=== PATIENT | female | born 1955 | race Caucasian/White ===

== ENCOUNTER 2019-06-05 13:44 | Outpatient (RCR) | payer MEDICARE, SELFPAY | END 2019-06-28 23:59 | disposition home or self-care (01) | LOC: SPT 13:44 | PROVIDERS: Family Provider Family Medicine; PCP Family Medicine; Visit Provider Family Medicine | DX: G89.29 Other chronic pain (principal); M54.5 Low back pain; M25.551 Pain in right hip; M25.512 Pain in left shoulder | CPT/HCPCS: 97110; 97161; 97164; G0283 ==

== ENCOUNTER → 2019-06-24 16:21 | Outpatient (BNVA) | payer MEDICARE, SELFPAY | PROVIDERS: Family Provider Family Medicine; PCP Family Medicine; Referring Provider Family Medicine; Visit Provider Specialist | DX: M25.512 Pain in left shoulder (principal) | CPT/HCPCS: 73030 ==

== ENCOUNTER 2019-06-29 06:00 | Outpatient (RCR) | payer MEDICARE, SELFPAY | END 2019-07-27 23:59 | disposition home or self-care (01) | LOC: SPT 06:00 | PROVIDERS: Family Provider Family Medicine; PCP Family Medicine; Visit Provider Family Medicine | DX: G89.29 Other chronic pain (principal); M54.5 Low back pain; M25.551 Pain in right hip; M25.512 Pain in left shoulder | CPT/HCPCS: 97110; 97112; 97140; 97530 ==

== ENCOUNTER 2019-07-28 06:00 | Outpatient (RCR) | payer MEDICARE, SELFPAY | END 2019-08-27 23:59 | disposition home or self-care (01) | LOC: SPT 06:00 | PROVIDERS: Family Provider Family Medicine; PCP Family Medicine; Visit Provider Family Medicine | DX: M19.012 Primary osteoarthritis, left shoulder (principal) | CPT/HCPCS: 97110 ==

== ENCOUNTER 2019-07-31 15:13 | Outpatient (CLI) | payer MEDICARE, SELFPAY ==
--- NOTE | 2019-07-31 15:15 | MR_ITS ---
WS: [id number] MRI LUMBAR SPINE NONCONTRAST HISTORY: CHRONIC LOW BACK PAIN COMPARISON: None available. TECHNIQUE: Sagittal and axial multisequence imaging is submitted. Reversal normal cervical lordosis with degenerative disc disease in the cervical spine. Mild LEFT con vex curvature thoracic spine. Advanced degenerative disc disease at T11-12. Very slight anterior wedg ing of T12 Severe degenerative changes throughout the lumbar spine. Focal RIGHT convex curvature of the mid lumb ar spine with asymmetric disc space narrowing. Severe disc space narrowing at all levels with reactiv e marrow edema. No fractures. Most significant degenerative disc disease is at L1-2, L2-3 and L3-4. Conus terminates normally at L1. L1-L2: L1 retrolisthesis by 3 mm with a focal LEFT paracentral and subarticular recess disc protrusio n and facet arthropathy with encroachment upon the lateral thecal sac. Moderate bilateral foraminal s tenosis with more advanced LEFT subarticular recess stenosis. L2-L3: Diffuse disc bulging with facet and ligamentum flavum hypertrophy. Mild osteophytic ridging an d 2 mm retrolisthesis of L2. Severe bilateral foraminal stenosis. L3-L4: Diffuse disc bulging and facet arthropathy. Moderate central and LEFT subarticular and LEFT fo raminal stenosis. Severe RIGHT subarticular recess and RIGHT foraminal stenosis. L4-L5: Moderate to severe central with bilateral foraminal and subarticular recess stenosis due to co mbination of disc and facet disease and osteophytes. L5-S1: Very slight clumping of the nerve roots in the thecal sac with mild bilateral foraminal stenos is. RIGHT renal cyst measures 2.2 cm. MR/MR lumbar spine wo con* [id number] IMPRESSION: 1. Severe degenerative rotoscoliosis throughout the lumbar spine with multi le maria e areas of stenosis. 2. Moderate to severe central, bilateral subarticular recess stenosis at L3-4 and L4-5. 3. Severe bilateral foraminal stenosis at L2-3. 4. Moderate bilateral foraminal stenosis, greatest on the LEFT at L1-2 due to combination of disc disease and facet arthropathy. There is a focal LEFT parace ntral and subarticular disc protrusion at this level also.
== END 2019-07-31 15:14 | disposition home or self-care (01) ==
LOC: RADSHAW 15:13
PROVIDERS: Family Provider Family Medicine; PCP Family Medicine; Visit Provider Family Medicine
DX: M48.061 Spinal stenosis, lumbar region without neurogenic claudication (principal); M51.26 Other intervertebral disc displacement, lumbar region; M54.5 Low back pain; G89.29 Other chronic pain
CPT/HCPCS: 72148

== ENCOUNTER 2019-11-26 08:42 | Outpatient (CLI) | payer MEDICARE, SELFPAY ==
--- NOTE | 2019-11-26 09:00 | IR_ITS ---
WS: [id number] LUMBAR MYELOGRAM HISTORY: Low back pain COMPARISON: MRI 07/31/2019. FLUOROSCOPY TIME: 1.4 minutes. Procedure, risks and complications were explained to the patient. Risks including bleeding, infection , headaches, allergic reaction and seizures. Consent has been obtained. With the patient in prone position the skin over the lumbar region is cleansed with ChloraPrep and an esthetized with lidocaine. 22-gauge spinal needle is inserted into the thecal sac at the appropriate level determined by fluoroscopy. Omnipaque 240; 12 ml is injected slowly under fluoroscopy with no co mplications. Needle bevel is perpendicular to the longitudinal fibers of the dura. Stylet is reinsert ed prior to removal of the needle. Patient tolerated the procedure well. Patient will proceed to CT f or further evaluation. Moderate thoracolumbar scoliosis. S-shaped curvature the lumbar spine with osteopenia. Advanced degen erative changes at the disc spaces. No fractures or destructive process. L2 retrolisthesis by 3.8 mm on neutral imaging. Increases to 6.6 mm during extension with no change d uring flexion. L4 anterolisthesis by 2.6 mm on neutral increases to 4.9 mm during flexion and extension. Mild atherosclerosis aorta. IR/IR myelogram sp lumbar [id number] IMPRESSION: 1. Uncomplicated lumbar myelogram. 2. Flexion/extension instability of L2 and L4. 3. Moderate S-shaped lumbar scoliosis lumbar spine.
[2019-11-26] MEDS: iohexol 240 mg/mL 50 mL Btl INTRATHECA (10:15)
--- NOTE | 2019-11-26 11:30 | CT_ITS ---
WS: [id number] CT MYELOGRAM LUMBAR SPINE HISTORY: Low back pain TECHNIQUE: Contiguous 2.5 mm axial imaging performed from T12 through the mid sacral level. Bone and soft tissue windows reviewed. Sagittal and coronal reformats are submitted and reviewed. DLP: 1800.[address] scans at [facility] use at least one of these dose optimization techniques: automat ed exposure control; mA and/or kV adjustment per patient size (includes targeted exams where dose is matched to clinical indication); or iterative reconstruction. COMPARISON: MRI 07/31/2019 S-shaped curvature lumbar spine. Asymmetric disc space narrowing and osteophytes and facet joint arth ritis. 3 to 4 mm retrolisthesis of L1-L3. L4 anterolisthesis by 3 mm. No fractures. Severe degenerati ve disc space narrowing at L1-2 and L2-3. Moderate at L4-5. L1-L2: Diffuse osteophytic ridging and annular disc bulging. Small central and LEFT paracentral disc protrusion with mild contact on the cord. L2-L3: Retrolisthesis of L2 resulting in compression upon the ventral thecal sac. There is annular di sc bulging and facet arthritis. Mild central and LEFT subarticular recess stenosis. Severe bilateral foraminal stenosis. L3-L4: Retrolisthesis of L3 with diffuse annular disc bulging. RIGHT paracentral disc protrusion exte nds into the lateral recess. Moderate central and RIGHT subarticular recess stenosis. Severe RIGHT fo raminal stenosis. L4-L5: Diffuse annular disc bulging and osteophytic ridging with facet arthritis. Osteophytes encroac h into the central canal by facet disease on the RIGHT. Moderate central, subarticular recess and kenia ateral foraminal stenosis. L5-S1: Mild posterior disc bulging. No stenosis. CT/CT lumbar spine w con [id number] IMPRESSION: 1. Moderate S-shaped scoliosis lumbar spine with advanced disc disease and fac et arthritis throughout the lumbar spine. 2. Moderate central and RIGHT subarticular recess stenosis and severe RIGHT fo raminal stenosis at L3-4 due to combination of factors. 3. Moderate central, subarticular recess and bilateral foraminal stenosis at L 4-5. 4. Small central LEFT paracentral disc protrusion at L1-[address] 5. Severe bilateral foraminal stenosis at L2-3.
== END 2019-11-26 08:43 | disposition home or self-care (01) ==
LOC: RADWPI 08:46
PROVIDERS: Family Provider Family Medicine; PCP Family Medicine; Visit Provider Licensed Practical Nurse
DX: M51.17 Intervertebral disc disorders with radiculopathy, lumbosacral region (principal); M51.26 Other intervertebral disc displacement, lumbar region
CPT/HCPCS: 62304; 72120; 72132; Q9966

== ENCOUNTER 2020-01-06 15:20 | Outpatient (CLI) | payer MEDICARE, SELFPAY ==
--- NOTE | 2020-01-06 15:28 | MM_ITS ---
WS: [id number] BILATERAL DIGITAL SCREENING MAMMOGRAPHY WITH CAD CLINICAL INFORMATION: SCREENING HISTORY: Screening mammogram. No current complaints. COMPARISON: TECHNIQUE: Bilateral CC and MLO views. FINDINGS: The breasts are composed of heterogeneous fibroglandular density tissue, which can limit the detectio n of small underlying mass lesions. No suspicious mass, asymmetry, calcifications, or architectural d istortion. No evidence of malignancy. Punctate and lucent centered calcifications right breast. Left breast biopsy marker. MM/[place] [id number] IMPRESSION: BI-RADS: 2-Benign FOLLOW UP: 1 Year Follow-up Recommend return to annual screening mammography.
== END 2020-01-06 15:21 | disposition home or self-care (01) ==
LOC: RADSHAW 15:27
PROVIDERS: PCP Family Medicine; Visit Provider Family Medicine
DX: Z12.31 Encounter for screening mammogram for malignant neoplasm of breast (principal)
CPT/HCPCS: 77067

== ENCOUNTER → 2020-01-30 13:06 | Outpatient (BNVA) | payer MEDICARE, SELFPAY | PROVIDERS: PCP Family Medicine; Visit Provider Anesthesiology Pain Medicine | DX: M48.062 Spinal stenosis, lumbar region with neurogenic claudication (principal); M43.16 Spondylolisthesis, lumbar region; M48.061 Spinal stenosis, lumbar region without neurogenic claudication; M51.17 Intervertebral disc disorders with radiculopathy, lumbosacral region; M54.2 Cervicalgia; Z79.899 Other long term (current) drug therapy | CPT/HCPCS: 99205 ==

== ENCOUNTER → 2020-02-11 17:08 | Outpatient (BNVA) | payer MEDICARE, SELFPAY | PROVIDERS: PCP Family Medicine; Visit Provider Nurse Practitioner Family | DX: Z20.828 Contact with and (suspected) exposure to other viral communicable diseases (principal) | CPT/HCPCS: 87635 ==

== ENCOUNTER → 2020-03-04 12:39 | Outpatient (BNVA) | payer MEDICARE, SELFPAY | PROVIDERS: PCP Family Medicine; Visit Provider Anesthesiology Pain Medicine | DX: M48.062 Spinal stenosis, lumbar region with neurogenic claudication (principal); F17.290 Nicotine dependence, other tobacco product, uncomplicated | CPT/HCPCS: 64483; 64484; J1040; J3490 ==

== ENCOUNTER → 2020-03-12 13:41 | Outpatient (BNVA) | payer MEDICARE, SELFPAY | PROVIDERS: PCP Internal Medicine; Visit Provider Anesthesiology Pain Medicine | DX: M48.062 Spinal stenosis, lumbar region with neurogenic claudication (principal); M43.16 Spondylolisthesis, lumbar region; M48.061 Spinal stenosis, lumbar region without neurogenic claudication; M51.17 Intervertebral disc disorders with radiculopathy, lumbosacral region; M54.2 Cervicalgia; F17.210 Nicotine dependence, cigarettes, uncomplicated | CPT/HCPCS: 99213 ==

== ENCOUNTER 2020-03-27 12:56 | Outpatient (CLI) | payer MEDICARE, SELFPAY ==
--- NOTE | 2020-03-27 | CT_ITS ---
WS: [id number] Exam: CT neck w con* [id number] Date/Time of Exam: 03/27/2020 1:01 PM Reason For Exam: COUGH DLP: 2069.[address] scans at [facility] use at least one of these dose optimization techniques: automat ed exposure control; mA and/or kV adjustment per patient size (includes targeted exams where dose is matched to clinical indication); or iterative reconstruction. The neck is evaluated in the axial plane with sagittal and coronal re-formatted images. Intravenous c ontrast was administered. There is soft tissue thickening identified along the posterior aspect of the airway near the level of the vocal cords. A small mass is not excluded. No significant lymphadenopathy in the neck. The airwa y is otherwise patent. The submandibular glands and parotid glands are symmetrical side to side. No m ass is seen in the region of the tongue base. Vascular structures are unremarkable. Degenerative novak ges of the cervical spine. Moderate spinal canal stenosis at the C5-6 level secondary to posterior os teophyte formation. The lung apices are clear. Recommendations: Further workup with direct visualization is suggested. CT/CT neck w con* [id number] IMPRESSION: 1. Soft tissue thickening seen along the posterior aspect of the airway near th e level of the vocal cords. A small mass is not excluded. There is no lymphaden opathy in the neck.
[2020-03-27 14:01] LABS: Blood Urea Nitrogen 9 mg/dL (8-23)
[2020-03-27] MEDS: iohexol 300 mg/mL 100 mL Btl IV (14:14)
== END 2020-03-27 12:57 | disposition home or self-care (01) ==
LOC: RADWPI 12:59
PROVIDERS: PCP Internal Medicine; Visit Provider Specialist
DX: R05 Cough (principal)
CPT/HCPCS: 70491; 82565; 84520; Q9967

== ENCOUNTER → 2020-04-01 17:03 | Outpatient (BNVA) | payer MEDICARE, SELFPAY | PROVIDERS: PCP Internal Medicine; Visit Provider Internal Medicine Pulmonary Disease | DX: Z11.59 Encounter for screening for other viral diseases (principal); J43.2 Centrilobular emphysema | CPT/HCPCS: 87635 ==

== ENCOUNTER 2020-04-03 15:25 | Outpatient (CLI) | payer MEDICARE, SELFPAY ==
--- NOTE | 2020-04-03 | USCV_ITS ---
Kamla Ghotra Age: 65 Gender: F : 1955 Exam Date: 04/03/2020 16:01 Ordering Phys: CODY STEWARD Technologist: Lionel Guidry Exam Location: [facility] [place] Indication: RIGHT LEG EDEMA AND PAIN PROCEDURES: Venous duplex imaging was performed in only the right lower extremity. The following venous structures were evaluated: common femoral vein, profunda vein, proximal portion of the greater saphenous vein, superficial femoral vein, and the popliteal vein. In addition, the posterior tibial and peroneal trunk were evaluated. Serial compression, augmentation maneuvers, and spectral Doppler flow evaluation were performed. FINDINGS: No DVT at this time. There is thrombus noted in the right greater saphenous vein extending from below the knee to the high thigh. It does not extend into the groin or the common femoral vein. All other veins appear free of thrombus at this time. CONCLUSIONS No evidence of right lower extremity DVT. Superficial thrombus right GSV from below the knee to upper thigh Lobo Shipman MD (Electronically Signed) Final Date: 03 April 2020 16:53 S
[2020-04-03 16:34] LABS: Basophils % 0.5 %; Eosinophils # 0.1 10^3/uL (0.0-0.8); Eosinophils % 0.8 %; Hematocrit 39.8 % (37.0-47.0); Hemoglobin 13.3 g/dL (11.5-15.3); Lymphocytes % 17.6 %; Mean Corpuscular HGB Conc 33.4 g/dL (30.0-36.0); Mean Corpuscular Hemoglobin 28.5 pg (28.0-34.0); Mean Corpuscular Volume 85.2 fL (81-99); Mean Platelet Volume 9.7 fL (7.4-10.4); Monocytes # 0.5 10^3/uL (0.2-0.9); Neutrophils % 72.8 %; Nucleated Red Blood Cells % 0 %; Platelet Count 307 10^3/cmm (130-400); Red Blood Count 4.67 10^6/uL (4.1-5.3); Red Cell Distribution Width 13.8 % (12.1-15.1); White Blood Count 5.9 10^3/uL (4.0-10.0)
[2020-04-06 17:04] LABS: Alternaria Alternata (M6) Ige <0.10 kU/L; Alternaria Class 0; Bermuda Class 2; Bermuda Grass (G2) Ige 1.21 kU/L; Cat Dander (E1) Ige 0.52 kU/L; Cat Dander Class 1; Common Ragweed (Short) (W1) Ig 4.18 kU/L; D. Farinae Class 1; Dermatophagoides Class 0/1; Dermatophagoides Farinae (D2) 0.56 kU/L; Dermatophagoides Pteronyssinus 0.32 kU/L; Dog Dander (E5) Ige 0.37 kU/L; Dog Dander Class 1; Elm (T8) Ige 1.19 kU/L; Elm Class 2; English Plantain Class 2; House Dust (Greer) (H1) Ige 0.82 kU/L; House Dust (Hollister- Stier) 0.47 kU/L; House Dust Class 1; House Dust Class 2; Immunoglobulin E 209 kU/L (<OR=114); Immunoglobulin E 210 kU/L (<OR=114); Johnson Grass (G10) Ige 1.31 kU/L; Johnson Grass Cl 2; June Grass Class 2; June Grass(Kentucky Blue) (G8) 2.52 kU/L; Lamb'S Quarters (Goose Foot) 0.98 kU/L; Lamb'S Quarters Class 2; Maple (Box Elder) (T1) Ige 1.01 kU/L; Maple Class 2; Meadow Fescue (G4) Ige 2.58 kU/L; Meadow Fescue Class 2; Mucor Racemosus Class 0/1; Oak (T7) Ige 0.91 kU/L; Oak Class 2; Orchard Grass (Cocksfoot) (G3) 2.22 kU/L; Penicillium Class 0; Penicillium Notatum (M1) Ige <0.10 kU/L; Perennial Rye Grass (G5) Ige 2.24 kU/L; Perennial Rye Grass Class 2; Ragweeed Class 3; Rough Marsh Elder Class 2; Sweet Vernal Class 2; Sweet Vernal Grass (G1) Ige 2.65 kU/L; Timothy Grass (G6) Ige 2.32 kU/L; Timothy Grass Class 2
[2020-04-08 21:58] LABS: Aspergillus Fumigatus, Igg Ab, 35.8 mg/L (<=102)
== END 2020-04-03 15:26 | disposition home or self-care (01) ==
LOC: RAD 15:30
PROVIDERS: Internal Medicine Pulmonary Disease; PCP Internal Medicine; Visit Provider Nurse Practitioner Family
DX: R60.0 Localized edema (principal); M79.604 Pain in right leg; I82.890 Acute embolism and thrombosis of other specified veins
CPT/HCPCS: 82785; 85025; 86003; 93971

== ENCOUNTER 2020-04-03 16:44 | Emergency (ER) | payer MEDICARE, SELFPAY ==
[2020-04-03 17:37] VITALS: BP 129/84; PULSE 94; RESP 16; TEMP 36.8; O2SAT 98; BMI 26.6
--- NOTE | 2020-04-03 18:27 | W.ED.RECABL ---
HPI - Recheck/Abnormal Lab/Rx General: Chief Complaint: Extremity Problem,Nontraumatic Stated Complaint: just did ultrasound/found blood clots/[employer] Time Seen by Provider: 04/03/20 18:27 Source: patient Mode of arrival: ambulatory Limitations: no limitations History of Present Illness: HPI narrative: Patient comes in for redness to the right inner leg. Patient denies any pain or fever. Patient does report some tenderness along the erythematous area. Review of Systems General: Reports: 10 or more systems reviewed and unremarkable except in HPI and below Skin/Breast: Reports: erythema and skin tenderness PFS ED PFSH: Medical History (Updated 04/03/20 @ 18:58 by SAMANTHA Blankenship) COPD (chronic obstructive pulmonary disease) Hypertension Hypothyroidism Intervertebral disc disorder with radiculopathy of lumbosacral region Lumbar stenosis with neurogenic claudication Osteoarthritis Scoliosis of thoracolumbar spine Spinal stenosis of lumbar region with radiculopathy Spondylolisthesis, lumbar region Surgical History History of hernia repair History of tonsillectomy Family History Mother Ovarian cancer Social History (Updated 03/23/20 @ 13:57 by Ross Chanel LPN) Smoking and tobacco status: current every day smoker cigarettes Packs smoked per day: 0.5 Years cigarettes smoked: 37 [ Other cigarette details: [id number] ] Quit status (tobacco): considering quitting Second hand smoke exposure: No Smoking risk assessment/counseling performed?: Yes Alcohol intake: current Alcohol intake frequency: holidays/special occasions only Caregiver/support person: No Lives independently: Yes Household members: none Marital status: Single Current occupational status: employed Current occupation: [employer] History of recent travel: No Current gender identity: Female Physical Exam Const: COMMON NORMALS: no acute distress and patient oriented x3 GENERAL APPEARANCE: cooperative HENMT: COMMON NORMALS: normocephalic and Normal external nose present HEAD & SCALP: normal to inspection and normocephalic NOSE: Normal external nose present Eye: GENERAL EYE: appearance normal, both eyes and all related structures Neck/C-Spine: COMMON NORMALS: full ROM Chest: COMMONS NORMALS: normal inspection of the chest Resp: COMMON NORMALS: normal respiratory effort EFFORT & INSPECTION: Yes able to speak in complete sentences Cardio: COMMON NORMALS: regular rate and regular rhythm RATE: regular rate RHYTHM: regular rhythm GI: COMMON NORMALS: non-tender : COMMON NORMALS: Yes no CVA tenderness BLADDER/KIDNEY EXAM: Yes no CVA tenderness Back/Pelvis: COMMON NORMALS: no CVA tenderness and thoracic and lumbar spine normal to inspection Extremity: COMMON NORMALS: normal to inspection Neuro: COMMON NORMALS: patient oriented x3 and moves all extremities Psych: COMMON NORMALS: mental status grossly normal and cooperative Skin: NARRATIVE SKIN EXAM: Note a linear area of redness to the right inner leg. There is multiple tortuous varicose veins. Along the area of redness you can palpate a ropey varicose vein. It is tender to touch. Course Vital Signs: Vital signs: Vital Signs Temperature 98.2 F 04/03/20 17:37 Pulse Rate 94 04/03/20 17:37 Respiratory Rate 18 04/03/20 18:50 Blood Pressure 129/84 04/03/20 17:37 Pulse Oximetry 98 04/03/20 17:37 MDM - Recheck/Abnormal Lab/Rx MDM Narrative: Medical decision making narrative: Patient came in for concerns of a venous blood clot. On exam we note a ropey varicosity. Differential diagnosis includes DVT, superficial thrombophlebitis, cellulitis. Patient has a superficial thrombophlebitis. We will treat with famotidine and Ecotrin. I reviewed this with Dr. Preston who agreed to plan. Patient should follow-up with primary care for further treatment. Discharge Plan Discharge Patient Disposition: Home Clinical Impression: Superficial thrombophlebitis of leg Qualifiers: Laterality: right Qualified Code(s): I80.01 - Phlebitis and thrombophlebitis of superficial vessels of right lower extremity Condition: Stable Prescriptions: New Ecotrin 325 mg tablet,delayed release (DR/EC) 325 mg PO TID Qty: 30 RF: 0 famotidine 40 mg tablet 40 mg PO BID Qty: 60 RF: 0 No Action cholecalciferol (vitamin D3) 25 mcg (1,000 unit) capsule 25 mcg PO DAILY RF: 0 One-A-Day Women's 50 Plus 400-20 mcg tablet 1 tab PO DAILY RF: 0 methylprednisolone acetate [Depo-Medrol] 80 mg/mL suspension 80 mg Infiltration ONCE Qty: 1 RF: 0 sodium chloride 0.9 % Solution 5 ml epidural ONCE Qty: 1 RF: 0 bupivacaine (PF) 0.25 % (2.5 mg/mL) solution 2 ml epidural ONCE Qty: 1 RF: 0 lidocaine (PF) 10 mg/mL (1 %) solution 10 mg SUBCUT ONCE Qty: 1 RF: 0 doxycycline hyclate 100 mg capsule 100 mg PO BID RF: 0 Spiriva Respimat 2.5 mcg/actuation mist 2 puff INHALATION DAILY Qty: 4 RF: 3 montelukast [Singulair] 10 mg tablet 10 mg PO DAILY Qty: 30 RF: 3 fluticasone propionate [Flonase Allergy Relief] 50 mcg/actuation spray,suspension 1 spray INTRANASAL BID Qty: 9.9 RF: 3 diazepam 10 mg tablet 10 mg PO TID PRNRF: 0 levothyroxine 100 mcg tablet 100 mcg PO QDAY RF: 0 irbesartan 300 mg tablet 150 mg PO QDAY RF: 0 amlodipine 5 mg tablet 5 mg PO DAILY RF: 0 ascorbic acid (vitamin C) 500 mg tablet 500 mg PO BID RF: 0 (DME) TENS 502 Device See Rx Instructions .ROUTE .MEDSUPPLY Qty: 1 RF: 0 (DME) TENS Replacement Back Pads 3.74 X 7.48 pad See Rx Instructions [id number] .MEDSUPPLY Qty: 2 RF: 0 Discharge Orders: Discharge Order (Routine); Ordered 04/03/20 Ordered By: Frank Issa Referrals: Amber Bolton DO [Primary Care Provider] - Discharge Diet: Usual diet Discharge Activity: Increase activity as tolerated Patient Instructions: Superficial Thrombophlebitis (ED) Activity Restrictions/Additional Instructions: Take famotidine 40 mg twice a day for prevention of GI bleed. Take Ecotrin, enteric-coated aspirin 325 mg, 3 times a day for redness and swelling of the veins. Use elastic bandage to the area for pain and discomfort, and support of the vasculature. Drink plenty of water. Activity as tolerated. Follow-up with primary care for further treatment. Coding Level of Care Code ED Endoscopy Rn for Ramon Fwd Exam Comprehensive
[2020-04-03 18:50] VITALS: RESP 18
[2020-04-03] MEDS: aspirin 325 mg EC Tablet PO (19:25)
[2020-04-03] MEDS: famotidine 20 mg Tablet 40 MG PO (19:25)
[2020-04-03 19:38] VITALS: RESP 18
== END 2020-04-03 19:38 | disposition home or self-care (01) ==
PROVIDERS: Emergency Provider Nurse Practitioner Family; PCP Internal Medicine
DX: I80.01 Phlebitis and thrombophlebitis of superficial vessels of right lower extremity (principal); J44.9 Chronic obstructive pulmonary disease, unspecified; I10 Essential (primary) hypertension; F17.210 Nicotine dependence, cigarettes, uncomplicated; R60.0 Localized edema; M79.604 Pain in right leg; I82.890 Acute embolism and thrombosis of other specified veins
CPT/HCPCS: 12345; 82785; 85025; 86003; 93971; 99282; 99283

== ENCOUNTER 2020-04-07 12:38 | Outpatient (CLI) | payer MEDICARE, SELFPAY ==
--- NOTE | 2020-04-07 12:45 | CT_ITS ---
WS: [id number] LDCT LUNG CANCER SCREENING TECHNIQUE: Noncontrast CT of the chest with coronal and sagittal reformatted images. CLINICAL INFORMATION: NICOTINE DEPENDENCE, CIGARETTES COMPARISON: CT chest 2 27,018 DLP: 56.96 mGy.cm DIvol: 1.[address] scans at [facility] use at least one of these dose optimization techniques: automat ed exposure control; mA and/or kV adjustment per patient size (includes targeted exams where dose is matched to clinical indication); or iterative reconstruction. FINDINGS: Moderate chronic emphysematous changes. No acute pulmonary infiltrates. No focal pneumonia or pleural fluid. Subsegmental atelectasis and fibrosis in the right lower lobe and right middle lobe. Subsegme ntal atelectasis in the lingula. Calcified granuloma left lower lobe. No axillary lymphadenopathy. No mediastinal or hilar lymphadenopathy. Normal right adrenal gland. Thickening of the left adrenal gland is unchanged.. Thoracolumbar curve c onvex right. Degenerative disc disease at L1-2 levels the disc space height and endplate sclerosis. CT/CT lung screening [id number] IMPRESSION: LUNG-RADS: 1-Negative FOLLOW UP: 12 Month: Continue annual screening with LDCT
--- NOTE | 2020-04-07 13:22 | PFTS_ITS ---
Date of Study:04/07/20 Date of Dictation: MECHANICS: Forced vital capacity (FVC) is normal. Forced expiratory volume in one second (FEV1) is normal. FEV1/FVC is normal. FLOW VOLUME LOOP: Mild scooping. LUNG VOLUMES: Total lung capacity (TLC) is elevated. Residual volume (RV) is elevated. DIFFUSING CAPACITY FOR CARBON MONOXIDE: Normal. INTERPRETATION: The pulmonary function tests are normal. The mildly elevated residual volume and total lung capacity could be nonspecific or could be secondary to small airways disease. Gas exchange (DLCO) is normal. MTDD
== END 2020-04-07 12:39 | disposition home or self-care (01) ==
LOC: RT 12:41
PROVIDERS: PCP Internal Medicine; Visit Provider Internal Medicine Pulmonary Disease
DX: J43.2 Centrilobular emphysema (principal); F17.210 Nicotine dependence, cigarettes, uncomplicated
CPT/HCPCS: 94010; 94726; 94729; G0297

== ENCOUNTER → 2020-04-20 13:26 | Outpatient (BNVA) | payer MEDICARE, SELFPAY | PROVIDERS: PCP Internal Medicine; Visit Provider Anesthesiology Pain Medicine | DX: G89.29 Other chronic pain (principal); M47.816 Spondylosis without myelopathy or radiculopathy, lumbar region; M48.062 Spinal stenosis, lumbar region with neurogenic claudication; M43.16 Spondylolisthesis, lumbar region; M48.061 Spinal stenosis, lumbar region without neurogenic claudication; M47.819 Spondylosis without myelopathy or radiculopathy, site unspecified; M51.17 Intervertebral disc disorders with radiculopathy, lumbosacral region; R10.2 Pelvic and perineal pain; M54.2 Cervicalgia | CPT/HCPCS: 99214 ==

== ENCOUNTER 2020-04-20 14:33 | Outpatient (CLI) | payer MEDICARE, SELFPAY ==
--- NOTE | 2020-04-20 14:50 | XR_ITS ---
WS: [id number] PELVIS TECHNIQUE: 1 view(s) of the pelvis CLINICAL INFORMATION: R10.2 - Pelvic and perineal pain COMPARISON: None. FINDINGS: Moderate to advanced degenerative arthritis right hip with joint space narrowing. Mild degenerative a rthritis left hip. Osteopenia. No acute fractures. Pelvic phleboliths. Degenerative arthritis sacroil iac joints. XR/XR pelvis 1-2V* [id number] IMPRESSION: Moderate degenerative arthritis right hip and mild degenerative arthritis left hip with joint space narrowing.
--- NOTE | 2020-04-20 14:50 | XR_ITS ---
WS: [id number] THORACIC SPINE TECHNIQUE: 3 views of the thoracic spine CLINICAL INFORMATION: M47.819 - Spondylosis without myelopathy or radiculopathy, site unspecified COMPARISON: None. FINDINGS: Osteopenia. Thoracic curve convex left. Mild spondylitic changes thoracic spine. Disc space narrowing in the lower thoracic and upper lumbar spine. No acute appearing compression fractures. Visualized l ungs are well aerated. XR/XR thoracic spine 3V* [id number] IMPRESSION: 1. Osteopenia. 2. Thoracic curve convex left. 3. Mild spondylitic changes. 4. No acute appearing compression fractures.
--- NOTE | 2020-04-20 14:50 | XR_ITS ---
WS: [id number] LUMBAR SPINE TECHNIQUE: 5 views of the lumbar spine CLINICAL INFORMATION: Cervical COMPARISON: None. FINDINGS: Marked S-shaped thoracolumbar scoliosis. Advanced small vessel degenerative disc disease. 5 nonrib-be aring lumbar vertebral bodies. Osteopenia. Multilevel disc space narrowing throughout the lumbar spin e. Slight retrolisthesis L1 on L2 and L2 on L3. Trace anterolisthesis L4 on L5. Disc space narrowing worse at L1-L2, L2-L3, and L4-5. Moderate facet arthropathy L4-L5 and L5-S1. Aortic calcification. Ch ronic anterior wedging in the lower thoracic spine. XR/XR lumbar spine min 4V [id number] IMPRESSION: 1. Advanced lumbar scoliosis. 2. Advanced lytic changes with osteopenia. 3. Multilevel degenerative disc disease as described above. 4. No acute appearing compression fractures.
== END 2020-04-20 14:34 | disposition home or self-care (01) ==
LOC: RADWPI 14:37
PROVIDERS: PCP Internal Medicine; Visit Provider Anesthesiology Pain Medicine
DX: M47.816 Spondylosis without myelopathy or radiculopathy, lumbar region (principal); R10.2 Pelvic and perineal pain; M85.88 Other specified disorders of bone density and structure, other site; M19.09 Primary osteoarthritis, other specified site; M16.12 Unilateral primary osteoarthritis, left hip; M41.86 Other forms of scoliosis, lumbar region; M51.36 Other intervertebral disc degeneration, lumbar region
CPT/HCPCS: 72072; 72114; 72170

== ENCOUNTER 2020-04-30 15:08 | Outpatient (CLI) | payer MEDICARE, SELFPAY ==
[2020-04-30 15:36] LABS: Basophils % 0.7 %; Eosinophils # 0.2 10^3/uL (0.0-0.8); Eosinophils % 2.7 %; Hematocrit 37.6 % (37.0-47.0); Hemoglobin 12.7 g/dL (11.5-15.3); Lymphocytes # 0.9 10^3/uL (0.8-4.8); Lymphocytes % 15.5 %; Mean Corpuscular HGB Conc 33.8 g/dL (30.0-36.0); Mean Corpuscular Hemoglobin 28.9 pg (28.0-34.0); Mean Corpuscular Volume 85.5 fL (81-99); Mean Platelet Volume 9.2 fL (7.4-10.4); Monocytes # 0.7 10^3/uL (0.2-0.9); Neutrophils # 4.14 10^3/uL (1.8-7.7); Neutrophils % 69.8 %; Nucleated Red Blood Cells % 0 %; Platelet Count 431 10^3/cmm (130-400); Red Cell Distribution Width 14.1 % (12.1-15.1); White Blood Count 5.9 10^3/uL (4.0-10.0)
[2020-04-30 16:19] LABS: Alanine Aminotransferase 13 U/L (0-33); Albumin Level 4.1 g/dL (3.5-5.2); Alkaline Phosphatase 110 IU/L (35-105); Anion Gap 16.4 (5-19); Aspartate Amino Transferase 15 U/L (0-32); Blood Urea Nitrogen 10 mg/dL (8-23); Calcium 9.7 mg/dL (8.5-10.5); Carbon Dioxide 26 mmol/L (22-29); Chloride 95 mmol/L (98-107); Globulin 2.8 g/dL (1.3-4.6); Glomerular Filtration Rate 83.5 mL/min (90-130); Glucose 104 mg/dL (65-115); Osmolality Calculated 275 mOsm/kg (285-295); Potassium 4.4 mmol/L (3.5-5.1); Sodium 133 mmol/L (136-145); Total Bilirubin 0.3 mg/dL (0.15-1.2); Total Protein 6.9 g/dL (6.6-8.7)
== END 2020-04-30 15:09 | disposition home or self-care (01) ==
PROVIDERS: PCP Internal Medicine; Visit Provider Specialist
DX: J38.3 Other diseases of vocal cords (principal)
CPT/HCPCS: 36415; 80053; 85025

== ENCOUNTER → 2020-06-02 13:53 | Outpatient (BNVA) | payer MEDICARE, SELFPAY | PROVIDERS: PCP Internal Medicine; Visit Provider Anesthesiology Pain Medicine | DX: M47.816 Spondylosis without myelopathy or radiculopathy, lumbar region (principal); M51.17 Intervertebral disc disorders with radiculopathy, lumbosacral region; M48.062 Spinal stenosis, lumbar region with neurogenic claudication; F17.210 Nicotine dependence, cigarettes, uncomplicated | CPT/HCPCS: 64493; 64494; 64495; J1040; J3490 ==

== ENCOUNTER → 2020-06-17 11:02 | Outpatient (BNVA) | payer MEDICARE, SELFPAY | PROVIDERS: PCP Internal Medicine; Visit Provider Internal Medicine Rheumatology | DX: M19.041 Primary osteoarthritis, right hand (principal); M19.042 Primary osteoarthritis, left hand; I73.00 Raynaud's syndrome without gangrene; Z79.899 Other long term (current) drug therapy; J43.2 Centrilobular emphysema; F17.210 Nicotine dependence, cigarettes, uncomplicated; M21.612 Bunion of left foot; M21.611 Bunion of right foot; M20.42 Other hammer toe(s) (acquired), left foot; M20.41 Other hammer toe(s) (acquired), right foot; M19.072 Primary osteoarthritis, left ankle and foot; M19.071 Primary osteoarthritis, right ankle and foot | CPT/HCPCS: 36415; 73130; 73630; 82306; 85651; 86140; 86431; 99204 ==

== ENCOUNTER 2020-06-17 13:41 | Outpatient (CLI) | payer MEDICARE, SELFPAY ==
--- NOTE | 2020-06-17 13:59 | XR_ITS ---
WS: [id number] Left foot, 3 views, 06/17/2020 Clinical Data: M19.90 - Unspecified osteoarthritis, unspecified site Comparison: None. Findings: No fractures or dislocations are seen. There is a bunion of the head of the left first metatarsal. Th ere are hammertoes deformities of the left second through fifth toes. There is osteoarthritic change at the bases of the second through fifth metatarsals. There is a plantar spur.The soft tissues are no rmal. XR/XR foot LT min 3V* [id number] Impression: 1. Bunion at head of the left first metatarsal. 2. Hammertoe deformity of the left second through fifth toes. 3. Osteoarthritis at the bases of the second through fifth left foot metatarsal s.
--- NOTE | 2020-06-17 13:59 | XR_ITS ---
WS: [id number] Right foot, 3 views, 06/17/2020 Clinical Data: M19.90 - Unspecified osteoarthritis, unspecified site Comparison: None. Findings: No new fractures or dislocations are seen. There is a healed fracture of the distal third of the righ t fourth metatarsal.There is a bunion of the head of the right first metatarsal. There are flexion de formities of the right second through fifth toes. There is osteoarthritic change at the bases of the right second through fifth metatarsals.There is a small plantar spur. The soft tissues are normal. XR/XR foot RT min 3V* [id number] Impression: 1. Bunion at head of right first metatarsal. 2. Hammertoe deformities of second through fifth toes of the right foot. 3. Osteoarthritis at the bases of the right second through fifth metatarsals.
--- NOTE | 2020-06-17 13:59 | XR_ITS ---
WS: [id number] Left hand, 3 views, 06/17/2020 Clinical Data: M19.90 - Unspecified osteoarthritis, unspecified site Comparison: None. Findings: No fractures or dislocations are seen. There is osteoarthritic change of the left second and third DI P joints and of the left third PIP joint. There is osteoarthritic change at the base of the left firs t metacarpal articulation with the trapezium. There is osteoarthritis of the left first IP joint. The soft tissues are normal. XR/XR hand LT min 3V* [id number] Impression: Osteoarthritis of the left hand second and third DIP joints, third PIP joint, b ase of the left first metacarpal and left first IP joint.
--- NOTE | 2020-06-17 13:59 | XR_ITS ---
WS: [id number] Right hand, 3 views, 06/17/2020 Clinical Data: M19.90 - Unspecified osteoarthritis, unspecified site Comparison: None. Findings: No fractures or dislocations are seen. The soft tissues are unremarkable.There is osteoar thritic change of the right second through fifth DIP joints. There is osteoarthritis of the right fir st IP joint. The PIP and MP joints are normal. Soft tissues are unremarkable. XR/XR hand RT min 3V* [id number] Impression: Osteoarthritis of the second through fifth DIP joints of the right hand and of the right first IP joint.
[2020-06-17 14:49] LABS: C Reactive Protein 1.4 mg/L (0.0-4.9)
[2020-06-17 15:28] LABS: Erythrocyte Sedimentation Rate 12 mm/hr (0-15)
[2020-06-18 13:43] LABS: COMPLEMENT COMPONENT C3C 116 mg/dL (83-193); COMPLEMENT COMPONENT C4C 37 mg/dL (15-57)
[2020-06-18 14:14] LABS: Cyclic Citrullinated Peptide <16 UNITS
[2020-06-18 15:20] LABS: 25 Hydroxy Vitamin D 46 ng/mL (30-100)
[2020-06-19 13:44] LABS: COMPLEMENT, TOTAL (CH50) 59 U/mL (31-60)
[2020-06-22 13:43] LABS: CENTROMERE B ANTIBODY <1.0 NEG AI (<1.0 NEG); JO-1 ANTIBODY <1.0 NEG AI (<1.0 NEG); RNP ANTIBODY <1.0 NEG AI (<1.0 NEG); SCL-70 ANTIBODY <1.0 NEG AI (<1.0 NEG); SJOGREN'S ANTIBODY (SS-A) <1.0 NEG AI (<1.0 NEG); SM ANTIBODY <1.0 NEG AI (<1.0 NEG); SS-B <1.0 NEG AI (<1.0 NEG)
[2020-06-22 14:49] LABS: ANA SCREEN, IFA NEGATIVE (NEGATIVE)
[2020-06-23 16:09] LABS: THYROID PEROXIDASE ANTIBODIES 42 IU/mL (<9)
[2020-06-25 01:13] LABS: DNA AB (DS) CRITHIDIA,IFA NEGATIVE (NEGATIVE)
== END 2020-06-17 13:42 | disposition home or self-care (01) ==
PROVIDERS: PCP Internal Medicine; Visit Provider Internal Medicine Rheumatology
DX: I73.00 Raynaud's syndrome without gangrene (principal); Z79.899 Other long term (current) drug therapy; M19.042 Primary osteoarthritis, left hand; M19.041 Primary osteoarthritis, right hand; M21.612 Bunion of left foot; M21.611 Bunion of right foot; M20.42 Other hammer toe(s) (acquired), left foot; M20.41 Other hammer toe(s) (acquired), right foot; M19.072 Primary osteoarthritis, left ankle and foot; M19.071 Primary osteoarthritis, right ankle and foot
CPT/HCPCS: 36415; 73130; 73630; 82306; 85651; 86140; 86431

== ENCOUNTER → 2020-06-25 13:09 | Outpatient (BNVA) | payer MEDICARE, SELFPAY | PROVIDERS: PCP Internal Medicine; Visit Provider Anesthesiology Pain Medicine | DX: M48.062 Spinal stenosis, lumbar region with neurogenic claudication (principal); M43.16 Spondylolisthesis, lumbar region; M48.061 Spinal stenosis, lumbar region without neurogenic claudication; M51.17 Intervertebral disc disorders with radiculopathy, lumbosacral region; M54.2 Cervicalgia; R10.2 Pelvic and perineal pain | CPT/HCPCS: 99214 ==

== ENCOUNTER 2020-08-21 15:55 | Outpatient (CLI) | payer MEDICARE, SELFPAY ==
--- NOTE | 2020-08-21 16:03 | XR_ITS ---
WS: [id number] SCREENING DEXA SCAN [employer] CLINICAL INFORMATION: OSTEOPOROSIS COMPARISON: None. FINDINGS: The L1-L4 bone mineral density measures 1.385 g/cm2. This corresponds to a T score score of 1.7 and Z score of 3.3. Left femoral neck bone mineral density measures 0.941 g/cm2. This corresponds to a T score of -0.5 an d Z score of 0.8. Right femoral neck bone mineral density measures 0.884 g/cm2. This corresponds to a T score -1.0of an d Z score of 0.3. Mean femoral neck bone mineral density measures 0.913 g/cm2. This corresponds to a T score of -0.8 an d Z score of 0.5. XR/XR DEXA axial skeleton* [id number] IMPRESSION: Normal bone mineralization. Patient's FRAX calculated 10 year probability for major osteoporotic fracture i s 9.6 % and osteoporotic hip fracture is 1.9%.
== END 2020-08-21 15:56 | disposition home or self-care (01) ==
LOC: RADWPI 16:02
PROVIDERS: PCP Internal Medicine; Visit Provider Nurse Practitioner Family
DX: M81.0 Age-related osteoporosis without current pathological fracture (principal)
CPT/HCPCS: 77080

== ENCOUNTER → 2020-09-10 12:50 | Outpatient (BNVA) | payer MEDICARE, SELFPAY | PROVIDERS: PCP Internal Medicine; Visit Provider Anesthesiology Pain Medicine | DX: M48.061 Spinal stenosis, lumbar region without neurogenic claudication (principal); M48.062 Spinal stenosis, lumbar region with neurogenic claudication; M43.16 Spondylolisthesis, lumbar region; M51.17 Intervertebral disc disorders with radiculopathy, lumbosacral region; M54.2 Cervicalgia; R10.2 Pelvic and perineal pain; F17.210 Nicotine dependence, cigarettes, uncomplicated | CPT/HCPCS: 99214 ==

== ENCOUNTER 2020-09-14 14:41 | Outpatient (CLI) | payer MEDICARE, SELFPAY ==
--- NOTE | 2020-09-14 14:53 | US_ITS ---
WS: [id number] ULTRASOUND PELVIS TECHNIQUE: Transabdominal and transvaginal. ULTRASOUND PELVIS TECHNIQUE: Transabdominal. CLINICAL INFORMATION: FAMILY H/O OVARIAN CANCER COMPARISON: None. FINDINGS: Heterogeneous Orientation: Anteverted. Size: 5.9 cm x 5.7 cm x 4.4 cm. Masses: Fibroid uterus Normal cervix Endometrium: Not well seen but measures approximately 4.2 mm Adnexa: Neither ovary is visualized Free fluid: None. Other findings: None. US/US pelvic with transvaginal IMPRESSION: 1. Heterogeneous uterus with fibroids 2. Endometrium not well visualized but measures 4.2 mm. 3. Neither ovary is visualized. 4. No free fluid in the cul-de-sac. 5. No adnexal masses.
== END 2020-09-14 14:42 | disposition home or self-care (01) ==
LOC: US 14:46
PROVIDERS: PCP Internal Medicine; Visit Provider Nurse Practitioner Family
DX: Z80.41 Family history of malignant neoplasm of ovary (principal); D25.9 Leiomyoma of uterus, unspecified
CPT/HCPCS: 76830; 76856

== ENCOUNTER → 2020-09-29 13:10 | Outpatient (BNVA) | payer MEDICARE, SELFPAY | PROVIDERS: PCP Internal Medicine; Visit Provider Anesthesiology Pain Medicine | DX: M47.816 Spondylosis without myelopathy or radiculopathy, lumbar region (principal); M48.062 Spinal stenosis, lumbar region with neurogenic claudication | CPT/HCPCS: 64493; 64494; 64495; J3490 ==

== ENCOUNTER → 2020-10-15 14:18 | Outpatient (BNVA) | payer MEDICARE, SELFPAY | PROVIDERS: PCP Internal Medicine; Visit Provider Anesthesiology Pain Medicine | DX: G89.29 Other chronic pain (principal); M48.062 Spinal stenosis, lumbar region with neurogenic claudication; M43.16 Spondylolisthesis, lumbar region; M48.061 Spinal stenosis, lumbar region without neurogenic claudication; M51.17 Intervertebral disc disorders with radiculopathy, lumbosacral region; M54.2 Cervicalgia; R10.2 Pelvic and perineal pain; F17.210 Nicotine dependence, cigarettes, uncomplicated | CPT/HCPCS: 99214 ==

== ENCOUNTER 2020-12-01 16:20 | Outpatient (RCR) | payer MEDICARE, SELFPAY | END 2020-12-26 23:59 | disposition home or self-care (01) | LOC: SPT 16:20 | PROVIDERS: PCP Internal Medicine; Visit Provider Anesthesiology Pain Medicine | DX: M54.5 Low back pain (principal); G89.29 Other chronic pain | CPT/HCPCS: 97032; 97110; 97161 ==

== ENCOUNTER 2020-12-27 06:00 | Outpatient (RCR) | payer MEDICARE, SELFPAY | END 2021-01-26 23:59 | disposition home or self-care (01) | LOC: SPT 06:00 | PROVIDERS: PCP Internal Medicine; Visit Provider Anesthesiology Pain Medicine | DX: M54.5 Low back pain (principal); G89.29 Other chronic pain | CPT/HCPCS: 97032; 97110 ==

== ENCOUNTER 2021-01-08 15:39 | Outpatient (CLI) | payer MEDICARE, SELFPAY ==
[2021-01-08 17:01] LABS: CA 125 12.1 U/mL (0-35)
== END 2021-01-08 15:40 | disposition home or self-care (01) ==
LOC: LAB 15:49
PROVIDERS: PCP Internal Medicine; Visit Provider Internal Medicine
DX: Z12.73 Encounter for screening for malignant neoplasm of ovary (principal)
CPT/HCPCS: 36415; 86304

== ENCOUNTER → 2021-01-14 14:25 | Outpatient (BNVA) | payer MEDICARE, SELFPAY | PROVIDERS: PCP Internal Medicine; Visit Provider Anesthesiology Pain Medicine | DX: G89.29 Other chronic pain (principal); M48.062 Spinal stenosis, lumbar region with neurogenic claudication; M43.16 Spondylolisthesis, lumbar region; M48.061 Spinal stenosis, lumbar region without neurogenic claudication; M51.17 Intervertebral disc disorders with radiculopathy, lumbosacral region; M79.604 Pain in right leg; R10.2 Pelvic and perineal pain; F17.210 Nicotine dependence, cigarettes, uncomplicated | CPT/HCPCS: 99213 ==

== ENCOUNTER 2021-01-27 06:00 | Outpatient (RCR) | payer MEDICARE, MEDICAID, SELFPAY | END 2021-02-25 23:59 | disposition home or self-care (01) | LOC: SPT 06:00 | PROVIDERS: PCP Internal Medicine; Referring Provider Anesthesiology Pain Medicine; Visit Provider Anesthesiology Pain Medicine | DX: M54.5 Low back pain (principal) | CPT/HCPCS: 97032; 97110; 97161 ==

== ENCOUNTER 2021-02-22 13:17 | Outpatient (CLI) | payer MEDICARE, MEDICAID, SELFPAY ==
--- NOTE | 2021-02-22 13:05 | CT_ITS ---
WS: [id number] CT ABDOMEN PELVIS TECHNIQUE: Noncontrast CT of the abdomen and pelvis with coronal and sagittal reformatted images. CLINICAL INFORMATION: DIVERTICULITIS, ABDOMINAL BLOATING, LLQ PAIN, RT INGUINAL HE COMPARISON: CT June 22, 2017 DLP: 690.[address] scans at [facility] use at least one of these dose optimization techniques: automated e xposure control; mA and/or kV adjustment per patient size (includes targeted exams where dose is matc hed to clinical indication); or iterative reconstruction. FINDINGS: Lung bases are well aerated. Hepatomegaly. Diffuse fatty infiltration liver. Enlargement of the right hepatic lobe. Normal gallbladder. Normal GE junction. Adrenal glands are normal. No hydronephrosis i n either kidney. No hydronephrosis in either kidney. Small right renal cyst. Normal noncontrast pancr eas. Normal caliber abdominal aorta. Aortic calcification. Sigmoid diverticulosis. Mild thickening of the sigmoid colon can be seen with mild or early diverticu litis. Mild induration in the left lower quadrant. No evidence of high-grade small or large bowel obs truction. Lumbar scoliosis. Slight retrolisthesis L1 on L2 and L2 on L3. Slight anterolisthesis L4 on L5. Lobulated fibroid uterus. CT/CT abdomen pelvis wo con [id number] IMPRESSION: 1. Mild acute diverticulitis with slight inflammatory stranding in the left lo wer quadrant. No drainable fluid collection or abscess. Mild thickening of the sigmoid colon. 2. Diffuse fatty infiltration liver. 3. Lobulated fibroid uterus. 4. Lumbar scoliosis.
[2021-02-22] MEDS: iohexol 300 mg/mL 50 mL Btl PO (13:27)
== END 2021-02-22 13:18 | disposition home or self-care (01) ==
PROVIDERS: PCP Internal Medicine; Visit Provider Nurse Practitioner Family
DX: R14.0 Abdominal distension (gaseous) (principal); R10.32 Left lower quadrant pain; K57.92 Diverticulitis of intestine, part unspecified, without perforation or abscess without bleeding; K40.90 Unilateral inguinal hernia, without obstruction or gangrene, not specified as recurrent; K76.0 Fatty (change of) liver, not elsewhere classified; M41.86 Other forms of scoliosis, lumbar region; D25.9 Leiomyoma of uterus, unspecified
CPT/HCPCS: 74176; Q9967

== ENCOUNTER 2021-03-19 14:49 | Outpatient (CLI) | payer MEDICARE, SELFPAY ==
--- NOTE | 2021-03-19 14:58 | MM_ITS ---
WS: [id number] BILATERAL DIGITAL SCREENING MAMMOGRAPHY WITH CAD CLINICAL INFORMATION: SCREENING HISTORY: Screening mammogram. No current complaints. COMPARISON: January 06, 2020 TECHNIQUE: Bilateral CC and MLO views. FINDINGS: The breasts are composed of heterogeneous fibroglandular density tissue, which can limit the detectio n of small underlying mass lesions. Biopsy clip upper outer left breast with adjacent stable previous ly biopsied nodule. Punctate and lucent centered calcifications. No suspicious mass, asymmetry, calci fications, or architectural distortion. No evidence of malignancy. MM/[place] [id number] IMPRESSION: BI-RADS: 2-Benign FOLLOW UP: 1 Year Follow-up Recommend return to annual screening mammography.
== END 2021-03-19 14:50 | disposition home or self-care (01) ==
LOC: RADSHAW 14:56
PROVIDERS: PCP Internal Medicine; Visit Provider Internal Medicine
DX: Z12.31 Encounter for screening mammogram for malignant neoplasm of breast (principal)
CPT/HCPCS: 77067

== ENCOUNTER → 2021-04-15 14:29 | Outpatient (BNVA) | payer MEDICARE, SELFPAY | PROVIDERS: PCP Family Medicine; Visit Provider Anesthesiology Pain Medicine | DX: G89.29 Other chronic pain (principal); M48.062 Spinal stenosis, lumbar region with neurogenic claudication; M43.16 Spondylolisthesis, lumbar region; M48.061 Spinal stenosis, lumbar region without neurogenic claudication; M51.17 Intervertebral disc disorders with radiculopathy, lumbosacral region; M50.30 Other cervical disc degeneration, unspecified cervical region; R10.2 Pelvic and perineal pain; M25.551 Pain in right hip; F17.200 Nicotine dependence, unspecified, uncomplicated | CPT/HCPCS: 99214 ==

== ENCOUNTER 2021-04-15 15:13 | Outpatient (CLI) | payer MEDICARE, SELFPAY ==
--- NOTE | 2021-04-15 15:44 | XR_ITS ---
WS: [id number] PELVIS AND RIGHT HIP HISTORY: M25.559 - Pain in unspecified hip COMPARISON: 04/20/2020 Right hip: No acute fracture or dislocation. Significant loss of normal joint space at the RIGHT hip. Small osteophytes bridging the femoral head and acetabulum. There is bone upon bone with small subch ondral cystic changes and loss of the cartilage noted on both sides of the joint space. Very minimal narrowing of the LEFT hip joint. Degenerative disc disease is asymmetric and L4-5. XR/XR hip RT 2-3V wo/w pel* [id number] IMPRESSION: 1. No hip fracture. 2. Severe degenerative joint disease at the RIGHT hip. Mildly progressed since 04/20/2020.
== END 2021-04-15 15:14 | disposition home or self-care (01) ==
PROVIDERS: PCP Family Medicine; Visit Provider Anesthesiology Pain Medicine
DX: M16.11 Unilateral primary osteoarthritis, right hip (principal)
CPT/HCPCS: 73502; 99214

== ENCOUNTER → 2021-05-06 14:49 | Outpatient (BNVA) | payer MEDICARE, SELFPAY | PROVIDERS: PCP Family Medicine; Visit Provider Anesthesiology Pain Medicine | DX: G89.29 Other chronic pain (principal); M48.062 Spinal stenosis, lumbar region with neurogenic claudication; M43.16 Spondylolisthesis, lumbar region; M48.061 Spinal stenosis, lumbar region without neurogenic claudication; M51.17 Intervertebral disc disorders with radiculopathy, lumbosacral region; M16.11 Unilateral primary osteoarthritis, right hip; M54.2 Cervicalgia; R10.2 Pelvic and perineal pain; R42 Dizziness and giddiness; M79.604 Pain in right leg; M41.86 Other forms of scoliosis, lumbar region; F17.200 Nicotine dependence, unspecified, uncomplicated | CPT/HCPCS: 99204 ==

== ENCOUNTER 2021-05-10 14:02 | Outpatient (CLI) | payer MEDICARE, MEDICAID, SELFPAY ==
[2021-05-10 14:50] LABS: Basophils % 1.1 %; Eosinophils # 0.1 10^3/uL (0.0-0.8); Eosinophils % 2.4 %; Hemoglobin 14.4 g/dL (11.5-15.3); Lymphocytes # 0.5 10^3/uL (0.8-4.8); Lymphocytes % 12.9 %; Mean Corpuscular HGB Conc 33.5 g/dL (30.0-36.0); Mean Corpuscular Hemoglobin 29.6 pg (28.0-34.0); Mean Corpuscular Volume 88.3 fl (81-99); Mean Platelet Volume 9.6 fL (7.4-10.4); Monocytes # 0.6 10^3/uL (0.2-0.9); Monocytes % 16.9 %; Neutrophils # 2.52 10^3/uL (1.8-7.7); Neutrophils % 66.4 %; Nucleated Red Blood Cells % 0 %; Platelet Count 338 10^3/cmm (130-400); Red Blood Count 4.87 10^6/uL (4.1-5.3); Red Cell Distribution Width 15.9 % (12.1-15.1); White Blood Count 3.8 10^3/uL (4.0-10.0)
[2021-05-10 15:21] LABS: Ferritin 264 ng/mL (15-150); Iron 164 ug/dL (37-145); Percent Saturation 64.8 % (20-50); Total Iron Binding Capacity 253 mcg/dl; Unsaturated Iron Binding 89 ug/dL (112-347)
--- NOTE | 2021-05-10 16:34 | ONC CON_ITS ---
Dr. Hoyt New Patient Note Patient: Kamla Ghotra Unit #: [id number]: [id number] Dicatated By: Gold Hoyt M.D.Date of Visit: May 10, 2021 Onc MED New Patient/Consult Referring Physician: Brad Nieves History of Present Illness: Ms. Kamla Ghotra, is a 66-year-old female was recently evaluated by PMD because of abnormal LFTs, her lab work-up done on March 23, 2021 showed AST 120 normal being 0-40, ALT 61 normal being 0-32, lab work-up done on April 03, 2021 showed ferritin 473 TIBC 322, iron 278, iron saturation 86%, hepatitis panel was negative,, TSH 0.79 Patient denies any history of oral iron supplements, denies any history of recent blood transfusion, as per patient when these labs were drawn she was feeling sick as her son was recently diagnosed with Covid infection and she was wondering whether she had Covid infection at that time too., Patient has a sister with history of hepatitis C who was treated with interferon and later she developed liver cancer Now feeling better, denies any night sweats, denies any recurrent fever, denies any weight loss, denies any jaundice, denies any abdominal pain, denies any alcohol abuse, she smokes about a pack a day Past Medical History: Ms. Ghotra's medical history consists of fatty liver disease, hypertension, and hypothyroidism. Past Surgical History: Ms. Ghotra's surgical/procedural history consists of hernia repair and tonsillectomy. Medications: amLODIPine Besylate 1 Tablet (of 5 mg) Oral daily, Irbesartan 1 Tablet (of 300 mg) Oral daily, Levothyroxine Sodium 1 Tablet (of 88 mcg) Oral daily, One Daily For Women 50+ Adv 1 Tablet Oral daily, Vitamin D3 1 Capsule (of 25 mcg ) Oral daily Allergies: NSAIDs Social History: Ms. Ghotra is single. She is a daily smoker. She drinks occasionally. She has indicated exposure to the following products: cigarettes. Family History: There is no documented family history. Review Of Symptoms: Review of Systems is not available for this patient. Vital Signs: Most recent vitals are not available for this patient. Performance Status: 0 - Fully active, able to carry on all predisease activities without restrictions. (ECOG) Physical Examination: ENMT - No mouth sores, no thrush, no jaundice, Respiratory - Lungs are clear to auscultation, Cardiovascular - Regular rate and rhythm of heart, Abdomen - Soft, bowel sounds present, Extremities - No visible edema. Lab/Imaging: Most recent lab results are not available for this patient. Impression: Elevated ferritin, iron saturation, serum iron, within normal TIBC per labs done on March 31, 2021, etiology could be multifactorial including as a acute phase reactant or excessive iron absorption or hemolysis or conditions like hemochromatosis. Elevated transaminases, with negative hepatitis panel, and fibrosure scan, etiology unclear, could be multifactorial. Hypertension, hypothyroidism Plan: Discussed with patient regarding her labs white blood count 3.8 hemoglobin 14.4 hematocrit 43 platelets 338,000 with a normal differential and repeat iron studies shows iron saturation 64.8% compared to 86%, ferritin 264 compared to 473, iron 164 compared to 278 previously on March 31, 2021 Clinically, patient is doing well, now feeling better, as per patient she was feeling sick when labs were drawn in March 2021, at that time her son was also diagnosed with Covid infection and she did get exposure to him, and suspecting she may have got Covid infection that time. Now recovering, overall feeling well and her repeat iron studies shows significant improvement in iron stores, her ferritin has gone down from 473 in March 2021 down to 264 today, serum iron was 278 and today is down to 164 and iron saturation was 86% earlier and down to 64.8. And her calculated transferrin saturation is about 60% normal being 45 to 62%. And her CBC is within normal range except mild leukopenia, at this point, as her follow-up lab work-up shows improvement and patient is also feeling better, we will repeat her iron studies/CMP/CBC in a month, patient was advised to be fasting to have adequate iron studies and if her calculated transferrin saturation improves further, then we may monitor on the other hand if it shows worsening and worsening of ferritin level, we will proceed with HFE genotype testing to rule out underlying hemochromatosis. Etiology of her elevated iron stores could be multifactorial or at the acute phase reactant, could be mild hemolysis although her haptoglobin level was within normal range or patient may have non-HFE iron overload condition like acute inflammation.Chronic smoking, But as follow-up lab work-up shows improvement, we will observe and repeat her labs especially when fasting, in a month as mentioned above and after reviewing above-mentioned lab work-up, will make further recommendations. Patient was advised to quit smoking was offered any assistance she may need Signed By: Gold Hoyt M.D. <<Signature on File>>
== END 2021-05-10 14:03 | disposition home or self-care (01) ==
LOC: ONCMED 14:08
PROVIDERS: PCP Family Medicine; Visit Provider Internal Medicine Hematology & Oncology
DX: R79.0 Abnormal level of blood mineral (principal); I10 Essential (primary) hypertension; E03.9 Hypothyroidism, unspecified; F17.210 Nicotine dependence, cigarettes, uncomplicated; K76.0 Fatty (change of) liver, not elsewhere classified; Z79.899 Other long term (current) drug therapy
CPT/HCPCS: 36415; 82728; 83540; 83550; 85025; 99204

== ENCOUNTER 2021-06-16 13:31 | Outpatient (CLI) | payer MEDICARE, MEDICAID, SELFPAY ==
[2021-06-16 14:21] LABS: Basophils % 0.5 %; Eosinophils # 0.1 10^3/uL (0.0-0.8); Eosinophils % 1.4 %; Hematocrit 45.8 % (37.0-47.0); Hemoglobin 15.3 g/dL (11.5-15.3); Lymphocytes # 0.6 10^3/uL (0.8-4.8); Lymphocytes % 7.4 %; Mean Corpuscular HGB Conc 33.4 g/dL (30.0-36.0); Mean Corpuscular Hemoglobin 30.1 pg (28.0-34.0); Mean Platelet Volume 9.4 fL (7.4-10.4); Monocytes # 0.9 10^3/uL (0.2-0.9); Monocytes % 10.7 %; Neutrophils # 6.42 10^3/uL (1.8-7.7); Neutrophils % 79.6 %; Nucleated Red Blood Cells % 0 %; Platelet Count 385 10^3/cmm (130-400); Red Blood Count 5.09 10^6/uL (4.1-5.3); Red Cell Distribution Width 14.1 % (12.1-15.1); White Blood Count 8.1 10^3/uL (4.0-10.0)
[2021-06-16 15:09] LABS: Alanine Aminotransferase 18 U/L (0-33); Albumin Level 3.5 g/dL (3.5-5.2); Alkaline Phosphatase 149 IU/L (35-105); Anion Gap 18.1 (5-19); Aspartate Amino Transferase 36 U/L (0-32); Blood Urea Nitrogen 6 mg/dL (8-23); Calcium 8.6 mg/dL (8.5-10.5); Carbon Dioxide 23 mmol/L (22-29); Chloride 94 mmol/L (98-107); Ferritin 173 ng/mL (15-150); Globulin 3.4 g/dL (1.3-4.6); Glomerular Filtration Rate 99.4 mL/min (90-130); Glucose 85 mg/dL (65-115); Iron 45 ug/dL (37-145); Osmolality Calculated 269 mOsm/kg (285-295); Percent Saturation 16.4 % (20-50); Potassium 4.1 mmol/L (3.5-5.1); Sodium 131 mmol/L (136-145); Total Bilirubin 0.4 mg/dL (0.15-1.2); Total Iron Binding Capacity 273 mcg/dl; Total Protein 6.9 g/dL (6.6-8.7); Unsaturated Iron Binding 228 ug/dL (112-347)
--- NOTE | 2021-06-16 15:39 | ONC FU_ITS ---
Dr. Hoyt follow up note Patient: Kamla Ghotra Unit #: [id number]: [id number] Dicatated By: Gold Hoyt M.D.Date of Visit:Jun 16, 2021 Onc Med Follow-up/Prog Note History of Present Illness: Ms. Kamla Ghotra, is a 66-year-old female was recently evaluated by PMD because of abnormal LFTs, her lab work-up done on March 23, 2021 showed AST 120 normal being 0-40, ALT 61 normal being 0-32, lab work-up done on April 03, 2021 showed ferritin 473 TIBC 322, iron 278, iron saturation 86%, hepatitis panel was negative,, TSH 0.79 Patient denies any history of oral iron supplements, denies any history of recent blood transfusion, as per patient when these labs were drawn she was feeling sick as her son was recently diagnosed with Covid infection and she was wondering whether she had Covid infection at that time too., Came for follow-up, denies any specific complaints, no fever chills, no nausea or vomiting, no diarrhea constipation, no melena hematochezia, no musculoskeletal discomfort, no jaundice, appetite is good, no dysuria or hematuria, no sore throat or sinus problem. Medications: amLODIPine Besylate 1 Tablet (of 5 mg) Oral daily, [employer] Fish Oil 1 Capsule Oral b.i.d., Irbesartan 1 Tablet (of 150 mg) Oral daily, Levothyroxine Sodium 1 Tablet (of 88 mcg) Oral daily, MSM-Glucosamine Capsule Oral Take as Directed, One Daily For Women 50+ Adv 1 Tablet Oral daily, Vitamin C 1 Tablet (of 500 mg) Capsule Oral b.i.d., Vitamin D3 1 Capsule (of 25 mcg ) Oral daily Allergies: NSAIDs Review of Systems: Review of Systems is not available for this patient. Vital Signs: Performed on Jun 16, 2021 15:35 Height - 63.00 in Weight - 141.2 lbs (LOW) BSA - 1.67 sq.m BMI - 25.01 Temperature - 97.9 F (LOW) Pulse - 107 /min (HIGH) Respiration - 18 /min BP - 145/80 mm(hg) (HIGH) O2 Sat - 96 % Pain - 8 Fatigue - 8 Performance Status: 0 - Fully active, able to carry on all predisease activities without restrictions. (ECOG) Physical Examination: ENMT - No mouth sores, no thrush, no jaundice, Respiratory - Lungs are clear to auscultation, Cardiovascular - Regular rate and rhythm of heart, Abdomen - Soft, bowel sounds present, Extremities - No visible edema. Lab/Imaging: Most recent lab results are not available for this patient. Impression: Elevated ferritin, iron saturation, serum iron, within normal TIBC per labs done on March 31, 2021, etiology could be multifactorial including as a acute phase reactant or excessive iron absorption or hemolysis or conditions like hemochromatosis. Elevated transaminases, with negative hepatitis panel, and fibrosure scan, etiology unclear, could be multifactorial. Hypertension, hypothyroidism Plan: Discussed with patient regarding her labs white blood count 8.1 compared to 3.8 previously hemoglobin 15.3 g hematocrit 45.8 platelets 385,000 CMP within normal limit except sodium 131 and alk phos 149, iron studies shows iron saturation 16.4% compared to 64.8% previously ferritin 173 compared to 264 on May 10, 2021, iron 45 compared to 264 previously TIBC 273 Clinically, patient is doing well with no new signs symptoms her follow-up labs shows resolution of mild leukopenia, hemoglobin is in normal range, iron studies shows ferritin level continue to improve, now down to 173 compared to 473 on April 03, 2021 without any intervention, will continue to monitor she will return to clinic in 2 months with CBC and iron studies. Signed By: Gold Hoyt M.D. <<Signature on File>>
== END 2021-06-16 13:32 | disposition home or self-care (01) ==
PROVIDERS: PCP Family Medicine; Visit Provider Internal Medicine Hematology & Oncology
DX: R79.89 Other specified abnormal findings of blood chemistry (principal); R74.01 Elevation of levels of liver transaminase levels; I10 Essential (primary) hypertension; E03.9 Hypothyroidism, unspecified; Z79.899 Other long term (current) drug therapy
CPT/HCPCS: 36415; 80053; 82728; 83540; 83550; 85025; 99214

== ENCOUNTER → 2021-07-07 14:47 | Outpatient (BNVA) | payer MEDICARE, MEDICAID, SELFPAY | PROVIDERS: PCP Family Medicine; Visit Provider Anesthesiology Pain Medicine | DX: M48.062 Spinal stenosis, lumbar region with neurogenic claudication (principal); M43.16 Spondylolisthesis, lumbar region; M48.061 Spinal stenosis, lumbar region without neurogenic claudication; M25.551 Pain in right hip; M51.17 Intervertebral disc disorders with radiculopathy, lumbosacral region; M54.2 Cervicalgia; M79.604 Pain in right leg; R10.2 Pelvic and perineal pain; F17.210 Nicotine dependence, cigarettes, uncomplicated | CPT/HCPCS: 99214 ==

== ENCOUNTER → 2021-07-19 13:45 | Outpatient (BNVA) | payer MEDICARE, MEDICAID, SELFPAY | PROVIDERS: PCP Family Medicine; Visit Provider Anesthesiology Pain Medicine | DX: M25.551 Pain in right hip (principal); M48.062 Spinal stenosis, lumbar region with neurogenic claudication; F17.210 Nicotine dependence, cigarettes, uncomplicated; M16.9 Osteoarthritis of hip, unspecified | CPT/HCPCS: 20610; 77002; J1030; J3490 ==

== ENCOUNTER → 2021-08-05 14:24 | Outpatient (BNVA) | payer MEDICARE, MEDICAID, SELFPAY | PROVIDERS: PCP Family Medicine; Visit Provider Anesthesiology Pain Medicine | DX: M48.062 Spinal stenosis, lumbar region with neurogenic claudication (principal); M43.16 Spondylolisthesis, lumbar region; M48.061 Spinal stenosis, lumbar region without neurogenic claudication; M79.604 Pain in right leg; R10.2 Pelvic and perineal pain; M25.551 Pain in right hip; M51.17 Intervertebral disc disorders with radiculopathy, lumbosacral region; F17.210 Nicotine dependence, cigarettes, uncomplicated | CPT/HCPCS: 99214 ==

== ENCOUNTER 2021-08-09 12:04 | Emergency (ER) | payer MEDICARE, MEDICAID, SELFPAY ==
[2021-08-09 12:12] VITALS: PULSE 114; RESP 16; TEMP 36.9; O2SAT 97; BMI 24.7
[2021-08-09 12:16] VITALS: BP 151/101; PULSE 92; RESP 18; O2SAT 97
[2021-08-09 12:43] LABS: Basophils % 0.4 %; Hematocrit 47.8 % (37.0-47.0); Hemoglobin 16.4 g/dL (11.5-15.3); Lymphocytes # 0.4 10^3/uL (0.8-4.8); Lymphocytes % 6.4 %; Mean Corpuscular HGB Conc 34.3 g/dL (30.0-36.0); Mean Corpuscular Hemoglobin 29.3 pg (28.0-34.0); Mean Corpuscular Volume 85.4 fl (81-99); Mean Platelet Volume 9.8 fL (7.4-10.4); Monocytes # 0.5 10^3/uL (0.2-0.9); Monocytes % 8.9 %; Neutrophils # 4.62 10^3/uL (1.8-7.7); Neutrophils % 83.9 %; Nucleated Red Blood Cells % 0 %; Platelet Count 244 10^3/cmm (130-400); Red Cell Distribution Width 14.2 % (12.1-15.1); White Blood Count 5.5 10^3/uL (4.0-10.0)
[2021-08-09] MEDS: lactated ringers 1,000 ML 999 ML IV ×2 (12:59→13:16)
[2021-08-09 13:09] LABS: Alanine Aminotransferase 51 U/L (0-33); Alkaline Phosphatase 164 IU/L (35-105); Anion Gap 18.3 (5-19); Aspartate Amino Transferase 50 U/L (0-32); Blood Urea Nitrogen 7 mg/dL (8-23); Carbon Dioxide 22 mmol/L (22-29); Chloride 94 mmol/L (98-107); Glomerular Filtration Rate 99.4 mL/min (90-130); Glucose 116 mg/dL (65-115); Lipase 118 U/L (13-60); Osmolality Calculated 271 mOsm/kg (285-295); Potassium 3.3 mmol/L (3.5-5.1); Sodium 131 mmol/L (136-145); Total Bilirubin 1.2 mg/dL (0.15-1.2)
--- NOTE | 2021-08-09 13:24 | ED_ITS ---
HPI - Nausea/Vomiting/Diarrhea General: Chief complaint: Nausea/Vomiting/Diarrhea Stated complaint: n/v/d Time Seen by Provider: 08/09/21 12:30 Source: patient Mode of arrival: ambulatory Limitations: no limitations History of Present Illness: 66-year-old female presents emergency room with complaints of nausea vomiting abdominal discomfort. Began 3 days ago. She has had bilious vomit has been able to keep anything down she denies any dysuria urgency or frequency she has had some diarrhea as well she denies any medic easy melena hematemesis coffee-ground emesis no fever no shortness of breath. She not had any chest pain. She not really take anything for it is not noticed anything that exacerbates or relieves it. MD elicited complaint: nausea, vomiting and diarrhea Onset (ago): day(s) (3) Description of vomiting: watery and bilious Description of diarrhea: lose Associated nausea: Yes Associated abdominal pain: Yes Location of pain: Diffuse Pain consistency: intermittent Severity: moderate Quality: cramping Exacerbating factors: eating Relieving factors: none Associated symtoms: Reports bloating, fatigue, anorexia, malaise, nausea and weakness; Denies altered mental status, anxiety, change in vision, chest pain, cough, d iaphoresis, decreased urine output, dizziness, dysuria, epistaxis, fecal incontinence, fevers/chills, headache(s), myalgias, numbness, palpitations, rash, short of breath, syncope, tenesmus or tinnitus Review of Systems Const: Reports: fatigue and malaise; Denies: diaphoresis Eyes: Denies: change in vision ENMT: Denies: tinnitus or epistaxis Card: Denies: chest pain, palpitations or syncope Resp: Denies: dyspnea, productive cough or non-productive cough GI: Reports: abdominal pain, nausea, diarrhea and bloating; Denies: fecal incontinence : Denies: flank pain, difficulty voiding or dysuria Skin/Breast: Denies: rash or pruritus Neuro: Denies: headache(s) or dizziness Psych: Denies: anxiety PFSH ED PFSH: Medical History COPD (chronic obstructive pulmonary disease) Hypertension Hypothyroidism Intervertebral disc disorder with radiculopathy of lumbosacral region Lumbar stenosis with neurogenic claudication Osteoarthritis of hands, bilateral Raynauds syndrome Scoliosis of thoracolumbar spine Spinal stenosis of lumbar region with radiculopathy Spondylolisthesis, lumbar region Surgical History History of colonoscopy History of hernia repair History of right inguinal hernia repair 3x History of tonsillectomy Family History Mother Ovarian cancer Social History Smoking and tobacco status: current every day smoker cigarettes Packs smoked per day: 0.5 Years cigarettes smoked: 37 [ Other cigarette details: [id number]] Quit status (tobacco): considering quitting Second hand smoke exposure: No Smoking risk assessment/counseling performed?: Yes Alcohol intake: current Alcohol intake frequency: holidays/special occasions only Alcohol type: hard liquor Caregiver/support person: No Lives independently: Yes Household members: none Marital status: Single Current occupational status: employed Current occupation: [employer] History of recent travel: No Current gender identity: Female Physical Exam Const: COMMON NORMALS: no acute distress EXAM LIMITATIONS: no altered me ntal status GENERAL APPEARANCE: cooperative and comfortable ORIENTATION/CONSCIOUSNESS: Yes awake, Yes oriented to person, Yes oriented to place and Yes oriented to time HENMT: COMMON NORMALS: normocephalic, atraumatic and hearing grossly normal bilaterally HEAD & SCALP: normocephalic and atraumatic Neck/C-Spine: COMMON NORMALS: full ROM, no lymphadenopathy, supple and no JVD Resp: COMMON NORMALS: normal respiratory effort, No retractions, No use of accessory muscles and clear to auscultation bilaterally AUSCULTATION: clear t o auscultation bilaterally Cardio: COMMON NORMALS: no JVD, regular rate, regular rhythm and No murmurs present (Cardio) RATE: regular rate RHYTHM: regular rhythm GI: COMMON NORMALS: No hepatosplenomegaly present AUSCULTATION: Yes normoactive bowel sounds PALPATION: Yes Tenderness to palpation present (GI) (Left side), No Guarding due to palpation present (GI) and Yes No hepatosplen omegaly present Extremity: COMMON NORMALS: normal to inspection, capillary refill normal, no clubbing, cyanosis or edema, no calf tenderness and no pedal edema Neuro: SENSORIUM/ORIENTATION: Yes oriented to person, Yes oriented to place and Yes oriented to time Skin: COMMON NORMALS: no rashes or lesions noted GENERAL SKIN EXAM: no rashes or lesions noted Course Vital Signs: Vital signs: Vital Signs Temperature 98.5 F 08/09/21 12:12 Pulse Rate 89 08/09/21 17:02 Respiratory Rate 20 H 08/09/21 17:02 Blood Pressure 155/100 08/09/21 17:02 Pulse Oximetry 98 08/09/21 17:02 MDM - Nausea/Vomiting/Diarrhea Medical Decision Making Elevated lipase and liver enzymes but CT gallbladder ultrasound and CT is negative except for the diverticulitis. She seems to doing well at this point we will go ahead and discharge her home her white counts are markedly elevated but on Cipro and Flagyl clear liquid diet for 48 hours antiemetics as needed return if has any worsening problems. Medical Records I reviewed the patient's medical records. Lab Data I reviewed the patient's lab results. : 08/09/21 12:30 08/09/21 12:30 Radiology Impressions Abdomen/Pelvis CT 08/09/21 13:53 IMPRESSION: 1. Mid descending colon somewhat localized wall thickening in an area of several diverticuli suggestive of diverticulitis, negative for abscess. 2. Fibroid uterus. 3. L1 vertebral body superior endplate chronic appearing compression fracture. 4. Coronary artery atherosclerotic calcifications. 5. Hepatic steatosis suspected. Gallbladder Ultrasound 08/09/21 13:53 Impression: 1. Negative gallbladder. 2. Enlarged fatty liver. 3. Incidental superior cyst of the right kidney. Laboratory Results WBC 5.5 10^3/uL (4.0-10.0) 08/09/21 12:30 RBC 5.60 10^6/uL (4.1-5.3) H 08/09/21 12:30 Hgb 16.4 g/dL (11.5-15.3) H 08/09/21 12:30 Hct 47.8 % (37.0-47.0) H 08/09/21 12:30 MCV 85.4 fl (81-99) 08/09/21 12:30 MCH 29.3 pg (28.0-34.0) 08/09/21 12:30 MCHC 34.3 g/dL (30.0-36.0) 08/09/21 12:30 RDW 14.2 % (12.1-15.1) 08/09/21 12:30 Plt Count 244 10^3/cmm (130-400) 08/09/21 12:30 MPV 9.8 fL (7.4-10.4) 08/09/21 12:30 Neut % (Auto) 83.9 % 08/09/21 12:30 Lymph % (Auto) 6.4 % 08/09/21 12:30 [place] % (Auto) 8.9 % 08/09/21 12:30 Eos % (Auto) 0.0 % 08/09/21 12:30 Baso % (Auto) 0.4 % 08/09/21 12: Neut # (Auto) 4.62 10^3/uL (1.8-7.7) 08/09/21 12: Lymph # (Auto) 0.4 10^3/uL (0.8-4.8) L 08/09/21 12:30 [place] # (Auto) 0.5 10^3/uL (0.2-0.9) 08/09/21 12:30 Eos # (Auto) 0.0 10^3/uL (0.0-0.8) 08/09/21 12:30 Baso # (Auto) 0.0 10^3/uL (0.0-0.1) 08/09/21 12:30 Nucleated RBC % (auto) 0 % 08/09/21 12: Nucleated RBCs # 0.0 /100WBC 08/09/21 12:30 Sodium 131 mmol/L (136-145) L 08/09/21 12:30 Potassium 3.3 mmol/L (3.5-5.1) L 08/09/21 12:30 Chloride 94 mmol/L (98-107) L 08/09/21 12:30 Carbon Dioxide 22 mmol/L (22-29) 08/09/21 12:30 Anion Gap 18.3 (5-19) 08/09/21 12:30 BUN 7 mg/dL (8-23) L 08/09/21 12:30 Creatinine 0.6 mg/dL (0.5-0.9) 08/09/21 12:30 GFR Calculation 99.4 mL/min (90-130) 08/09/21 12:30 Glucose 116 mg/dL (65-115) H 08/09/21 12:30 Calculated Osmolality 271 mOsm/kg (285-295) L 08/09/21 12:30 Calcium 9.0 mg/dL (8.5-10.5) 08/09/21 12:30 Total Bilirubin 1.2 mg/dL (0.15-1.2) 08/09/21 12:30 AST 50 U/L (0-32) H 08/09/21 12:30 ALT 51 U/L (0-33) H 08/09/21 12:30 Alkaline Phosphatase 164 IU/L (35-105) H 08/09/21 12:30 Total Protein 7.0 g/dL (6.6-8.7) 08/09/21 12:30 Albumin 4.0 g/dL (3.5-5.2) 08/09/21 12:30 Globulin 3.0 g/dL (1.3-4.6) 08/09/21 12:30 Lipase 118 U/L (13-60) H 08/09/21 12:30 Urine Color Yellow (Yellow) 08/09/21 12:50 Urine Appearance Clear (CLEAR) 08/09/21 12:50 Urine pH 6 (5-7) 08/09/21 12:50 Ur Specific [place] 1.020 (1.005-1.030) 08/09/21 12:50 Urine Protein Trace (Negative) 08/09/21 12:50 Urine Glucose (UA) Norm (Normal) 08/09/21 12:50 Urine Ketones 1+ (Negative) H 08/09/21 12:50 Urine Blood Neg (Negative) 08/09/21 12:50 Urine Nitrate Negative (Negative) 08/09/21 12:50 Urine Bilirubin 1+ (Negative) H 08/09/21 12:50 Urine Urobilinogen 1 mg/dL (Negative) H 08/09/21 12:50 Ur Leukocyte Esterase Negative (Negative) 08/09/21 12:50 Urine RBC None /hpf (0-2) 08/09/21 12:50 Urine WBC 0-4 /hpf (0-5) H 08/09/21 12:50 Ur Squamous Epith Cells 0-4 /hpf (0-5) H 08/09/21 12:50 Amorphous Sediment Not Reportable 08/09/21 12:50 Urine Bacteria 1+ /hpf (NONE) H 08/09/21 12:50 Hyaline Casts 15-25 /lpf H 08/09/21 12:50 Urine Mucus 2+ /hpf 08/09/21 12:50 Discharge Plan Discharge Patient Disposition: Home Clinical Impression: Diverticulitis Condition: Stable Prescriptions: New Cipro 500 mg tablet 500 mg PO BID Qty: 20 0RF metronidazole 500 mg tablet 500 mg PO BID 10 Days Qty: 20 0RF Zofran 4 mg tablet 4 mg PO Q6H PRN (Reason: nausea and vomiting) Qty: 20 0RF No Action cholecalciferol (vitamin D3) 25 mcg (1,000 unit) capsule 50 mcg PO DAILY 0RF omega-3 fatty acids [Fish Oil Concentrate] 1,000 mg capsule 1,000 mg PO DAILY 0RF Auhqqjff-Tbdidy-YUQ with vit D 750-30-1,000-1 ef-al-lxzw-mg tablet 1 tab PO DAILY 0RF amlodipine 5 mg tablet 5 mg PO DAILY@15 0RF ascorbic acid (vitamin C) 500 mg tablet 500 mg PO BID 0RF irbesartan 150 mg tablet 150 mg PO DAILY@23 0RF One-A-Day Women's 50 Plus 400-20 mcg Tablet 1 tab PO DAILY 0RF levothyroxine 88 mcg tablet 88 mcg PO QAM 0RF Tylenol Ex Str Rapid Release 500 mg Tablet 1,500 mg PO Q6H PRN (Reason: Pain) 0RF Discharge Orders: Discharge ED (Routine); Ordered 08/09/21 Ordered By: Charles Ospina Referrals: Brad Nieves MD [Primary Care Provider] - Discharge Diet: Clear Liquid Patient Instructions: Opioid Safety Activity Restrictions/Additional Instructions: Liquid diet for 24 to 48 hours and advance as tolerated follow-up with your primary care doctor within the next 4 to 5 days to have recheck lab work. Return if worsens. Coding Level of Care Code ED Tong Hooker for Simag Fwd Exam Comprehensive
[2021-08-09 13:44] LABS: Glucose Urine UA Norm (Normal); Protein Urine Trace (Negative); Urine Appearance Clear (CLEAR); Urine Color Yellow (Yellow); pH Urine 6 (5-7)
[2021-08-09 13:45] LABS: Add Urine Culture? No; Add Urine Microscopic? YES; Bacteria Urine 1+ /hpf; Bilirubin Urine 1+ (Negative); Blood Urine Neg (Negative); Hyaline Casts Urine 15-25 /lpf; Ketones Urine 1+ (Negative); Leukocyte Esterase Urine Negative (Negative); Mucus Urine 2+ /hpf; Nitrate Urine Negative (Negative); Squamous Epithelial Cell Urine 0-4 /hpf (0-5); Urobilinogen Urine 1 mg/dL (Negative); WBC Urine 0-4 /hpf (0-5)
--- NOTE | 2021-08-09 13:53 | CTR_ITS ---
PROCEDURE INFORMATION: Exam: CT Abdomen And Pelvis With Contrast Exam date and time: 08/09/2021 1:53 PM Age: 66 years old Clinical indication: Abdominal pain; Prior surgery; Surgery type: Hernia; Patient HX: [facility]story--n/v/d chills cough PT coughing during scan; Additional info: Abd pain TECHNIQUE: Imaging protocol: Computed tomography of the abdomen and pelvis with contrast. Radiation optimization: All CT scans at this facility use at least one of these dose optimization techniques: automated exposure control; mA and/or kV adjustment per patient size (includes targeted exams where dose is matched to clinical indication); or iterative reconstruction. Contrast material: OMNI 300; Contrast volume: 95 ml; Contrast route: INTRAVENOUS (IV); COMPARISON: CT abdomen pelvis wo con [id number] 02/22/2021 2:37 PM RADIATION DOSE METRICS: Total DLP (mGy-cm): 1250.63 FINDINGS: Heart: Coronary artery atherosclerotic calcifications. Liver: Hepatic steatosis suspected. Gallbladder and bile ducts: Normal. No calcified stones. No ductal dilation. Pancreas: Normal. No ductal dilation. Spleen: Normal. No splenomegaly. Adrenal glands: Normal. No mass. Kidneys and ureters: Normal. No hydronephrosis. Stomach and bowel: Mid descending colon somewhat localized wall thickening in an area of several diverticuli suggestive of diverticulitis, negative for abscess. Appendix: No evidence of appendicitis. Intraperitoneal space: Unremarkable. No free air. No significant fluid collection. Vasculature: Unremarkable. No abdominal aortic aneurysm. Lymph nodes: Unremarkable. No enlarged lymph nodes. Urinary bladder: Unremarkable as visualized. Reproductive: Fibroid uterus. Bones/joints: L1 vertebral body superior endplate chronic appearing compression fracture. Soft tissues: Unremarkable. CT/CT abdomen pelvis w con* [id number] IMPRESSION: 1. Mid descending colon somewhat localized wall thickening in an area of several diverticuli suggestive of diverticulitis, negative for abscess. 2. Fibroid uterus. 3. L1 vertebral body superior endplate chronic appearing compression fracture. 4. Coronary artery atherosclerotic calcifications. 5. Hepatic steatosis suspected.
--- NOTE | 2021-08-09 13:53 | US_ITS ---
WS: [id number] Gallbladder and right upper quadrant ultrasound, 08/09/2021 Clinical Data: elevated LFTs Comparison: None. Findings: The gallbladder shows no sludge or stone. The wall measures 0.2 cm with no pericholecystic fluid. The common bile duct is 0.2 cm and there are no intrahepatic ductal abnormalities. Liver shows no cysts, masses or dilated intrahepatic ducts. The liver is enlarged measuring 18.42 cm with fatty infiltration. The pancreas is obscured by overlying bowel gas but no cyst, pseudocyst, or evidence of pancreatitis is noted. Right kidney measures 10.0 cm and there is a small 1.10 x 1.47 x 2.05 cm superior cyst The aorta and inferior vena cava show no vascular abnormalities. US/US gall bladder [id number] Impression: 1. Negative gallbladder. 2. Enlarged fatty liver. 3. Incidental superior cyst of the right kidney.
[2021-08-09 15:08] VITALS: BP 155/100; PULSE 89; RESP 20; O2SAT 98
[2021-08-09] MEDS: iohexol 300 mg/mL 100 mL Btl IV (15:42)
[2021-08-09 17:02] VITALS: BP 155/100; PULSE 89; RESP 20; O2SAT 98
== END 2021-08-09 17:02 | disposition home or self-care (01) ==
PROVIDERS: Emergency Medicine; Emergency Provider Family Medicine; PCP Family Medicine
DX: K57.92 Diverticulitis of intestine, part unspecified, without perforation or abscess without bleeding (principal); J44.9 Chronic obstructive pulmonary disease, unspecified; I10 Essential (primary) hypertension; F17.210 Nicotine dependence, cigarettes, uncomplicated
CPT/HCPCS: 74177; 76705; 80053; 81001; 83690; 85025; 96360; 96361; 99284; Q9967

== ENCOUNTER 2021-08-20 06:00 | Outpatient (RCR) | payer MEDICARE, MEDICAID, SELFPAY | END 2021-08-26 23:59 | disposition home or self-care (01) | LOC: SPT 06:00 | PROVIDERS: PCP Family Medicine; Referring Provider Anesthesiology Pain Medicine; Visit Provider Anesthesiology Pain Medicine | DX: M54.50 Low back pain, unspecified (principal); G89.29 Other chronic pain | CPT/HCPCS: 97032; 97110; 97161 ==

== ENCOUNTER 2021-08-27 06:00 | Outpatient (RCR) | payer MEDICARE, MEDICAID, SELFPAY | END 2021-09-25 23:59 | disposition home or self-care (01) | LOC: SPT 06:00 | PROVIDERS: PCP Family Medicine; Referring Provider Anesthesiology Pain Medicine; Visit Provider Anesthesiology Pain Medicine | DX: M54.50 Low back pain, unspecified (principal); G89.29 Other chronic pain | CPT/HCPCS: 97032; 97110 ==

== ENCOUNTER 2021-09-06 12:21 | Outpatient (CLI) | payer MEDICARE, MEDICAID, SELFPAY ==
[2021-09-06 12:47] LABS: Basophils # 0.1 10^3/uL (0.0-0.1); Eosinophils # 0.2 10^3/uL (0.0-0.8); Eosinophils % 3.5 %; Hematocrit 46.1 % (37.0-47.0); Hemoglobin 15.6 g/dL (11.5-15.3); Lymphocytes # 0.9 10^3/uL (0.8-4.8); Lymphocytes % 18.4 %; Mean Corpuscular HGB Conc 33.8 g/dL (30.0-36.0); Mean Corpuscular Hemoglobin 29.3 pg (28.0-34.0); Mean Corpuscular Volume 86.5 fl (81-99); Mean Platelet Volume 9.3 fL (7.4-10.4); Monocytes # 0.5 10^3/uL (0.2-0.9); Monocytes % 10.1 %; Neutrophils # 3.23 10^3/uL (1.8-7.7); Neutrophils % 66.6 %; Nucleated Red Blood Cells % 0 %; Platelet Count 271 10^3/cmm (130-400); Red Blood Count 5.33 10^6/uL (4.1-5.3); Red Cell Distribution Width 15.3 % (12.1-15.1); White Blood Count 4.9 10^3/uL (4.0-10.0)
[2021-09-06 13:09] LABS: Ferritin 137 ng/mL (15-150); Iron 103 ug/dL (37-145); Total Iron Binding Capacity 264 mcg/dl; Unsaturated Iron Binding 161 ug/dL (112-347)
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
== END 2021-09-06 12:22 | disposition home or self-care (01) ==
LOC: ONCMED 12:27
PROVIDERS: PCP Family Medicine; Visit Provider Nurse Practitioner Family
DX: D50.9 Iron deficiency anemia, unspecified (principal); R74.01 Elevation of levels of liver transaminase levels; I10 Essential (primary) hypertension; E03.9 Hypothyroidism, unspecified; Z79.899 Other long term (current) drug therapy
CPT/HCPCS: 36415; 82728; 83540; 83550; 85025; 99214

== ENCOUNTER 2021-09-07 13:22 | Outpatient (CLI) | payer MEDICARE, MEDICAID, SELFPAY ==
--- NOTE | 2021-09-07 13:31 | CT_ITS ---
WS: [id number] LDCT LUNG CANCER SCREENING TECHNIQUE: Noncontrast CT of the chest with coronal and sagittal reformatted images. CLINICAL INFORMATION: NICOTINE DEPENDENCE COMPARISON: CT April 07, 2020 DLP: 82.18 mGy.cm DIvol: Mean CTDIvol: 1.60 (mGy) All CT scans at [facility] use at least one of these dose optimization techniques: automat ed exposure control; mA and/or kV adjustment per patient size (includes targeted exams where dose is matched to clinical indication); or iterative reconstruction. FINDINGS: Moderate chronic emphysematous changes. No acute pulmonary infiltrates. Subsegmental atelectasis RIGH T middle lobe and both lower lobes. A few calcified granulomas. Mild aortic calcification. No mediast inal or hilar lymphadenopathy. No axillary lymphadenopathy. Normal GE junction. Mild thickening LEFT adrenal gland is unchanged. Nor mal RIGHT adrenal gland. Chronic compression of the L1 superior endplate. CT/CT lung screening [id number] IMPRESSION: LUNG-RADS: 1-Negative FOLLOW UP: 12 Month: Continue annual screening with LDCT
== END 2021-09-07 13:23 | disposition home or self-care (01) ==
LOC: CT 13:23
PROVIDERS: PCP Family Medicine; Visit Provider Family Medicine
DX: Z12.2 Encounter for screening for malignant neoplasm of respiratory organs (principal); F17.210 Nicotine dependence, cigarettes, uncomplicated
CPT/HCPCS: 71271

== ENCOUNTER 2021-09-09 15:28 | Outpatient (CLI) | payer MEDICARE, MEDICAID, SELFPAY ==
--- NOTE | 2021-09-09 15:33 | MR_ITS ---
WS: [id number] MRI HEAD WITH CONTRAST WITH ATTENTION TO THE INTERNAL AUDITORY CANALS TECHNIQUE: Sagittal T1, T2 axial, T2 axial flair, axial susceptibility weighted imaging, axial diffus ion weighted images, and coronal T2 images were obtained. Pre and post T1 axial and post T1 coronal i mages. ADC and FSPGR images. Post gadolinium images with attention to the internal auditory canals. A xial fiesta imaging. CLINICAL INFORMATION: DIZZINESS AND GIDDINESS COMPARISON: MRI 11 018 FINDINGS: No evidence of restricted diffusion to suggest acute ischemia. Ventricular system and basal cisterns are patent. Moderate small vessel changes. Mild parenchymal volume loss. Small vessel changes in the brea. Mild symmetric atrophy temporal lobes and hippocampal formations. Proximal 7th and 8th cranial nerves are normal in appearance. Normal trigeminal nerve root entry zones. No abnormal intracranial enhance ment. No evidence of enhancing IAC or CP angle mass. Normal dural venous sinuses. Normal optic chiasm and pituitary infundibulum. Normal cavernous sinuses and Meckel's cave. MR/MR iac's wo/w con* [id number] IMPRESSION: 1. No evidence of restricted diffusion to suggest acute ischemia. 2. Moderate small vessel changes with mild parenchymal volume loss. 3. Proximal 7th and 8th cranial nerves are normal in appearance. No evidence o f enhancing IAC or CP angle mass. Normal trigeminal nerve root entry zones. 4. Mastoid air cells are well aerated. 5. Chronic lacunar infarcts in the LEFT cerebellum. 6. No hemosiderin on the susceptibility weighted images.
== END 2021-09-09 15:29 | disposition home or self-care (01) ==
PROVIDERS: PCP Family Medicine; Visit Provider Specialist
DX: R42 Dizziness and giddiness (principal)
CPT/HCPCS: 70553; A9577

== ENCOUNTER → 2021-09-13 13:51 | Outpatient (BNVA) | payer MEDICARE, MEDICAID, SELFPAY | PROVIDERS: PCP Family Medicine; Visit Provider Anesthesiology Pain Medicine | DX: M48.062 Spinal stenosis, lumbar region with neurogenic claudication (principal); F17.210 Nicotine dependence, cigarettes, uncomplicated; M47.816 Spondylosis without myelopathy or radiculopathy, lumbar region | CPT/HCPCS: 64493; 64494; 64495; J3490 ==

== ENCOUNTER 2021-09-22 13:42 | Outpatient (CLI) | payer MEDICARE, MEDICAID, SELFPAY ==
--- NOTE | 2021-09-22 14:21 | PFTS_ITS ---
Date of Study:09/22/21 Date of Dictation: 09/23/2021 MECHANICS: Prebronchodilator forced vital capacity (FVC) is normal. Prebronchodilator FEV1 is normal FEV1/FVC is reduced. There is no postbronchodilator study. FLOW VOLUME LOOP: Sloping of expiratory limb suggestive of airway obstruction LUNG VOLUMES: Total lung capacity (TLC) is normal. Residual volume (RV) is increased. DIFFUSING CAPACITY FOR CARBON MONOXIDE: Normal . INTERPRETATION: The prebronchodilator spirometry suggestive of airway obstruction. Lung volumes suggestive of mild air trapping. Normal gas transfer. Correlate clinically. MTDD
== END 2021-09-22 13:43 | disposition home or self-care (01) ==
LOC: RT 13:43
PROVIDERS: PCP Family Medicine; Visit Provider Family Medicine
DX: R05.9 Cough, unspecified (principal)
CPT/HCPCS: 94010; 94726; 94729

== ENCOUNTER → 2021-09-28 11:06 | Outpatient (BNVA) | payer MEDICARE, MEDICAID, SELFPAY | PROVIDERS: PCP Family Medicine; Visit Provider Anesthesiology Pain Medicine | DX: G89.29 Other chronic pain (principal); M48.062 Spinal stenosis, lumbar region with neurogenic claudication; M43.16 Spondylolisthesis, lumbar region; M48.061 Spinal stenosis, lumbar region without neurogenic claudication; M51.17 Intervertebral disc disorders with radiculopathy, lumbosacral region; M47.816 Spondylosis without myelopathy or radiculopathy, lumbar region; M25.551 Pain in right hip; M54.2 Cervicalgia; R10.2 Pelvic and perineal pain; F17.210 Nicotine dependence, cigarettes, uncomplicated | CPT/HCPCS: 99214 ==

== ENCOUNTER → 2021-10-05 14:07 | Outpatient (BNVA) | payer MEDICARE, MEDICAID, SELFPAY | PROVIDERS: PCP Family Medicine; Visit Provider Anesthesiology Pain Medicine | DX: M48.062 Spinal stenosis, lumbar region with neurogenic claudication (principal); F17.210 Nicotine dependence, cigarettes, uncomplicated; M47.816 Spondylosis without myelopathy or radiculopathy, lumbar region | CPT/HCPCS: 64635; 64636; J1030 ==

== ENCOUNTER → 2021-10-06 14:39 | Outpatient (BNVA) | payer MEDICARE, MEDICAID, SELFPAY | PROVIDERS: PCP Family Medicine; Referring Provider Internal Medicine Cardiovascular Disease; Visit Provider Internal Medicine Cardiovascular Disease | DX: R00.0 Tachycardia, unspecified (principal); I25.10 Atherosclerotic heart disease of native coronary artery without angina pectoris; I25.84 Coronary atherosclerosis due to calcified coronary lesion; Z86.73 Personal history of transient ischemic attack (TIA), and cerebral infarction without residual deficits | CPT/HCPCS: 93005; 99204; 99205 ==

== ENCOUNTER 2021-10-07 06:00 | Outpatient (RCR) | payer MEDICARE, MEDICAID, SELFPAY | END 2021-10-07 23:59 | disposition home or self-care (01) | LOC: SPT 06:00 | PROVIDERS: PCP Family Medicine; Referring Provider Anesthesiology Pain Medicine; Visit Provider Anesthesiology Pain Medicine | DX: G89.29 Other chronic pain (principal); M54.50 Low back pain, unspecified | CPT/HCPCS: 97110 ==

== ENCOUNTER 2021-10-15 15:45 | Outpatient (CLI) | payer MEDICARE, MEDICAID, SELFPAY ==
[2021-10-15 16:52] LABS: Thyroid Stimulating Hormone 0.16 uIU/mL (0.27-4.20)
== END 2021-10-15 15:46 | disposition home or self-care (01) ==
LOC: LAB 15:47
PROVIDERS: PCP Family Medicine; Visit Provider Internal Medicine Cardiovascular Disease
DX: E03.9 Hypothyroidism, unspecified (principal)
CPT/HCPCS: 36415; 84443

== ENCOUNTER → 2021-10-19 12:47 | Outpatient (BNVA) | payer MEDICARE, MEDICAID, SELFPAY | PROVIDERS: PCP Family Medicine; Visit Provider Anesthesiology Pain Medicine | DX: M47.816 Spondylosis without myelopathy or radiculopathy, lumbar region (principal); M48.062 Spinal stenosis, lumbar region with neurogenic claudication; F17.210 Nicotine dependence, cigarettes, uncomplicated | CPT/HCPCS: 64635; 64636; J1030 ==

== ENCOUNTER → 2021-11-01 11:31 | Outpatient (BNVA) | payer MEDICARE, MEDICAID, SELFPAY | PROVIDERS: PCP Family Medicine; Referring Provider Family Medicine; Visit Provider Podiatrist Foot & Ankle Surgery | DX: M21.611 Bunion of right foot (principal); M21.612 Bunion of left foot; M20.41 Other hammer toe(s) (acquired), right foot; M20.42 Other hammer toe(s) (acquired), left foot; I73.9 Peripheral vascular disease, unspecified; I73.00 Raynaud's syndrome without gangrene; E03.9 Hypothyroidism, unspecified; L60.3 Nail dystrophy; L85.1 Acquired keratosis [keratoderma] palmaris et plantaris | CPT/HCPCS: 11721; 17110; 99203; 99204 ==

== ENCOUNTER → 2021-11-03 14:43 | Outpatient (BNVA) | payer MEDICARE, MEDICAID, SELFPAY | PROVIDERS: PCP Family Medicine; Visit Provider Anesthesiology Pain Medicine | DX: M51.17 Intervertebral disc disorders with radiculopathy, lumbosacral region (principal); M48.062 Spinal stenosis, lumbar region with neurogenic claudication; M48.061 Spinal stenosis, lumbar region without neurogenic claudication; M47.816 Spondylosis without myelopathy or radiculopathy, lumbar region; M25.551 Pain in right hip; M54.2 Cervicalgia; R10.2 Pelvic and perineal pain; F17.210 Nicotine dependence, cigarettes, uncomplicated | CPT/HCPCS: 99214 ==

== ENCOUNTER 2021-12-07 13:39 | Outpatient (CLI) | payer MEDICARE, MEDICAID, SELFPAY ==
--- NOTE | 2021-12-07 13:30 | USCV_ITS ---
Kamla Ghotra Age: 66 Gender: F : 1955 Exam Date: 12/07/2021 14:22 Ordering Phys: Lynn Valentino MD ([email or web address]) Technologist: Exam Location: [facility] Indication: cva Risk Factors: Previous Vascular Surgery: Right Brachial BP: / Left Brachial BP: / Right Left Velocity (cm/s) Spectral Plaque Velocity (cm/s) Spectral Plaque Syst/Diast Broadening Syst/Diast Broadening 70.60/ 12.10 Prox CCA 52.40 / 10.60 65.10/ 16.50 Mid CCA 48.90 / 16.60 50.70/ 11.70 Distal CCA 45.40 / 13.10 29.90/ 6.20 Hetro Prox ICA 33.80 / 9.60 Hetro 34.00/ 9.00 Mid ICA 48.40 / 12.60 41.75/ 14.55 Distal ICA 42.30 / 15.60 71.20 ECA 56.40 0.62 ICA/CCA 0.92 Antegrade Vertebral Antegrade 24.10/ 5.00 cm/s 36.30/ 9.10 cm/s Bi Subclavian Bi 67.00 FINDINGS Comparison: none available. No significant elevation of systolic or diastolic velocities. Waveforms are normal. Minimal atherosclerotic plaque. Antegrade vertebral arteries. CONCLUSIONS Bilateral ICA stenosis less than 50%. Mild carotid atherosclerosis. Dr. Marisela Levy DO (Electronically Signed) Final Date: 07 December 2021 16:35 S
--- NOTE | 2021-12-07 14:15 | USCV_ITS ---
Kamla Ghotra Age: 66 Gender: F : 1955 Exam Date: 12/07/2021 14:08 Ordering Phys: Lynn Valentino MD ([email or web address]) Technologist: Exam Location: [facility] [place] Indication: cva BP: 130 / 80 HR: 102 Rhythm: Sinus Technical Quality: Adequate MEASUREMENTS (Male / Female) Normal Values 2D ECHO LV Diastolic Diameter PLAX 3.4 cm 4.2 - 5.9 / 3.9 - 5.3 cm LV Systolic Diameter PLAX 2.2 cm IVS Diastolic Thickness 0.9 cm 0.6 - 1.0 / 0.6 - 0.9 cm IVS Systolic Thickness 1.3 cm LVPW Diastolic Thickness 1.0 cm 0.6 - 1.0 / 0.6 - 0.9 cm LVPW Systolic Thickness 0.9 cm LVOT Diameter 2.0 cm LV Ejection Fraction 2D Teich 63.6 % LV Ejection Fraction MOD 2C 72.0 % LV Ejection Fraction 2C AL 70.6 % LA Diameter 3.6 cm IVC Diameter 1.6 cm M-MODE Aortic Annulus Diameter 3.3 cm LA Ao Ratio MM 1.0 MV E Point Septal Separation 1.1 cm DOPPLER AV Peak Velocity 141.0 cm/s LVOT Peak Velocity 111.0 cm/s AV Area Cont Eq vti 2.7 cm squared AV Area Cont Eq pk 2.5 cm squared MV Area PHT 5.0 cm squared Mitral E to A Ratio 0.5 MV E' Velocity 34.0 cm/s Mitral E to MV E' Ratio 7.7 Mitral E to LV E' Lateral Ratio 7.3 Mitral E to LV E' Septal Ratio 8.3 TR Peak Velocity 175.0 cm/s TR Peak Gradient 12.3 mmHg TV Peak E Velocity 82.0 cm/s Right Atrial Pressure 3.0 mmHg Pulmonary Artery Systolic Pressu 15.3 mmHg PV Peak Velocity 95.0 cm/s FINDINGS Left Ventricle Normal left ventricular size and systolic function, EF 71 %. No regional wall motion abnormalities. Grade I/IV diastolic dysfunction (abnormal relaxation filling pattern), normal to mildly elevated filling pressures. Right Ventricle The right ventricle is normal in size and function. Right Atrium The right atrium is normal in size. Left Atrium The left atrium is normal in size. Mitral Valve Mild mitral annular calcification. Trace mitral valve regurgitation. Aortic Valve Thickened aortic valve. Tricuspid Valve Mild tricuspid valve regurgitation. Pulmonic Valve Pulmonic valve not well visualized. Pericardium No pericardial effusion. Aorta Normal aortic annulus size. IVC Normal inferior vena cava. CONCLUSIONS Normal left ventricular size and systolic function, EF 71 %. No regional wall motion abnormalities. Grade I/IV diastolic dysfunction (abnormal relaxation filling pattern), normal to mildly elevated filling pressures. Mild mitral annular calcification. Trace mitral valve regurgitation. Thickened aortic valve. Mild tricuspid valve regurgitation. Estimated pulmonary artery peak systolic pressure was within normal limits There is no pericardial effusion. There are no intracardiac masses. No similar previous studies are available for comparison Dr Lynn Valentino MD FACC (Electronically Signed) Final Date: 07 December 2021 20:01 S
== END 2021-12-07 13:40 | disposition home or self-care (01) ==
LOC: RAD 13:40
PROVIDERS: PCP Family Medicine; Visit Provider Internal Medicine Cardiovascular Disease
DX: R06.00 Dyspnea, unspecified (principal); R00.0 Tachycardia, unspecified; I77.9 Disorder of arteries and arterioles, unspecified; Z86.73 Personal history of transient ischemic attack (TIA), and cerebral infarction without residual deficits; I65.23 Occlusion and stenosis of bilateral carotid arteries; I08.1 Rheumatic disorders of both mitral and tricuspid valves
CPT/HCPCS: 93306; 93880

== ENCOUNTER → 2021-12-09 14:21 | Outpatient (BNVA) | payer MEDICARE, MEDICAID, SELFPAY | PROVIDERS: PCP Family Medicine; Visit Provider Anesthesiology Pain Medicine | DX: M48.062 Spinal stenosis, lumbar region with neurogenic claudication (principal); M43.16 Spondylolisthesis, lumbar region; M48.061 Spinal stenosis, lumbar region without neurogenic claudication; M47.816 Spondylosis without myelopathy or radiculopathy, lumbar region; M51.17 Intervertebral disc disorders with radiculopathy, lumbosacral region; M79.604 Pain in right leg; M54.2 Cervicalgia; M25.551 Pain in right hip; R10.2 Pelvic and perineal pain; F17.210 Nicotine dependence, cigarettes, uncomplicated | CPT/HCPCS: 99214 ==

== ENCOUNTER → 2021-12-27 12:58 | Outpatient (BNVA) | payer MEDICARE, MEDICAID, SELFPAY | PROVIDERS: PCP Family Medicine; Visit Provider Internal Medicine Cardiovascular Disease | DX: I25.10 Atherosclerotic heart disease of native coronary artery without angina pectoris (principal); I25.84 Coronary atherosclerosis due to calcified coronary lesion; I73.9 Peripheral vascular disease, unspecified; I10 Essential (primary) hypertension; F17.210 Nicotine dependence, cigarettes, uncomplicated | CPT/HCPCS: 99213 ==

== ENCOUNTER 2022-01-04 14:31 | Outpatient (RCR) | payer MEDICARE, MEDICAID, SELFPAY | END 2022-01-26 23:59 | disposition home or self-care (01) | LOC: SPT 14:31 | PROVIDERS: PCP Family Medicine; Referring Provider Anesthesiology Pain Medicine; Visit Provider Anesthesiology Pain Medicine | DX: M54.50 Low back pain, unspecified (principal); G89.29 Other chronic pain | CPT/HCPCS: 97110; 97161 ==

== ENCOUNTER 2022-01-10 07:33 | Outpatient (CLI) | payer MEDICARE, MEDICAID, SELFPAY ==
--- NOTE | 2022-01-10 | ECG_ITS ---
[facility] Test Date: 2022-01-10 Pat Name: Kamla Ghotra Department: Room: Gender: Female Equipment Service Lead: : 1955 Requested By: Lynn Valentino Order Number: [id number] Erick MD: Lynn Valentino M.D. Interpretive Statements NAME OF STUDY: LEXISCAN SESTAMIBI STRESS TEST INDICATION: [place], PROCEDURE: At the baseline, the EKG revealed normal sinus rhythm with a heart rate of 76 bpm. Poor R wave progression. The baseline blood pressure was 136/91 mm Hg with a heart rate of 78 beats/min. Lexiscan was infused over a period of 20 seconds. A total of 0.4 milligrams of Lexiscan was infused. The stress phase was continued for a total of 5 minutes. Heart rate at the end of the stress phase was 99 with a blood pressure 141/86. The EKG at the peak infusion revealed no significant changes. Sestamibi was injected 20 seconds after the Lexiscan infusion. Blood pressure at the end of the recovery phase was 148/84 with a heart rate of 96 per minute. CONCLUSION: 1. No significant EKG changes with the LexiScan infusion 2. No LexiScan induced chest pain or cardiac arrhythmia 3. Normal blood pressure and heart rate response 4. Sestamibi/sestamibi perfusion scan pending; see separate report. Electronically Signed On 01-14-2022 15:54:57 CDT by Lynn Valentino M.D. [id number]
[2022-01-10 09:00] VITALS: BMI 24.3
--- NOTE | 2022-01-10 09:00 | NMCV_ITS ---
NM tessa perf SPECT r/s* [id number] Kamla Ghotra Age: 66 Gender: F : 1955 Exam Date: 01/10/2022 08:58 Ordering Phys: Lynn Valentino MD ([email or web address]) Technologist: ANGIE Humphrey Exam Location: [facility] Indications: ASHD STRESS TEST Please [facility] IMAGE PROTOCOL Rest/Stress 1 Lexiscan Day Radiopharmaceutical Dose (mCi) Administration Site Administered by Rest: Tc-99m 10.6 IV ANGIE Blue Sestamibi Stress:Tc-99m 32.1 IV ANGIE Blue Sestamibi Rest: 10-Jan-2022 60 Discovery 630 Stress: 10-Jan-2022 30 Discovery 630 0.4mg Lexiscan. Images obtained in supine and prone position. SPECT RESULTS Technical Quality: Excellent Raw Data Analysis: Normal Image Corrections: No attenuation or motion correction applied Summed Stress Score: 1 Summed Rest Score: 0 Summed Difference Score: 1 PERFUSION FINDINGS Elevated small area of decreased visibility in the apical inferior region with reversibility. Attenuation artifact also was noted in the inferior wall region FUNCTIONAL RESULTS (calculated via Gated SPECT) Stress Image LV EF (%): 73 Stress EDV (mL):70 TID: 1.05 Stress ESV (mL):19 FUNCTIONAL FINDINGS: Segmental wall motion analysis revealing no gross wall motion normalities. IMPRESSIONS 1. Myocardial perfusion imaging revealing a small area of reversible defect in the apical inferior region suggesting ischemia in the distribution of the right coronary artery. However because of the attenuation artifacts in this region, most likely this is artifactual. 2. Normal LV ejection fraction 73%. 3. LV wall motion analysis revealing no gross wall motion abnormalities. 4. Normal LV volume Low probability for coronary ischemia, based on the above findings No similar previous studies are available for comparison Dr Lynn Valentino MD [facility] (Electronically Signed) Final Date: 10 January 2022 22:33 S
[2022-01-10] MEDS: regadenoson 0.4 Mg/5 ml Syringe IVP (09:37)
[2022-01-10 09:55] VITALS: BP 148/91; PULSE 93
== END 2022-01-10 07:34 | disposition home or self-care (01) ==
LOC: CDL 07:36
PROVIDERS: PCP Family Medicine; Visit Provider Internal Medicine Cardiovascular Disease
DX: R53.83 Other fatigue (principal); I25.10 Atherosclerotic heart disease of native coronary artery without angina pectoris
CPT/HCPCS: 78452; 93017; A9500; J2785

== ENCOUNTER 2022-01-20 13:26 | Oncology outpatient (recurring) (ONCR) | payer MEDICARE, MEDICAID, SELFPAY ==
[2022-01-20 13:48] LABS: Basophils % 0.6 %; Eosinophils # 0.1 10^3/uL (0.0-0.8); Eosinophils % 2.5 %; Hematocrit 42.1 % (37.0-47.0); Hemoglobin 14.2 g/dL (11.5-15.3); Lymphocytes # 0.9 10^3/uL (0.8-4.8); Lymphocytes % 16.3 %; Mean Corpuscular HGB Conc 33.7 g/dL (30.0-36.0); Mean Corpuscular Hemoglobin 30.4 pg (28.0-34.0); Mean Corpuscular Volume 90.1 fl (81-99); Mean Platelet Volume 9.6 fL (7.4-10.4); Monocytes # 0.6 10^3/uL (0.2-0.9); Neutrophils # 3.67 10^3/uL (1.8-7.7); Neutrophils % 69.2 %; Nucleated Red Blood Cells % 0 %; Platelet Count 307 10^3/cmm (130-400); Red Blood Count 4.67 10^6/uL (4.1-5.3); Red Cell Distribution Width 14.1 % (12.1-15.1); White Blood Count 5.3 10^3/uL (4.0-10.0)
[2022-01-20 14:23] LABS: Ferritin 46 ng/mL (15-150); Iron 187 ug/dL (37-145)
[2022-01-20 14:25] LABS: Percent Saturation 61.9 % (20-50); Total Iron Binding Capacity 302 mcg/dl; Unsaturated Iron Binding 115 ug/dL (112-347)
== END 2022-01-26 23:59 | disposition home or self-care (01) ==
PROVIDERS: PCP Family Medicine; Visit Provider Nurse Practitioner Family
DX: R97.0 Elevated carcinoembryonic antigen [CEA] (principal); F17.210 Nicotine dependence, cigarettes, uncomplicated
CPT/HCPCS: 36415; 82728; 83540; 83550; 85025; 99214; G0463

== ENCOUNTER 2022-01-27 06:00 | Outpatient (RCR) | payer MEDICARE, MEDICAID, SELFPAY | END 2022-02-25 23:59 | disposition home or self-care (01) | LOC: SPT 06:00 | PROVIDERS: PCP Family Medicine; Visit Provider Anesthesiology Pain Medicine | DX: M54.50 Low back pain, unspecified (principal); G89.29 Other chronic pain | CPT/HCPCS: 97032; 97110 ==

== ENCOUNTER → 2022-02-09 14:40 | Outpatient (BNVA) | payer MEDICARE, MEDICAID, SELFPAY | PROVIDERS: PCP Family Medicine; Visit Provider Podiatrist Foot & Ankle Surgery | DX: I73.9 Peripheral vascular disease, unspecified (principal); I25.10 Atherosclerotic heart disease of native coronary artery without angina pectoris; I25.84 Coronary atherosclerosis due to calcified coronary lesion; I10 Essential (primary) hypertension; M21.611 Bunion of right foot; M21.612 Bunion of left foot; M20.41 Other hammer toe(s) (acquired), right foot; M20.42 Other hammer toe(s) (acquired), left foot; L60.3 Nail dystrophy; I73.00 Raynaud's syndrome without gangrene; E03.9 Hypothyroidism, unspecified; L85.1 Acquired keratosis [keratoderma] palmaris et plantaris | CPT/HCPCS: 11721; 17110 ==

== ENCOUNTER 2022-02-26 06:00 | Outpatient (RCR) | payer MEDICARE, MEDICAID, SELFPAY | END 2022-03-28 23:59 | disposition home or self-care (01) | LOC: SPT 06:00 | PROVIDERS: PCP Family Medicine; Visit Provider Anesthesiology Pain Medicine | DX: M54.50 Low back pain, unspecified (principal); G89.29 Other chronic pain | CPT/HCPCS: 97032; 97110 ==

== ENCOUNTER → 2022-03-15 16:10 | Outpatient (BNVA) | payer MEDICARE, MEDICAID, SELFPAY | PROVIDERS: PCP Family Medicine; Visit Provider Nurse Practitioner Family | DX: I25.10 Atherosclerotic heart disease of native coronary artery without angina pectoris (principal); I25.84 Coronary atherosclerosis due to calcified coronary lesion; T14.8XXA Other injury of unspecified body region, initial encounter; E83.19 Other disorders of iron metabolism | CPT/HCPCS: 36415; 80053; 82728; 82977; 83540; 83550; 85025; 85610; 99213 ==

== ENCOUNTER 2022-03-22 15:13 | Outpatient (CLI) | payer MEDICARE, MEDICAID, SELFPAY ==
--- NOTE | 2022-03-22 15:42 | MM_ITS ---
WS: [email or web address] BILATERAL 3D TOMOSYNTHESIS DIGITAL SCREENING MAMMOGRAPHY WITH CAD CLINICAL INFORMATION: SCREENING HISTORY: Screening mammogram. No current complaints. COMPARISON: March 19, 2021 TECHNIQUE: Bilateral CC and MLO views. FINDINGS: The breasts are composed of heterogeneous fibroglandular density tissue, which can limit the detectio n of small underlying mass lesions. Biopsy marker LEFT breast with adjacent stable nodule. No suspici ous mass, asymmetry, calcifications, or architectural distortion. No evidence of malignancy. Punctate and lucent centered calcifications. MM/[place] [id number] IMPRESSION: BI-RADS: 2-Benign FOLLOW UP: 1 Year Follow-up Recommend return to annual screening mammography.
== END 2022-03-22 15:14 | disposition home or self-care (01) ==
LOC: RAD 15:13
PROVIDERS: PCP Family Medicine; Visit Provider Family Medicine
DX: Z12.31 Encounter for screening mammogram for malignant neoplasm of breast (principal); I25.10 Atherosclerotic heart disease of native coronary artery without angina pectoris; F17.210 Nicotine dependence, cigarettes, uncomplicated
CPT/HCPCS: 77063; 77067; 99213

== ENCOUNTER → 2022-03-28 10:59 | Outpatient (BNVA) | payer MEDICARE, MEDICAID, SELFPAY | PROVIDERS: PCP Family Medicine; Visit Provider Anesthesiology Pain Medicine | DX: M48.062 Spinal stenosis, lumbar region with neurogenic claudication (principal); M48.061 Spinal stenosis, lumbar region without neurogenic claudication; M51.17 Intervertebral disc disorders with radiculopathy, lumbosacral region; M43.16 Spondylolisthesis, lumbar region; M47.816 Spondylosis without myelopathy or radiculopathy, lumbar region; M25.551 Pain in right hip; M54.2 Cervicalgia | CPT/HCPCS: 99213 ==

== ENCOUNTER → 2022-04-26 14:06 | Outpatient (BNVA) | payer MEDICARE, MEDICAID, SELFPAY | PROVIDERS: PCP Family Medicine; Visit Provider Podiatrist Foot & Ankle Surgery | DX: I73.9 Peripheral vascular disease, unspecified (principal); L60.8 Other nail disorders; I25.10 Atherosclerotic heart disease of native coronary artery without angina pectoris; I25.84 Coronary atherosclerosis due to calcified coronary lesion; I10 Essential (primary) hypertension; L60.3 Nail dystrophy; I73.00 Raynaud's syndrome without gangrene; E03.9 Hypothyroidism, unspecified; L85.1 Acquired keratosis [keratoderma] palmaris et plantaris; M21.611 Bunion of right foot; M21.612 Bunion of left foot; M20.41 Other hammer toe(s) (acquired), right foot; M20.42 Other hammer toe(s) (acquired), left foot | CPT/HCPCS: 11721; 17110 ==

== ENCOUNTER 2022-05-03 06:00 | Outpatient (RCR) | payer MEDICARE, MEDICAID, SELFPAY | END 2022-05-28 23:59 | disposition home or self-care (01) | LOC: SPT 06:00 | PROVIDERS: PCP Family Medicine; Visit Provider Anesthesiology Pain Medicine | DX: M54.50 Low back pain, unspecified (principal); G89.29 Other chronic pain | CPT/HCPCS: 97161 ==

== ENCOUNTER 2022-05-04 14:39 | Outpatient (RCR) | payer MEDICARE, MEDICAID, SELFPAY | END 2022-05-28 23:59 | disposition home or self-care (01) | LOC: ONCMED 14:39 | PROVIDERS: PCP Family Medicine; Visit Provider Internal Medicine Hematology & Oncology | DX: R79.0 Abnormal level of blood mineral (principal); R79.89 Other specified abnormal findings of blood chemistry; F17.210 Nicotine dependence, cigarettes, uncomplicated | CPT/HCPCS: 99214 ==

== ENCOUNTER 2022-05-04 14:43 | Outpatient (CLI) | payer MEDICARE, MEDICAID, SELFPAY ==
[2022-05-04 15:31] LABS: Basophils # 0.1 10^3/uL (0.0-0.1); Basophils % 1.1 %; Eosinophils # 0.1 10^3/uL (0.0-0.8); Eosinophils % 2.4 %; Hematocrit 44.2 % (37.0-47.0); Hemoglobin 14.9 g/dL (11.5-15.3); Lymphocytes # 0.8 10^3/uL (0.8-4.8); Lymphocytes % 14.9 %; Mean Corpuscular HGB Conc 33.7 g/dL (30.0-36.0); Mean Corpuscular Hemoglobin 30.5 pg (28.0-34.0); Mean Corpuscular Volume 90.4 fl (81-99); Mean Platelet Volume 9.5 fL (7.4-10.4); Monocytes # 0.5 10^3/uL (0.2-0.9); Neutrophils # 3.87 10^3/uL (1.8-7.7); Neutrophils % 71.4 %; Nucleated Red Blood Cells % 0 %; Platelet Count 353 10^3/cmm (130-400); Red Blood Count 4.89 10^6/uL (4.1-5.3); Red Cell Distribution Width 14.4 % (12.1-15.1); White Blood Count 5.4 10^3/uL (4.0-10.0)
[2022-05-04 15:35] LABS: Erythrocyte Sedimentation Rate 12 mm/hr (0-15)
[2022-05-04 15:57] LABS: Alanine Aminotransferase 16 U/L (0-33); Albumin Level 3.7 g/dL (3.5-5.2); Alkaline Phosphatase 112 U/L (35-105); Anion Gap 14.6 (5-19); Aspartate Amino Transferase 28 U/L (0-32); Blood Urea Nitrogen 5 mg/dL (8-23); Calcium 9.5 mg/dL (8.5-10.5); Carbon Dioxide 28 mmol/L (22-29); Chloride 97 mmol/L (98-107); Ferritin 77 ng/mL (15-150); Globulin 3.5 g/dL (1.3-4.6); Glomerular Filtration Rate 99.1 mL/min (90-130); Glucose 90 mg/dL (65-115); Iron 73 ug/dL (37-145); Osmolality Calculated 279 mOsm/kg (285-295); Percent Saturation 21.2 % (20-50); Potassium 3.6 mmol/L (3.5-5.1); Sodium 136 mmol/L (136-145); Total Bilirubin 0.3 mg/dL (0.15-1.2); Total Iron Binding Capacity 344 mcg/dl; Total Protein 7.2 g/dL (6.6-8.7); Unsaturated Iron Binding 271 ug/dL (112-347)
[2022-05-05 15:44] LABS: Anti-Nuclear Antibody Screen NEGATIVE (NEGATIVE)
== END 2022-05-04 14:44 | disposition home or self-care (01) ==
LOC: LAB 14:44
PROVIDERS: PCP Family Medicine; Visit Provider Family Medicine
DX: L85.3 Xerosis cutis (principal); L65.9 Nonscarring hair loss, unspecified
CPT/HCPCS: 36415; 80048; 80053; 82728; 83540; 83550; 85025; 85651; 86038; 86140; 99214

== ENCOUNTER 2022-06-29 06:00 | Outpatient (RCR) | payer MEDICARE, MEDICAID, SELFPAY | END 2022-07-01 23:59 | disposition home or self-care (01) | LOC: SPT 06:00 | PROVIDERS: PCP Family Medicine; Visit Provider Anesthesiology Pain Medicine | DX: M54.50 Low back pain, unspecified (principal); G89.29 Other chronic pain | CPT/HCPCS: 97110; 97162 ==

== ENCOUNTER → 2022-07-05 13:44 | Outpatient (BNVA) | payer MEDICARE, MEDICAID, SELFPAY | PROVIDERS: PCP Family Medicine; Visit Provider Podiatrist Foot & Ankle Surgery | DX: I73.9 Peripheral vascular disease, unspecified (principal); L60.8 Other nail disorders; I25.10 Atherosclerotic heart disease of native coronary artery without angina pectoris; I25.84 Coronary atherosclerosis due to calcified coronary lesion; I10 Essential (primary) hypertension; L60.3 Nail dystrophy; I73.00 Raynaud's syndrome without gangrene; E03.9 Hypothyroidism, unspecified; M21.611 Bunion of right foot; M21.612 Bunion of left foot; M20.41 Other hammer toe(s) (acquired), right foot; M20.42 Other hammer toe(s) (acquired), left foot; L84 Corns and callosities | CPT/HCPCS: 11056; 11721 ==

== ENCOUNTER → 2022-07-12 10:25 | Outpatient (BNVA) | payer MEDICARE, MEDICAID, SELFPAY | PROVIDERS: PCP Family Medicine; Visit Provider Anesthesiology Pain Medicine | DX: M48.062 Spinal stenosis, lumbar region with neurogenic claudication (principal); M43.16 Spondylolisthesis, lumbar region; M48.061 Spinal stenosis, lumbar region without neurogenic claudication; M51.17 Intervertebral disc disorders with radiculopathy, lumbosacral region; M47.816 Spondylosis without myelopathy or radiculopathy, lumbar region; M25.551 Pain in right hip; M25.552 Pain in left hip; M54.2 Cervicalgia; R10.2 Pelvic and perineal pain | CPT/HCPCS: 73522; 73523; 99214 ==

== ENCOUNTER → 2022-07-19 14:36 | Outpatient (BNVA) | payer MEDICARE, MEDICAID, SELFPAY | PROVIDERS: PCP Family Medicine; Visit Provider Nurse Practitioner Family | DX: I25.10 Atherosclerotic heart disease of native coronary artery without angina pectoris (principal); I10 Essential (primary) hypertension; I25.84 Coronary atherosclerosis due to calcified coronary lesion; R55 Syncope and collapse; F17.210 Nicotine dependence, cigarettes, uncomplicated | CPT/HCPCS: 99214 ==

== ENCOUNTER 2022-07-21 06:00 | Outpatient (RCR) | payer MEDICARE, MEDICAID, SELFPAY | END 2022-07-26 23:59 | disposition home or self-care (01) | LOC: SPT 06:00 | PROVIDERS: PCP Family Medicine; Visit Provider Family Medicine | DX: M54.50 Low back pain, unspecified (principal); G89.29 Other chronic pain | CPT/HCPCS: 97110; 97162 ==

== ENCOUNTER 2022-07-27 06:00 | Outpatient (RCR) | payer MEDICARE, MEDICAID, SELFPAY | END 2022-08-26 23:59 | disposition home or self-care (01) | LOC: SPT 06:00 | PROVIDERS: PCP Family Medicine; Visit Provider Family Medicine | DX: M54.50 Low back pain, unspecified (principal); G89.29 Other chronic pain | CPT/HCPCS: 97032; 97110; G0283 ==

== ENCOUNTER → 2022-08-02 16:09 | Outpatient (BNVA) | payer MEDICARE, MEDICAID, SELFPAY | PROVIDERS: PCP Family Medicine; Visit Provider Family Medicine | DX: Z78.0 Asymptomatic menopausal state (principal); F17.219 Nicotine dependence, cigarettes, with unspecified nicotine-induced disorders; E03.9 Hypothyroidism, unspecified; E55.9 Vitamin D deficiency, unspecified; I10 Essential (primary) hypertension; Z86.39 Personal history of other endocrine, nutritional and metabolic disease; E53.8 Deficiency of other specified B group vitamins | CPT/HCPCS: 80061; 82306; 82607; 84439; 84443 ==

== ENCOUNTER → 2022-08-15 11:02 | Outpatient (BNVA) | payer MEDICARE, MEDICAID, SELFPAY | PROVIDERS: PCP Family Medicine; Visit Provider Anesthesiology Pain Medicine | DX: G89.29 Other chronic pain (principal); M48.062 Spinal stenosis, lumbar region with neurogenic claudication; M43.16 Spondylolisthesis, lumbar region; M48.061 Spinal stenosis, lumbar region without neurogenic claudication; M47.816 Spondylosis without myelopathy or radiculopathy, lumbar region; M51.17 Intervertebral disc disorders with radiculopathy, lumbosacral region; M16.11 Unilateral primary osteoarthritis, right hip; S30.0XXA Contusion of lower back and pelvis, initial encounter; W19.XXXA Unspecified fall, initial encounter | CPT/HCPCS: 99214 ==

== ENCOUNTER 2022-08-16 14:34 | Outpatient (CLI) | payer MEDICARE, MEDICAID, SELFPAY ==
--- NOTE | 2022-08-16 15:00 | XR_ITS ---
WS: [email or web address] SCREENING DEXA SCAN [employer] CLINICAL INFORMATION: post-menopausal COMPARISON: August 21, 2020 FINDINGS: The L1-L4 bone mineral density measures 1.428 g/cm2. This corresponds to a T score score of 2.1 and Z score of 3.8. Left femoral neck bone mineral density measures 0.924 g/cm2. This corresponds to a T score of -0.7 an d Z score of 0.8. Right femoral neck bone mineral density measures 0.871 g/cm2. This corresponds to a T score -1.1of an d Z score of 0.4. Mean femoral neck bone mineral density measures 0.897 g/cm2. This corresponds to a T score of -0.9 an d Z score of 0.6. XR/XR DEXA axial skeleton* [id number] IMPRESSION: Normal bone mineralization in the lumbar spine. Osteopenia femoral necks lower end of the range. Patient's FRAX calculated 10 year probability for major osteoporotic fracture i s 12.6 % and osteoporotic hip fracture is 2.9%. Bone mineralization lumbar spine has increased 3.1% since 2020. Bone mineralization femoral necks has decreased -1.8% since 2020
== END 2022-08-16 14:35 | disposition home or self-care (01) ==
LOC: RAD 14:45
PROVIDERS: PCP Family Medicine; Visit Provider Family Medicine
DX: Z78.0 Asymptomatic menopausal state (principal); M85.852 Other specified disorders of bone density and structure, left thigh; M85.851 Other specified disorders of bone density and structure, right thigh
CPT/HCPCS: 77080

== ENCOUNTER 2022-08-27 06:00 | Outpatient (RCR) | payer MEDICARE, MEDICAID, SELFPAY | END 2022-09-25 23:59 | disposition home or self-care (01) | LOC: SPT 06:00 | PROVIDERS: PCP Family Medicine; Visit Provider Family Medicine | DX: M54.50 Low back pain, unspecified (principal); G89.29 Other chronic pain | CPT/HCPCS: 97032; 97110; G0283 ==

== ENCOUNTER 2022-08-30 13:47 | Outpatient (CLI) | payer MEDICARE, MEDICAID, SELFPAY ==
--- NOTE | 2022-08-30 14:15 | CT_ITS ---
WS: [email or web address] LDCT LUNG CANCER SCREENING HISTORY: screening TECHNIQUE: Axial imaging performed from the apices to 1 cm below the costophrenic angles. Coronal and sagittal reformats are submitted with axial MIP series. All CT scans at [facility] use at least one of these dose optimization techniques: automated exposure control; mA and/or kV adjustment per patient size (includes targeted exams where dose is matched to clinical indication); or iterativ e reconstruction. DLP: 76.69 mGy.cm DIvol: Mean CTDIvol: 1.60 (mGy) COMPARISON: 09/07/2021 Diagnostic quality: Satisfactory Lungs: No mass, nodule or endobronchial lesion. Benign granuloma LEFT lower lobe. Chronic emphysema. Heart: Normal size heart with no pericardial effusion.. Other findings: Atherosclerosis aorta, mild. No adenopathy. Small hiatal hernia. Mild LEFT adrenal hy perplasia. CT/CT lung screening [id number] IMPRESSION: LUNG-RADS: 1-Negative FOLLOW UP: 12 Month: Continue annual screening with LDCT OTHER FINDINGS (S MODIFIER): None.
== END 2022-08-30 13:48 | disposition home or self-care (01) ==
LOC: RAD 13:50
PROVIDERS: PCP Family Medicine; Visit Provider Family Medicine
DX: Z12.2 Encounter for screening for malignant neoplasm of respiratory organs (principal); F17.219 Nicotine dependence, cigarettes, with unspecified nicotine-induced disorders
CPT/HCPCS: 71271

== ENCOUNTER → 2022-08-31 09:40 | Outpatient (BNVA) | payer MEDICARE, MEDICAID, SELFPAY | PROVIDERS: PCP Family Medicine; Visit Provider Anesthesiology Pain Medicine | DX: G89.29 Other chronic pain (principal); M79.18 Myalgia, other site; M17.11 Unilateral primary osteoarthritis, right knee; M16.11 Unilateral primary osteoarthritis, right hip; M48.062 Spinal stenosis, lumbar region with neurogenic claudication; M43.16 Spondylolisthesis, lumbar region; M48.061 Spinal stenosis, lumbar region without neurogenic claudication; M51.17 Intervertebral disc disorders with radiculopathy, lumbosacral region; M54.2 Cervicalgia; R10.2 Pelvic and perineal pain | CPT/HCPCS: 20553; 20610; 99214 ==

== ENCOUNTER → 2022-09-05 14:56 | Outpatient (BNVA) | payer MEDICARE, MEDICAID, SELFPAY | PROVIDERS: PCP Family Medicine; Referring Provider Family Medicine; Visit Provider Psychiatry & Neurology Neurology | DX: R55 Syncope and collapse (principal); S00.83XA Contusion of other part of head, initial encounter; X58.XXXA Exposure to other specified factors, initial encounter | CPT/HCPCS: 99204 ==

== ENCOUNTER 2022-09-06 13:17 | Outpatient (CLI) | payer MEDICARE, MEDICAID, SELFPAY ==
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
== END 2022-09-06 13:18 | disposition home or self-care (01) ==
LOC: RAD 13:18
PROVIDERS: PCP Family Medicine; Visit Provider Psychiatry & Neurology Neurology
DX: S30.0XXA Contusion of lower back and pelvis, initial encounter (principal); X58.XXXA Exposure to other specified factors, initial encounter
CPT/HCPCS: 76882

== ENCOUNTER → 2022-09-08 15:28 | Outpatient (BNVA) | payer MEDICARE, MEDICAID, SELFPAY | PROVIDERS: PCP Family Medicine; Visit Provider Podiatrist Foot & Ankle Surgery | DX: I73.9 Peripheral vascular disease, unspecified (principal); L60.8 Other nail disorders; I25.10 Atherosclerotic heart disease of native coronary artery without angina pectoris; I25.84 Coronary atherosclerosis due to calcified coronary lesion; I10 Essential (primary) hypertension; L60.3 Nail dystrophy; I73.00 Raynaud's syndrome without gangrene; E03.9 Hypothyroidism, unspecified; M21.611 Bunion of right foot; M21.612 Bunion of left foot; M20.41 Other hammer toe(s) (acquired), right foot; M20.42 Other hammer toe(s) (acquired), left foot; L84 Corns and callosities | CPT/HCPCS: 11056; 11721 ==

== ENCOUNTER 2022-09-13 11:56 | Outpatient (CLI) | payer MEDICARE, MEDICAID, SELFPAY ==
--- NOTE | 2022-09-13 12:01 | XR_ITS ---
WS: [email or web address] Left knee, AP and lateral views, 09/13/2022 Clinical Data: M17.9 - Osteoarthritis of knee, unspecified Comparison: Left knee, 02/21/2014 Findings: No fractures or dislocations are seen. There is medial joint compartment narrowing with spurring of t he medial femoral condyle and medial tibial plateau.. The patella is intact. The soft tissues are unr emarkable. XR/XR knee LT 1-2V [id number] Impression: Moderate osteoarthritis of the left knee. Kellgren-David Classification: grade 3 (moderate): moderate multiple osteoph ytes, definite narrowing of joint space and some sclerosis and possible deformi ty of bone ends
--- NOTE | 2022-09-13 12:01 | XR_ITS ---
WS: [email or web address] Lumbar spine, 7 views including both obliques and flexion, extension and neutral lateral positions, Clinical Data: M54.16 - Radiculopathy, lumbar region Comparison: Lumbar spine, 04/20/2020 Findings: There is a dextroscoliosis of the lumbar spine. Severe osteoarthritic change especially from T12 thro ugh L3 is present. Multilevel degenerative disc narrowing is present. No compression fractures are se en. The oblique films show no spondylolysis. There is a 0.3 cm anterior subluxation of L4 and L5 unch anged. There is diffuse demineralization of the lumbar vertebral bodies. There is multilevel facet chai int arthritis from L3-4 to L5-S1. The flexion and extension views show no change in subluxation but there is limitation of motion. The abdominal aorta shows calcification but no aneurysm. XR/XR lumbar spine 6V w f/e [id number] Impression: 1. Dextroscoliosis of the lumbar spine. 2. Osteoarthritis of the upper lumbar vertebral bodies with multilevel degenera tive disc narrowing. 3. Facet joint arthropathy from L3-4 through L5 5 S1. 4. Minimal subluxation of L4 on L5. 5. Limitation of motion but no change in subluxation on flexion or extension.
--- NOTE | 2022-09-13 12:01 | XR_ITS ---
WS: [email or web address] Right knee, AP and lateral views, 09/13/2022 Clinical Data: M17.9 - Osteoarthritis of knee, unspecified Comparison: Right knee, 02/21/2014. Findings: No fractures or dislocations are seen. There is medial joint compartment narrowing with a spur of the medial femoral condyle and medial tibial plateau. The medial joint surfaces show sclerosis and irreg ularity. The patella is not remarkable. There is an enchondroma in the proximal mid tibia unchanged. The soft tissues are normal. XR/XR knee RT 1-2V [id number] Impression: Moderate osteoarthritis of the right knee Kellgren-David Classification: grade 3 (moderate): moderate multiple osteoph ytes, definite narrowing of joint space and some sclerosis and possible deformi ty of bone ends
== END 2022-09-13 11:57 | disposition home or self-care (01) ==
LOC: RAD 12:00
PROVIDERS: PCP Family Medicine; Visit Provider Anesthesiology Pain Medicine
DX: M17.0 Bilateral primary osteoarthritis of knee (principal); M41.86 Other forms of scoliosis, lumbar region; M47.896 Other spondylosis, lumbar region; M47.816 Spondylosis without myelopathy or radiculopathy, lumbar region; G89.29 Other chronic pain; M48.062 Spinal stenosis, lumbar region with neurogenic claudication; M48.061 Spinal stenosis, lumbar region without neurogenic claudication; M43.16 Spondylolisthesis, lumbar region; M51.17 Intervertebral disc disorders with radiculopathy, lumbosacral region; M16.11 Unilateral primary osteoarthritis, right hip; M54.2 Cervicalgia; R10.2 Pelvic and perineal pain; W19.XXXA Unspecified fall, initial encounter; Z91.81 History of falling; X58.XXXA Exposure to other specified factors, initial encounter
CPT/HCPCS: 72114; 73560; 99214

== ENCOUNTER 2022-09-21 15:21 | Outpatient (CLI) | payer MEDICARE, MEDICAID, SELFPAY ==
--- NOTE | 2022-09-21 15:30 | CT_ITS ---
WS: [email or web address] CT HEAD TECHNIQUE: Noncontrast CT of the head obtained from the skullbase to the vertex. CLINICAL INFORMATION: R55 - Syncope and collapse COMPARISON: MRI September 09, 2021 DLP: 1030.[address] scans at [facility] use at least one of these dose optimization techniques: automated e xposure control; mA and/or kV adjustment per patient size (includes targeted exams where dose is matc hed to clinical indication); or iterative reconstruction. FINDINGS: No evidence of intracranial hemorrhage or mass effect. Ventricular system and basal cisterns are melgoza nt. Moderate small vessel changes with moderate parenchymal volume loss. No extra-axial fluid collect ions. . Probable incidental calcified meningioma overlying the LEFT frontal lobe measuring 9 mm. This appears stable since 2018. This is not well visualized on prior MRI Paranasal sinuses and mastoid air cells are well aerated. .Normal visualized soft tissues. CT/CT head wo con* [id number] IMPRESSION: 1. No evidence of intracranial hemorrhage or mass effect. 2. Moderate small vessel changes. Moderate parenchymal volume loss. 3. Chronic lacunar infarct RIGHT caudate. 4. Probable small incidental calcified meningioma overlying the LEFT frontal l obe. 5. Vascular calcification. 6. No acute intracranial findings.
== END 2022-09-21 15:22 | disposition home or self-care (01) ==
LOC: RAD 15:27
PROVIDERS: PCP Family Medicine; Visit Provider Psychiatry & Neurology Neurology
DX: R55 Syncope and collapse (principal)
CPT/HCPCS: 70450

== ENCOUNTER 2022-09-26 06:00 | Outpatient (RCR) | payer MEDICARE, MEDICAID, SELFPAY | END 2022-10-05 23:59 | disposition home or self-care (01) | LOC: SPT 06:00 | PROVIDERS: PCP Family Medicine; Visit Provider Family Medicine | DX: M54.50 Low back pain, unspecified (principal); G89.29 Other chronic pain | CPT/HCPCS: 97032; 97110 ==

== ENCOUNTER → 2022-10-19 15:32 | Outpatient (BNVA) | payer MEDICARE, MEDICAID, SELFPAY | PROVIDERS: PCP Family Medicine; Visit Provider Internal Medicine Cardiovascular Disease | DX: R55 Syncope and collapse (principal); I25.10 Atherosclerotic heart disease of native coronary artery without angina pectoris; I25.84 Coronary atherosclerosis due to calcified coronary lesion; J43.2 Centrilobular emphysema; E03.9 Hypothyroidism, unspecified; I10 Essential (primary) hypertension; Z71.6 Tobacco abuse counseling; F17.210 Nicotine dependence, cigarettes, uncomplicated | CPT/HCPCS: 99214 ==

== ENCOUNTER 2022-10-20 14:56 | Outpatient (CLI) | payer MEDICARE, MEDICAID, SELFPAY ==
--- NOTE | 2022-10-20 15:15 | MR_ITS ---
WS: [id number] MRI BRAIN WITHOUT CONTRAST HISTORY: R55 - Syncope and collapse COMPARISON: 09/09/2021, CT head 09/21/2022 TECHNIQUE: Diffusion imaging, multiplanar T1, T2 and FLAIR imaging obtained. No evidence for acute infarct or hemorrhage. [place]ulveda-white matter differentiation is normal. No acute infarcts. Moderate small vessel ischemic changes in the periventricular white matter and sub cortical white matter. No prior infarct. Mild cerebral and cerebellar atrophy. Marked decreased signa l seen towards the LEFT frontal vertex measures 10 mm. Most consistent with a meningioma recently jan cribed also by CT. Slight mass effect upon the cerebrum. Ventricles and extra-axial spaces are normal. No inferior displacement of cerebellar tonsils. The sella turcica and pituitary gland are unremarkabl e. Dural venous sinuses and [place] of [place] demonstrate no abnormality on this unenhanced studies. Paranasal sinuses: Clear. Mastoid air cells: Normal. Calvarium and scalp: Intact. MR/MR head wo con* [id number] IMPRESSION: 1. No acute infarct. 2. Mild cerebral and cerebellar atrophy with moderate small vessel ischemic di sease. 3. Probable LEFT frontal meningioma measuring 10 mm.
== END 2022-10-20 14:57 | disposition home or self-care (01) ==
LOC: RAD 15:00
PROVIDERS: PCP Family Medicine; Visit Provider Psychiatry & Neurology Neurology
DX: R55 Syncope and collapse (principal); I67.82 Cerebral ischemia; R90.89 Other abnormal findings on diagnostic imaging of central nervous system
CPT/HCPCS: 70551

== ENCOUNTER → 2022-10-25 11:05 | Outpatient (BNVA) | payer MEDICARE, MEDICAID, SELFPAY | PROVIDERS: PCP Family Medicine; Visit Provider Anesthesiology Pain Medicine | DX: G89.29 Other chronic pain (principal); M48.062 Spinal stenosis, lumbar region with neurogenic claudication; M48.061 Spinal stenosis, lumbar region without neurogenic claudication; M47.816 Spondylosis without myelopathy or radiculopathy, lumbar region; M43.16 Spondylolisthesis, lumbar region; M51.17 Intervertebral disc disorders with radiculopathy, lumbosacral region; M16.11 Unilateral primary osteoarthritis, right hip; M17.11 Unilateral primary osteoarthritis, right knee | CPT/HCPCS: 99214 ==

== ENCOUNTER → 2022-10-26 13:25 | Outpatient (BNVA) | payer MEDICARE, MEDICAID, SELFPAY | PROVIDERS: PCP Family Medicine; Visit Provider Psychiatry & Neurology Neurology | DX: R55 Syncope and collapse (principal) | CPT/HCPCS: 99212 ==

== ENCOUNTER 2022-10-27 13:48 | Outpatient (CLI) | payer MEDICARE, MEDICAID, SELFPAY ==
--- NOTE | 2022-10-27 14:15 | US_ITS ---
WS: [id number] ULTRASOUND SOFT TISSUES LEFT gluteal region. HISTORY: Trauma to left buttock COMPARISON: 09/06/2022 TECHNIQUE: 2-D and color Doppler imaging is submitted. Heterogeneous elliptical shaped mass in the LEFT gluteal region measures 5.4 x 2.0 cm. This mass has slightly decreased in size since the prior examination. Variable echogenicity and well formed mass. N o increased vascularity. Favor this is most likely hematoma in the soft tissues. Consider additional imaging evaluation such as CT to confirm as this has not significantly improved since the prior study . US/US soft tissue/extremity [id number] IMPRESSION: 1. Minimal change in size of the soft tissue mass in the LEFT gluteal region s ken 09/06/2022. Favor hematoma as the most likely etiology. As this mass has no t significantly decreased in size consider follow-up CT of the pelvis with IV c ontrast.
== END 2022-10-27 13:49 | disposition home or self-care (01) ==
PROVIDERS: PCP Family Medicine; Visit Provider Family Medicine
DX: S30.0XXA Contusion of lower back and pelvis, initial encounter (principal); X58.XXXA Exposure to other specified factors, initial encounter; R22.42 Localized swelling, mass and lump, left lower limb; L60.8 Other nail disorders; I73.9 Peripheral vascular disease, unspecified; I10 Essential (primary) hypertension; I73.00 Raynaud's syndrome without gangrene; I25.10 Atherosclerotic heart disease of native coronary artery without angina pectoris; I25.84 Coronary atherosclerosis due to calcified coronary lesion; E03.9 Hypothyroidism, unspecified; D49.2 Neoplasm of unspecified behavior of bone, soft tissue, and skin; Z82.61 Family history of arthritis; B35.1 Tinea unguium; M21.612 Bunion of left foot; M21.611 Bunion of right foot; M20.42 Other hammer toe(s) (acquired), left foot; M20.41 Other hammer toe(s) (acquired), right foot; L84 Corns and callosities; L60.3 Nail dystrophy; F17.210 Nicotine dependence, cigarettes, uncomplicated
CPT/HCPCS: 76882; 99214

== ENCOUNTER 2022-11-03 15:38 | Outpatient (CLI) | payer MEDICARE, MEDICAID, SELFPAY ==
[2022-11-03 16:49] LABS: Basophils # 0.1 10^3/uL (0.0-0.1); Basophils % 0.8 %; Eosinophils # 0.1 10^3/uL (0.0-0.8); Eosinophils % 1.9 %; Hematocrit 43.9 % (37.0-47.0); Hemoglobin 14.8 g/dL (11.5-15.3); Lymphocytes # 0.9 10^3/uL (0.8-4.8); Lymphocytes % 12.5 %; Mean Corpuscular HGB Conc 33.7 g/dL (30.0-36.0); Mean Corpuscular Hemoglobin 28.3 pg (28.0-34.0); Mean Corpuscular Volume 83.9 fl (81-99); Mean Platelet Volume 9.8 fL (7.4-10.4); Monocytes # 0.6 10^3/uL (0.2-0.9); Monocytes % 7.8 %; Neutrophils # 5.69 10^3/uL (1.8-7.7); Neutrophils % 76.6 %; Nucleated Red Blood Cells % 0 %; Platelet Count 419 10^3/cmm (130-400); Red Blood Count 5.23 10^6/uL (4.1-5.3); White Blood Count 7.4 10^3/uL (4.0-10.0)
[2022-11-03 16:52] LABS: Erythrocyte Sedimentation Rate 30 mm/hr (0-15)
[2022-11-03 17:21] LABS: Alanine Aminotransferase 16 U/L (0-33); Albumin Level 4.2 g/dL (3.5-5.2); Alkaline Phosphatase 139 U/L (35-105); Anion Gap 17.8 (5-19); Aspartate Amino Transferase 29 U/L (0-32); Blood Urea Nitrogen 11 mg/dL (8-23); C Reactive Protein 29.4 mg/L (0.0-4.9); Calcium 9.6 mg/dL (8.5-10.5); Carbon Dioxide 26 mmol/L (22-29); Chloride 98 mmol/L (98-107); Globulin 3.9 g/dL (1.3-4.6); Glomerular Filtration Rate 99.1 mL/min (90-130); Glucose 85 mg/dL (65-115); Osmolality Calculated 285 mOsm/kg (285-295); Potassium 3.8 mmol/L (3.5-5.1); Sodium 138 mmol/L (136-145); Total Bilirubin 0.5 mg/dL (0.15-1.2); Total Protein 8.1 g/dL (6.6-8.7)
[2022-11-07 08:00] LABS: THYROID PEROXIDASE ANTIBODIES 28 IU/mL (<9)
[2022-11-07 10:38] LABS: COMPLEMENT COMPONENT C3C 149 mg/dL (83-193); COMPLEMENT COMPONENT C4C 42 mg/dL (15-57)
[2022-11-07 12:39] LABS: CENTROMERE B ANTIBODY <1.0 NEG AI (<1.0 NEG); JO-1 ANTIBODY <1.0 NEG AI (<1.0 NEG); RNP ANTIBODY <1.0 NEG AI (<1.0 NEG); SCL-70 ANTIBODY <1.0 NEG AI (<1.0 NEG); SJOGREN'S ANTIBODY (SS-A) <1.0 NEG AI (<1.0 NEG); SM ANTIBODY <1.0 NEG AI (<1.0 NEG); SS-B <1.0 NEG AI (<1.0 NEG)
[2022-11-07 13:20] LABS: COMPLEMENT, TOTAL (CH50) >60 U/mL (31-60)
[2022-11-07 15:05] LABS: ANA SCREEN, IFA NEGATIVE (NEGATIVE)
[2022-11-08 11:59] LABS: DNA AB (DS) CRITHIDIA,IFA NEGATIVE (NEGATIVE)
[2022-11-08 13:20] LABS: ANCA Screen NEGATIVE (NEGATIVE)
== END 2022-11-03 15:39 | disposition home or self-care (01) ==
LOC: LAB 15:42
PROVIDERS: PCP Family Medicine; Visit Provider Podiatrist Foot & Ankle Surgery
DX: D49.2 Neoplasm of unspecified behavior of bone, soft tissue, and skin (principal); Z82.61 Family history of arthritis; B35.1 Tinea unguium
CPT/HCPCS: 36415; 80053; 85025; 85651; 86036; 86140; 86160; 86162; 86235; 86255; 86376; 86431

== ENCOUNTER → 2022-11-15 12:58 | Outpatient (BNVA) | payer MEDICARE, MEDICAID, SELFPAY | PROVIDERS: PCP Family Medicine; Visit Provider Surgery | DX: Z86.010 Personal history of colon polyps (principal); S30.0XXA Contusion of lower back and pelvis, initial encounter; X58.XXXA Exposure to other specified factors, initial encounter | CPT/HCPCS: 99203; 99214 ==

== ENCOUNTER → 2022-12-13 13:47 | Outpatient (BNVA) | payer MEDICARE, MEDICAID, SELFPAY | PROVIDERS: PCP Family Medicine; Visit Provider Nurse Practitioner Family | DX: B35.4 Tinea corporis (principal); L29.8 Other pruritus; L81.4 Other melanin hyperpigmentation; L85.3 Xerosis cutis; D22.5 Melanocytic nevi of trunk; Z71.89 Other specified counseling | CPT/HCPCS: 99214 ==

== ENCOUNTER → 2022-12-29 14:17 | Outpatient (BNVA) | payer MEDICARE, MEDICAID, SELFPAY | PROVIDERS: PCP Family Medicine; Visit Provider Podiatrist Foot & Ankle Surgery | DX: I73.9 Peripheral vascular disease, unspecified (principal); I73.00 Raynaud's syndrome without gangrene; E03.9 Hypothyroidism, unspecified; M21.611 Bunion of right foot; M21.612 Bunion of left foot; M20.41 Other hammer toe(s) (acquired), right foot; M20.42 Other hammer toe(s) (acquired), left foot; L84 Corns and callosities; L60.3 Nail dystrophy | CPT/HCPCS: 11056; 11721 ==

== ENCOUNTER → 2023-01-05 14:51 | Outpatient (BNVA) | payer MEDICARE, MEDICAID, SELFPAY | PROVIDERS: PCP Family Medicine; Visit Provider Nurse Practitioner Family | DX: I10 Essential (primary) hypertension (principal); F17.210 Nicotine dependence, cigarettes, uncomplicated | CPT/HCPCS: 99213 ==

== ENCOUNTER → 2023-01-17 10:50 | Outpatient (BNVA) | payer MEDICARE, MEDICAID, SELFPAY | PROVIDERS: PCP Family Medicine; Visit Provider Nurse Practitioner Family | DX: L30.9 Dermatitis, unspecified (principal); L29.8 Other pruritus; D18.01 Hemangioma of skin and subcutaneous tissue; L81.4 Other melanin hyperpigmentation; L85.3 Xerosis cutis; F42.4 Excoriation (skin-picking) disorder | CPT/HCPCS: 11102; 99213 ==

== ENCOUNTER → 2023-01-19 10:17 | Outpatient (BNVA) | payer MEDICARE, MEDICAID, SELFPAY | PROVIDERS: PCP Family Medicine; Visit Provider Anesthesiology Pain Medicine | DX: G89.29 Other chronic pain; M48.062 Spinal stenosis, lumbar region with neurogenic claudication; M16.11 Unilateral primary osteoarthritis, right hip; M43.16 Spondylolisthesis, lumbar region; M48.061 Spinal stenosis, lumbar region without neurogenic claudication; M51.17 Intervertebral disc disorders with radiculopathy, lumbosacral region; R10.2 Pelvic and perineal pain; M47.816 Spondylosis without myelopathy or radiculopathy, lumbar region; M50.30 Other cervical disc degeneration, unspecified cervical region | CPT/HCPCS: 99214 ==

== ENCOUNTER → 2023-01-31 13:25 | Outpatient (BNVA) | payer MEDICARE, MEDICAID, SELFPAY | PROVIDERS: PCP Family Medicine; Visit Provider Nurse Practitioner Family | DX: L30.0 Nummular dermatitis (principal); Z48.02 Encounter for removal of sutures; L23.9 Allergic contact dermatitis, unspecified cause | CPT/HCPCS: 99213 ==

== ENCOUNTER → 2023-02-07 14:21 | Outpatient (BNVA) | payer MEDICARE, MEDICAID, SELFPAY | PROVIDERS: PCP Family Medicine; Visit Provider Anesthesiology Pain Medicine | DX: M47.816 Spondylosis without myelopathy or radiculopathy, lumbar region (principal); G89.29 Other chronic pain | CPT/HCPCS: 64635; 64636; J1030 ==

== ENCOUNTER → 2023-03-02 11:09 | Outpatient (BNVA) | payer MEDICARE, MEDICAID, SELFPAY | PROVIDERS: PCP Family Medicine; Visit Provider Anesthesiology Pain Medicine | DX: G89.29 Other chronic pain; M48.062 Spinal stenosis, lumbar region with neurogenic claudication; M43.16 Spondylolisthesis, lumbar region; M48.061 Spinal stenosis, lumbar region without neurogenic claudication; M47.816 Spondylosis without myelopathy or radiculopathy, lumbar region; M51.17 Intervertebral disc disorders with radiculopathy, lumbosacral region; M16.11 Unilateral primary osteoarthritis, right hip; M25.561 Pain in right knee | CPT/HCPCS: 99214 ==

== ENCOUNTER → 2023-03-07 15:57 | Outpatient (BNVA) | payer MEDICARE, MEDICAID, SELFPAY | PROVIDERS: PCP Family Medicine; Visit Provider Family Medicine | DX: E03.9 Hypothyroidism, unspecified (principal); M48.062 Spinal stenosis, lumbar region with neurogenic claudication; I10 Essential (primary) hypertension | CPT/HCPCS: 80053; 84443; 85025 ==

== ENCOUNTER 2023-03-22 08:27 | Day surgery (SDC) | payer MEDICARE, MEDICAID, SELFPAY ==
[2023-03-22 08:43] VITALS: BMI 24.7
[2023-03-22 08:48] VITALS: BP 112/80; PULSE 95; RESP 18; TEMP 36.3; O2SAT 96
[2023-03-22] MEDS: sodium chloride 0.9% 1,000 ML 30 ML IV (09:12)
--- NOTE | 2023-03-22 09:37 | ANES.PREANE2 ---
Pre-Anesthetic Assessment Height/Weight: Height 1.6 m Weight 63.503 kg Temp Pulse Resp BP Pulse Ox O2 Del Method 97.4 F L 95 18 112/80 96 Room Air 03/22/23 08:48 03/22/23 08:48 03/22/23 08:48 03/22/23 08:48 03/22/23 08:48 03/22/23 08:48 Preop Diagnosis: history polyps Operation Date: 03/22/23 09:45 Proposed Procedures p Colonoscopy 39848,z86.010(Not Applicable) - Dom Saeed, DO Was Beta Rohan taken within 24 hours: N/A Was Clonidine taken within 24 hours: N/A Last intake: Intake Last Liquid Date 03/21/23 Last Liquid Time 23:00 Last Solid Date 03/20/23 Last Solid Time 20:00 Social Tobacco and No alcohol Exam alert, oriented x 3, clear to auscultation bilaterally and regular rate & rhythm Airway Submandibular: within normal limits Cervical ROM: within normal limits Mallampati: Class I History/ROS No significant history except as noted and No significant complaints Pulmonary Chronic Obstructive Pulmonary Disease smoker CV/HEM Arrythmia, Hypertension and Peripheral Vascular Disease None reported Hepatic None reported GI None reported Metabolic Thyroid Disease Neuropsych Cerebrovascular Accident, Syncope and Transient Ischemic Attack patient denies any strokes Anesthetic Plan ASA status: 3 Anesthesia: Anesthesia Evaluation and MAC Risk of > 500 ml blood loss (7ml/kg in children): Yes, adequate IV access and fluids planned Medications/Allergies Home Medications Medication Instructions Recorded Confirmed Last Taken Type ascorbic acid (vitamin C) 500 mg 500 mg PO DAILY 12/04/19 03/20/23 03/20/23 History tablet nizfkrkpfxaj-mojssqae-lcgxtzm-folic 1 tab PO DAILY 04/03/20 03/20/23 03/20/23 History acid 400 mcg-vit K1 20 mcg tablet (One-A-Day Women's 50 Plus) cholecalciferol (vitamin D3) 25 50 mcg PO DAILY 06/17/20 03/20/23 03/20/23 History mcg (1,000 unit) capsule omega-3 fatty acids 1,000 mg 1,000 mg PO DAILY 10/15/20 03/20/23 03/20/23 History capsule (Fish Oil Concentrate) Methyl B 12 1 tab PO DAILY 12/27/21 03/20/23 03/21/23 History biotin 5 mg capsule 5 mg PO DAILY 03/15/22 03/20/23 03/20/23 History hydrocortisone 1 % topical cream 1 applic topical BID PRN skin 11/22/22 03/22/23 1 Week Ago Rx irritation #60 grams ~03/15/23 amlodipine 2.5 mg tablet 2.5 mg PO DAILY 03/07/23 03/20/23 03/21/23 History wheelchair #1 ea 03/07/23 03/16/23 Unknown Rx levothyroxine 75 mcg capsule 75 mcg PO DAILY #90 caps 03/13/23 03/20/23 03/22/23 06:00 Rx Allergies Allergy/AdvReac Type Severity Reaction Status Date / Time NSAIDS (Non-Steroidal Allergy Mild GI Bleeding Verified 03/07/23 15:13 Anti-Inflamma Current Medications Generic Name Dose Route Start Last Admin Trade Name Freq PRN Reason Stop Dose Admin Sodium Chloride 1,000 mls @ 30 mls/hr 03/22/23 08:45 03/22/23 09:12 Sodium Chloride 0.9% IV 03/23/23 08:44 30 mls/hr .Q24H LM Administration PFSH Anesthesia Medical History COPD (chronic obstructive pulmonary disease) Coronary atherosclerosis due to calcified coronary lesion of [place] artery CVA (cerebral vascular accident) Hypertension Hypothyroidism Intervertebral disc disorder with radiculopathy of lumbosacral region Lumbar stenosis with neurogenic claudication Osteoarthritis of hands, bilateral Overactive bladder Raynauds syndrome Scoliosis of thoracolumbar spine Spinal stenosis of lumbar region with radiculopathy Spondylolisthesis, lumbar region Surgical History History of colonoscopy History of hernia repair History of right inguinal hernia repair 3x History of tonsillectomy Family History Mother Ovarian cancer Cancer Family/Other CAD (coronary artery disease) Lung disease Grandfather CAD (coronary artery disease) [place] Sister Cancer Denies family history of Diabetes Clotting disorder Dementia Chronic kidney disease (CKD) Suicide Anesthesia complication Bleeding disorder Stroke Social History Smoking and tobacco/nicotine status: current every day tobacco/nicotine user cigarettes Packs smoked per day: 0.5 Years cigarettes smoked: 37 [ Other cigarette details: [id number]] Quit status (tobacco/nicotine): considering quitting Alcohol intake: current Alcohol intake frequency: holidays/special occasions only Alcohol type: hard liquor Substance/Drug Use: never Caregiver/support person: No Lives independently: Yes Household members: none Marital status: Single Current occupational status: employed Current occupation: [employer] Do you think of yourself as: Straight/Heterosexual Current gender identity: Female Data Anesthesia Cardiac Studies: Echocardiogram 12/07/21 Sestamibi Stress Test (Cardiology) 01/10/22 Cardiac Event Monitor 04/27/22
--- NOTE | 2023-03-22 09:58 | PM.HP ---
Providers/Chief Complaint Primary Care Provider: Jerilyn Matthew DO Chief Complaint: Z86.010 History of Present Illness Kamla Ghotra is a 68 year old female Review of Systems General: Reports: 10 or more systems reviewed and unremarkable except in HPI and below Medications/Allergies Home Medications Medication Instructions Recorded Confirmed Last Taken Type ascorbic acid (vitamin C) 500 mg 500 mg PO DAILY 12/04/19 03/20/23 03/20/23 History tablet suoeiejxtriz-lustgpur-mmbknew-folic 1 tab PO DAILY 04/03/20 03/20/23 03/20/23 History acid 400 mcg-vit K1 20 mcg tablet (One-A-Day Women's 50 Plus) cholecalciferol (vitamin D3) 25 50 mcg PO DAILY 06/17/20 03/20/23 03/20/23 History mcg (1,000 unit) capsule omega-3 fatty acids 1,000 mg 1,000 mg PO DAILY 10/15/20 03/20/23 03/20/23 History capsule (Fish Oil Concentrate) Methyl B 12 1 tab PO DAILY 12/27/21 03/20/23 03/21/23 History biotin 5 mg capsule 5 mg PO DAILY 03/15/22 03/20/23 03/20/23 History hydrocortisone 1 % topical cream 1 applic topical BID PRN skin 11/22/22 03/22/23 1 Week Ago Rx irritation #60 grams ~03/15/23 amlodipine 2.5 mg tablet 2.5 mg PO DAILY 03/07/23 03/20/23 03/21/23 History wheelchair #1 ea 03/07/23 03/16/23 Unknown Rx levothyroxine 75 mcg capsule 75 mcg PO DAILY #90 caps 03/13/23 03/20/23 03/22/23 06:00 Rx Allergies Allergy/AdvReac Type Severity Reaction Status Date / Time NSAIDS (Non-Steroidal Allergy Mild GI Bleeding Verified 03/07/23 15:13 Anti-Inflamma PFSH Acute PFSH: Medical History COPD (chronic obstructive pulmonary disease) Coronary atherosclerosis due to calcified coronary lesion of [place] artery CVA (cerebral vascular accident) Hypertension Hypothyroidism Intervertebral disc disorder with radiculopathy of lumbosacral region Lumbar stenosis with neurogenic claudication Osteoarthritis of hands, bilateral Overactive bladder Raynauds syndrome Scoliosis of thoracolumbar spine Spinal stenosis of lumbar region with radiculopathy Spondylolisthesis, lumbar region Surgical History History of colonoscopy History of hernia repair History of right inguinal hernia repair 3x History of tonsillectomy Family History Mother Ovarian cancer Cancer Family/Other CAD (coronary artery disease) Lung disease Grandfather CAD (coronary artery disease) [place] Sister Cancer Denies family history of Diabetes Clotting disorder Dementia Chronic kidney disease (CKD) Suicide Anesthesia complication Bleeding disorder Stroke Social History Smoking and tobacco/nicotine status: current every day tobacco/nicotine user cigarettes Packs smoked per day: 0.5 Years cigarettes smoked: 37 [ Other cigarette details: [id number]] Quit status (tobacco/nicotine): considering quitting Alcohol intake: current Alcohol intake frequency: holidays/special occasions only Alcohol type: hard liquor Substance/Drug Use: never Caregiver/support person: No Lives independently: Yes Household members: none Marital status: Single Current occupational status: employed Current occupation: [employer] Do you think of yourself as: Straight/Heterosexual Current gender identity: Female Vitals/I&O/Wt Last Vital Signs Temp 97.4 F L 03/22/23 08:48 Pulse 95 03/22/23 08:48 Resp 18 03/22/23 08:48 BP 112/80 03/22/23 08:48 Pulse Ox 96 03/22/23 08:48 O2 Del Method Room Air 03/22/23 08:48 Weight last 48 hrs Weight 140 lb A&P Assessment and plan (1) Colon cancer screening: (2) History of colon polyps: Plan Screening colonoscopy Attestations Medical Necessity Statement*: Home Coding Level of Care Code Acute Code for Chg Fwd Diagnoses Colon cancer screening Z12.11 History of colon polyps Z86.010
[2023-03-22 10:28] VITALS: BP 165/98; PULSE 81; RESP 18; TEMP 36.1; O2SAT 99
[2023-03-22 10:51] VITALS: BP 136/98; PULSE 73; RESP 16; O2SAT 96
--- NOTE | 2023-03-22 13:31 | ANE.PACU2 ---
Inpatient post-anesthesia follow up: Airway intact: Yes Vital signs: Temperature 97.0 F Pulse Rate 73 Respiratory Rate 16 Blood Pressure 136/98 Pulse Oximetry 96 Oxygen Delivery Me thod Room Air Oxygen Flow Rate Fraction of Inspir ed Oxygen Hydration adequate: Yes Nausea and vomiting: No Pain level: 2 Mental status: Baseline
== END 2023-03-22 10:52 | disposition home or self-care (01) ==
PROVIDERS: PCP Family Medicine; Visit Provider Surgery
PROC: 0DJD8ZZ Inspection of Lower Intestinal Tract, Via Natural or Artificial Opening Endoscopic (ICD-10-PCS; CPT 45378; principal; 2023-03-22 09:45)
DX: Z12.11 Encounter for screening for malignant neoplasm of colon (principal); Z86.010 Personal history of colon polyps; K57.30 Diverticulosis of large intestine without perforation or abscess without bleeding; K52.9 Noninfective gastroenteritis and colitis, unspecified; D12.5 Benign neoplasm of sigmoid colon; J44.9 Chronic obstructive pulmonary disease, unspecified; I25.10 Atherosclerotic heart disease of native coronary artery without angina pectoris; Z86.73 Personal history of transient ischemic attack (TIA), and cerebral infarction without residual deficits; I10 Essential (primary) hypertension; E03.9 Hypothyroidism, unspecified; F17.210 Nicotine dependence, cigarettes, uncomplicated
CPT/HCPCS: 45380; 45385; 88305; J2704; J3010; J7030

== ENCOUNTER 2023-03-23 12:35 | Emergency (ER) | payer MEDICARE, MEDICAID, SELFPAY ==
[2023-03-23 13:09] VITALS: BP 113/75; PULSE 109; RESP 18; TEMP 36.8; O2SAT 98; BMI 23.9
[2023-03-23 13:47] VITALS: PULSE 91; O2SAT 96
[2023-03-23 13:49] LABS: Basophils % 0.3 %; Eosinophils # 0.1 10^3/uL (0.0-0.8); Eosinophils % 0.7 %; Hematocrit 44.4 % (36-47); Lymphocytes # 0.6 10^3/uL (0.8-4.8); Lymphocytes % 8.5 %; Mean Corpuscular HGB Conc 33.3 g/dL (30-55); Mean Corpuscular Hemoglobin 28.4 pg (27-33); Mean Corpuscular Volume 85.2 fl (85-98); Mean Platelet Volume 9.1 fL (7.4-10.4); Monocytes # 0.6 10^3/uL (0.2-0.9); Neutrophils # 6.07 10^3/uL (1.8-7.7); Neutrophils % 82.2 %; Nucleated Red Blood Cells % 0 %; Platelet Count 411 10^3/cmm (157-399); Red Blood Count 5.21 10^6/uL (3.85-5.65); Red Cell Distribution Width 15.1 % (12.1-15.1); White Blood Count 7.38 10^3/uL (3.29-11.43)
--- NOTE | 2023-03-23 13:49 | CTR_ITS ---
PROCEDURE INFORMATION: Exam: CT Abdomen And Pelvis With Contrast Exam date and time: 03/23/2023 4:29 PM Age: 68 years old Clinical indication: Abdominal pain; Localized; Left lower quadrant (llq); Prior surgery; Surgery date: 6+ months; Surgery type: Hernia repair; Additional info: Rlq > diffuse pain; N/v; Distended; Eval partial sbo TECHNIQUE: Imaging protocol: Computed tomography of the abdomen and pelvis with contrast. Radiation optimization: All CT scans at this facility use at least one of these dose optimization techniques: automated exposure control; mA and/or kV adjustment per patient size (includes targeted exams where dose is matched to clinical indication); or iterative reconstruction. Contrast material: OMNI 350; Contrast volume: 100 ml; Contrast route: INTRAVENOUS (IV); Other contrast: Oral, omni 350 mixed with water x 2 cups one hour between, 15ml contrast to 20oz water; REPORTING DATA: Count of CT and Cardiac NM exams in prior 12 months: This patient has received 2 known CTs and 0 known cardiac nuclear medicine studies in the 12 months prior to the current study. COMPARISON: CT abdomen pelvis w con* [id number] 08/09/2021 3:45 PM RADIATION DOSE METRICS: Total DLP (mGy-cm): 592 FINDINGS: Lungs: Small amount of new atelectasis and/or pneumonitis in both lung bases. Liver: Normal. No mass. Gallbladder and bile ducts: Normal. No calcified stones. No ductal dilation. Pancreas: Normal. No ductal dilation. Spleen: Normal. No splenomegaly. Adrenal glands: Normal. No mass. Kidneys and ureters: A few small renal cysts need no follow-up. Otherwise, unremarkable. Stomach and bowel: A 3.5 cm x 4.5 cm x 3 cm soft tissue mass in the posterior left wall of the low rectosigmoid colon has increased in size slightly, so is suspicious for a slow growing malignancy. Correlate with digital exam and colonoscopy. Multiple diverticula from the colon. Diffuse thickening of the wall of the distal ascending and proximal sigmoid colon with stranding and disorganized fluid in the adjacent fat is likely acute diverticulitis. However, this could be an additional segment of malignancy, so this should be evaluated with colonoscopy, as well. This finding has increased considerably in the interval. The colon proximal to this is distended, but not dilated, and contains multiple air-fluid levels, so this abnormality in the distal descending and proximal sigmoid colon may be causing colonic ileus or early colonic obstruction. In addition, most of the small bowel appears mildly dilated with multiple air-fluid levels which could be secondary to a early colonic obstruction. Alternatively, this could be adynamic ileus. 1 cm polypoid mass in a loop of small bowel in the posterior central pelvis. Appendix: No evidence of appendicitis. Intraperitoneal space: Small amount of simple free fluid in the abdomen and pelvis. Vasculature: Moderate amount of arterial calcification. Lymph nodes: Unremarkable. No enlarged lymph nodes. Urinary bladder: Unremarkable as visualized. Reproductive: Unremarkable as visualized. Bones/joints: Unchanged moderate scoliosis and moderate to severe multilevel spondylosis. Unchanged moderate L1 vertebral body compression deformity progression of severe right hip arthritis. Unchanged mild-moderate right hip arthritis. Soft tissues: Unremarkable. Other findings: No obvious abscess formation. CT/CT abdomen pelvis w con* [id number] IMPRESSION: 1. Mass in the distal rectosigmoid colon is suspicious for a slow growing malignancy. 2. Considerable abnormality involving the distal descending colon and proximal sigmoid colon has markedly increased in the interval. This could be acute diverticulitis, but may be additional malignancy. This may be causing partial or early bowel obstruction. See above discussion. 3. Colonoscopy is recommended. 4. 1 cm polyp in a loop of small bowel in the posterior central pelvis. 5. New small amount of bibasilar atelectasis and/or pneumonitis. 6. Additional details as above.
[2023-03-23] MEDS: sodium chloride 0.9% 1,000 ML 999 ML IV (13:50)
--- NOTE | 2023-03-23 14:00 | W.ED.ABDPA2 ---
HPI - Abdominal Pain General: Chief Complaint: Abdominal Pain Stated Complaint: has not ate since monday.. Time Seen by Provider: 03/23/23 13:19 History of Present Illness: 68-year-old female presents emergency department stating she is having abdominal pain, abdominal bloating, nausea, vomiting, diarrhea. Her symptoms actually started 4 days ago. She was scheduled to have a colonoscopy yesterday. She went ahead and went through with it. She reports that on Monday she started having to take the colonoscopy prep. she took Dulcolax in the morning. Shortly thereafter she vomited and also had some diarrhea. She continued the MiraLAX cleanse and reports that she continued to take it although she was vomiting and having diarrhea after each episode. She reports her abdomen was getting progressively more distended. After the colonoscopy, she continued to have small volumes of diarrhea, nausea, vomiting, abdominal bloating. Today she endorses most of her pain is in the right lower quadrant but it radiates all throughout the abdomen. She has not been eating and drinking since the colonoscopy because of the discomfort. I did reviewed the colonoscopy report which showed sigmoiditis and diverticulosis without diverticulitis. Associated Symptoms: Denies chills, dysuria, fever(s) and syncope Review of Systems General: Reports: 10 or more systems reviewed and unremarkable except in HPI and below Const: Denies: fever(s), chills or body aches Eyes: Denies: change in vision Card: Denies: chest pain, edema or syncope Resp: Denies: dyspnea or productive cough : Denies: flank pain, dysuria or urinary frequency Musc: Denies: neck pain, back pain, extremity pain or extremity swelling Skin/Breast: Denies: rash or erythema Neuro: Denies: headache(s), numbness in extremities, weakness in extremities, lack of coordination or difficulty walking PFSH ED PFSH: Medical History COPD (chronic obstructive pulmonary disease) Coronary atherosclerosis due to calcified coronary lesion of campo artery CVA (cerebral vascular accident) Hypertension Hypothyroidism Intervertebral disc disorder with radiculopathy of lumbosacral region Lumbar stenosis with neurogenic claudication Osteoarthritis of hands, bilateral Overactive bladder Raynauds syndrome Scoliosis of thoracolumbar spine Spinal stenosis of lumbar region with radiculopathy Spondylolisthesis, lumbar region Surgical History History of colonoscopy History of hernia repair History of right inguinal hernia repair 3x History of tonsillectomy Family History Mother Ovarian cancer Cancer Family/Other CAD (coronary artery disease) Lung disease Grandfather CAD (coronary artery disease) [place] Sister Cancer Denies family history of Diabetes Clotting disorder Dementia Chronic kidney disease (CKD) Suicide Anesthesia complication Bleeding disorder Stroke Social History Smoking and tobacco/nicotine status: current every day tobacco/nicotine user cigarettes Packs smoked per day: 0.5 Years cigarettes smoked: 37 [ Other cigarette details: [id number]] Quit status (tobacco/nicotine): considering quitting Alcohol intake: current Alcohol intake frequency: holidays/special occasions only Alcohol type: hard liquor Substance/Drug Use: never Caregiver/support person: No Lives independently: Yes Household members: none Marital status: Single Current occupational status: employed Current occupation: [employer] Do you think of yourself as: Straight/Heterosexual Current gender identity: Female Physical Exam Const: COMMON NORMALS: no limitations, alert and well nourished EXAM LIMITATIONS: no altered mental status HENMT: COMMON NORMALS: normocephalic, atraumatic and external ears normal HEAD & SCALP: normocephalic and atraumatic EXTERNAL EAR: Yes external ears normal MOUTH: no muffled voice Eye: COMMON NORMALS: EOMs intact bilaterally, conjunctivae normal and no scleral icterus CONJUNCTIVA: Yes conjunctivae normal Neck/C-Spine: COMMON NORMALS: no JVD GENERAL: Yes normal visual inspection and Yes trachea midline Resp: COMMON NORMALS: normal respiratory effort, No use of accessory muscles and clear to auscultation bilaterally AUSCULTATION: clear to auscultation bilaterally Cardio: COMMON NORMALS: no JVD and regular rhythm RHYTHM: regular rhythm GI: COMMON NORMALS: Soft to palpation PALPATION: Yes Soft to palpation, Yes Tenderness to palpation present (GI), Yes Guarding due to palpation present (GI) and Yes Other GI palpation findings present ( distended, tympanitic to percussion, few high-pitched [place] bowel sounds) Extremity: COMMON NORMALS: normal to inspection Neuro: COMMON NORMALS: moves all extremities, no focal motor deficits and no sensory deficits noted SENSORIUM/ORIENTATION: Yes alert SPEECH: speech normal Psych: COMMON NORMALS: mental status grossly normal, Normal thought process present, cooperative, normal affect and speech normal SPEECH: Yes normal speech THOUGHT PROCESS: Normal thought process present Skin: COMMON NORMALS: no rashes or lesions noted and no jaundice; negative for turgor normal ( Decreased) GENERAL SKIN EXAM: no rashes or lesions noted and decreased turgor ( Decreased) Course Vital Signs: Vital signs: Vital Signs Temperature 98.2 F 03/23/23 13:09 Pulse Rate 78 03/23/23 17:09 Respiratory Rate 18 03/23/23 13:09 Blood Pressure 131/97 03/23/23 17:09 Pulse Oximetry 97 03/23/23 17:09 Oxygen Delivery Me thod Room Air 03/23/23 17:09 MDM - Abdominal Pain Medical Decision Making patient had sigmoiditis confirmed on colonoscopy. She has tenderness all throughout the abdomen but most notably in the right lower quadrant. She also has decreased turgor and poor p.o. intake over the last few days. I am going to start her on IV fluids, check her electrolytes, check white blood cell count, obtain kidney function and liver functions, and perform a CT scan of the abdomen and pelvis with contrast. differential diagnosis beyond sigmoiditis also includes enteritis, partial small bowel obstruction, perforation, mesenteric adenitis, appendicitis, neoplastic process, free fluid, and multiple others. CT Abd/Pelv FINDINGS: Lungs: Small amount of new atelectasis and/or pneumonitis in both lung bases. Liver: Normal. No mass. Gallbladder and bile ducts: Normal. No calcified stones. No ductal dilation. Pancreas: Normal. No ductal dilation. Spleen: Normal. No splenomegaly. Adrenal glands: Normal. No mass. Kidneys and ureters: A few small renal cysts need no follow-up. Otherwise, unremarkable. Stomach and bowel: A 3.5 cm x 4.5 cm x 3 cm soft tissue mass in the posterior left wall of the low rectosigmoid colon has increased in size slightly, so is suspicious for a slow growing malignancy. Correlate with digital exam and colonoscopy. Multiple diverticula from the colon. Diffuse thickening of the wall of the distal ascending and proximal sigmoid colon with stranding and disorganized fluid in the adjacent fat is likely acute diverticulitis. However, this could be an additional segment of malignancy, so this should be evaluated with colonoscopy, as well. This finding has increased considerably in the interval. The colon proximal to this is distended, but not dilated, and contains multiple air-fluid levels, so this abnormality in the distal descending and proximal sigmoid colon may be causing colonic ileus or early colonic obstruction. In addition, most of the small bowel appears mildly dilated with multiple air-fluid levels which could be secondary to a early colonic obstruction. Alternatively, this could be adynamic ileus. 1 cm polypoid mass in a loop of small bowel in the posterior central pelvis. Appendix: No evidence of appendicitis. Intraperitoneal space: Small amount of simple free fluid in the abdomen and pelvis. Vasculature: Moderate amount of arterial calcification. Lymph nodes: Unremarkable. No enlarged lymph nodes. Urinary bladder: Unremarkable as visualized. Reproductive: Unremarkable as visualized. Bones/joints: Unchanged moderate scoliosis and moderate to severe multilevel spondylosis. Unchanged moderate L1 vertebral body compression deformity progression of severe right hip arthritis. Unchanged mild-moderate right hip arthritis. Soft tissues: Unremarkable. Other findings: No obvious abscess formation. I have consulted with Dr. Saeed who did the patient's colonoscopy yesterday. He said he biopsied this area of inflammation. The results of this are not available yet. He is not sure whether its infection, other cause of inflammation or a mass. He recommended that the patient go for colorectal surgical consultation. He reports that if he admits the patient and its infectious they could manage it here but if it turned out to be a mass and there was need for surgical excision that he may have trouble transferring the patient from their inpatient status. I discussed the CT finding of a mass in the pending biopsy results with the patient. I advised recommendation for admission. Patient reports she does not want to be admitted. She says she is actually feeling quite a bit better after some fluids here in the ER. She does understand that this mass could potentially be cancerous. She also understands that there is a smaller possibility could be infectious. Dr. Saeed has recommended Augmentin 875 twice a day for 14 days. I spoke with Dr. Saeed again about her not wanting to be admitted or transferred. The plan is to call her soon as the biopsy results are available. The patient was advised to do a liquid diet for 2 days and then slowly progressed to a soft diet. She was given specific return precautions. At this point she will check out against our medical advice. Lab Data 03/23/23 13:38 03/23/23 13:38 Labs/Radiology: Radiology Impressions Abdomen/Pelvis CT 03/23/23 13:49 IMPRESSION: 1. Mass in the distal rectosigmoid colon is suspicious for a slow growing malignancy. 2. Considerable abnormality involving the distal descending colon and proximal sigmoid colon has markedly increased in the interval. This could be acute diverticulitis, but may be additional malignancy. This may be causing partial or early bowel obstruction. See above discussion. 3. Colonoscopy is recommended. 4. 1 cm polyp in a loop of small bowel in the posterior central pelvis. 5. New small amount of bibasilar atelectasis and/or pneumonitis. 6. Additional details as above. Laboratory Results WBC 7.38 10^3/uL (3.29-11.43) 03/23/23 13:38 RBC 5.21 10^6/uL (3.85-5.65) 03/23/23 13:38 Hgb 14.80 g/dL (11.27-16.99) 03/23/23 13:38 Hct 44.4 % (36-47) 03/23/23 13:38 MCV 85.2 fl (85-98) 03/23/23 13:38 MCH 28.4 pg (27-33) 03/23/23 13:38 MCHC 33.3 g/dL (30-55) 03/23/23 13:38 RDW 15.1 % (12.1-15.1) 03/23/23 13:38 Plt Count 411 10^3/cmm (157-399) H 03/23/23 13:38 MPV 9.1 fL (7.4-10.4) 03/23/23 13:38 Neut % (Auto) 82.2 % 03/23/23 13:38 Lymph % (Auto) 8.5 % 03/23/23 13:38 [place] % (Auto) 8.0 % 03/23/23 13:38 Eos % (Auto) 0.7 % 03/23/23 13:38 Baso % (Auto) 0.3 % 03/23/23 13:38 Neut # (Auto) 6.07 10^3/uL (1.8-7.7) 03/23/23 13:38 Lymph # (Auto) 0.6 10^3/uL (0.8-4.8) L 03/23/23 13:38 [place] # (Auto) 0.6 10^3/uL (0.2-0.9) 03/23/23 13:38 Eos # (Auto) 0.1 10^3/uL (0.0-0.8) 03/23/23 13:38 Baso # (Auto) 0.0 10^3/uL (0.0-0.1) 03/23/23 13:38 Nucleated RBC % (auto) 0 % 03/23/23 13:38 Nucleated RBCs # 0.0 /100WBC 03/23/23 13:38 Sodium 131 mmol/L (136-145) L 03/23/23 13:38 Potassium 3.0 mmol/L (3.5-5.1) L 03/23/23 13:38 Chloride 94 mmol/L (98-107) L 03/23/23 13:38 Carbon Dioxide 26 mmol/L (22-29) 03/23/23 13:38 Anion Gap 14.0 (5-19) 03/23/23 13:38 BUN 8 mg/dL (8-23) 03/23/23 13:38 Creatinine 0.7 mg/dL (0.5-0.9) 03/23/23 13:38 GFR Calculation 82.7 mL/min (90-130) L 03/23/23 13:38 Glucose 114 mg/dL (65-115) 03/23/23 13:38 Calculated Osmolality 271 mOsm/kg (285-295) L 03/23/23 13:38 Calcium 9.8 mg/dL (8.5-10.5) 03/23/23 13:38 Magnesium 1.6 mg/dL (1.7-2.3) L 03/23/23 13:38 Total Bilirubin 0.7 mg/dL (0.15-1.2) 03/23/23 13:38 AST 13 U/L (0-32) 03/23/23 13:38 ALT 6 U/L (0-33) 03/23/23 13:38 Alkaline Phosphatase 92 U/L (35-105) 03/23/23 13:38 Total Protein 6.8 g/dL (6.6-8.7) 03/23/23 13:38 Albumin 3.5 g/dL (3.5-5.2) 03/23/23 13:38 Globulin 3.3 g/dL (1.3-4.6) 03/23/23 13:38 Lipase 12 U/L (13-60) L 03/23/23 13:38 Urine Color Yellow (Yellow) 03/23/23 17:33 Urine Appearance Clear (CLEAR) 03/23/23 17:33 Urine pH 7 (5-7) 03/23/23 17:33 Ur Specific [place] 1.005 (1.005-1.030) 03/23/23 17:33 Urine Protein Neg (Negative) 03/23/23 17:33 Urine Glucose (UA) Norm (Normal) 03/23/23 17:33 Urine Ketones Negative (Negative) 03/23/23 17:33 Urine Blood Neg (Negative) 03/23/23 17:33 Urine Nitrate Negative (Negative) 03/23/23 17:33 Urine Bilirubin Neg (Negative) 03/23/23 17:33 Urine Urobilinogen Norm mg/dL (Negative) 03/23/23 17:33 Ur Leukocyte Esterase Negative (Negative) 03/23/23 17:33 All radiology interpretation(s) finalized by discharge Discharge Plan Discharge Patient Disposition: Left Against Medical Advice Clinical Impression: Dynamic ileus, Abnormal CT scan, sigmoid colon, Acute hypokalemia, Hypomagnesemia Condition: Stable Prescriptions: New amoxicillin-pot clavulanate 875-125 mg tablet 1 tab PO BID 14 Days Qty: 28 0RF Adult 50 Plus Probiotic 4 billion cell capsule 4,000 mmu cells PO DAILY Qty: 60 0RF Rx Instructions: administer with a meal magnesium oxide 500 mg capsule 500 mg PO BID Qty: 14 0RF Klor-Con 20 mEq packet 20 meq PO BID 10 Days Qty: 20 0RF ondansetron 4 mg tablet,disintegrating 4 mg PO Q6H PRN (Reason: nausea and vomiting) Qty: 20 0RF No Action cholecalciferol (vitamin D3) 25 mcg (1,000 unit) capsule 50 mcg PO DAILY ascorbic acid (vitamin C) 500 mg tablet 500 mg PO DAILY Methyl B 12 1 tab PO DAILY hydrocortisone 1 % cream 1 applic topical BID PRN (Reason: skin irritation) Qty: 60 0RF amlodipine 2.5 mg tablet 2.5 mg PO DAILY (DME) wheelchair See Rx Instructions .Route .MEDSUPPLY Qty: 1 0RF Rx Instructions: As directed biotin 5 mg capsule 5 mg PO DAILY levothyroxine 75 mcg capsule 75 mcg PO DAILY Qty: 90 1RF One-A-Day Women's 50 Plus 400-20 mcg Tablet 1 tab PO DAILY Fish Oil Concentrate 1,000 mg Capsule 1,000 mg PO DAILY triamcinolone acetonide 0.1 % cream 1 applic TOPICAL DAILY PRN (Reason: Rash) Flonase 50 mcg/actuation [place],Suspension 1 spray INTRANASAL DAILY Rx Instructions: administer into each nostril Restasis 0.05 % dropperette 1 drp ophthalmic (eye) BID Discharge Orders: Discharge ED (Routine); Ordered 03/23/23 Ordered By: Juan F Long Referrals: Dom Saeed DO [Physician] - 4-7 days Jerilyn Matthew DO [Primary Care Provider] - Discharge Diet: As Directed Activity Restrictions/Additional Instructions: You have signs of ileus which results in poor transit of liquids, solids, and gas through the intestines. Please do a full liquid diet for the first 2 days. Then you may progress to a soft diet. You have a thickening in your sigmoid colon. It is unclear whether this is a mass or whether it is inflammation from another cause. There is a possibility it could be infectious. As a result, Dr. Saeed has recommended you start antibiotics. You have a biopsy pending. Please follow-up with Dr. Saeed concerning the biopsy. If the biopsy is showing a cancerous lesion, then he will help you to find follow-up with colorectal surgery. If it is showing infection, then he can do the follow-up himself. If you have fever, worsening abdominal pain, worsening abdominal distention, vomiting, bloody stools, inability to pass gas, or you are getting worse then return to the emergency department. Coding Level of Care Code ED Mechanical Estimator for Ramon Truong
[2023-03-23 14:10] LABS: Alanine Aminotransferase 6 U/L (0-33); Albumin Level 3.5 g/dL (3.5-5.2); Alkaline Phosphatase 92 U/L (35-105); Aspartate Amino Transferase 13 U/L (0-32); Blood Urea Nitrogen 8 mg/dL (8-23); Calcium 9.8 mg/dL (8.5-10.5); Carbon Dioxide 26 mmol/L (22-29); Chloride 94 mmol/L (98-107); Globulin 3.3 g/dL (1.3-4.6); Glomerular Filtration Rate 82.7 mL/min (90-130); Glucose 114 mg/dL (65-115); Lipase 12 U/L (13-60); Magnesium 1.6 mg/dL (1.7-2.3); Osmolality Calculated 271 mOsm/kg (285-295); Sodium 131 mmol/L (136-145); Total Bilirubin 0.7 mg/dL (0.15-1.2); Total Protein 6.8 g/dL (6.6-8.7)
[2023-03-23] MEDS: iohexol 350 mg/mL 500 mL Btl (per mL) IV (14:39)
[2023-03-23 15:00] VITALS: PULSE 85; O2SAT 96
[2023-03-23 16:40] VITALS: BP 121/83; PULSE 74; O2SAT 99
[2023-03-23 17:09] VITALS: BP 131/97; PULSE 78; O2SAT 97
[2023-03-23] MEDS: amoxicillin-clav 875-125 mg Tablet 1 TAB PO (18:10)
[2023-03-23 18:13] LABS: Add Urine Microscopic? NO; Charge for UA Resulting for Rev
[2023-03-23 18:16] LABS: Bilirubin Urine Neg (Negative); Blood Urine Neg (Negative); Glucose Urine UA Norm (Normal); Ketones Urine Negative (Negative); Leukocyte Esterase Urine Negative (Negative); Nitrate Urine Negative (Negative); Protein Urine Neg (Negative); Specific Gravity, Urine 1.005 (1.005-1.030); Urine Appearance Clear (CLEAR); Urine Color Yellow (Yellow); Urobilinogen Urine Norm (Negative); pH Urine 7 (5-7)
== END 2023-03-23 18:31 | disposition left against medical advice (07) ==
PROVIDERS: Emergency Provider Emergency Medicine; PCP Family Medicine
DX: K56.7 Ileus, unspecified (principal); R93.3 Abnormal findings on diagnostic imaging of other parts of digestive tract; E87.6 Hypokalemia; E83.42 Hypomagnesemia; Z53.21 Procedure and treatment not carried out due to patient leaving prior to being seen by health care provider; F17.210 Nicotine dependence, cigarettes, uncomplicated; J44.9 Chronic obstructive pulmonary disease, unspecified; I25.10 Atherosclerotic heart disease of native coronary artery without angina pectoris; I10 Essential (primary) hypertension
CPT/HCPCS: 36415; 74177; 80053; 81003; 83690; 83735; 85025; 96360; 99285; J7030; Q9967

== ENCOUNTER → 2023-03-28 14:45 | Outpatient (BNVA) | payer MEDICARE, MEDICAID, SELFPAY | PROVIDERS: PCP Family Medicine; Visit Provider Podiatrist Foot & Ankle Surgery | DX: I73.9 Peripheral vascular disease, unspecified (principal); I73.00 Raynaud's syndrome without gangrene; E03.9 Hypothyroidism, unspecified; L84 Corns and callosities; L60.3 Nail dystrophy; M20.41 Other hammer toe(s) (acquired), right foot; M20.42 Other hammer toe(s) (acquired), left foot | CPT/HCPCS: 11056; 11721 ==

== ENCOUNTER → 2023-03-30 11:34 | Outpatient (BNVA) | payer MEDICARE, MEDICAID, SELFPAY | PROVIDERS: PCP Family Medicine; Visit Provider Surgery | DX: R93.3 Abnormal findings on diagnostic imaging of other parts of digestive tract (principal); Z09 Encounter for follow-up examination after completed treatment for conditions other than malignant neoplasm; K57.92 Diverticulitis of intestine, part unspecified, without perforation or abscess without bleeding | CPT/HCPCS: 99214 ==

== ENCOUNTER → 2023-04-11 14:33 | Outpatient (BNVA) | payer MEDICARE, MEDICAID, SELFPAY | PROVIDERS: PCP Family Medicine; Visit Provider Psychiatry & Neurology Neurology | DX: I95.1 Orthostatic hypotension (principal) | CPT/HCPCS: 99212 ==

== ENCOUNTER 2023-04-13 14:36 | Outpatient (CLI) | payer MEDICARE, MEDICAID, SELFPAY ==
--- NOTE | 2023-04-13 15:00 | CT_ITS ---
WS: [id number] CT ABDOMEN PELVIS TECHNIQUE: Contrast-enhanced CT of the abdomen and pelvis with coronal and sagittal reformatted image s. CLINICAL INFORMATION: abnormal CT scan, sigmoid colon COMPARISON: CT 03/23/2023 DLP: 325.[address] scans at [facility] use at least one of these dose optimization techniques: automated e xposure control; mA and/or kV adjustment per patient size (includes targeted exams where dose is matc hed to clinical indication); or iterative reconstruction. FINDINGS: Previously described rectosigmoid mass suspicious for neoplasm is unchanged in appearance since the r ecent study. This measures approximately 4.5 x 3.5 x 3.0 cm in the distal LEFT wall of the lower rect osigmoid with luminal narrowing. Again seen is inflammatory stranding with wall thickening and induration involving the LEFT colon inv olving the mid and descending LEFT colon. This is not significantly changed in appearance since 03/23. Proximal fluid-filled bowel and obstructive symptoms have improved. No evidence of drainable a bscess or fluid collection. Small amount of free fluid in the pelvis. Fibroid uterus. Previously described small bowel polyp not as well seen today without oral contrast. Lung bases are well aerated. Diffuse fatty infiltration of the liver. Normal portal vein and splenic vein. Adrenal glands are normal. Normal GE junction. Normal spleen. Normal renal parenchymal enhancem ent. No hydronephrosis. Small RIGHT renal cysts. Aorta calcification. Normal caliber abdominal aorta. Lumbar scoliosis. Chronic compression anterior wedging at T12, L1 and L2 unchanged in appearance. Sli ght anterolisthesis L4 on L5. Advanced degenerative arthritis RIGHT hip. IMPRESSION: 1. Previous described low rectosigmoid polypoid mass unchanged in appearance. Recommend clinical cor relation with rectal exam or sigmoidoscopy 2. Diffuse induration with inflammatory stranding and wall thickening involving the LEFT colon is es sentially unchanged since 03/23/2023. No drainable abscess or fluid collection. Differential consider ations include diverticulitis, colitis, and obstructing neoplasm. Recommend follow-up colonoscopy. Th is should be followed up to resolution. 3. Small amount of free fluid in the pelvis. Fibroid uterus. 4. Previously described proximal ileus has improved compared to previous. 5. Small polyp previously described in the small bowel not as well seen today due to lack of oral co ntrast.
[2023-04-13] MEDS: iohexol 350 mg/mL 500 mL Btl (per mL) IV (15:09)
== END 2023-04-13 14:37 | disposition home or self-care (01) ==
PROVIDERS: PCP Family Medicine; Visit Provider Surgery
DX: K63.9 Disease of intestine, unspecified (principal); R93.3 Abnormal findings on diagnostic imaging of other parts of digestive tract; D25.9 Leiomyoma of uterus, unspecified; M17.11 Unilateral primary osteoarthritis, right knee; M16.11 Unilateral primary osteoarthritis, right hip; M48.062 Spinal stenosis, lumbar region with neurogenic claudication; M43.16 Spondylolisthesis, lumbar region; M51.17 Intervertebral disc disorders with radiculopathy, lumbosacral region; M47.816 Spondylosis without myelopathy or radiculopathy, lumbar region; M54.2 Cervicalgia; R10.2 Pelvic and perineal pain; Z72.0 Tobacco use; M53.2X6 Spinal instabilities, lumbar region; M41.86 Other forms of scoliosis, lumbar region
CPT/HCPCS: 20610; 74177; 99214; J1030; J3490; Q9967

== ENCOUNTER → 2023-04-19 16:25 | Outpatient (BNVA) | payer MEDICARE, MEDICAID, SELFPAY | PROVIDERS: PCP Family Medicine; Visit Provider Surgery | DX: K57.92 Diverticulitis of intestine, part unspecified, without perforation or abscess without bleeding; S30.0XXA Contusion of lower back and pelvis, initial encounter; X58.XXXA Exposure to other specified factors, initial encounter | CPT/HCPCS: 99212 ==

== ENCOUNTER 2023-04-28 12:44 | Outpatient (CLI) | payer MEDICARE, MEDICAID, SELFPAY ==
--- NOTE | 2023-04-28 12:55 | MM_ITS ---
WS: [id number] BILATERAL 3D TOMOSYNTHESIS DIGITAL SCREENING MAMMOGRAPHY WITH CAD CLINICAL INFORMATION: SCREENING HISTORY: Screening mammogram. No current complaints. COMPARISON: 2021 TECHNIQUE: Bilateral CC and MLO views. FINDINGS: Scattered fibroglandular densities bilaterally. No suspicious focal mass, asymmetry, calcifications, or architectural distortion. No evidence of malignancy. Punctate and lucent centered calcifications. Biopsy marker LEFT breast with adjacent stable nodule IMPRESSION: MM/[place] [id number] BI-RADS: 2-Benign FOLLOW UP: 1 Year Follow-up Recommend return to annual screening mammography.
== END 2023-04-28 12:45 | disposition home or self-care (01) ==
LOC: RAD 12:45
PROVIDERS: PCP Family Medicine; Visit Provider Family Medicine
DX: Z12.31 Encounter for screening mammogram for malignant neoplasm of breast (principal)
CPT/HCPCS: 77063; 77067

== ENCOUNTER → 2023-05-08 15:10 | Outpatient (BNVA) | payer MEDICARE, MEDICAID, SELFPAY | PROVIDERS: PCP Family Medicine; Visit Provider Family Medicine | DX: E87.6 Hypokalemia (principal) | CPT/HCPCS: 80053; 83735 ==

== ENCOUNTER → 2023-07-27 12:48 | Outpatient (BNVA) | payer MEDICARE, MEDICAID, SELFPAY | PROVIDERS: Visit Provider Anesthesiology Pain Medicine | DX: G89.29 Other chronic pain; M17.11 Unilateral primary osteoarthritis, right knee; M48.062 Spinal stenosis, lumbar region with neurogenic claudication; M43.16 Spondylolisthesis, lumbar region; M48.061 Spinal stenosis, lumbar region without neurogenic claudication; M51.17 Intervertebral disc disorders with radiculopathy, lumbosacral region; M54.2 Cervicalgia; R10.2 Pelvic and perineal pain; M47.816 Spondylosis without myelopathy or radiculopathy, lumbar region; M16.11 Unilateral primary osteoarthritis, right hip | CPT/HCPCS: 20610; 99214 ==

== ENCOUNTER 2023-08-01 14:33 | Outpatient (RCR) | payer MEDICARE, MEDICAID, SELFPAY | END 2023-08-27 23:59 | disposition home or self-care (01) | LOC: SPT 14:33 | PROVIDERS: PCP Family Medicine; Visit Provider Anesthesiology Pain Medicine | DX: M54.50 Low back pain, unspecified (principal); G89.29 Other chronic pain | CPT/HCPCS: 97110; 97161 ==

== ENCOUNTER → 2023-08-03 16:04 | Outpatient (BNVA) | payer MEDICARE, MEDICAID, SELFPAY | PROVIDERS: PCP Family Medicine; Visit Provider Internal Medicine Cardiovascular Disease | DX: Z86.73 Personal history of transient ischemic attack (TIA), and cerebral infarction without residual deficits (principal); R07.9 Chest pain, unspecified; I25.10 Atherosclerotic heart disease of native coronary artery without angina pectoris; I25.84 Coronary atherosclerosis due to calcified coronary lesion; R00.0 Tachycardia, unspecified; I73.00 Raynaud's syndrome without gangrene; E03.9 Hypothyroidism, unspecified; F17.210 Nicotine dependence, cigarettes, uncomplicated | CPT/HCPCS: 93005; 99214 ==

== ENCOUNTER → 2023-08-09 15:06 | Outpatient (BNVA) | payer MEDICARE, MEDICAID, SELFPAY | PROVIDERS: PCP Family Medicine; Visit Provider Podiatrist Foot & Ankle Surgery | DX: I73.00 Raynaud's syndrome without gangrene (principal); I73.9 Peripheral vascular disease, unspecified; E03.9 Hypothyroidism, unspecified; L84 Corns and callosities; L60.3 Nail dystrophy; M20.41 Other hammer toe(s) (acquired), right foot; M20.42 Other hammer toe(s) (acquired), left foot | CPT/HCPCS: 11056; 11721; 99213 ==

== ENCOUNTER 2023-08-28 06:00 | Outpatient (RCR) | payer MEDICARE, MEDICAID, SELFPAY | END 2023-09-26 23:59 | disposition home or self-care (01) | LOC: SPT 06:00 | PROVIDERS: PCP Family Medicine; Visit Provider Anesthesiology Pain Medicine | DX: M54.50 Low back pain, unspecified (principal); G89.29 Other chronic pain; I73.00 Raynaud's syndrome without gangrene | CPT/HCPCS: 93923; 97110 ==

== ENCOUNTER 2023-08-29 13:41 | Outpatient (CLI) | payer MEDICARE, MEDICAID, SELFPAY ==
--- NOTE | 2023-08-29 13:45 | USCV_ITS ---
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
== END 2023-08-29 13:42 | disposition home or self-care (01) ==
LOC: RAD 13:41
PROVIDERS: PCP Family Medicine; Visit Provider Podiatrist Foot & Ankle Surgery
DX: M54.50 Low back pain, unspecified (principal); G89.29 Other chronic pain; I73.00 Raynaud's syndrome without gangrene
CPT/HCPCS: 93923

== ENCOUNTER → 2023-09-19 14:17 | Outpatient (BNVA) | payer MEDICARE, MEDICAID, SELFPAY | PROVIDERS: PCP Family Medicine; Visit Provider Family Medicine | DX: I10 Essential (primary) hypertension; Z13.6 Encounter for screening for cardiovascular disorders; E03.9 Hypothyroidism, unspecified; E55.9 Vitamin D deficiency, unspecified; Z86.39 Personal history of other endocrine, nutritional and metabolic disease | CPT/HCPCS: 80053; 80061; 82306; 84439; 84443; 85025 ==

== ENCOUNTER 2023-09-27 06:00 | Outpatient (RCR) | payer MEDICARE, MEDICAID, SELFPAY | END 2023-10-27 23:59 | disposition home or self-care (01) | LOC: SPT 06:00 | PROVIDERS: PCP Family Medicine; Visit Provider Anesthesiology Pain Medicine | DX: M54.50 Low back pain, unspecified (principal); G89.29 Other chronic pain | CPT/HCPCS: 97110 ==

== ENCOUNTER → 2023-10-12 14:49 | Outpatient (BNVA) | payer MEDICARE, MEDICAID, SELFPAY | PROVIDERS: PCP Family Medicine; Visit Provider Podiatrist Foot & Ankle Surgery | DX: I73.9 Peripheral vascular disease, unspecified (principal); I73.00 Raynaud's syndrome without gangrene; E03.9 Hypothyroidism, unspecified; L84 Corns and callosities; M20.41 Other hammer toe(s) (acquired), right foot; M20.42 Other hammer toe(s) (acquired), left foot; M21.611 Bunion of right foot; M21.612 Bunion of left foot | CPT/HCPCS: 99213 ==

== ENCOUNTER 2023-10-16 14:21 | Outpatient (CLI) | payer MEDICARE, MEDICAID, SELFPAY ==
--- NOTE | 2023-10-16 14:15 | CT_ITS ---
WS: [id number] LDCT LUNG CANCER SCREENING HISTORY: screening TECHNIQUE: Axial imaging performed from the apices to 1 cm below the costophrenic angles. Coronal and sagittal reformats are submitted with axial MIP series. All CT scans at [facility] use at least one of these dose optimization techniques: automated exposure control; mA and/or kV adjustment per patient size (includes targeted exams where dose is matched to clinical indication); or iterativ e reconstruction. DLP: 53.60 mGy.cm DIvol: Mean CTDIvol: 1.00 (mGy) COMPARISON: 08/30/2022 Diagnostic quality: Satisfactory Lungs: Linear areas of atelectasis at the lung bases. Benign granuloma LEFT lower lobe. No pulmonary mass or nodule. No pneumonia. Heart: Normal size heart with no pericardial effusion.. Mild pericardial thickening anteriorly. Other findings: Small benign mediastinal lymph nodes. Mild atherosclerosis aorta. Normal size pulmona ry artery. Mild adrenal gland thickening. Focal kyphosis at the thoracolumbar junction. CT/CT lung screening [id number] IMPRESSION: LUNG-RADS: 1-Negative FOLLOW UP: 12 Month: Continue annual screening with LDCT OTHER FINDINGS (S MODIFIER): None.
== END 2023-10-16 14:22 | disposition home or self-care (01) ==
LOC: RAD 14:21
PROVIDERS: PCP Family Medicine; Visit Provider Family Medicine
DX: F17.219 Nicotine dependence, cigarettes, with unspecified nicotine-induced disorders (principal); Z12.2 Encounter for screening for malignant neoplasm of respiratory organs
CPT/HCPCS: 71271

== ENCOUNTER → 2023-10-19 11:24 | Outpatient (BNVA) | payer MEDICAID, SELFPAY | PROVIDERS: PCP Family Medicine; Visit Provider Anesthesiology Pain Medicine | DX: G89.29 Other chronic pain; M48.062 Spinal stenosis, lumbar region with neurogenic claudication; M43.16 Spondylolisthesis, lumbar region; M48.061 Spinal stenosis, lumbar region without neurogenic claudication; M51.17 Intervertebral disc disorders with radiculopathy, lumbosacral region; M54.2 Cervicalgia; R10.2 Pelvic and perineal pain; M47.816 Spondylosis without myelopathy or radiculopathy, lumbar region; M16.11 Unilateral primary osteoarthritis, right hip; M25.561 Pain in right knee | CPT/HCPCS: 99214 ==

== ENCOUNTER → 2023-11-20 15:14 | Outpatient (BNVA) | payer MEDICARE, MEDICAID, SELFPAY | PROVIDERS: PCP Family Medicine; Visit Provider Nurse Practitioner Family | DX: L29.8 Other pruritus (principal); L59.0 Erythema ab igne [dermatitis ab igne]; D18.01 Hemangioma of skin and subcutaneous tissue; L82.1 Other seborrheic keratosis; L57.0 Actinic keratosis | CPT/HCPCS: 17000; 99214 ==

== ENCOUNTER → 2023-12-07 15:10 | Outpatient (BNVA) | payer MEDICARE, MEDICAID, SELFPAY | PROVIDERS: PCP Family Medicine; Visit Provider Podiatrist Foot & Ankle Surgery | DX: I73.9 Peripheral vascular disease, unspecified (principal); E03.9 Hypothyroidism, unspecified; L84 Corns and callosities; M20.41 Other hammer toe(s) (acquired), right foot; M20.42 Other hammer toe(s) (acquired), left foot; M21.611 Bunion of right foot; M21.612 Bunion of left foot; L60.3 Nail dystrophy | CPT/HCPCS: 11056; 11721 ==

== ENCOUNTER → 2023-12-11 16:08 | Outpatient (BNVA) | payer MEDICARE, MEDICAID, SELFPAY | PROVIDERS: PCP Family Medicine; Referring Provider Family Medicine; Visit Provider Specialist | DX: M17.0 Bilateral primary osteoarthritis of knee (principal) | CPT/HCPCS: 73560; 73565; 99204 ==

== ENCOUNTER → 2024-01-02 13:16 | Outpatient (BNVA) | payer MEDICARE, MEDICAID, SELFPAY | PROVIDERS: PCP Family Medicine; Visit Provider Podiatrist Foot & Ankle Surgery | DX: M21.611 Bunion of right foot (principal); M21.612 Bunion of left foot; M20.41 Other hammer toe(s) (acquired), right foot; M20.42 Other hammer toe(s) (acquired), left foot; I73.00 Raynaud's syndrome without gangrene; I73.9 Peripheral vascular disease, unspecified; E03.9 Hypothyroidism, unspecified; L84 Corns and callosities; L60.3 Nail dystrophy | CPT/HCPCS: 73630; 99214 ==

== ENCOUNTER → 2024-01-04 14:23 | Outpatient (BNVA) | payer MEDICARE, MEDICAID, SELFPAY | PROVIDERS: PCP Family Medicine; Visit Provider Family Medicine | DX: E03.9 Hypothyroidism, unspecified (principal) | CPT/HCPCS: 80053; 84439; 84443 ==

== ENCOUNTER 2024-01-31 09:29 | Day surgery (SDC) | payer MEDICARE, MEDICAID, SELFPAY ==
[2024-01-31 09:54] VITALS: BP 133/84; PULSE 83; RESP 18; TEMP 36.4; O2SAT 99; BMI 24.7
[2024-01-31] MEDS: sodium chloride 0.9% 1,000 ML 30 ML IV (10:05)
--- NOTE | 2024-01-31 10:10 | P.ANESASSM_ITS ---
Pre-Anesthetic Assessment Height/Weight: Height 1.6 m Weight 63.503 kg Temp Pulse Resp BP Pulse Ox O2 Del Method 97.6 F 83 18 133/84 99 Room Air 01/31/24 09:54 01/31/24 09:54 01/31/24 09:54 01/31/24 09:54 01/31/24 09:54 01/31/24 09:54 Preop Diagnosis: diverticulitis Operation Date: 01/31/24 10:45 Proposed Procedures p Colonoscopy(Not Applicable) - Dom Saeed DO Familial anesthetic complications: none Was Beta Rohan taken within 24 hours: N/A Was Clonidine taken within 24 hours: N/A Last intake: Intake Last Liquid Date 01/30/24 Last Liquid Time 20:30 Last Solid Date 01/29/24 Last Solid Time 18:00 Social Tobacco and No alcohol 0.3 pack(s) per day 41 pack years Exam alert, oriented x 3, clear to auscultation bilaterally and regular rate & rhythm Airway Submandibular: within normal limits Cervical ROM: within normal limits Mallampati: Class I Dentition: full Pulmonary Chronic Obstructive Pulmonary Disease CV/HEM Arrythmia, Hypertension and Peripheral Vascular Disease None reported Hepatic None reported GI None reported Metabolic Thyroid Disease Musc/skel Lower Back Pain, Osteoarthritis/DJD and Weakness Neuropsych Cerebrovascular Accident and Headache Anesthetic Plan ASA status: 3 Anesthesia: MAC Risk of > 500 ml blood loss (7ml/kg in children): No Medications/Allergies Home Medications Medication Instructions Recorded Confirmed Last Taken Type ascorbic acid (vitamin C) 500 mg 500 mg PO DAILY 12/04/19 01/31/24 01/28/24 History tablet slbabxolakbo-eciyuqky-ouzutkd-folic 1 tab PO DAILY 04/03/20 01/31/24 01/28/24 History acid 400 mcg-vit K1 20 mcg tablet (One-A-Day Women's 50 Plus) cholecalciferol (vitamin D3) 25 25 mcg PO DAILY 06/17/20 01/31/24 01/28/24 History mcg (1,000 unit) capsule Methyl B 12 1 tab PO DAILY 12/27/21 01/31/24 01/28/24 History biotin 5 mg capsule 5 mg PO DAILY 03/15/22 01/31/24 01/28/24 History lactobacillus combination no.9 4 4,000 mmu cells PO DAILY #60 caps 03/23/23 01/31/24 01/28/24 Rx billion cell capsule (Adult 50 Plus Probiotic) omega-3 fatty acids 1,000 mg 1,000 mg PO DAILY 03/23/23 01/31/24 01/28/24 History capsule triamcinolone acetonide 0.1 % 1 applic topical DAILY PRN Rash 03/23/23 01/31/24 11/20/23 History topical cream Boswellia mandie extract-turmeric 3 cap PO DAILY 11/20/23 01/31/24 01/28/24 History root extract 500 mg capsule (SynovX Relief) cyclosporine 0.05 % eye drops in a 1 drp ophthalmic (eye) DAILY 11/20/23 0 01/31/24 11/20/23 History dropperette (Restasis) glucosamine HCl 1,500 mg tablet 4,500 mg PO DAILY 11/20/23 01/31/24 01/28/24 History amlodipine 2.5 mg tablet 2.5 mg PO DAILY #90 tabs 01/04/24 01/31/24 01/30/24 Rx azelastine 137 mcg (0.1 %) nasal 1 spray intranasal BID 01/04/24 01/31/24 01/30/24 History spray Synthroid 75 mcg tablet 75 mcg PO DAILY #90 tabs 01/22/24 01/31/24 01/30/24 Rx (levothyroxine) Curcumin 3 tab PO DAILY 01/25/24 01/31/24 01/28/24 History Allergies Allergy/AdvReac Type Severity Reaction Status Date / Time NSAIDS (Non-Steroidal Allergy Mild GI Bleeding Verified 01/31/24 09:45 Anti-Inflamma Current Medications Generic Name Dose Route Start Last Admin Trade Name Freq PRN Reason Stop Dose Admin Sodium Chloride 1,000 mls @ 30 mls/hr 01/31/24 09:45 01/31/24 10:05 Sodium Chloride 0.9% IV 02/01/24 09:44 30 mls/hr .Q24H LM Administration PFSH Anesthesia Medical History (Updated 01/04/24 @ 14:08 by Braydon Trejo MD) [place]ertoe History of colon polyps Overactive bladder CVA (cerebral vascular accident) Coronary atherosclerosis due to calcified coronary lesion of [place] artery Raynauds syndrome Osteoarthritis of hands, bilateral Scoliosis of thoracolumbar spine Spondylolisthesis, lumbar region Spinal stenosis of lumbar region with radiculopathy Lumbar stenosis with neurogenic claudication Intervertebral disc disorder with radiculopathy of lumbosacral region Hypothyroidism Hypertension COPD (chronic obstructive pulmonary disease) Surgical History History of right inguinal hernia repair 3x History of colonoscopy History of hernia repair History of tonsillectomy Family History Mother Ovarian cancer Cancer Family/Other CAD (coronary artery disease) Lung disease Grandfather CAD (coronary artery disease) [place] Sister Cancer Denies family history of Diabetes Clotting disorder Dementia Chronic kidney disease (CKD) Suicide Anesthesia complication Bleeding disorder Stroke Social History Smoking and tobacco/nicotine status: current every day tobacco/nicotine user cigarettes Packs smoked per day: 0.5 Years cigarettes smoked: 37 [ Other cigarette details: [id number]] Quit status (tobacco/nicotine): considering quitting Alcohol intake: current Alcohol intake frequency: holidays/special occasions only Alcohol type: hard liquor Substance/Drug Use: never Caregiver/support person: No Lives independently: Yes Household members: none Marital status: Single Current occupational status: employed Current occupation: [employer] Do you think of yourself as: Straight/Heterosexual Current gender identity: Female Data Anesthesia Cardiac Studies: Echocardiogram 12/07/21 Sestamibi Stress Test (Cardiology) 01/10 Cardiac Event Monitor 04/27/22 Holter Monitor 10/04/23
--- NOTE | 2024-01-31 10:29 | PM.HP ---
Providers/Chief Complaint Primary Care Provider: Braydon Trejo MD Chief Complaint: R14.3 History of Present Illness Kamla Ghotra is a 69 year old female Review of Systems General: Reports: 10 or more systems reviewed and unremarkable except in HPI and below Medications/Allergies Home Medications Medication Instructions Recorded Confirmed Last Taken Type ascorbic acid (vitamin C) 500 mg 500 mg PO DAILY 12/04/19 01/31/24 01/28/24 History tablet rnjzbegywszm-fhpmtzeg-rhkddri-folic 1 tab PO DAILY 04/03/20 01/31/24 01/28/24 History acid 400 mcg-vit K1 20 mcg tablet (One-A-Day Women's 50 Plus) cholecalciferol (vitamin D3) 25 25 mcg PO DAILY 06/17/20 01/31/24 01/28/24 History mcg (1,000 unit) capsule Methyl B 12 1 tab PO DAILY 12/27/21 01/31/24 01/28/24 History biotin 5 mg capsule 5 mg PO DAILY 03/15/22 01/31/24 01/28/24 History lactobacillus combination no.9 4 4,000 mmu cells PO DAILY #60 caps 03/23/23 01/31/24 01/28/24 Rx billion cell capsule (Adult 50 Plus Probiotic) omega-3 fatty acids 1,000 mg 1,000 mg PO DAILY 03/23/23 01/31/24 01/28/24 History capsule triamcinolone acetonide 0.1 % 1 applic topical DAILY PRN Rash 03/23/23 01/31/24 11/20/23 History topical cream Boswellia mandie extract-turmeric 3 cap PO DAILY 11/20/23 01/31/24 01/28/24 History root extract 500 mg capsule (SynovX Relief) cyclosporine 0.05 % eye drops in a 1 drp ophthalmic (eye) DAILY 11/20/23 01/31/24 11/20/23 History dropperette (Restasis) glucosamine HCl 1,500 mg tablet 4,500 mg PO DAILY 11/20/23 01/31/24 01/28/24 History amlodipine 2.5 mg tablet 2.5 mg PO DAILY #90 tabs 01/04/24 01/31/24 01/30/24 Rx azelastine 137 mcg (0.1 %) nasal 1 spray intranasal BID 08/01/1901/31/24 01/30/24 History spray Synthroid 75 mcg tablet 75 mcg PO DAILY #90 tabs 01/22/24 01/31/24 01/30/24 Rx (levothyroxine) Curcumin 3 tab PO DAILY 01/25/24 01/31/24 01/28/24 History Allergies Allergy/AdvReac Type Severity Reaction Status Date / Time NSAIDS (Non-Steroidal Allergy Mild GI Bleeding Verified 01/31/24 09:45 Anti-Inflamma PFSH Acute PFSH: Medical History (Updated 01/04/24 @ 14:08 by Braydon Trejo MD) [place]oe History of colon polyps Overactive bladder CVA (cerebral vascular accident) Coronary atherosclerosis due to calcified coronary lesion of [place] artery Raynauds syndrome Osteoarthritis of hands, bilateral Scoliosis of thoracolumbar spine Spondylolisthesis, lumbar region Spinal stenosis of lumbar region with radiculopathy Lumbar stenosis with neurogenic claudication Intervertebral disc disorder with radiculopathy of lumbosacral region Hypothyroidism Hypertension COPD (chronic obstructive pulmonary disease) Surgical History History of right inguinal hernia repair 3x History of colonoscopy History of hernia repair History of tonsillectomy Family History Mother Ovarian cancer Cancer Family/Other CAD (coronary artery disease) Lung disease Grandfather CAD (coronary artery disease) [place] Sister Cancer Denies family history of Diabetes Clotting disorder Dementia Chronic kidney disease (CKD) Suicide Anesthesia complication Bleeding disorder Stroke Social History Smoking and tobacco/nicotine status: current every day tobacco/nicotine user cigarettes Packs smoked per day: 0.5 Years cigarettes smoked: 37 [ Other cigarette details: [id number]] Quit status (tobacco/nicotine): considering quitting Alcohol intake: current Alcohol intake frequency: holidays/special occasions only Alcohol type: hard liquor Substance/Drug Use: never Caregiver/support person: No Lives independently: Yes Household members: none Marital status: Single Current occupational status: employed Current occupation: [email or web address] Do you think of yourself as: Straight/Heterosexual Current gender identity: Female Vitals/I&O/Wt Last Vital Signs Temp 97.6 F 01/31/24 09:54 Pulse 83 01/31/24 09:54 Resp 18 01/31/24 09:54 BP 133/84 01/31/24 09:54 Pulse Ox 99 01/31/24 09:54 O2 Del Method Room Air 01/31/24 09:54 Weight last 48 hrs Weight 140 lb A&P Assessment and plan (1) Diverticulitis: Plan Colonoscopy Attestations Medical Necessity Statement*: Home Coding Level of Care Code Acute Code for g Fwd Diagnoses Diverticulitis K57.92
[2024-01-31 10:47] VITALS: BP 126/74; PULSE 79; RESP 12; TEMP 36.2; O2SAT 96
[2024-01-31 11:00] VITALS: BP 130/76; PULSE 78; RESP 18; O2SAT 98
--- NOTE | 2024-01-31 11:35 | ANE.PACU2 ---
Inpatient post-anesthesia follow up: Airway intact: Yes Vital signs: Temperature 97.2 F Pulse Rate 78 Respiratory Rate 18 Blood Pressure 130/76 Pulse Oximetry 98 Oxygen Delivery Me thod Room Air Oxygen Flow Rate 2 Fraction of Inspir ed Oxygen Hydration adequate: Yes Nausea and vomiting: No Pain level: 1 Mental status: Baseline
== END 2024-01-31 11:35 | disposition home or self-care (01) ==
PROVIDERS: PCP Family Medicine; Visit Provider Surgery
PROC: 0DJD8ZZ Inspection of Lower Intestinal Tract, Via Natural or Artificial Opening Endoscopic (ICD-10-PCS; CPT 45378; principal; 2024-01-31 10:45)
DX: K57.92 Diverticulitis of intestine, part unspecified, without perforation or abscess without bleeding (principal); R14.0 Abdominal distension (gaseous); Z86.010 Personal history of colon polyps; Z86.73 Personal history of transient ischemic attack (TIA), and cerebral infarction without residual deficits; E03.9 Hypothyroidism, unspecified; I10 Essential (primary) hypertension; J44.9 Chronic obstructive pulmonary disease, unspecified; F17.210 Nicotine dependence, cigarettes, uncomplicated
CPT/HCPCS: 45380; 88305; J2704; J7030

== ENCOUNTER → 2024-02-07 15:08 | Outpatient (BNVA) | payer MEDICARE, MEDICAID, SELFPAY | PROVIDERS: PCP Family Medicine; Visit Provider Podiatrist Foot & Ankle Surgery | DX: I73.9 Peripheral vascular disease, unspecified (principal); I73.00 Raynaud's syndrome without gangrene; E03.9 Hypothyroidism, unspecified; L84 Corns and callosities; L60.3 Nail dystrophy; M20.41 Other hammer toe(s) (acquired), right foot; M20.42 Other hammer toe(s) (acquired), left foot; M21.611 Bunion of right foot; M21.612 Bunion of left foot | CPT/HCPCS: 99213 ==

== ENCOUNTER → 2024-02-08 14:45 | Outpatient (BNVA) | payer MEDICARE, MEDICAID, SELFPAY | PROVIDERS: PCP Family Medicine; Visit Provider Dermatology | DX: R20.2 Paresthesia of skin (principal); L72.0 Epidermal cyst; D22.5 Melanocytic nevi of trunk; D22.39 Melanocytic nevi of other parts of face; L57.8 Other skin changes due to chronic exposure to nonionizing radiation; L57.0 Actinic keratosis; L82.0 Inflamed seborrheic keratosis; L59.0 Erythema ab igne [dermatitis ab igne]; L30.0 Nummular dermatitis | CPT/HCPCS: 10060; 17000; 17110; 99214 ==

== ENCOUNTER → 2024-02-12 15:02 | Outpatient (BNVA) | payer MEDICARE, MEDICAID, SELFPAY | PROVIDERS: PCP Family Medicine; Visit Provider Surgery | DX: Z09 Encounter for follow-up examination after completed treatment for conditions other than malignant neoplasm (principal); K57.92 Diverticulitis of intestine, part unspecified, without perforation or abscess without bleeding | CPT/HCPCS: 99214 ==

== ENCOUNTER → 2024-03-12 15:12 | Outpatient (BNVA) | payer MEDICARE, MEDICAID, SELFPAY | PROVIDERS: PCP Family Medicine; Visit Provider Internal Medicine Cardiovascular Disease | DX: R94.31 Abnormal electrocardiogram [ECG] [EKG] (principal); R07.9 Chest pain, unspecified; I49.8 Other specified cardiac arrhythmias | CPT/HCPCS: 93005; 99214 ==

== ENCOUNTER → 2024-04-03 13:32 | Outpatient (BNVA) | payer MEDICARE, MEDICAID, SELFPAY | PROVIDERS: PCP Family Medicine; Visit Provider Surgery | DX: K57.92 Diverticulitis of intestine, part unspecified, without perforation or abscess without bleeding (principal) | CPT/HCPCS: 99214 ==

== ENCOUNTER 2024-04-22 16:28 | Emergency (ER) | payer MEDICARE, MEDICAID, SELFPAY ==
--- NOTE | 2024-04-22 16:30 | XRR_ITS ---
PROCEDURE INFORMATION: Exam: XR Chest Exam date and time: 04/22/2024 4:37 PM Age: 69 years old Clinical indication: Cough and dyspnea; Patient HX: Tachy; Additional info: Dyspnea/cough TECHNIQUE: Imaging protocol: Radiologic exam of the chest. Views: 1 view. COMPARISON: CT lung screening [id number] 10/16/2023 2:28 PM FINDINGS: Lungs: There is patchy infiltrate or atelectasis at the medial right lung base. Lungs are otherwise clear. Pleural spaces: Unremarkable. No pleural effusion. No pneumothorax. Heart/Mediastinum: The heart is slightly enlarged. Bones/joints: Unremarkable. XR/XR chest 1V portable [id number] IMPRESSION: 1. Mild cardiomegaly. 2. Patchy infiltrate or atelectasis medial right lung base.
--- NOTE | 2024-04-22 16:30 | ECG_ITS ---
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: : 1955 Requested By: Charles Ledesma Order Number: [id number] Reading MD: NIKIA RAMAN Measurements Intervals [place] Rate: 97 P: 48 MT: 149 QRS: 72 QRSD: 79 T: 60 QT: 323 QTc: 411 Interpretive Statements SINUS RHYTHM SEPTAL MYOCARDIAL INFARCTION , OF INDETERMINATE AGE [40+ ms Q WAVE IN V1/V2] Compared to ECG 03/12/2024 15:13:44 Right-axis deviation no longer present Myocardial infarct finding still present Electronically Signed On 04-22-2024 18:52:44 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
[2024-04-22 16:31] VITALS: BP 156/97; PULSE 102; RESP 18; TEMP 37; O2SAT 98; BMI 24.7
[2024-04-22 16:37] VITALS: BP 156/97; PULSE 102; RESP 18; TEMP 37; O2SAT 98
[2024-04-22 16:43] LABS: Basophils % 0.5 %; Eosinophils # 0.1 10^3/uL (0.0-0.8); Eosinophils % 1.1 %; Hematocrit 43.5 % (36-47); Lymphocytes % 15.8 %; Mean Corpuscular HGB Conc 33.8 g/dL (30-55); Mean Corpuscular Hemoglobin 27.5 pg (27-33); Mean Corpuscular Volume 81.5 fl (85-98); Mean Platelet Volume 10.4 fL (7.4-10.4); Monocytes # 0.7 10^3/uL (0.2-0.9); Neutrophils # 4.71 10^3/uL (1.8-7.7); Neutrophils % 72.3 %; Nucleated Red Blood Cells % 0 %; Platelet Count 327 10^3/cmm (157-399); Red Blood Count 5.34 10^6/uL (3.85-5.65); Red Cell Distribution Width 15.2 % (12.1-15.1); White Blood Count 6.51 10^3/uL (3.29-11.43)
--- NOTE | 2024-04-22 16:45 | ED_ITS ---
Documented by User: Charles Mezaglen, 04/25/24 06:51 HPI - Arrhythmia/Palpitations 2 General: Chief Complaint: Arrhythmia/Palpitations Stated Complaint: tachy Time Seen by Provider: 04/22/24 16:30 History of Present Illness: 69-year-old female presents emergency ro om for irregular heartbeat. She is being seen at the clinic there is a question of a flutter and she was transported to the emergency room. 1 month ago patient had a sigmoid colon resection for diverticulitis. She had a primary anastomosis. She has not had any issues since then. She is still recovering generally does not feel really well she is not having any chest pain. No shortness of breath no dysuria urgency or frequency. Related Data Home Medications Medication Instructions Recorded Confirmed ascorbic acid (vitamin C) 500 mg 500 mg PO DAILY 12/04/19 04/22/24 tablet kdsxbwgjbgjy-syyytpyr-oziehxk-folic 1 tab PO DAILY 04/03/20 04/22/24 acid 400 mcg-vit K1 20 mcg tablet (One-A-Day Women's 50 Plus) cholecalciferol (vitamin D3) 25 25 mcg PO DAILY 06/17/20 04/22/24 mcg (1,000 unit) capsule Methyl B 12 1 tab PO DAILY 12/27/21 04/22/24 biotin 5 mg capsule 5 mg PO DAILY 03/15/22 04/22/24 omega-3 fatty acids 1,000 mg 1,000 mg PO DAILY 03/23/23 04/22/24 capsule Boswellia mandie extract-turmeric 3 cap PO DAILY 11/20/23 04/22/24 root extract 500 mg capsule (SynovX Relief) cyclosporine 0.05 % eye drops in a 1 drp ophthalmic (eye) DAILY 11/20/23 04/22/24 dropperette (Restasis) glucosamine HCl 1,500 mg tablet 4,500 mg PO DAILY 11/20/23 04/22/24 Curcumin 3 tab PO DAILY 01/25/24 04/22/24 calcium 200 mg-mag 80 mg-D2 80 tab PO 04/22/24 04/22/24 unit-leslee 0.8 sr-cmrvg-rhlaij tablet lactobacillus combination no.4 3 3,000 mmu cells PO DAILY 04/22/24 04/22/24 billion cell capsule (Probiotic) peppermint spirit ea miscellaneous 04/22/24 04/22/24 Previous Rx's Medication Instructions Recorded lactobacillus combination no.9 4 4,000 mmu cells PO DAILY #60 caps 03/23/23 billion cell capsule (Adult 50 Plus Probiotic) Synthroid 75 mcg tablet 75 mcg PO DAILY #90 tabs 01/22/24 (levothyroxine) amlodipine 2.5 mg tablet 2.5 mg PO DAILY #90 tabs 04/22/24 metoprolol tartrate 25 mg tablet 12.5 mg (1/2 x 25 mg) PO BID #30 04/22/24 tabs Allergies Allergy/AdvReac Type Severity Reaction Status Date / Time NSAIDS (Non-Steroidal Allergy Mild GI Bleeding Verified 04/22/24 15:00 Anti-Inflamma Review of Systems 2 Const: Denies: fever(s) or chills Card: Reports: palpitations; Denies: chest pain, edema or swelling of feet/ankles Resp: Denies: dyspnea GI: Denies: abdominal pain : Denies: dysuria, urinary frequency or urinary urgency Musc: Denies: neck pain or back pain Skin/Breast: Denies: rash PFSH ED 2 PFSH: Medical History Hammertoe History of colon polyps Overactive bladder CVA (cerebral vascular accident) Coronary atherosclerosis due to calcified coronary lesion of [place] artery Raynauds syndrome Osteoarthritis of hands, bilateral Scoliosis of thoracolumbar spine Spondylolisthesis, lumbar region Spinal stenosis of lumbar region with radiculopathy Lumbar stenosis with neurogenic claudication Intervertebral disc disorder with radiculopathy of lumbosacral region Hypothyroidism Hypertension COPD (chronic obstructive pulmonary disease) Surgical History History of right inguinal hernia repair 3x History of colonoscopy History of hernia repair History of tonsillectomy Family History Mother Ovarian cancer Cancer Family/Other CAD (coronary artery disease) Lung disease Grandfather CAD (coronary artery disease) [place] Sister Cancer Denies family history of Diabetes Clotting disorder Dementia Chronic kidney disease (CKD) Suicide Anesthesia complication Bleeding disorder Stroke Social History Smoking and tobacco/nicotine status: never used tobacco/nicotine Quit status (tobacco/nicotine): considering quitting Alcohol intake: current Alcohol intake frequency: holidays/special occasions only Alcohol type: hard liquor Substance/Drug Use: never Caregiver/support person: No Lives independently: Yes Household members: none Marital status: Single Current occupational status: employed Current occupation: [employer] Do you think of yourself as: Straight/Heterosexual Current gender identity: Female Physical Exam 2 Const: GENERAL APPEARANCE: cooperative ORIENTATION/CONSCIOUSNESS: Yes awake, Yes oriented to person, Yes oriented to place and Yes oriented to time HENMT: COMMON NORMALS: normocephalic, atraumatic and hearing grossly normal bilaterally HEAD & SCALP: normocephalic and atraumatic Resp: COMMON NORMALS: normal respiratory effort, No retractions, No use of accessory muscles and clear to auscultation bilaterally AUSCULTATION: clear to auscultation bilaterally Cardio: COMMON NORMALS: regular rhythm and No murmurs present (Cardio) R ATE: tachycardic RHYTHM: regular rhythm GI: COMMON NORMALS: Soft to palpation and No hepatosplenomegaly present A USCULTATION: Yes normoactive bowel sounds PALPATION: Yes Soft to palpation, No Tenderness to palpation present (GI), No Guarding due to palpation present (GI) and Yes No hepatosplenomegaly present Extremity: COMMON NORMALS: normal to inspection, capillary refill normal, no clubbing, cyanosis or edema, no calf tenderness and no pedal edema Neuro: SENSORIUM/ORIENTATION: Yes oriented to person, Yes oriented to place and Yes oriented to time Skin: COMMON NORMALS: no rashes or lesions noted GENERAL SKIN EXAM: no rashes or lesions noted Course 2 Vital Signs: Vital signs: Vital Signs Temperature 98.6 F 04/22/24 16:37 Pulse Rate 80 04/22/24 20:06 Respiratory Rate 16 04/22/24 18:44 Blood Pressure 138/84 04/22/24 20:06 Pulse Oximetry 98 04/22/24 20:06 Oxygen Delivery Me thod Room Air 04/22/24 18:44 MDM - Arrhythmia/Palpitations Medical Decision Making Care signed out to Dr. Patel at change of shift. See final notes for diagnosis and disposition. Patient care transitioned me at shift change awaiting second troponin. This was negative. Plan was to go home With beta-jacki twice a day and follow-up with primary care provider Lab work is unremarkable. No leukocytosis. No anemia. Serial troponins are negative. Lab Data 04/22/24 16:24 04/22/24 16:24 Radiology Impressions Chest X-Ray 04/22/24 16:30 IMPRESSION: 1. Mild cardiomegaly. 2. Patchy infiltrate or atelectasis medial right lung base. Laboratory Results WBC 6.51 10^3/uL (3.29-11.43) 04/22/24 16: RBC 5.34 10^6/uL (3.85-5.65) 04/22/24 16: Hgb 14.70 g/dL (11.27-16.99) 04/22/24 16: Hct 43.5 % (36-47) 04/22/24 16: MCV 81.5 fl (85-98) L 04/22/24 16: MCH 27.5 pg (27-33) 04/22/24 16: MCHC 33.8 g/dL (30-55) 04/22/24 16: RDW 15.2 % (12.1-15.1) H 04/22/24 16: Plt Count 327 10^3/cmm (157-399) 04/22/24 16: MPV 10.4 fL (7.4-10.4) 04/22/24 16: Neut % (Auto) 72.3 % 04/22/24 16: Lymph % (Auto) 15.8 % 04/22/24 16: [place] % (Auto) 10.0 % 04/22/24 16:24 Eos % (Auto) 1.1 % 04/22/24 16: Baso % (Auto) 0.5 % 04/22/24 16: Neut # (Auto) 4.71 10^3/uL (1.8-7.7) 04/22/24 16: Lymph # (Auto) 1.0 10^3/uL (0.8-4.8) 04/22/24 16:24 [place] # (Auto) 0.7 10^3/uL (0.2-0.9) 04/22/24 16:24 Eos # (Auto) 0.1 10^3/uL (0.0-0.8) 04/22/24 16:24 Baso # (Auto) 0.0 10^3/uL (0.0-0.1) 04/22/24 16:24 Nucleated RBC % (auto) 0 % 04/22/24 16:24 Nucleated RBCs # 0.0 /100WBC 04/22/24 16:24 Sodium 132 mmol/L (136-145) L 04/22/24 16:24 Potassium 4.3 mmol/L (3.5-5.1) 04/22/24 16:24 Chloride 93 mmol/L (98-107) L 04/22/24 16:24 Carbon Dioxide 27 mmol/L (22-29) 04/22/24 16:24 Anion Gap 16.3 (5-19) 04/22/24 16:24 BUN 10 mg/dL (8-23) 04/22/24 16:24 Creatinine 0.5 mg/dL (0.5-0.9) 04/22/24 16:24 GFR Calculation Not Reportable 04/22/24 16:24 Glucose 89 mg/dL (65-115) 04/22/24 16:24 Calculated Osmolality 273 mOsm/kg (285-295) L 04/22/24 16:24 Calcium 10.2 mg/dL (8.5-10.5) 04/22/24 16:24 Magnesium 1.6 mg/dL (1.7-2.3) L 04/22/24 16:24 Total Bilirubin 0.7 mg/dL (0.15-1.2) 04/22/24 16:24 AST 39 U/L (0-32) H 04/22/24 16:24 ALT 23 U/L (0-33) 04/22/24 16:24 Alkaline Phosphatase 126 U/L (35-105) H 04/22/24 16:24 Troponin T Baseline 15 ng/L (0-10) H 04/22/24 16:24 Troponin T 120 Minute 13.89 ng/L (0-10) H 04/22/24 18:24 Delta Troponin T -1.11 ABS# (0-10) L 04/22/24 18:24 Total Protein 7.4 g/dL (6.6-8.7) 04/22/24 16:24 Albumin 4.3 g/dL (3.5-5.2) 04/22/24 16:24 Globulin 3.1 g/dL (1.3-4.6) 04/22/24 16:24 TSH 1.03 uIU/mL (0.27-4.20) 04/22/24 16:24 Discharge Plan Discharge Patient Disposition: Home Clinical Impression: Palpitations Condition: Stable Prescriptions: New metoprolol tartrate 25 mg tablet 12.5 mg PO BID Qty: 30 0RF No Action cholecalciferol (vitamin D3) 25 mcg (1,000 unit) capsule 25 mcg PO DAILY ascorbic acid (vitamin C) 500 mg tablet 500 mg PO DAILY Methyl B 12 1 tab PO DAILY peppermint spirit Spirit miscellaneous calc-mag mf-H1-lbcm-boron-saul 200 mg-80 mg-80 unit-0.8 mg tablet PO Probiotic 3 billion cell capsule 3,000 mmu cells PO DAILY Rx Instructions: administer with a meal amlodipine 2.5 mg tablet 2.5 mg PO DAILY Qty: 90 1RF biotin 5 mg capsule 5 mg PO DAILY Synthroid 75 mcg tablet 75 mcg PO DAILY Qty: 90 1RF Rx Instructions: Synthroid please One-A-Day Women's 50 Plus 400-20 mcg Tablet 1 tab PO DAILY omega-3 fatty acids 1,000 mg Capsule 1,000 mg PO DAILY Adult 50 Plus Probiotic 4 billion cell capsule 4,000 mmu cells PO DAILY Qty: 60 0RF Rx Instructions: administer with a meal cyclosporine [Restasis] 0.05 % Dropperette 1 drp ophthalmic (eye) DAILY glucosamine HCl 1,500 mg Tablet 4,500 mg PO DAILY SynovX Relief 500 mg Capsule 3 cap PO DAILY Curcumin 3 tab PO DAILY Discharge Orders: Discharge ED (Routine); Ordered 04/22/24 Ordered By: Katerina Patel Referrals: Braydon Trejo MD [Primary Care Provider] - Patient Instructions: Opioid Safety, Pain Management Activity Restrictions/Additional Instructions: Thank you for choosing [facility] for your healthcare needs today. Please realize this is an emergency room and that we are providing you with a medical screening exam and this may not be complete and all inclusive of all the testing and or work up that you may need to determine your ailment or severity of your illness. You have been screened and evaluated and felt safe for discharge. Health conditions do change or evolve sometimes and as such it is important that you follow up with your Primary Doctor to be re checked, 3-5 days is a general good time frame for follow up. You are always welcome to return to the ED for re assessment if your symptoms are worsening or you have new concerns Coding Level of Care Code ED Facilities Manager for Simag [employer] Documented by User: Katerina Patel MD 04/22/24 19:52 HPI - Arrhythmia/Palpitations 2 General: Chief Complaint: Arrhythmia/Palpitations Stated Complaint: tachy Time Seen by Provider: 04/22/24 16:30 Related Data Home Medications Medication Instructions Recorded Confirmed ascorbic acid (vitamin C) 500 mg 500 mg PO DAILY 12/04/19 04/22/24 tablet xntuvoytqavk-xklolitk-pnwmwbu-folic 1 tab PO DAILY 04/03/20 04/22/24 acid 400 mcg-vit K1 20 mcg tablet (One-A-Day Women's 50 Plus) cholecalciferol (vitamin D3) 25 25 mcg PO DAILY 06/17/20 04/22/24 mcg (1,000 unit) capsule Methyl B 12 1 tab PO DAILY 12/27/21 04/22/24 biotin 5 mg capsule 5 mg PO DAILY 03/15/22 04/22/24 omega-3 fatty acids 1,000 mg 1,000 mg PO DAILY 03/23/23 04/22/24 capsule Boswellia mandie extract-turmeric 3 cap PO DAILY 11/20/23 04/22/24 root extract 500 mg capsule (SynovX Relief) cyclosporine 0.05 % eye drops in a 1 drp ophthalmic (eye) DAILY 11/20/23 04/22/24 dropperette (Restasis) glucosamine HCl 1,500 mg tablet 4,500 mg PO DAILY 11/20/23 04/22/24 Curcumin 3 tab PO DAILY 01/25/24 04/22/24 calcium 200 mg-mag 80 mg-D2 80 tab PO 04/22/24 04/22/24 unit-leslee 0.8 aw-kcxro-msoboa tablet lactobacillus combination no.4 3 3,000 mmu cells PO DAILY 04/22/24 04/22/24 billion cell capsule (Probiotic) peppermint spirit ea miscellaneous 04/22/24 04/22/24 Previous Rx's Medication Instructions Recorded lactobacillus combination no.9 4 4,000 mmu cells PO DAILY #60 caps 03/23/23 billion cell capsule (Adult 50 Plus Probiotic) Synthroid 75 mcg tablet 75 mcg PO DAILY #90 tabs 01/22/24 (levothyroxine) amlodipine 2.5 mg tablet 2.5 mg PO DAILY #90 tabs 04/22/24 metoprolol tartrate 25 mg tablet 12.5 mg (1/2 x 25 mg) PO BID #30 04/22/24 tabs Allergies Allergy/AdvReac Type Severity Reaction Status Date / Time NSAIDS (Non-Steroidal Allergy Mild GI Bleeding Verified 04/22/24 15:00 Anti-Inflamma PFSH ED 2 PFSH: Medical History Hammertoe History of colon polyps Overactive bladder CVA (cerebral vascular accident) Coronary atherosclerosis due to calcified coronary lesion of [place] artery Raynauds syndrome Osteoarthritis of hands, bilateral Scoliosis of thoracolumbar spine Spondylolisthesis, lumbar region Spinal stenosis of lumbar region with radiculopathy Lumbar stenosis with neurogenic claudication Intervertebral disc disorder with radiculopathy of lumbosacral region Hypothyroidism Hypertension COPD (chronic obstructive pulmonary disease) Surgical History History of right inguinal hernia repair 3x History of colonoscopy History of hernia repair History of tonsillectomy Family History Mother Ovarian cancer Cancer Family/Other CAD (coronary artery disease) Lung disease Grandfather CAD (coronary artery disease) [place] Sister Cancer Denies family history of Diabetes Clotting disorder Dementia Chronic kidney disease (CKD) Suicide Anesthesia complication Bleeding disorder Stroke Social History Smoking and tobacco/nicotine status: never used tobacco/nicotine Quit status (tobacco/nicotine): considering quitting Alcohol intake: current Alcohol intake frequency: holidays/special occasions only Alcohol type: hard liquor Substance/Drug Use: never Caregiver/support person: No Lives independently: Yes Household members: none Marital status: Single Current occupational status: employed Current occupation: [employer] Do you think of yourself as: Straight/Heterosexual Current gender identity: Female Course 2 Vital Signs: Vital signs: Vital Signs Temperature 98.6 F 04/22/24 16:37 Pulse Rate 80 04/22/24 20:06 Respiratory Rate 16 04/22/24 18:44 Blood Pressure 138/84 04/22/24 20:06 Pulse Oximetry 98 04/22/24 20:06 Oxygen Delivery Me thod Room Air 04/22/24 18:44 MDM - Arrhythmia/Palpitations Medical Decision Making Patient care transitioned me at shift change awaiting second troponin. This was negative. Plan was to go home With beta-jacki twice a day and follow-up with primary care provider Lab work is unremarkable. No leukocytosis. No anemia. Serial troponins are negative. Lab Data 04/22/24 16:24 04/22/24 16:24 Radiology Impressions Chest X-Ray 04/22/24 16:30 IMPRESSION: 1. Mild cardiomegaly. 2. Patchy infiltrate or atelectasis medial right lung base. Laboratory Results WBC 6.51 10^3/uL (3.29-11.43) 04/22/24 16: RBC 5.34 10^6/uL (3.85-5.65) 04/22/24 16:24 Hgb 14.70 g/dL (11.27-16.99) 04/22/24 16:24 Hct 43.5 % (36-47) 04/22/24 16:24 MCV 81.5 fl (85-98) L 04/22/24 16:24 MCH 27.5 pg (27-33) 04/22/24 16: MCHC 33.8 g/dL (30-55) 04/22/24 16:24 RDW 15.2 % (12.1-15.1) H 04/22/24 16:24 Plt Count 327 10^3/cmm (157-399) 04/22/24 16: MPV 10.4 fL (7.4-10.4) 04/22/24 16: Neut % (Auto) 72.3 % 04/22/24 16:24 Lymph % (Auto) 15.8 % 04/22/24 16:24 [place] % (Auto) 10.0 % 04/22/24 16:24 Eos % (Auto) 1.1 % 04/22/24 16:24 Baso % (Auto) 0.5 % 04/22/24 16:24 Neut # (Auto) 4.71 10^3/uL (1.8-7.7) 04/22/24 16: Lymph # (Auto) 1.0 10^3/uL (0.8-4.8) 04/22/24 16:24 [place] # (Auto) 0.7 10^3/uL (0.2-0.9) 04/22/24 16:24 Eos # (Auto) 0.1 10^3/uL (0.0-0.8) 04/22/24 16:24 Baso # (Auto) 0.0 10^3/uL (0.0-0.1) 04/22/24 16:24 Nucleated RBC % (auto) 0 % 04/22/24 16:24 Nucleated RBCs # 0.0 /100WBC 04/22/24 16:24 Sodium 132 mmol/L (136-145) L 04/22/24 16:24 Potassium 4.3 mmol/L (3.5-5.1) 04/22/24 16:24 Chloride 93 mmol/L (98-107) L 04/22/24 16:24 Carbon Dioxide 27 mmol/L (22-29) 04/22/24 16:24 Anion Gap 16.3 (5-19) 04/22/24 16:24 BUN 10 mg/dL (8-23) 04/22/24 16:24 Creatinine 0.5 mg/dL (0.5-0.9) 04/22/24 16:24 GFR Calculation Not Reportable 04/22/24 16:24 Glucose 89 mg/dL (65-115) 04/22/24 16:24 Calculated Osmolality 273 mOsm/kg (285-295) L 04/22/24 16:24 Calcium 10.2 mg/dL (8.5-10.5) 04/22/24 16:24 Magnesium 1.6 mg/dL (1.7-2.3) L 04/22/24 16:24 Total Bilirubin 0.7 mg/dL (0.15-1.2) 04/22/24 16:24 AST 39 U/L (0-32) H 04/22/24 16:24 ALT 23 U/L (0-33) 04/22/24 16:24 Alkaline Phosphatase 126 U/L (35-105) H 04/22/24 16:24 Troponin T Baseline 15 ng/L (0-10) H 04/22/24 16:24 Troponin T 120 Minute 13.89 ng/L (0-10) H 04/22/24 18:24 Delta Troponin T -1.11 ABS# (0-10) L 04/22/24 18:24 Total Protein 7.4 g/dL (6.6-8.7) 04/22/24 16:24 Albumin 4.3 g/dL (3.5-5.2) 04/22/24 16:24 Globulin 3.1 g/dL (1.3-4.6) 04/22/24 16:24 TSH 1.03 uIU/mL (0.27-4.20) 04/22/24 16:24 All radiology interpretation(s) finalized by discharge Discharge Plan Discharge Patient Disposition: Home Clinical Impression: Palpitations Condition: Stable Prescriptions: New metoprolol tartrate 25 mg tablet 12.5 mg PO BID Qty: 30 0RF No Action cholecalciferol (vitamin D3) 25 mcg (1,000 unit) capsule 25 mcg PO DAILY ascorbic acid (vitamin C) 500 mg tablet 500 mg PO DAILY Methyl B 12 1 tab PO DAILY peppermint spirit Spirit miscellaneous calc-mag kc-V4-dvmw-boron-saul 200 mg-80 mg-80 unit-0.8 mg tablet PO Probiotic 3 billion cell capsule 3,000 mmu cells PO DAILY Rx Instructions: administer with a meal amlodipine 2.5 mg tablet 2.5 mg PO DAILY Qty: 90 1RF biotin 5 mg capsule 5 mg PO DAILY Synthroid 75 mcg tablet 75 mcg PO DAILY Qty: 90 1RF Rx Instructions: Synthroid please One-A-Day Women's 50 Plus 400-20 mcg Tablet 1 tab PO DAILY omega-3 fatty acids 1,000 mg Capsule 1,000 mg PO DAILY Adult 50 Plus Probiotic 4 billion cell capsule 4,000 mmu cells PO DAILY Qty: 60 0RF Rx Instructions: administer with a meal cyclosporine [Restasis] 0.05 % Dropperette 1 drp ophthalmic (eye) DAILY glucosamine HCl 1,500 mg Tablet 4,500 mg PO DAILY SynovX Relief 500 mg Capsule 3 cap PO DAILY Curcumin 3 tab PO DAILY Discharge Orders: Discharge ED (Routine); Ordered 04/22/24 Ordered By: Katerina Patel Referrals: Braydon Trejo MD [Primary Care Provider] - Patient Instructions: Opioid Safety, Pain Management Activity Restrictions/Additional Instructions: Thank you for choosing [facility] for your healthcare needs today. Please realize this is an emergency room and that we are providing you with a medical screening exam and this may not be complete and all inclusive of all the testing and or work up that you may need to determine your ailment or severity of your illness. You have been screened and evaluated and felt safe for discharge. Health conditions do change or evolve sometimes and as such it is important that you follow up with your Primary Doctor to be re checked, 3-5 days is a general good time frame for follow up. You are always welcome to return to the ED for re assessment if your symptoms are worsening or you have new concerns Coding Level of Care Code ED Facilities Manager for Ramon Truong
[2024-04-22 17:10] LABS: Albumin Level 4.3 g/dL (3.5-5.2); Alkaline Phosphatase 126 U/L (35-105); Blood Urea Nitrogen 10 mg/dL (8-23); Calcium 10.2 mg/dL (8.5-10.5); Carbon Dioxide 27 mmol/L (22-29); Chloride 93 mmol/L (98-107); Creatinine Clr Calc Pharmacy 57.8774; Globulin 3.1 g/dL (1.3-4.6); Glucose 89 mg/dL (65-115); Magnesium 1.6 mg/dL (1.7-2.3); Osmolality Calculated 273 mOsm/kg (285-295); Sodium 132 mmol/L (136-145); Thyroid Stimulating Hormone 1.03 uIU/mL (0.27-4.20); Total Bilirubin 0.7 mg/dL (0.15-1.2); Total Protein 7.4 g/dL (6.6-8.7)
[2024-04-22 17:17] LABS: Alanine Aminotransferase 23 U/L (0-33); Anion Gap 16.3 (5-19); Aspartate Amino Transferase 39 U/L (0-32); Potassium 4.3 mmol/L (3.5-5.1)
--- NOTE | 2024-04-22 17:21 | ECG_ITS ---
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
[2024-04-22] MEDS: metoprolol tartrate 1 mg/1 mL SDV 5 mL 2.5 MG IVP (17:29)
[2024-04-22 17:31] VITALS: BP 133/98; PULSE 109; RESP 16; O2SAT 97
[2024-04-22 18:07] VITALS: BP 133/90; PULSE 87; RESP 19; O2SAT 95
[2024-04-22 18:44] VITALS: BP 156/94; PULSE 83; RESP 16; O2SAT 96
[2024-04-22 18:51] LABS: Troponin(5th) Baseline 15 ng/L (0-10)
[2024-04-22 19:33] LABS: Troponin 5 2HR 13.89 ng/L (0-10)
[2024-04-22 19:40] LABS: Troponin 5 2HR Delta -1.11 ABS# (0-10)
[2024-04-22 20:06] VITALS: BP 138/84; PULSE 80; O2SAT 98
== END 2024-04-22 20:07 | disposition home or self-care (01) ==
PROVIDERS: Family Medicine; Emergency Provider Emergency Medicine; PCP Family Medicine
DX: R00.2 Palpitations (principal); Z86.73 Personal history of transient ischemic attack (TIA), and cerebral infarction without residual deficits; I25.10 Atherosclerotic heart disease of native coronary artery without angina pectoris; I10 Essential (primary) hypertension; J44.9 Chronic obstructive pulmonary disease, unspecified
CPT/HCPCS: 71045; 80053; 83735; 84443; 84484; 85025; 93005; 96374; 99285; J3490

== ENCOUNTER → 2024-05-08 15:16 | Outpatient (BNVA) | payer MEDICARE, MEDICAID, SELFPAY | PROVIDERS: PCP Family Medicine; Visit Provider Podiatrist Foot & Ankle Surgery | DX: I73.9 Peripheral vascular disease, unspecified (principal); I73.00 Raynaud's syndrome without gangrene; E03.9 Hypothyroidism, unspecified; L84 Corns and callosities; L60.3 Nail dystrophy; M20.41 Other hammer toe(s) (acquired), right foot; M20.42 Other hammer toe(s) (acquired), left foot; M21.611 Bunion of right foot; M21.612 Bunion of left foot | CPT/HCPCS: 99213 ==

== ENCOUNTER 2024-05-14 14:13 | Outpatient (CLI) | payer MEDICARE, MEDICAID, SELFPAY ==
--- NOTE | 2024-05-14 14:19 | MM_ITS ---
WS: [id number] BILATERAL 3D TOMOSYNTHESIS DIGITAL SCREENING MAMMOGRAPHY WITH CAD CLINICAL INFORMATION: SCREENING HISTORY: Screening mammogram. No current complaints. COMPARISON: 2022 TECHNIQUE: Bilateral CC and MLO views. FINDINGS: The breasts are composed of heterogeneous fibroglandular density tissue, which can limit the detectio n of small underlying mass lesions. No suspicious mass, asymmetry, calcifications, or architectural d istortion. No evidence of malignancy. Punctate and lucent centered calcifications. Biopsy clip LEFT b reast. MM/MM scr tomosynthesis [id number] IMPRESSION: DENSITY: The breasts are heterogeneously dense, which may obscure small masses. BI-RADS: 2 - Benign FOLLOW UP: 1 Year Follow-up Recommend return to annual screening mammography.
== END 2024-05-14 14:14 | disposition home or self-care (01) ==
PROVIDERS: PCP Family Medicine; Visit Provider Family Medicine
DX: Z12.31 Encounter for screening mammogram for malignant neoplasm of breast (principal); R92.333 Mammographic heterogeneous density, bilateral breasts; R92.1 Mammographic calcification found on diagnostic imaging of breast
CPT/HCPCS: 77063; 77067

== ENCOUNTER → 2024-05-31 16:08 | Outpatient (BNVA) | payer MEDICARE, MEDICAID, SELFPAY | PROVIDERS: PCP Family Medicine; Visit Provider Nurse Practitioner Family | DX: S42.92XA Fracture of left shoulder girdle, part unspecified, initial encounter for closed fracture (principal); M19.012 Primary osteoarthritis, left shoulder; W19.XXXA Unspecified fall, initial encounter; Y92.009 Unspecified place in unspecified non-institutional (private) residence as the place of occurrence of the external cause | CPT/HCPCS: 73030 ==

== ENCOUNTER → 2024-06-12 14:40 | Outpatient (BNVA) | payer MEDICARE, MEDICAID, SELFPAY | PROVIDERS: PCP Family Medicine; Visit Provider Nurse Practitioner | DX: M25.512 Pain in left shoulder (principal); S42.032D Displaced fracture of lateral end of left clavicle, subsequent encounter for fracture with routine healing; M54.50 Low back pain, unspecified; G89.11 Acute pain due to trauma; W19.XXXD Unspecified fall, subsequent encounter; Y92.009 Unspecified place in unspecified non-institutional (private) residence as the place of occurrence of the external cause | CPT/HCPCS: 23500; 73000; 99204 ==

== ENCOUNTER 2024-06-18 11:38 | Emergency (ER) | payer MEDICARE, MEDICAID, SELFPAY ==
[2024-06-18 12:08] VITALS: BP 130/90; PULSE 86; RESP 18; TEMP 36.5; O2SAT 96
--- NOTE | 2024-06-18 12:17 | ED_ITS ---
HPI - Back Pain/Injury General: Chief Complaint: Back Pain/Injury Stated Complaint: back pain Time Seen by Provider: 06/18/24 12:06 Source: patient Mode of arrival: ambulatory Limitations: no limitations History of Present Illness: Patient is a 69-year-old female presents to ED today with a complaint of back pain that she believes began following a fall approximate 11 days ago. She states she fell secondary to low blood pressure. Patient states she has a known left clavicular fracture and saw ortho for this recently. She states she did talk to the orthopedic provider about her back pain but at the time, was not having significant discomfort. She states since that appointment her pain has worsened and she thought she needed to get it checked out. She feels like pain in her back radiates into her bilateral hips and legs. She is not complaining of numbness, tingling, loss of sensation. She has not had any further recent injury or trauma. She does feel like pain possibly started after getting in/out of an elevated truck and having to use the step rail and pulling on the grab bar. elicited complaint: back pain Onset (ago): day(s) Timing: constant Severity: severe Similar Symptoms Previously: No Location: lumbar spine and thoracic spine Radiation: other (hips/legs) Exacerbating factors: movement Relieving factors: none Context: fall Associated symptoms: Deny abdominal pain, chills, dysuria, fatigue, fever(s) or hematuria Work related injury: No Related Data Home Medications Medication Instructions Recorded Confirmed ascorbic acid (vitamin C) 500 mg 500 mg PO DAILY 12/04/19 06/18/24 tablet cholecalciferol (vitamin D3) 25 25 mcg PO DAILY 06/17/20 06/18/24 mcg (1,000 unit) capsule biotin 5 mg capsule 5 mg PO DAILY 03/15/22 06/18/24 omega-3 fatty acids 1,000 mg 1,000 mg PO DAILY 03/23/23 06/18/24 capsule cyclosporine 0.05 % eye drops in a 1 drp ophthalmic (eye) DAILY 11/20/23 06/18/24 dropperette (Restasis) glucosamine HCl 1,500 mg tablet 4,500 mg PO DAILY 11/20/23 06/18/24 lactobacillus combination no.4 3 3,000 mmu cells PO DAILY 04/22/24 06/18/24 billion cell capsule (Probiotic) curcumin-phosphatidylcholine 500 500 mg PO DAILY 06/18/24 06/18/24 mg capsule mecobalamin (vitamin B12) 1,000 1,000 mcg PO DAILY 06/18/24 06/18/24 mcg chewable tablet (B12 Active) uudwuspr-kct-dyfgk ac 400 1 tab PO DAILY 06/18/24 06/18/24 mcg-calcium carb 500 mg-vit K1 20 mcg tablet peppermint oil 0.2 mL 0.2 ml PO DAILY stomach 06/18/24 06/18/24 capsule,delayed release Previous Rx's Medication Instructions Recorded metoprolol succinate 25 mg 25 mg PO DAILY #90 tabs 05/10/24 tablet,extended release 24 hr (Toprol XL) Synthroid 75 mcg tablet 75 mcg PO DAILY #90 tabs 05/20/24 (levothyroxine) Allergies Allergy/AdvReac Type Severity Reaction Status Date / Time NSAIDS (Non-Steroidal Allergy Mild GI Bleeding Verified 06/18/24 10:49 Anti-Inflamma Review of Systems Const: Denies: fever(s), chills, body aches, fatigue or malaise Card: Denies: chest pain Resp: Denies: dyspnea GI: Denies: abdominal pain : Denies: flank pain, dysuria or hematuria Musc: Reports: back pain and joint pain (known fracture involving L shoulder/clavicle); Denies: neck pain or joint swelling Neuro: Denies: numbness in extremities, weakness in extremities or sensory changes PFSH ED PFSH: Medical History Hammertoe History of colon polyps Overactive bladder CVA (cerebral vascular accident) Coronary atherosclerosis due to calcified coronary lesion of [place] artery Raynauds syndrome Osteoarthritis of hands, bilateral Scoliosis of thoracolumbar spine Spondylolisthesis, lumbar region Spinal stenosis of lumbar region with radiculopathy Lumbar stenosis with neurogenic claudication Intervertebral disc disorder with radiculopathy of lumbosacral region Hypothyroidism Hypertension COPD (chronic obstructive pulmonary disease) Surgical History History of right inguinal hernia repair 3x History of colonoscopy History of hernia repair History of tonsillectomy Family History Mother Ovarian cancer Cancer Family/Other CAD (coronary artery disease) Lung disease Grandfather CAD (coronary artery disease) [place] Sister Cancer Denies family history of Diabetes Clotting disorder Dementia Chronic kidney disease (CKD) Suicide Anesthesia complication Bleeding disorder Stroke Social History Smoking and tobacco/nicotine status: current every day tobacco/nicotine user cigarettes Packs smoked per day: 0.5 Years cigarettes smoked: 37 [ Other cigarette details: [id number]] Quit status (tobacco/nicotine): considering quitting Alcohol intake: current Alcohol intake frequency: holidays/special occasions only Alcohol type: hard liquor Substance/Drug Use: never Caregiver/support person: No Lives independently: Yes Household members: none Marital status: Single Current occupational status: employed Current occupation: [employer] Do you think of yourself as: Straight/Heterosexual Current gender identity: Female Physical Exam Const: COMMON NORMALS: no acute distress, average body habitus, no limitations, healthy appearing, alert and well nourished HENMT: COMMON NORMALS: normocephalic and atraumatic HEAD & SCALP: normocephalic and atraumatic FACE & SINUS: normal facial exam Neck/C-Spine: COMMON NORMALS: full ROM GENERAL: Yes normal visual inspection CERVICAL SPINE: Yes cervical ROM normal, No pain with cervical ROM and No Cervical spine tenderness : COMMON NORMALS: Yes no CVA tenderness BLADDER/KIDNEY EXAM: Yes no CVA tenderness Back/Pelvis: COMMON NORMALS: no CVA tenderness and straight leg raise negative bilaterally THORACIC SPINE/UPPER BACK: Yes thoracic spinal tenderness (lower T spine/upper L spine) and No paraspinal muscle tenderness LUMBAR SPINE/LOWER BACK: Yes lumbar spinal tenderness (upper L spine/lower T spine) and No paraspinal muscle tenderness PELVIS: Yes buttocks normal and No sciatic notch tenderness SACROILIAC JOINTS: Yes SI joints normal SACRUM: no tenderness COCCYX: no tenderness Extremity: NARRATIVE EXTREMITY EXAM: sling to L shoulder for known clavicular fracture GENERAL: Yes normal exam except as noted Neuro: COMMON NORMALS: moves all extremities, no focal motor deficits and no sensory deficits noted SENSORIUM/ORIENTATION: Yes alert Course Vital Signs: Vital signs: Vital Signs Temperature 97.7 F 06/18/24 12:08 Pulse Rate 86 06/18/24 12:08 Respiratory Rate 18 01/21/25 12:36 Blood Pressure 130/90 06/18/24 12:08 Pulse Oximetry 98 06/18/24 12:36 Oxygen Delivery Me thod Room Air, Nasal C annula 06/18/24 12:08 MDM - Back Pain/Injury Medical Decision Making Patient's not having any acute neurologic deficits by history or physical examination. X-rays of her thoracic and lumbar spine were obtained. She has chronic compression deformities of T12, L1, and L2. She has chronic anteriolisthesis at L4/L5 due to facet degeneration. She has chronic dextroscoliosis. No acute fractures of her thoracic or lumbar spine appreciated. Patient states she was given a prescription for Tramadol but has not started taking this. Recommend she use this for her back discomfort. Patient states she is not able to take NSAIDs due to a significant GI hemorrhage previously caused by NSAID use. She already has a follow-up appointment with Dr. Preciado for further evaluation of her back pain scheduled for 06/27 Medical Records I reviewed the patient's medical records. Labs Radiology Impressions Lumbar Spine X-Ray 06/18/24 12:30 IMPRESSION: 1. Stable asymmetric mild compression deformities of the left L1 and L2 vertebral bodies with resultant mild dextroscoliosis in the upper lumbar spine. 2. Stable old, mild compression deformity of T12. 3. No acute fracture of the lumbar spine. CT scan would be recommended if there is continuing clinical concern for fracture. 4. Stable grade I anterolisthesis of L4 on L5, likely due to facet degenerative change. Thoracic Spine X-Ray 06/18/24 12:30 IMPRESSION: 1. No acute fracture of the thoracic spine. CT scan would be recommended if there is continuing clinical concern for fracture. 2. Stable asymmetric mild compression deformities of the left L1 and L2 vertebral bodies with resultant mild dextroscoliosis in the upper lumbar spine. 3. Stable old, mild compression deformity of T12. 4. Incidental/nonacute findings are listed in the report. All radiology interpretation(s) finalized by discharge Discharge Plan Discharge Patient Disposition: Home Clinical Impression: Acute exacerbation of chronic low back pain, Spondylolisthesis, lumbar region Scoliosis of thoracolumbar spine Qualifiers: Scoliosis type: idiopathic Idiopathic scoliosis type: other Qualified Code(s): M41.25 - Other idiopathic scoliosis, thoracolumbar region Condition: Stable Prescriptions: No Action cholecalciferol (vitamin D3) 25 mcg (1,000 unit) capsule 25 mcg PO DAILY ascorbic acid (vitamin C) 500 mg tablet 500 mg PO DAILY Probiotic 3 billion cell capsule 3,000 mmu cells PO DAILY Rx Instructions: administer with a meal biotin 5 mg capsule 5 mg PO DAILY metoprolol succinate [Toprol XL] 25 mg tablet extended release 24 hr 25 mg PO DAILY Qty: 90 1RF Synthroid 75 mcg tablet 75 mcg PO DAILY Qty: 90 1RF Rx Instructions: Synthroid please omega-3 fatty acids 1,000 mg Capsule 1,000 mg PO DAILY One-A-Day Women's 50 Plus 400 mcg-500 mg calcium-20 mcg Tablet 1 tab PO DAILY peppermint oil 0.2 mL Capsule,Delayed Release(Dr/Ec) 0.2 ml PO DAILY mecobalamin (vitamin B12) [B12 Active] 1,000 mcg Tablet,Chewable 1,000 mcg PO DAILY curcumin-phosphatidylcholine 500 mg Capsule 500 mg PO DAILY cyclosporine [Restasis] 0.05 % Dropperette 1 drp ophthalmic (eye) DAILY glucosamine HCl 1,500 mg Tablet 4,500 mg PO DAILY Discharge Orders: Discharge ED (Routine); Ordered 06/18/24 Ordered By: Caridad Rg Referrals: Braydon Trejo MD [Primary Care Provider] - Activity Restrictions/Additional Instructions: As we discussed, your thoracic/lumbar x-rays today did not show any new findings. You do have chronic/degenerative changes as well as old injuries. You have already been prescribed tramadol. You may begin taking this as directed. You have a follow-up appointment with Dr. Preciado on 06/27 to address your back pain. I hope you begin to feel better soon. Coding Level of Care Code ED Meter And Service Line Inspector for Ramon Truong
--- NOTE | 2024-06-18 12:30 | XRR_ITS ---
PROCEDURE INFORMATION: Exam: XR Lumbosacral Spine Exam date and time: 06/18/2024 12:45 PM Age: 69 years old Clinical indication: Low back pain; Additional info: Injury/pain TECHNIQUE: Imaging protocol: Radiologic exam of the lumbosacral spine. Views: 2 or 3 views. COMPARISON: CR XR lumbar spine 6V w f/e [id number] 09/13/2022 12:14 PM FINDINGS: Bones/joints: Stable asymmetric mild compression deformities of the left L1 and L2 vertebral bodies with resultant mild dextroscoliosis in the upper lumbar spine. Bones are diffusely osteopenic. Stable old, mild compression deformity of T12. Stable multilevel degenerative changes of varying severity in the visualized spine. Stable grade I anterolisthesis of L4 on L5, likely due to facet degenerative change. No acute fracture. Soft tissues: No paravertebral soft tissue abnormality or soft tissue emphysema. No radiopaque foreign body. XR/XR lumbar spine 2-3V* [id number] IMPRESSION: 1. Stable asymmetric mild compression deformities of the left L1 and L2 vertebral bodies with resultant mild dextroscoliosis in the upper lumbar spine. 2. Stable old, mild compression deformity of T12. 3. No acute fracture of the lumbar spine. CT scan would be recommended if there is continuing clinical concern for fracture. 4. Stable grade I anterolisthesis of L4 on L5, likely due to facet degenerative change.
--- NOTE | 2024-06-18 12:30 | XRR_ITS ---
PROCEDURE INFORMATION: Exam: XR Thoracic Spine Exam date and time: 06/18/2024 12:42 PM Age: 69 years old Clinical indication: Pain in thoracic spine; Additional info: Injury/pain TECHNIQUE: Imaging protocol: Radiologic exam of the thoracic spine. Views: 3 views. COMPARISON: CR XR thoracic spine 3V* [id number] 04/20/2020 2:59 PM FINDINGS: Bones/joints: No subluxation. Bones are diffusely osteopenic. No acute fracture. Stable asymmetric mild compression deformities of the left L1 and L2 vertebral bodies with resultant mild dextroscoliosis in the upper lumbar spine. Stable old, mild compression deformity of T12. Soft tissues: No paravertebral soft tissue abnormality or soft tissue emphysema. No radiopaque foreign body. Lungs: Visualized lungs are clear. Vasculature: Stable vascular calcifications in the aorta. XR/XR thoracic spine 3V* [id number] IMPRESSION: 1. No acute fracture of the thoracic spine. CT scan would be recommended if there is continuing clinical concern for fracture. 2. Stable asymmetric mild compression deformities of the left L1 and L2 vertebral bodies with resultant mild dextroscoliosis in the upper lumbar spine. 3. Stable old, mild compression deformity of T12. 4. Incidental/nonacute findings are listed in the report.
[2024-06-18 12:36] VITALS: RESP 18; O2SAT 98
[2024-06-18] MEDS: morphine 4 mg/mL SDV 1 mL IM (12:36)
[2024-06-18] MEDS: ondansetron 2 mg/ML SDV 2 mL 4 MG IM (12:36)
--- NOTE | 2024-06-18 13:47 | PC.PHAR ---
PAtient has Tramadol and Tizanidine but States she doesn't take .Patient also states she has Amlodipine but she stopped taking it .
[2024-06-18 14:03] VITALS: BP 126/85; PULSE 84; O2SAT 97
== END 2024-06-18 14:04 | disposition home or self-care (01) ==
PROVIDERS: Emergency Provider Physician Assistant; PCP Family Medicine
DX: M43.16 Spondylolisthesis, lumbar region (principal); M41.25 Other idiopathic scoliosis, thoracolumbar region; F17.210 Nicotine dependence, cigarettes, uncomplicated; J44.9 Chronic obstructive pulmonary disease, unspecified; Z86.73 Personal history of transient ischemic attack (TIA), and cerebral infarction without residual deficits; I10 Essential (primary) hypertension
CPT/HCPCS: 72072; 72100; 96372; 99213; 99284; J2270; J2405

== ENCOUNTER → 2024-06-27 15:33 | Outpatient (BNVA) | payer MEDICARE, MEDICAID, SELFPAY | PROVIDERS: PCP Family Medicine; Visit Provider Orthopaedic Surgery | DX: M54.50 Low back pain, unspecified (principal); G89.11 Acute pain due to trauma | CPT/HCPCS: 72100; 99204 ==

== ENCOUNTER 2024-07-12 07:53 | Outpatient (CLI) | payer MEDICARE, MEDICAID, SELFPAY ==
--- NOTE | 2024-07-12 07:55 | MR_ITS ---
WS: [id number] MRI THORACIC SPINE noncontrast HISTORY: Back pain, fall 1 month ago. COMPARISON: Radiograph 06/18/2024. TECHNIQUE: Multiplanar sequences are performed in sagittal and axial planes. Advanced degenerative disc disease and osteophytosis in the cervical spine. Mild osteophyte encroachment at C5-6 upon the cord. Curvature and scoliosis of the lumbar spine. Focal kyphosis centered at the thoracolumbar junction. T10: Marrow edema limited to the posterior inferior vertebral body with fluid extending into the RIGHT facet joint. T11: 15% acute compression fracture. Acute marrow edema along the superior endplate with no retropulsion. No extension into the posterior elements. T12: Mild chronic compression deformity. L1: Acute marrow edema in this anterior superior endplate. No retropulsion. There is no cord compression. T1-2: Normal. T2-3: Facet arthritis. No stenosis. T3-4: Normal. T4-5: Normal. T5-6: Normal. T6-7: Normal. T7-8: Normal. T8-9: Mild facet arthritis. No stenosis. T9-10: Bilateral facet arthritis. T10-11: Moderate facet joint arthropathy encroaching upon the posterior lateral thecal sac. Very slight bowing of the posterior superior endplate of T11. Mild central and bilateral foraminal stenosis. T11-12: Mild annular disc bulging with bilateral facet arthritis. Minimal LEFT adrenal gland hyperplasia. MR/MR thoracic spin wo con* [id number] IMPRESSION: 1. Acute T11, 15% compression fracture without significant retropulsion and no involvement of the posterior elements. 2. Tiny amount of marrow edema in the RIGHT posterior inferior vertebral body and fluid in the RIGHT facet joint of T10-11. 3. Chronic mild compression deformity of T12. 4. Acute compression fracture anterior superior endplate of L1. 5. No cord compression.
--- NOTE | 2024-07-12 07:55 | MR_ITS ---
WS: [id number] MRI LUMBAR SPINE NONCONTRAST HISTORY: Back pain after fall 1 month ago. COMPARISON: 07/31/2019 TECHNIQUE: Sagittal and axial multisequence imaging is submitted. Severe degenerative rotary scoliosis of the lumbar spine. Mild progression since 2019. S shaped curvature lumbar spine with advanced degenerative disc disease and facet arthritis. T11 acute fracture described on the MRI thoracic spine obtained on the same day. Acute fracture involving the anterior superior endplate of L1. Acute L5 compression fracture. There is marrow edema along the inferior endplate Conus terminates normally at L1-2 disc level. L1-L2: Thecal sac is been deformed by the scoliosis. Moderate osteophytic ridging and disc bulging with facet arthritis. Retropulsion slightly of L1. Mild central stenosis with moderate bilateral subarticular recess and foraminal stenosis. L2-L3: Retropulsion of L2 with osteophytic ridging and disc bulging. Marked facet arthritis. Moderate central stenosis with more severe subarticular recess and foraminal stenosis. Disc osteophyte extends into the subarticular recesses, greater on the RIGHT. L3-L4: Osteophytic ridging and asymmetric disc bulging with advanced facet joint arthritis. Moderate central, bilateral subarticular recess and foraminal stenosis, RIGHT greater than LEFT. L4-L5: Diffuse osteophytic ridging and annular disc bulging with severe ligamentum flavum and facet arthritis. Severe central, bilateral subarticular recess and moderate foraminal stenosis. L5-S1: Diffuse annular disc bulging and osteophytic ridging. Marked facet arthritis. Severe central, bilateral subarticular recess and foraminal stenosis. Facet joint cyst noted associated with the LEFT L5 and S1 facet joint. MR/MR lumbar spine wo con* [id number] IMPRESSION: 1. Advanced degenerative rotoscoliosis with multilevel stenoses with progressi on since 2019. 2. T11 acute fracture described on the MRI thoracic spine on the same day. 3. Acute fracture involving the anterior superior endplate of L1 with mild com pression. 4. Acute L5 compression fracture along the inferior endplate with minimal loss of height. Concave deformity greatest on the LEFT. New since 2019. 5. Moderate to severe central, subarticular recess and foraminal stenosis from L2-3 to L5-S1.
== END 2024-07-12 07:54 | disposition home or self-care (01) ==
LOC: RAD 07:53
PROVIDERS: PCP Family Medicine; Visit Provider Orthopaedic Surgery
DX: M48.061 Spinal stenosis, lumbar region without neurogenic claudication (principal); M48.54XA Collapsed vertebra, not elsewhere classified, thoracic region, initial encounter for fracture; R93.7 Abnormal findings on diagnostic imaging of other parts of musculoskeletal system; M48.56XA Collapsed vertebra, not elsewhere classified, lumbar region, initial encounter for fracture; M50.30 Other cervical disc degeneration, unspecified cervical region; M43.8X6 Other specified deforming dorsopathies, lumbar region; M41.86 Other forms of scoliosis, lumbar region; M47.894 Other spondylosis, thoracic region; M48.04 Spinal stenosis, thoracic region; M51.34 Other intervertebral disc degeneration, thoracic region; W19.XXXA Unspecified fall, initial encounter; M48.07 Spinal stenosis, lumbosacral region; M51.369 Other intervertebral disc degeneration, lumbar region without mention of lumbar back pain or lower extremity pain; M47.896 Other spondylosis, lumbar region; M25.78 Osteophyte, vertebrae; M51.379 Other intervertebral disc degeneration, lumbosacral region without mention of lumbar back pain or lower extremity pain; M47.897 Other spondylosis, lumbosacral region; R93.89 Abnormal findings on diagnostic imaging of other specified body structures
CPT/HCPCS: 72146; 72148

== ENCOUNTER → 2024-07-18 15:29 | Outpatient (BNVA) | payer MEDICARE, MEDICAID, SELFPAY | PROVIDERS: PCP Family Medicine; Visit Provider Orthopaedic Surgery | DX: Z01.818 Encounter for other preprocedural examination (principal); M48.54XA Collapsed vertebra, not elsewhere classified, thoracic region, initial encounter for fracture; X58.XXXA Exposure to other specified factors, initial encounter | CPT/HCPCS: 36415; 80053; 81003; 85025; 99214 ==

== ENCOUNTER → 2024-07-31 14:46 | Outpatient (BNVA) | payer MEDICARE, MEDICAID, SELFPAY | PROVIDERS: PCP Family Medicine; Visit Provider Nurse Practitioner | DX: S42.032D Displaced fracture of lateral end of left clavicle, subsequent encounter for fracture with routine healing (principal); M54.50 Low back pain, unspecified; G89.11 Acute pain due to trauma; W19.XXXA Unspecified fall, initial encounter; Y92.009 Unspecified place in unspecified non-institutional (private) residence as the place of occurrence of the external cause; X58.XXXD Exposure to other specified factors, subsequent encounter | CPT/HCPCS: 73000; 99024 ==

== ENCOUNTER → 2024-08-08 14:46 | Outpatient (BNVA) | payer MEDICARE, MEDICAID, SELFPAY | PROVIDERS: PCP Family Medicine; Visit Provider Podiatrist Foot & Ankle Surgery | DX: I73.9 Peripheral vascular disease, unspecified (principal); I73.00 Raynaud's syndrome without gangrene; E03.9 Hypothyroidism, unspecified; L84 Corns and callosities; M20.41 Other hammer toe(s) (acquired), right foot; M20.42 Other hammer toe(s) (acquired), left foot; M21.611 Bunion of right foot; M21.612 Bunion of left foot | CPT/HCPCS: 99213 ==

== ENCOUNTER 2024-08-16 10:08 | Day surgery (SDC) | payer MEDICARE, MEDICAID, SELFPAY ==
[2024-08-16] VITALS (13 sets, daily range): BP systolic 138–170; BP diastolic 74–96; PULSE 69–92; RESP 16–71; TEMP 36.1–36.5; O2SAT 95–99; BMI 25.6
--- NOTE | 2024-08-16 10:26 | SC_ITS ---
WS: [id number] Exam: C-arm FL for Kyphoplasty Date/Time of Exam: 08/16/2024 10:26 AM Reason For Exam: Surgery Intraoperative AP and lateral images of the thoracolumbar junction are submitted. Images were obtained for intraoperative visualization purposes.
--- NOTE | 2024-08-16 10:42 | ANES.PREANE2 ---
Pre-Anesthetic Assessment Height/Weight: Height 5 ft 3 in Preop Diagnosis: T11, L1 and L5 osteoporotic wedge traumatic compression fracture Operation Date: 08/16/24 11:40 Proposed Procedures p Kyphoplasty T11(Not Applicable) - Juan Carlos Preciado, DO Social Tobacco and No alcohol Exam alert, oriented x 3 and regular rate & rhythm Mild expiratory wheezing on right Airway Submandibular: within normal limits Cervical ROM: within normal limits Mallampati: Class I Comments: Comments: Edentulous Anesthetic Plan ASA status: 3 Anesthesia: General Other: No prior issues with anesthesia NPO since yesterday Current smoker History of atrial flutter with RVR Seizure history CAD, prior echo showing EF 71% COPD Hypertension on metoprolol Documented CVA, patient denies Labs from 07/18/2024 reviewed and acceptable for procedure Recent cardiac event monitor showing predominant sinus rhythm with 1 episode of V. tach Plan for GETA Medications/Allergies Home Medications ?Medication ?Instructions ?Recorded ?Confirmed ?Last Taken ?Type ascorbic acid (vitamin C) 500 mg 500 mg PO DAILY 12/04/19 08/14/24 08/13/24 History tablet cholecalciferol (vitamin D3) 25 25 mcg PO DAILY 06/17/20 08/14/24 08/13/24 History mcg (1,000 unit) capsule biotin 5 mg capsule 5 mg PO DAILY 03/15/22 08/14/24 08/11/24 History cyclosporine 0.05 % eye drops in a 1 drp ophthalmic (eye) DAILY 11/20/23 08/14/24 08/14/24 History dropperette (Restasis) lactobacillus combination no.4 3 3,000 mmu cells PO DAILY 04/22/24 08/14/24 08/14/24 History billion cell capsule (Probiotic) mecobalamin (vitamin B12) 1,000 1,000 mcg PO DAILY 06/18/24 08/14/24 08/14/24 History mcg chewable tablet (B12 Active) ouviixqz-nqi-roknn ac 400 1 tab PO DAILY 06/18/24 08/14/24 08/14/24 History mcg-calcium carb 500 mg-vit K1 20 mcg tablet Synthroid 75 mcg tablet 75 mcg PO DAILY #90 tabs 08/13/24 08/16/24 08/16/24 Rx (levothyroxine) hydrocodone 5 mg-acetaminophen 325 1 tab PO Q6H PRN pain 7 days #24 08/13/24 08/16/24 08/16/24 Rx mg tablet tabs metoprolol succinate 25 mg 25 mg PO DAILY #90 tabs 08/13/24 08/14/24 08/13/24 Rx tablet,extended release 24 hr (Toprol XL) Allergies Allergy/AdvReac Type Severity Reaction Status Date / Time NSAIDS (Non-Steroidal Allergy Mild GI Bleeding Verified 08/16/24 10:41 Anti-Inflamma [facility] Anesthesia Medical History Hammertoe History of colon polyps Overactive bladder CVA (cerebral vascular accident) Coronary atherosclerosis due to calcified coronary lesion of [place] artery Raynauds syndrome Osteoarthritis of hands, bilateral Scoliosis of thoracolumbar spine Spondylolisthesis, lumbar region Spinal stenosis of lumbar region with radiculopathy Lumbar stenosis with neurogenic claudication Intervertebral disc disorder with radiculopathy of lumbosacral region Hypothyroidism Hypertension COPD (chronic obstructive pulmonary disease) Surgical History History of right inguinal hernia repair 3x History of colonoscopy History of hernia repair History of tonsillectomy Family History Mother Ovarian cancer Cancer Family/Other CAD (coronary artery disease) Lung disease Grandfather CAD (coronary artery disease) [place] Sister Cancer Denies family history of Diabetes Clotting disorder Dementia Chronic kidney disease (CKD) Suicide Anesthesia complication Bleeding disorder Stroke Social History Smoking and tobacco/nicotine status: current every day tobacco/nicotine user cigarettes Packs smoked per day: 0.5 Years cigarettes smoked: 37 [ Other cigarette details: [id number]] Quit status (tobacco/nicotine): considering quitting Alcohol intake: current Alcohol intake frequency: holidays/special occasions only Alcohol type: hard liquor Substance/Drug Use: never Caregiver/support person: No Lives independently: Yes Household members: none Marital status: Single Current occupational status: employed Current occupation: [employer] Do you think of yourself as: Straight/Heterosexual Current gender identity: Female Data Anesthesia Cardiac Studies: Echocardiogram 12/07/21 Sestamibi Stress Test (Cardiology) 01/10/22 Cardiac Event Monitor 06/11/24 Holter Monitor 10/04/23
[2024-08-16] MEDS: sodium chloride 0.9% 1,000 ML 30 ML IV (10:53)
--- NOTE | 2024-08-16 10:59 | W.PM.OPSFHP ---
Same Day Surgery H&P Indication for Procedure/HPI DATE OF PROCEDURE: August 16, 2024 CHIEF COMPLAINT/INDICATIONFOR SURGICAL PROCEDURE: Back pain PREOP DIAGNOSIS: T11, L1 and L5 osteoporotic wedge traumatic compression fracture PLANNED PROCEDURE: Operation Date: 08/16/24 11:40 Proposed Procedures p Kyphoplasty T11(Not Applicable) - Juan Carlos Preciado, DO Medications/Allergies* Home Medications ?Medication ?Instructions ?Recorded ?Confirmed ?Type ascorbic acid (vitamin C) 500 mg 500 mg PO DAILY 12/04/19 08/14/24 History tablet cholecalciferol (vitamin D3) 25 25 mcg PO DAILY 06/17/20 08/14/24 History mcg (1,000 unit) capsule biotin 5 mg capsule 5 mg PO DAILY 03/15/22 08/14/24 History cyclosporine 0.05 % eye drops in a 1 drp ophthalmic (eye) DAILY 11/20/23 08/14/24 History dropperette (Restasis) lactobacillus combination no.4 3 3,000 mmu cells PO DAILY 04/22/24 08/14/24 History billion cell capsule (Probiotic) mecobalamin (vitamin B12) 1,000 1,000 mcg PO DAILY 06/18/24 08/14/24 History mcg chewable tablet (B12 Active) ozovxhwx-lae-yuxce ac 400 1 tab PO DAILY 06/18/24 08/14/24 History mcg-calcium carb 500 mg-vit K1 20 mcg tablet Allergies/Adverse Reactions Allergy/AdvReac Type Severity Reaction Status Date / Time NSAIDS (Non-Steroidal Allergy Mild GI Bleeding Verified 08/16/24 10:41 Anti-Inflamma Current Medications: Generic Name Dose Route Start Last Admin Trade Name Freq PRN Reason Stop Dose Admin Sodium Chloride 1,000 mls @ 30 mls/hr 08/16/24 10:30 08/16/24 10:53 Sodium Chloride 0.9% IV 08/17/24 10:29 30 mls/hr .Q24H LM Administration Pertinent History/Comorbid Conditions* Medical History (Updated 07/22/24 @ 14:31 by Holli Stephen) Ashley History of colon polyps Overactive bladder CVA (cerebral vascular accident) Coronary atherosclerosis due to calcified coronary lesion of [place] artery Raynauds syndrome Osteoarthritis of hands, bilateral Scoliosis of thoracolumbar spine Spondylolisthesis, lumbar region Spinal stenosis of lumbar region with radiculopathy Lumbar stenosis with neurogenic claudication Intervertebral disc disorder with radiculopathy of lumbosacral region Hypothyroidism Hypertension COPD (chronic obstructive pulmonary disease) Surgical History (Updated 02/23/21 @ 10:42 by Yosvany Galvez MD) History of right inguinal hernia repair 3x History of colonoscopy History of hernia repair History of tonsillectomy Family History (Updated 10/06/21 @ 15:01 by Edie Dean RN) Ovarian cancer Mother CAD (coronary artery disease) Family/Other Grandfather [place] Lung disease Family/Other Cancer Mother Sister Denies family history of Diabetes Clotting disorder Dementia Chronic kidney disease (CKD) Suicide Anesthesia complication Bleeding disorder Stroke Social History Smoking and tobacco/nicotine status: current every day tobacco/nicotine user cigarettes Packs smoked per day: 0.5 Years cigarettes smoked: 37 [ Other cigarette details: [id number]] Quit status (tobacco/nicotine): considering quitting Alcohol intake: current Alcohol intake frequency: holidays/special occasions only Alcohol type: hard liquor Substance/Drug Use: never Caregiver/support person: No Lives independently: Yes Household members: none Marital status: Single Current occupational status: employed Current occupation: [employer] Do you think of yourself as: Straight/Heterosexual Current gender identity: Female Pertinent Exam Findings alert, oriented x 3 and procedure specific exam findings Recommendations Surgery/Procedure today (Patient has acute fractures at T11 and L1 and L5. There are some reason insurance company only approved T11) Coding Level of Care Code Acute Code for Ramon Fwelizabeth
[2024-08-16] MEDS: ceFAZolin 2,000 mg SDV 2000 MG IVP (11:21)
[2024-08-16] MEDS: lidocaine-epi 1% 20 mL INJ INJECTION (11:51)
--- NOTE | 2024-08-16 12:19 | PM.OP ---
Operative Report Date of procedure: August 16, 2024 Pre-op diagnosis: T11 wedge osteoporotic traumatic compression fracture Post-op diagnosis: same Procedure done: T11 kyphoplasty Surgeon: Juan Carlos Preciado DO Estimated blood loss (mL): 5 Procedure: T11 kyphoplasty Patient brought the op suite after an [place] was placed in the prone position. All his impingement well-padded. Patient's prepped draped normal sterile fashion. Skin incision made over the left lateral pedicle of T11. The awl was inserted followed by the drill followed by the balloon. Balloon was inflated and deflated. And then the bone cement was injected into the bone had good fill across the vertebrae. AP lateral fluoroscopy showed the cement was in good position. Wound was irrigated and closed with nylon suture. Sterile dressings applied patient transferred to the PACU in stable condition.
[2024-08-16] MEDS: fentaNYL 50 mcg/mL INJ 2mL IVP (12:42)
--- NOTE | 2024-08-16 13:55 | ANE.PACU2 ---
Inpatient post-anesthesia follow up: Airway intact: Yes Vital signs: Temperature 97.7 F Pulse Rate 80 Respiratory Rate 17 Blood Pressure 166/94 Pulse Oximetry 96 Oxygen Delivery Me thod Room Air Oxygen Flow Rate Fraction of Inspir ed Oxygen Hydration adequate: Yes Nausea and vomiting: No Pain level: 2 Mental status: Baseline
== END 2024-08-16 13:55 | disposition home or self-care (01) ==
PROVIDERS: PCP Family Medicine; Visit Provider Orthopaedic Surgery
PROC: (CPT 22513; principal; 2024-08-16 11:30)
DX: S22.080A Wedge compression fracture of T11-T12 vertebra, initial encounter for closed fracture (principal); X58.XXXA Exposure to other specified factors, initial encounter; M41.85 Other forms of scoliosis, thoracolumbar region; J44.9 Chronic obstructive pulmonary disease, unspecified; I10 Essential (primary) hypertension; F17.210 Nicotine dependence, cigarettes, uncomplicated; M48.062 Spinal stenosis, lumbar region with neurogenic claudication; M54.17 Radiculopathy, lumbosacral region; I25.10 Atherosclerotic heart disease of native coronary artery without angina pectoris; M43.16 Spondylolisthesis, lumbar region; Z86.73 Personal history of transient ischemic attack (TIA), and cerebral infarction without residual deficits; E03.9 Hypothyroidism, unspecified
CPT/HCPCS: 22513; 76000; 99213; A4216; J0131; J0690; J1100; J2405; J2704; J3010; J3490; J7030; J9999

== ENCOUNTER → 2024-08-29 13:13 | Outpatient (BNVA) | payer MEDICARE, MEDICAID, SELFPAY | PROVIDERS: PCP Family Medicine; Visit Provider Orthopaedic Surgery | DX: S22.080A Wedge compression fracture of T11-T12 vertebra, initial encounter for closed fracture (principal); X58.XXXA Exposure to other specified factors, initial encounter | CPT/HCPCS: 99024 ==

== ENCOUNTER → 2024-09-09 14:05 | Outpatient (BNVA) | payer MEDICARE, MEDICAID, SELFPAY | PROVIDERS: PCP Family Medicine; Visit Provider Internal Medicine Cardiovascular Disease | DX: I49.8 Other specified cardiac arrhythmias (principal); I10 Essential (primary) hypertension; R00.0 Tachycardia, unspecified; Z72.0 Tobacco use; I73.9 Peripheral vascular disease, unspecified; M48.54XA Collapsed vertebra, not elsewhere classified, thoracic region, initial encounter for fracture | CPT/HCPCS: 99215 ==

== ENCOUNTER → 2024-09-30 15:15 | Outpatient (BNVA) | payer MEDICARE, MEDICAID, SELFPAY | PROVIDERS: PCP Family Medicine; Referring Provider Internal Medicine Cardiovascular Disease; Visit Provider Psychiatry & Neurology Neurology | DX: R55 Syncope and collapse (principal) | CPT/HCPCS: 99212 ==

== ENCOUNTER → 2024-10-04 13:04 | Outpatient (BNVA) | payer MEDICARE, MEDICAID, SELFPAY | PROVIDERS: PCP Family Medicine; Visit Provider Nurse Practitioner | DX: S42.032D Displaced fracture of lateral end of left clavicle, subsequent encounter for fracture with routine healing (principal); W19.XXXD Unspecified fall, subsequent encounter; M19.012 Primary osteoarthritis, left shoulder; Y92.009 Unspecified place in unspecified non-institutional (private) residence as the place of occurrence of the external cause | CPT/HCPCS: 20610; 73000; 99214 ==

== ENCOUNTER → 2024-10-10 13:10 | Outpatient (BNVA) | payer MEDICARE, MEDICAID, SELFPAY | PROVIDERS: PCP Family Medicine; Visit Provider Orthopaedic Surgery | DX: M54.9 Dorsalgia, unspecified (principal) | CPT/HCPCS: 72072; 99213 ==

== ENCOUNTER 2024-10-14 14:57 | Outpatient (CLI) | payer MEDICARE, MEDICAID, SELFPAY ==
--- NOTE | 2024-10-14 15:06 | MR_ITS ---
WS: [id number] MRI LUMBAR SPINE NONCONTRAST HISTORY: lumbar pain COMPARISON: 07/12/2024 TECHNIQUE: Sagittal and axial multisequence imaging is submitted. Straightening of the normal cervical lordosis. Small central disc osteophyte contacting the cervical cord at C5-6. Prior kyphoplasty at T11. Marked RIGHT curvature and increased lordosis of the lumbar spine. Very slight increased T2 signal involving L1, L2 and L3 but similar to the prior study. Large Schmorl's node defect superior endplate of L1. 5 mm retrolisthesis of L1-L3. 2 mm anterolisthesis of L4. Disc spaces are all narrowed and desiccated, most significant at L1-2. Conus terminates normally at L1-2 disc level. T12-L1: Mild asymmetric disc bulging to the RIGHT with a small central disc protrusion and facet arthritis. Mild bilateral foraminal stenosis. L1-L2: Retrolisthesis of L1, diffuse disc bulging with facet and ligamentum flavum hypertrophy. Severe RIGHT foraminal stenosis. Bilateral subarticular recess encroachment upon the traversing L2 nerve roots. Central and subarticular recess and LEFT foraminal stenosis are moderate. L2-L3: Retrolisthesis of L2 with severe ligamentum flavum and facet arthritis. Disc osteophyte disease and facet arthritis resulting in severe central, subarticular recess and foraminal stenosis. L3-L4: Diffuse disc bulging with ligamentum flavum and facet disease and osteophytosis. Moderate to severe central, bilateral subarticular recess and foraminal stenosis. Much greater stenosis RIGHT foramen. L4-L5: Diffuse annular disc bulging with ligamentum flavum and facet arthritis. Small RIGHT paracentral disc protrusion. Severe central, bilateral subarticular recess and RIGHT foraminal stenosis. Mild LEFT foraminal stenosis. L5-S1: Diffuse annular disc bulging with marked ligamentum flavum and facet arthritis. Moderate central, subarticular recess and severe bilateral foraminal stenosis. Atherosclerotic changes within the abdominal aorta. MR/MR lumbar spine wo con* [id number] IMPRESSION: 1. Status post kyphoplasty at T11. 2. No acute fractures are identified. Very slight marrow edema in L1, L2 and L 3. Large Schmorl's node within L1. Edema associated with the anterior L1 verteb ral body is unchanged. 3. 5 mm retrolisthesis of L1, L2 and L3. 4. Multilevel areas of central, subarticular recess and foraminal stenosis. St enosis due to combination of scoliosis, osteophytosis, disc and facet arthritis . 5. L4-5: Severe central, bilateral subarticular recess and RIGHT foraminal nichole nosis. 6. L3-4: Severe central, bilateral subarticular recess and foraminal stenosis, greater on the RIGHT. 7. L5-S1: Moderate central, subarticular recess and severe bilateral foraminal stenosis. 8. L2-3: Severe central, subarticular recess and foraminal stenosis. 9. L1-2: Moderate central, subarticular recess and LEFT foraminal stenosis.
--- NOTE | 2024-10-14 15:15 | MR_ITS ---
WS: [id number] MRI BRAIN WITH AND WITHOUT CONTRAST HISTORY: D32.9 - Benign neoplasm of meninges, unspecified COMPARISON: 10/20/2022 TECHNIQUE: Multiplanar imaging performed through the brain with MultiHance 14 ml's IV. No acute infarcts. Diffusion imaging is normal. Moderate cerebral and cerebellar atrophy with mild progression since 10/20/2022. There is extensive T2 and FLAIR signal hyperintensity in the periventricular and subcortical white matter. Prior lacunar infarct LEFT cerebellum. No hemorrhage or susceptibility artifact. Ventricles and extra-axial spaces are prominent on the basis of atrophy. Clivus and pituitary gland are normal. Reidentified is a nonenhancing area of decreased signal towards the LEFT frontal vertex measuring 9 mm in transverse diameter. There is slight mass effect upon the brain. This may be a calcified meningioma. This area of decreased signal has been present since at least 2017 without increase in size. Dural venous sinuses are normal. Paranasal sinuses: Well aerated with no significant disease. Mastoid air cells: Normal. Calvarium and scalp: Normal. MR/MR head wo/w con [id number] IMPRESSION: 1. No acute infarct or hemorrhage. 2. Moderate cerebral and cerebellar atrophy. 3. Extensive small vessel ischemic type changes throughout the white matter. 4. Prior lacunar infarct LEFT cerebellum. 5. Stable nonenhancing low signal mass towards the LEFT frontal vertex. Maximu m diameter of 9 mm. No change since 04/10/2018. May be calcified meningioma.
[2024-10-14] MEDS: gadobenate dimeglumine 20 mL vial 14 ML IV (16:26)
== END 2024-10-14 14:58 | disposition home or self-care (01) ==
LOC: RAD 15:00
PROVIDERS: PCP Family Medicine; Visit Provider Psychiatry & Neurology Neurology
DX: D32.9 Benign neoplasm of meninges, unspecified (principal); M79.605 Pain in left leg; M48.061 Spinal stenosis, lumbar region without neurogenic claudication; G31.89 Other specified degenerative diseases of nervous system; R93.0 Abnormal findings on diagnostic imaging of skull and head, not elsewhere classified; Z98.890 Other specified postprocedural states; M51.46 Schmorl's nodes, lumbar region; R60.0 Localized edema; M43.16 Spondylolisthesis, lumbar region; M48.07 Spinal stenosis, lumbosacral region; M25.78 Osteophyte, vertebrae; M43.8X6 Other specified deforming dorsopathies, lumbar region; M51.35 Other intervertebral disc degeneration, thoracolumbar region; M51.25 Other intervertebral disc displacement, thoracolumbar region; M47.895 Other spondylosis, thoracolumbar region; M48.05 Spinal stenosis, thoracolumbar region; M51.362 Other intervertebral disc degeneration, lumbar region with discogenic back pain and lower extremity pain; M24.28 Disorder of ligament, vertebrae; M51.372 Other intervertebral disc degeneration, lumbosacral region with discogenic back pain and lower extremity pain; M47.897 Other spondylosis, lumbosacral region; I70.0 Atherosclerosis of aorta
CPT/HCPCS: 70553; 72148

== ENCOUNTER 2024-10-23 13:26 | Inpatient (IN) | payer MEDICARE, MEDICAID, SELFPAY ==
[2024-10-23] VITALS (7 sets, daily range): BP systolic 114–172; BP diastolic 77–88; PULSE 83–100; RESP 16–19; TEMP 36.4–37.4; O2SAT 92–100; BMI 27.4
--- NOTE | 2024-10-23 13:59 | ECG_ITS ---
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
--- NOTE | 2024-10-23 14:12 | W.ED.FALL ---
HPI - Fall General: Chief Complaint: Fall Stated Complaint: fall, General Pain Time Seen by Provider: 10/23/24 13:39 History of Present Illness: 69-year-old female presents the emergency department for generalized weakness and what sounds like a syncopal spell. Patient reports she was on the toilet yesterday evening. She reports she woke up on the floor. She was too weak to get up. She lives alone and nobody was there to help her. After laying on the floor for quite a long time she ultimately was able to crawl to her bedroom. Patient has reported that this week she has been having stomach troubles. 4 days ago she had constipation and then the following day she had a soft stool and the following 2 days after that she had nonbloody diarrhea once a day. Yesterday evening she had an episode of vomiting x 1. Now, she reports she has not had any vomiting nausea nor any bowel movement today. She reports no abdominal pain. She feels very weak. She has bruising to her chin around the left side of her face, skin tear to the right lateral ankle, skin tear on her right forearm and elbow, bruising to both of her knees where she crawled. She cannot remember if she hit her head or not. She reports she has very mild headache. She used to have syncopal spells when she was on amlodipine and metoprolol together. However after stopping amlodipine this resolved. She feels too weak to get up on her own now. Patient does report that she is sore everywhere but does not think she is broken anything. Associated symptoms-after fall: Denies chest pain, headache(s) or neck pain Related Data Home Medications ?Medication ?Instructions ?Recorded ?Confirmed ascorbic acid (vitamin C) 500 mg 500 mg PO DAILY 12/04/19 10/10/24 tablet lactobacillus combination no.4 3 3,000 mmu cells PO DAILY 04/22/24 10/10/24 billion cell capsule (Probiotic) mecobalamin (vitamin B12) 1,000 1,000 mcg PO DAILY 06/18/24 10/10/24 mcg chewable tablet (B12 Active) silica 2 tab PO BID 09/30/24 10/10/24 Previous Rx's ?Medication ?Instructions ?Recorded Synthroid 75 mcg tablet 75 mcg PO DAILY #90 tabs 08/13/24 (levothyroxine) metoprolol succinate 25 mg 25 mg PO DAILY #90 tabs 08/13/24 tablet,extended release 24 hr (Toprol XL) magnesium L-lactate 84 mg 84 mg PO BID 30 days #60 tabs 09/09/24 tablet,extended release (Magtab) diazepam 10 mg tablet 20 mg (2 x 10 mg) PO ONCE PRN 10/10/24 anxiety #2 tabs hydrocodone 5 mg-acetaminophen 325 1 tab PO .Q4-6H PRN pain 7 days 10/22/24 mg tablet #40 tabs Allergies Allergy/AdvReac Type Severity Reaction Status Date / Time NSAIDS (Non-Steroidal Allergy Mild GI Bleeding Verified 10/23/24 13:48 Anti-Inflamma Review of Systems General: Reports: 10 or more systems reviewed and unremarkable except in HPI and below Const: Denies: fever(s), chills or body aches Eyes: Denies: change in vision ENMT: Denies: throat pain Card: Denies: chest pain or edema Resp: Denies: dyspnea or productive cough : Denies: flank pain, dysuria or urinary frequency Musc: Denies: neck pain or extremity swelling Skin/Breast: Reports: other (Contusions present); Denies: rash or erythema Neuro: Denies: headache(s), numbness in extremities or lack of coordination PFSH ED PFSH: Medical History Primary osteoarthritis, left shoulder Family history of ovarian cancer [place] History of colon polyps Overactive bladder CVA (cerebral vascular accident) Coronary atherosclerosis due to calcified coronary lesion of [place] artery Raynauds syndrome Osteoarthritis of hands, bilateral Scoliosis of thoracolumbar spine Spondylolisthesis, lumbar region Spinal stenosis of lumbar region with radiculopathy Lumbar stenosis with neurogenic claudication Intervertebral disc disorder with radiculopathy of lumbosacral region Hypothyroidism Hypertension COPD (chronic obstructive pulmonary disease) Surgical History History of right inguinal hernia repair 3x History of colonoscopy History of hernia repair History of tonsillectomy Family History Mother Ovarian cancer Cancer Family/Other CAD (coronary artery disease) Lung disease Grandfather CAD (coronary artery disease) [place] Sister Cancer Denies family history of Diabetes Clotting disorder Dementia Chronic kidney disease (CKD) Suicide Anesthesia complication Bleeding disorder Stroke Social History Smoking and tobacco/nicotine status: unknown if used tobacco/nicotine Quit status (tobacco/nicotine): considering quitting Alcohol intake: current Alcohol intake frequency: holidays/special occasions only Alcohol type: hard liquor Substance/Drug Use: never Caregiver/support person: No Lives independently: Yes Household members: none Marital status: Single Current occupational status: employed Current occupation: [employer] Do you think of yourself as: Straight/Heterosexual Current gender identity: Female Female Reproductive History: Date of last menstrual period: 09/08/20 Physical Exam Narrative: EXAM NARRATIVE: Patient is alert, oriented. She is in no distress at rest. Whenever she moves around in bed she moans and says she is sore all over. She has signs of some mild bruising to the left side of the face and chin. She has bruising around her elbows and knees. She has some skin tear around her right lateral ankle, right forearm and elbow area. Pupils are equal and reactive to light. She can move all extremities. Passive range of motion of her extremities she endorses lots of soreness but does not think she is injured anything seriously. Spine is nontender to palpation in the midline but is sore with range of motion. Abdomen is soft with hyperactive bowel sounds. No guarding or tenderness noted. Const: COMMON NORMALS: no limitations, alert and well nourished EXAM LIMITATIONS: no altered mental status HENMT: COMMON NORMALS: external ears normal EXTERNAL EAR: Yes external ears normal MOUTH: no muffled voice Eye: COMMON NORMALS: EOMs intact bilaterally, conjunctivae normal and no scleral icterus CONJUNCTIVA: Yes conjunctivae normal Neck/C-Spine: COMMON NORMALS: no JVD GENERAL: Yes normal visual inspection and Yes trachea midline Resp: COMMON NORMALS: normal respiratory effort, No use of accessory muscles and clear to auscultation bilaterally AUSCULTATION: clear to auscultation bilaterally Cardio: COMMON NORMALS: no JVD, regular rate and regular rhythm RATE: regular rate RHYTHM: regular rhythm GI: COMMON NORMALS: Soft to palpation and non-tender PALPATION: Yes Soft to palpation and No Guarding due to palpation present (GI) Neuro: COMMON NORMALS: moves all extremities, no focal motor deficits and no sensory deficits noted SENSORIUM/ORIENTATION: Yes alert SPEECH: speech normal Psych: COMMON NORMALS: mental status grossly normal, Normal thought process present, cooperative, normal affect and speech normal SPEECH: Yes normal speech THOUGHT PROCESS: Normal thought process present Skin: COMMON NORMALS: no jaundice Course Vital Signs: Vital signs: Vital Signs Temperature 97.6 F 10/23/24 13:33 Pulse Rate 100 10/23/24 14:10 Respiratory Rate 19 H 10/23/24 14:10 Blood Pressure 114/77 10/23/24 13:33 Pulse Oximetry 92 10/23/24 14:10 Oxygen Delivery Me thod Room Air 10/23/24 13:33 MDM - Fall Medical Decision Making Patient presents with chief concern of 1 episode of vomiting, 2 days of low-volume low-frequency diarrhea and generalized weakness that resulted in a syncopal spell in the toilet last night. She then spent the night on the floor and crawled to her bed area today. She cannot get herself up. She still remains very weak. She does not have any focal neurologic deficits. She has poor skin turgor. Her mucous membranes are slightly dry. Her abdomen is soft with hyperactive bowel sounds in mild nontympanitic distention. Suspected dehydration as the patient reports she has not been eating and drinking much because she did not want to exacerbate her GI symptoms. She does not remember if she hit her head or not but has bruising about the face. Will going to go ahead and do a CT scan of her head without contrast. Because of the abdominal symptoms I am going to add a CT of her abdomen pelvis to rule out any emergent or surgical pathology. I did like to check for dehydration, electrolyte disturbances, acid-base disturbances, UTI, anemia, etc. with blood work. Update White blood cell count is elevated 11.8 Hemoglobin is normal but is probably hemoconcentrated Platelets normal Sodium is abnormal at 128. Previous measurement was 137 a few months ago. Chloride is similarly low. Bicarb and anion gap are normal. Surprisingly BUN and creatinine are normal including the BUN to creatinine ratio. AST and ALT were elevated. Total bilirubin is normal. Alkaline phosphatase is normal. Albumin is normal. Patient was given 1 L of IV fluids. She started to feel better but was still too weak to get up on her own. I am going to give her a second liter of IV fluids. CT scans are pending. Decision to admit will depend on CT scan imaging as well as whether the patient can perform activities of daily living after her second liter of IV fluids. Update CT scan of the head and abdomen pelvis did not show any acute pathology. However, CK is 4039. Patient still feels very weak. No evidence of UTI Patient with mild rhabdomyolysis, hyponatremia, very weak, lives alone. Discussed with Dr Fernandez for admission. Lab Data 10/23/24 14:08 10/23/24 14:08 Radiology Impressions Abdomen/Pelvis CT 10/23/24 15:19 IMPRESSION: No acute findings. Head CT 10/23/24 15:19 IMPRESSION: No acute findings. Laboratory Results WBC 11.86 10^3/uL (3.29-11.43) H 10/23/24 14:08 RBC 5.12 10^6/uL (3.85-5.65) 10/23/24 14:08 Hgb 14.50 g/dL (11.27-16.99) 10/23/24 14:08 Hct 42.1 % (36-47) 10/23/24 14:08 MCV 82.2 fl (85-98) L 10/23/24 14:08 MCH 28.3 pg (27-33) 10/23/24 14:08 MCHC 34.4 g/dL (30-55) 10/23/24 14:08 RDW 17.2 % (12.1-15.1) H 10/23/24 14:08 Plt Count 316 10^3/cmm (157-399) 10/23/24 14:08 MPV 10.1 fL (7.4-10.4) 10/23/24 14:08 Neut % (Auto) 86.3 % 10/23/24 14:08 Lymph % (Auto) 5.2 % 10/23/24 14:08 [place] % (Auto) 7.9 % 10/23/24 14:08 Eos % (Auto) 0.0 % 10/23/24 14:08 Baso % (Auto) 0.3 % 10/23/24 14:08 Neut # (Auto) 10.24 10^3/uL (1.8-7.7) H 10/23/24 14:08 Lymph # (Auto) 0.6 10^3/uL (0.8-4.8) L 10/23/24 14:08 [place] # (Auto) 0.9 10^3/uL (0.2-0.9) 10/23/24 14:08 Eos # (Auto) 0.0 10^3/uL (0.0-0.8) 10/23/24 14:08 Baso # (Auto) 0.0 10^3/uL (0.0-0.1) 10/23/24 14:08 Nucleated RBC % (auto) 0 % 10/23/24 14:08 Nucleated RBCs # 0.0 /100WBC 10/23/24 14:08 Sodium 128 mmol/L (136-145) L 10/23/24 14:08 Potassium 3.7 mmol/L (3.5-5.1) 10/23/24 14:08 Chloride 91 mmol/L (98-107) L 10/23/24 14:08 Carbon Dioxide 22 mmol/L (22-29) 10/23/24 14:08 Anion Gap 18.7 (5-19) 10/23/24 14:08 BUN 13 mg/dL (8-23) 10/23/24 14:08 Creatinine 0.8 mg/dL (0.5-0.9) 10/23/24 14:08 GFR Calculation Not Reportable 10/23/24 14:08 Glucose 115 mg/dL (65-115) 10/23/24 14:08 Calculated Osmolality 267 mOsm/kg (285-295) L 10/23/24 14:08 Calcium 9.8 mg/dL (8.5-10.5) 10/23/24 14:08 Magnesium 1.7 mg/dL (1.7-2.3) 10/23/24 14:08 Total Bilirubin 0.6 mg/dL (0.15-1.2) 10/23/24 14:08 AST 98 U/L (0-32) H 10/23/24 14:08 ALT 37 U/L (0-33) H 10/23/24 14:08 Alkaline Phosphatase 77 U/L (35-105) 10/23/24 14:08 Creatine Kinase 4039 U/L (26-192) H* 10/23/24 14:08 Total Protein 6.8 g/dL (6.6-8.7) 10/23/24 14:08 Albumin 3.8 g/dL (3.5-5.2) 10/23/24 14:08 Globulin 3.0 g/dL (1.3-4.6) 10/23/24 14:08 Urine Color Yellow (Yellow) 10/23/24 15:32 Urine Appearance Clear (CLEAR) 10/23/24 15:32 Urine pH 6.5 (5-7) 10/23/24 15:32 Ur Specific [place] 1.006 (1.005-1.030) 10/23/24 15:32 Urine Protein Negative (Negative) 10/23/24 15:32 Urine Glucose (UA) Negative (Normal) 10/23/24 15: Urine Ketones Negative (Negative) 10/23/24 15:32 Urine Blood Trace (Negative) A 10/23/24 15:32 Urine Nitrate Negative (Negative) 10/23/24 15:32 Urine Bilirubin Negative (Negative) 10/23/24 15:32 Urine Urobilinogen 0.2 mg/dL (Negative) 10/23/24 15:32 Ur Leukocyte Esterase Negative (Negative) 10/23/24 15:32 Urine RBC 0-2 /hpf (0-2) 10/23/24 15:32 Urine WBC 0-5 /hpf (0-5) 10/23/24 15:32 Ur Squamous Epith Cells 0-5 /hpf (0-5) 10/23/24 15:32 Calcium Oxalate Crystal 15-25 /hpf H 10/23/24 15:32 Amorphous Sediment Not Reportable 10/23/24 15:32 Urine Bacteria None seen /hpf (NONE) 10/23/24 15:32 Hyaline Casts 2.46 /lpf 10/23/24 15:32 All radiology interpretation(s) finalized by discharge Discharge Plan Discharge Patient Disposition: Admitted As Inpatient Clinical Impression: Rhabdomyolysis, Generalized weakness, Transaminitis, Acute hyponatremia, Unable to ambulate Condition: Stable Coding Level of Care Code ED Devops Consultant for Ramon Truong
[2024-10-23] MEDS: sodium chloride 0.9% 1,000 ML 999 ML IV ×2 (14:14→15:49)
[2024-10-23 14:26] LABS: Basophils % 0.3 %; Hematocrit 42.1 % (36-47); Lymphocytes # 0.6 10^3/uL (0.8-4.8); Lymphocytes % 5.2 %; Mean Corpuscular HGB Conc 34.4 g/dL (30-55); Mean Corpuscular Hemoglobin 28.3 pg (27-33); Mean Corpuscular Volume 82.2 fl (85-98); Mean Platelet Volume 10.1 fL (7.4-10.4); Monocytes # 0.9 10^3/uL (0.2-0.9); Monocytes % 7.9 %; Neutrophils # 10.24 10^3/uL (1.8-7.7); Neutrophils % 86.3 %; Nucleated Red Blood Cells % 0 %; Platelet Count 316 10^3/cmm (157-399); Red Blood Count 5.12 10^6/uL (3.85-5.65); Red Cell Distribution Width 17.2 % (12.1-15.1); White Blood Count 11.86 10^3/uL (3.29-11.43)
[2024-10-23 14:44] LABS: Alanine Aminotransferase 37 U/L (0-33); Albumin Level 3.8 g/dL (3.5-5.2); Alkaline Phosphatase 77 U/L (35-105); Anion Gap 18.7 (5-19); Aspartate Amino Transferase 98 U/L (0-32); Blood Urea Nitrogen 13 mg/dL (8-23); Calcium 9.8 mg/dL (8.5-10.5); Carbon Dioxide 22 mmol/L (22-29); Chloride 91 mmol/L (98-107); Creatinine Clr Calc Pharmacy 56.4722; Glucose 115 mg/dL (65-115); Magnesium 1.7 mg/dL (1.7-2.3); Osmolality Calculated 267 mOsm/kg (285-295); Potassium 3.7 mmol/L (3.5-5.1); Sodium 128 mmol/L (136-145); Total Bilirubin 0.6 mg/dL (0.15-1.2); Total Protein 6.8 g/dL (6.6-8.7)
--- NOTE | 2024-10-23 15:19 | CTR_ITS ---
PROCEDURE INFORMATION: Exam: CT Abdomen And Pelvis With Contrast Exam date and time: 10/23/2024 3:59 PM Age: 69 years old Clinical indication: Injury or trauma; Fall; Blunt; Generalized; Additional info: Abd pain, vomiting, stools abnormal TECHNIQUE: Imaging protocol: Computed tomography of the abdomen and pelvis with contrast. Radiation optimization: All CT scans at this facility use at least one of these dose optimization techniques: automated exposure control; mA and/or kV adjustment per patient size (includes targeted exams where dose is matched to clinical indication); or iterative reconstruction. Contrast material: OMNIPAQUE 350; Contrast volume: 100 ml; Contrast route: INTRAVENOUS (IV); COMPARISON: CT abdomen pelvis w con* [id number] 04/13/2023 2:54 PM RADIATION DOSE METRICS: Total DLP (mGy-cm): 633.96 FINDINGS: Lungs: Lung bases are clear. No pleural effusion. Liver: Normal. No mass. Gallbladder and biliary ducts: Normal. No calcified stones. No ductal dilation. Pancreas: Normal. No ductal dilation. Spleen: Normal. No splenomegaly. Adrenal glands: Normal. No mass. Kidneys and ureters: Normal. No hydronephrosis. Stomach and bowel: Unremarkable. No obstruction. No mucosal thickening. Appendix: No evidence of appendicitis. Intraperitoneal space: Unremarkable. No free air. No significant fluid collection. Vasculature: Unremarkable. No abdominal aortic aneurysm. Lymph nodes: Unremarkable. No enlarged lymph nodes. Urinary bladder: Unremarkable as visualized. Reproductive: Unremarkable as visualized. Bones/joints: The lumbar spine demonstrates scoliosis with multilevel arthritic changes. No acute fracture noted. Soft tissues: Unremarkable. CT/CT abdomen pelvis w con* [id number] IMPRESSION: No acute findings.
--- NOTE | 2024-10-23 15:19 | CTR_ITS ---
PROCEDURE INFORMATION: Exam: CT Head Without Contrast Exam date and time: 10/23/2024 3:54 PM Age: 69 years old Clinical indication: Injury or trauma; Fall; Blunt trauma (contusions or hematomas); Consciousness not specified TECHNIQUE: Imaging protocol: Computed tomography of the head without contrast. Radiation optimization: All CT scans at this facility use at least one of these dose optimization techniques: automated exposure control; mA and/or kV adjustment per patient size (includes targeted exams where dose is matched to clinical indication); or iterative reconstruction. COMPARISON: MR head wo/w con [id number] 10/14/2024 4:00 PM RADIATION DOSE METRICS: Total DLP (mGy-cm): 1106.65 FINDINGS: Brain: There is mild chronic periventricular white matter ischemic change. There is no evidence of mass effect, infarct or hemorrhage. Cerebral ventricles: No ventriculomegaly. No midline shift. Paranasal sinuses: Visualized sinuses are unremarkable. No fluid levels. Mastoid air cells: Visualized mastoid air cells are well aerated. Bones: Unremarkable. No acute fracture. Soft tissues: Unremarkable. CT/CT head wo con* [id number] IMPRESSION: No acute findings.
[2024-10-23 15:48] LABS: Bilirubin Urine Negative (Negative); Blood Urine Trace (Negative); Glucose Urine UA Negative (Normal); Ketones Urine Negative (Negative); Leukocyte Esterase Urine Negative (Negative); Nitrate Urine Negative (Negative); Protein Urine Negative (Negative); Specific Gravity, Urine 1.006 (1.005-1.030); Urine Appearance Clear (CLEAR); Urine Color Yellow (Yellow); Urobilinogen Urine 0.2 mg/dL (Negative); pH Urine 6.5 (5-7)
[2024-10-23 15:55] LABS: Add Urine Microscopic? YES; Bacteria Urine None Seen /hpf; Hyaline Casts Urine 2.46 /lpf; RBC Urine 0-2 /hpf (0-2); Squamous Epithelial Cell Urine 0-5 /hpf (0-5); WBC Urine 0-5 /hpf (0-5)
[2024-10-23 16:23] LABS: Calcium Oxalate Crystals Urine 15-25 /hpf; UA Slide Review UA Slide Review Perf
[2024-10-23 16:24] LABS: Add Urine Culture? No
[2024-10-23 16:30] LABS: Creatine Phosphokinase 4039 U/L (26-192)
--- NOTE | 2024-10-23 17:54 | PM.HP ---
Providers/Chief Complaint Admitting Physician: Audrey Fernandez MD Primary Care Provider: Jerilyn Matthew DO Chief Complaint: fall, General Pain History of Present Illness Kamla Ghotra is a 69 year old female with a history of hypothyroidism and hypertension, known meningioma, history of recurrent syncopal episodes for which she was evaluated by neurology recently. She has had multiple syncopal episodes over the last 1 to 1-1/2 years. She presented to the emergency room today after having taken a fall yesterday. Patient reports to me that she was taking some magnesium supplements over the last few days, she thinks this resulted in diarrhea. She was going to the bathroom, sat on the commode however thereafter took a fall. She states that she got injured over her chest, and her arms as a result of this fall. She states that she has previously fallen in May of this year following which she had fractured her scapula and some of her ribs. She continued to remain on the floor through the night. Apparently she had her cell phone on her, however is not able to tell me a good answer as to why she was unable to call for help. She states that overnight she tried to get up multiple times but just could not do it. She did call EMS this morning, she stated that when EMS came by they asked her if she would like to come to the hospital, however she states she asked them just to put her back in bed. She has in-home services and when her producer assistant came in to check in on her, she was unable to get out of bed. The producer assistant helped her get dressed and then they called EMS to bring her to the hospital as she was still unable to get up by herself. She is brought to the emergency room and is noted to have multiple bruises over her face, arms, anterior chest wall, bilateral legs and knees. She has a patchy recollection of the events of overnight. Denies any known history of seizure disorder. There has been no recent changes in her medications. She stated that she was on metoprolol and amlodipine combination previously and it was thought that maybe the combination led to orthostatic episode leading to the fall. She did not feel dizzy prior to the event. Denies any chest pain dyspnea or palpitations. Review of Systems General: Reports: 10 or more systems reviewed and unremarkable except in HPI and below Const: Denies: fever(s), chills or body aches Eyes: Denies: change in vision, blurry vision or photophobia ENMT: Reports: hoarseness; Denies: throat pain, enlarged tonsils, odynophagia or nasal congestion Card: Denies: chest pain, palpitations, irregular heart rhythm, edema, swelling of feet/ankles, lightheadedness, pre-syncope, dyspnea on exertion or orthopnea Resp: Denies: dyspnea, productive cough, non-productive cough, wheezing, stridor, pain on inspiration, change in phlegm color, hemoptysis or chest congestion GI: Denies: abdominal pain, nausea, vomiting, hematemesis, coffee ground emesis, dysphagia, heartburn, diarrhea, constipation, GI cramping, change in stool character, hematochezia or melena : Denies: flank pain, difficulty voiding, dysuria, urinary frequency, urinary urgency, urinary hesitancy or hematuria Musc: Denies: neck pain, back pain, extremity pain, joint swelling, joint warmth or deformity Neuro: Denies: headache(s), numbness in extremities, weakness in extremities, sensory changes, difficulty walking, frequent falls, dizziness, vertigo, behavioral changes, Slurred speech present or seizure-like activity Psych: Denies: anxiety, depression, suicidal ideation or homicidal ideation Endo: Denies: polyuria, polydipsia, tired all the time, cold intolerance or hot flashes Maciej/Lymph: Denies: easy bruising or easy bleeding Medications/Allergies Home Medications ?Medication ?Instructions ?Recorded ?Confirmed ?Last Taken ?Type ascorbic acid (vitamin C) 500 mg 500 mg PO DAILY 12/04/19 10/24/24 10/22/24 12:00 History tablet lactobacillus combination no.4 3 3,000 mmu cells PO QAM 04/22/24 10/24/24 10/22/24 12:00 History billion cell capsule (Probiotic) mecobalamin (vitamin B12) 1,000 1,000 mcg PO DAILY 06/18/24 10/24/24 10/22/24 12:00 History mcg chewable tablet (B12 Active) Synthroid 75 mcg tablet 75 mcg PO DAILY #90 tabs 08/13/24 10/24/24 10/22/24 09:00 Rx (levothyroxine) metoprolol succinate 25 mg 25 mg PO DAILY #90 tabs 08/13/24 10/24/24 10/23/24 13:00 Rx tablet,extended release 24 hr (Toprol XL) magnesium L-lactate 84 mg 84 mg PO BID 30 days #60 tabs 09/09/24 10/24/24 10/22/24 18:00 Rx tablet,extended release (Magtab) silica 2 tab PO BID 09/30/24 10/24/24 10/22/24 12:00 History hydrocodone 5 mg-acetaminophen 325 1 tab PO .Q4-6H PRN pain 7 days 10/22/24 10/24/24 10/22/24 18:00 Rx mg tablet #40 tabs cholecalciferol (vitamin D3) 25 25 mcg PO DAILY 10/24/24 10/24/24 10/23/24 History mcg (1,000 unit) tablet (Vitamin D3) gpcuaqewrqnv-ktontqjo-ussqat 1 tab PO DAILY 10/24/24 10/24/24 10/23/24 History tablet (Multivitamin 50 Plus tablet) Allergies Allergy/AdvReac Type Severity Reaction Status Date / Time NSAIDS (Non-Steroidal Allergy Mild GI Bleeding Verified 10/23/24 13:48 Anti-Inflamma PFSH Acute PFSH: Medical History Primary osteoarthritis, left shoulder Family history of ovarian cancer [place] History of colon polyps Overactive bladder CVA (cerebral vascular accident) Coronary atherosclerosis due to calcified coronary lesion of [place] artery Raynauds syndrome Osteoarthritis of hands, bilateral Scoliosis of thoracolumbar spine Spondylolisthesis, lumbar region Spinal stenosis of lumbar region with radiculopathy Lumbar stenosis with neurogenic claudication Intervertebral disc disorder with radiculopathy of lumbosacral region Hypothyroidism Hypertension COPD (chronic obstructive pulmonary disease) Surgical History History of right inguinal hernia repair 3x History of colonoscopy History of hernia repair History of tonsillectomy Family History Mother Ovarian cancer Cancer Family/Other CAD (coronary artery disease) Lung disease Grandfather CAD (coronary artery disease) [place] Sister Cancer Denies family history of Diabetes Clotting disorder Dementia Chronic kidney disease (CKD) Suicide Anesthesia complication Bleeding disorder Stroke Social History Smoking and tobacco/nicotine status: unknown if used tobacco/nicotine Quit status (tobacco/nicotine): considering quitting Alcohol intake: current Alcohol intake frequency: holidays/special occasions only Alcohol type: hard liquor Substance/Drug Use: never Caregiver/support person: No Lives independently: Yes Household members: none Marital status: Single Current occupational status: employed Current occupation: [employer] Do you think of yourself as: Straight/Heterosexual Current gender identity: Female Female Reproductive History: Date of last menstrual period: 09/08/20 Vitals/I&O/Wt Last Vital Signs Temp 97.6 F 10/23/24 13:33 Pulse 100 10/23/24 14:10 Resp 19 H 10/23/24 14:10 BP 114/77 10/23/24 13:33 Pulse Ox 92 10/23/24 14:10 O2 Del Method Room Air 10/23/24 13:33 10/23/24 10/23/24 10/23/24 06:59 14:59 22:59 Intake Total 1000 / 1000 Balance 1000 / 1000 Weight last 48 hrs Weight 63.503 kg Physical Exam Narrative: General: No acute distress, AO x3 HEENT: PERRLA, pupils bilaterally equal and reactive, pallors not present Chest: Normal vesicular breath sounds, no added sounds, equal good air entry bilaterally CVS: S1-S2 regular, no murmurs, no tachycardia, no gallops, no rubs Abdomen: Soft, nontender, no organomegaly, bowel sounds present Neuro: No focal deficits, no facial deformity, AO x3, power 5/5 in all limbs Extremities: Multiple bruises noted affecting her face, bilateral upper extremities, bilateral knees, anterior chest wall. Data 10/24/24 05:34 10/24/24 05:34 Other Labs: CT/CT head wo con* [id number] IMPRESSION: No acute findings. CT/CT abdomen pelvis w con* [id number] IMPRESSION: No acute findings. MR/MR head wo/w con [id number] IMPRESSION: 1. No acute infarct or hemorrhage. 2. Moderate cerebral and cerebellar atrophy. 3. Extensive small vessel ischemic type changes throughout the white matter. 4. Prior lacunar infarct LEFT cerebellum. 5. Stable nonenhancing low signal mass towards the LEFT frontal vertex. Maximum diameter of 9 mm. No change since 04/10/2018. May be calcified meningioma. A&P Assessment and plan (1) Hyponatremia: (2) Rhabdomyolysis: (3) Bruise: (4) Dehydration: (5) Recurrent syncope: (6) Meningioma: Plan 69-year-old lady with history of prior infarct in the cerebellum, known left frontal hemangioma, no known history of seizure disorders, history of recurrent syncopal episodes presenting to the hospital with having sustained a fall at home. Per her history it is difficult to tell if this was a syncopal episode similar to previous versus a mechanical fall in the bathroom. It appears patient remained on the floor for an extended. Of time. Her CK is today noted to be at 4000. Consistent with rhabdomyolysis. Additionally clinically she is appearing to be dehydrated with dry parched mucous membranes and tongue. Hyponatremia sodium of 128 likely from dehydration additionally. Hypochloremia with a chloride of 91. She has multiple bruises affecting her face bilateral upper extremities and legs. CT of the head is negative for any acute intracranial bleeding. Patient reports she is chronically on hydrocodone for pain but has recently been out of her prescription. She reports some diarrhea which may be related to opiate withdrawal versus mild excessive magnesium use as she is describing. Mildly deranged LFTs with AST ALT at 98 and 37 respectively likely related to dehydration. CT of the abdomen and pelvis is without any acute intra abdominal events. Will admit patient to [facility]. Start normal saline at 75 cc an hour. Serially monitor her sodium levels to assess for improvement in hyponatremia IV saline also for treatment of rhabdomyolysis. Currently no signs of TABATHA. Creatinine is well-maintained at 0.8. Patient will need a PT assessment given her recurrent falls and will need to assess the safety of her living situation prior to discharge home DVT prophylaxis: Lovenox Full code. PDMP PDMP Reviewed: Not Reviewed Attestations Medical Necessity Statement*: Greater than 2 midnight stay is anticipated. Coding Level of Care Code Acute Code for Chg Fwd High MDM includes number and complexity of problems actively addressed during encounter, amount and/or complexity of data reviewed/ordered and described risk of complication, morbidity or mortality of management as documented Diagnoses Hyponatremia E87.1 Rhabdomyolysis M62.82 Bruise T14.8XXA Dehydration E86.0 Recurrent syncope R55 Meningioma D32.9
--- NOTE | 2024-10-23 17:56 | XRR_ITS ---
PROCEDURE INFORMATION: Exam: XR Lumbosacral Spine Exam date and time: 10/23/2024 6:09 PM Age: 69 years old Clinical indication: Injury or trauma; Fall; Weakness and other: Assess for fractures; Blunt trauma (contusions or hematomas); Prior surgery; Surgery date: 1-6 months; Surgery type: T11 TECHNIQUE: Imaging protocol: Radiologic exam of the lumbosacral spine. Views: 2 or 3 views. COMPARISON: CT abdomen pelvis w con* [id number] 10/23/2024 3:59 PM FINDINGS: Bones/joints: There is diffuse osteopenia. There is moderate dextroscoliosis, apex at L1, and pavo-ug-[id number] levoscoliosis, apex at L4-L5. No significant subluxation is seen. No acute fracture is detected. There is mild anterior wedge deformity of the L1 vertebral body, stable since March 23, 2023. There is vertebroplasty/kyphoplasty at T11. There is diffuse disc space narrowing with endplate sclerosis and osteophytosis throughout the lumbar and visualized lower thoracic spine. There is facet joint sclerosis from L3-L4 through L5-S1. Soft tissues: Intravenous contrast material is seen within the ureters bilaterally. There is atherosclerotic calcification of the abdominal aorta. XR/XR lumbar spine 2-3V* [id number] IMPRESSION: 1. Diffuse osteopenia. 2. S shaped scoliosis of the lumbar and visualized lower thoracic spine. 3. Stable mild compression deformity of the L1 vertebral body and status post vertebroplasty/kyphoplasty at T11. 4. No acute fracture detected. 5. Diffuse degenerative changes throughout.
[2024-10-23] MEDS: enoxaparin 40 mg/0.4 mL Syringe SUBCUT (21:18)
[2024-10-23] MEDS: sodium chloride 0.9% 1,000 ML 75 ML IV (21:18)
[2024-10-23] MEDS: HYDROcodone-acetaminophen 5-325 mg Tablet 1 TAB PO (21:32)
[2024-10-23] MEDS: acetaminophen 325 mg Tablet 650 MG PO (21:32)
[2024-10-24] VITALS: BP 135/79; PULSE 75; RESP 18; TEMP 36.8; O2SAT 98
[2024-10-24 04:00] VITALS: BP 154/89; PULSE 72; RESP 18; TEMP 36.5; O2SAT 97
[2024-10-24 05:48] LABS: Basophils % 0.5 %; Eosinophils # 0.1 10^3/uL (0.0-0.8); Eosinophils % 0.8 %; Hematocrit 36.2 % (36-47); Lymphocytes # 1.1 10^3/uL (0.8-4.8); Lymphocytes % 17.9 %; Mean Corpuscular HGB Conc 33.7 g/dL (30-55); Mean Corpuscular Hemoglobin 29.1 pg (27-33); Mean Corpuscular Volume 86.4 fl (85-98); Mean Platelet Volume 9.6 fL (7.4-10.4); Monocytes # 0.6 10^3/uL (0.2-0.9); Monocytes % 10.7 %; Neutrophils # 4.13 10^3/uL (1.8-7.7); Neutrophils % 69.9 %; Nucleated Red Blood Cells % 0 %; Platelet Count 229 10^3/cmm (157-399); Red Blood Count 4.19 10^6/uL (3.85-5.65); Red Cell Distribution Width 17.7 % (12.1-15.1); White Blood Count 5.91 10^3/uL (3.29-11.43)
[2024-10-24] MEDS: HYDROcodone-acetaminophen 5-325 mg Tablet 2 TAB PO ×3 (05:50→21:57)
[2024-10-24 06:13] LABS: Alanine Aminotransferase 34 U/L (0-33); Alkaline Phosphatase 63 U/L (35-105); Anion Gap 15.5 (5-19); Aspartate Amino Transferase 74 U/L (0-32); Blood Urea Nitrogen 11 mg/dL (8-23); Carbon Dioxide 20 mmol/L (22-29); Chloride 103 mmol/L (98-107); Creatinine Clr Calc Pharmacy 58.8186; Globulin 2.4 g/dL (1.3-4.6); Glucose 92 mg/dL (65-115); Magnesium 1.7 mg/dL (1.7-2.3); Osmolality Calculated 279 mOsm/kg (285-295); Potassium 3.5 mmol/L (3.5-5.1); Sodium 135 mmol/L (136-145); Total Bilirubin 0.7 mg/dL (0.15-1.2); Total Protein 5.4 g/dL (6.6-8.7)
[2024-10-24 07:33] LABS: Creatine Phosphokinase 2392 U/L (26-192)
[2024-10-24 07:58] VITALS: BP 129/76; PULSE 73; RESP 17; TEMP 36.7; O2SAT 97
[2024-10-24 10:32] LABS: C.Diff PCR (Lab) NEGATIVE (Negative)
[2024-10-24] MEDS: sodium chloride 0.9% 1,000 ML 75 ML IV ×2 (10:57→22:31)
[2024-10-24 12:00] VITALS: BP 152/86; PULSE 84; RESP 17; TEMP 36.7; O2SAT 97
[2024-10-24 16:00] VITALS: BP 159/89; PULSE 80; RESP 16; TEMP 37.1; O2SAT 95
--- NOTE | 2024-10-24 16:41 | XRR_ITS ---
PROCEDURE INFORMATION: Exam: XR Ribs Exam date and time: 10/24/2024 8:41 PM Age: 69 years old Clinical indication: Injury or trauma; Fall; Chest wall and rib area, bilateral; Blunt trauma; Additional info: Assess for rib fracture TECHNIQUE: Imaging protocol: Radiologic exam of the of the ribs. Views: 3 views. Bilateral ribs. COMPARISON: CR XR chest 1V portable [id number] 04/22/2024 4:37 PM FINDINGS: Bones/joints: No definite or displaced rib fracture is seen. Degenerative change noted about the uqfl-ddgoyct-eeci-right shoulders. Prior vertebroplasty T11 vertebra. Mild thoracic scoliosis and ptrn-ii-ofgsdxib lumbar scoliosis. Spondylotic change thoracolumbar spine. Lungs/pleura: No underlying pulmonary infiltrate or opacity. No underlying pleural effusion or pneumothorax. Soft tissues: Unremarkable. XR/XR ribs BI 3V* [id number] IMPRESSION: No rib fracture identified.
--- NOTE | 2024-10-24 16:48 | P.PN_ITS ---
Subjective 2 Subjective: Sodium is improving today at 135. CK improving at 2300. Patient is having multiple episodes of diarrhea. Medications: Reviewed: Yes Vitals/I&O/Wt Last Vital Signs Temp 98.7 F 10/24/24 16:00 Pulse 80 10/24/24 16:00 Resp 16 10/24/24 16:00 BP 159/89 10/24/24 16:00 Pulse Ox 95 10/24/24 16:00 O2 Del Method Room Air 10/24/24 16:00 10/24/24 10/24/24 10/24/24 06:59 14:59 22:59 Intake Total 230 / 2460 1720 / 1720 Balance 230 / 2460 1720 / 1720 Weight last 48 hrs Weight 69.264 kg Weight 68.175 kg Weight 63.503 kg Physical Exam 2 Narrative: General: No acute distress, AO x3 HEENT: PERRLA, pupils bilaterally equal and reactive, pallors not present Chest: Normal vesicular breath sounds, no added sounds, equal good air entry bilaterally CVS: S1-S2 regular, no murmurs, no tachycardia, no gallops, no rubs Abdomen: Soft, nontender, no organomegaly, bowel sounds present Neuro: No focal deficits, no facial deformity, AO x3, power 5/5 in all limbs Extremities: Multiple bruises noted affecting her face, bilateral upper extremities, bilateral knees, anterior chest wall. Data 10/24/24 05:34 10/24/24 05:34 A&P Assessment and plan (1) Hyponatremia: (2) Rhabdomyolysis: (3) Bruise: (4) Dehydration: (5) Recurrent syncope: (6) Meningioma: Plan 69-year-old lady with history of prior infarct in the cerebellum, known left frontal hemangioma, no known history of seizure disorders, history of recurrent syncopal episodes presenting to the hospital with having sustained a fall at home. Per her history it is difficult to tell if this was a syncopal episode similar to previous versus a mechanical fall in the bathroom. It appears patient remained on the floor for an extended. Of time. Her CK is today noted to be at 4000. Consistent with rhabdomyolysis. Additionally clinically she is appearing to be dehydrated with dry parched mucous membranes and tongue. Hyponatremia sodium of 128 likely from dehydration additionally. Hypochloremia with a chloride of 91. She has multiple bruises affecting her face bilateral upper extremities and legs. CT of the head is negative for any acute intracranial bleeding. Patient reports she is chronically on hydrocodone for pain but has recently been out of her prescription. She reports some diarrhea which may be related to opiate withdrawal versus mild excessive magnesium use as she is describing. Mildly deranged LFTs with AST ALT at 98 and 37 respectively likely related to dehydration. CT of the abdomen and pelvis is without any acute intra abdominal events. Will admit patient to [facility]. Start normal saline at 75 cc an hour. Serially monitor her sodium levels to assess for improvement in hyponatremia IV saline also for treatment of rhabdomyolysis. Currently no signs of TABATHA. Creatinine is well-maintained at 0.8. Patient will need a PT assessment given her recurrent falls and will need to assess the safety of her living situation prior to discharge home DVT prophylaxis: Lovenox Full code. October 24, 2024 Rhabdomyolysis improving, CK now down to 2300. Patient is able to sit up in bed, attempt short ambulation across to the commode. States that the left side of her chest wall is hurting today. Ordered for rib series x-ray to assess for any rib fractures. Lumbar spine x-ray performed yesterday showed diffuse osteopenia, scoliosis of the lumbar and thoracic spine, stable mild compression deformity of the L1 and status post kyphoplasty at T11. No acute fractures were encountered. Patient reports that she has a history of lumbar stenosis and typically is unsteady on her feet. She believes that this may have led to her fall. Reviewed MRI of the spine from October 14, 2024 which showed multiple areas of central subarticular and foraminal stenosis. Reviewed physical therapy notes patient ambulated with a step to gait pattern leading with the left lower extremity. Cueing did show some improvement towards equal step length and improvement. Orthostatics were assessed during therapy and were noted to be normal. She reported no dizziness. OT evaluation pending. Patient states she feels unsafe returning to her home as she lives alone and has had multiple falls, currently noted to have multiple bruises. States that she would like to transition to SNF. PDMP PDMP Reviewed: Not Reviewed Attestations 2 Medical Necessity Statement*: Continued IV hydration for rhabdomyolysis, x-ray rib series today. Coding Level of Care Code Acute Code for [facility] Diagnoses Hyponatremia E87.1 Rhabdomyolysis M62.82 Bruise T14.8XXA Dehydration E86.0 Recurrent syncope R55 Meningioma D32.9
[2024-10-24 22:14] VITALS: BP 158/93; PULSE 75; RESP 17; TEMP 36.8; O2SAT 94
[2024-10-24] MEDS: enoxaparin 40 mg/0.4 mL Syringe SUBCUT (22:30)
[2024-10-25] VITALS (7 sets, daily range): BP systolic 155–206; BP diastolic 89–105; PULSE 70–75; RESP 17–18; TEMP 36.4–36.9; O2SAT 95–98
[2024-10-25 02:05] LABS: Basophils % 0.4 %; Eosinophils # 0.1 10^3/uL (0.0-0.8); Eosinophils % 2.1 %; Hematocrit 32.6 % (36-47); Lymphocytes % 20.3 %; Mean Corpuscular HGB Conc 33.7 g/dL (30-55); Mean Corpuscular Hemoglobin 28.8 pg (27-33); Mean Corpuscular Volume 85.3 fl (85-98); Mean Platelet Volume 9.5 fL (7.4-10.4); Monocytes # 0.5 10^3/uL (0.2-0.9); Monocytes % 10.1 %; Neutrophils # 3.23 10^3/uL (1.8-7.7); Neutrophils % 66.9 %; Nucleated Red Blood Cells % 0 %; Platelet Count 210 10^3/cmm (157-399); Red Blood Count 3.82 10^6/uL (3.85-5.65); Red Cell Distribution Width 17.6 % (12.1-15.1); White Blood Count 4.83 10^3/uL (3.29-11.43)
[2024-10-25 02:35] LABS: Alanine Aminotransferase 51 U/L (0-33); Alkaline Phosphatase 53 U/L (35-105); Anion Gap 12.4 (5-19); Aspartate Amino Transferase 122 U/L (0-32); Blood Urea Nitrogen 11 mg/dL (8-23); Calcium 8.8 mg/dL (8.5-10.5); Carbon Dioxide 22 mmol/L (22-29); Chloride 105 mmol/L (98-107); Creatinine Clr Calc Pharmacy 58.8186; Globulin 2.2 g/dL (1.3-4.6); Glucose 89 mg/dL (65-115); Osmolality Calculated 281 mOsm/kg (285-295); Potassium 3.4 mmol/L (3.5-5.1); Sodium 136 mmol/L (136-145); Total Bilirubin 0.4 mg/dL (0.15-1.2); Total Protein 5.2 g/dL (6.6-8.7)
[2024-10-25 02:51] LABS: Creatine Phosphokinase 3746 U/L (26-192)
[2024-10-25] MEDS: HYDROcodone-acetaminophen 5-325 mg Tablet 2 TAB PO ×2 (04:08→11:08)
[2024-10-25 04:45] LABS: Phosphorus 2.6 mg/dL (2.5-4.5)
[2024-10-25] MEDS: hyDRALAzine 20 mg/mL INJ 1 mL 10 MG IVP (04:51)
[2024-10-25] MEDS: losartan 50 mg Tablet PO (04:53)
[2024-10-25] MEDS: potassium chloride ER 20 mEq Tablet 40 MEQ PO ×2 (04:55→08:46)
[2024-10-25] MEDS: FUROsemide 10 mg/mL SDV 2mL 20 MG IVP (04:56)
[2024-10-25] MEDS: sodium chloride 0.9% 1,000 ML 999 ML IV (04:57)
[2024-10-25] MEDS: levothyroxine 150 mcg Tablet 75 MCG PO (05:04)
[2024-10-25] MEDS: metoprolol succinate ER (24 HR) 25 mg Tablet PO (08:46)
[2024-10-25] MEDS: magnesium oxide 400 mg tablet PO (08:46)
[2024-10-25] MEDS: sodium chloride 0.9% 1,000 ML 150 ML IV (08:51)
--- NOTE | 2024-10-25 14:12 | PC.SOCIAL ---
IMM Updated Updated pt on IMM. No questions voiced. Provided pt a copy. Initialed, dated, & timed a copy & placed in chart.
--- NOTE | 2024-10-25 14:22 | PM.DCS ---
Discharge Providers Date of Admission: 10/23/24 18:30 Date of Discharge: October 25, 2024 Attending Provider at Admission: Audrey Fernandez MD Attending Provider at Discharge: Audrey Fernandez MD Primary Care Provider: Jerilyn Matthew DO Diagnoses at Discharge Discharge Diagnosis (1) Hyponatremia: Status: Acute (2) Rhabdomyolysis: Status: Acute (3) Bruise: Status: Inactive (4) Dehydration: Status: Acute (5) Recurrent syncope: Status: Acute (6) Meningioma: Status: Acute Reason for Visit Reason for Visit: fall, General Pain Brief History: Kamla Ghotra is a 69 year old female with a history of hypothyroidism and hypertension, known meningioma, history of recurrent syncopal episodes for which she was evaluated by neurology recently. She has had multiple syncopal episodes over the last 1 to 1-1/2 years. Additionally patient has a history of lumbar stenosis for which she recently underwent an MRI with Dr. Preciado and states that she has an unsteady gait as a result of the stenosis. She stated that she had been taking some magnesium supplements recently which she believes resulted in diarrhea. She presented to the emergency room on October 23, 2024 after having fallen in her bathroom 1 day prior and sustaining several bruises over her body. CT head was negative for any acute intracranial bleeding. CT abdomen and pelvis did not show any overt bleeding. X-ray rib series was negative for any acute fractures. She remained on the floor through the night, she did call EMS for help and initially asked them to put her back in the bed and not take her to the hospital, however later in the morning when her electrical design technician came by they noticed that patient was too weak to perform any ADLs and brought her to the emergency room. She was found to have hyponatremia and evidence of rhabdomyolysis with CK level elevated in the 4000 range. She received IV hydration here which corrected her sodium levels back to normal at 136 on day of discharge. Additionally received IV hydration for rhabdomyolysis. At the time of discharge the CK levels are downtrending. There is no signs of acute kidney injury. Patient underwent PT OT evaluation, she stated that with her current rhabdomyolysis, generalized weakness and limitations with ADLs she did not feel safe returning home and that she would prefer to transition to SNF at discharge. She is being discharged today in a stable condition to [facility]. Physical Exam Narrative: General: No acute distress, AO x3 HEENT: PERRLA, pupils bilaterally equal and reactive, pallors not present Chest: Normal vesicular breath sounds, no added sounds, equal good air entry bilaterally CVS: S1-S2 regular, no murmurs, no tachycardia, no gallops, no rubs Abdomen: Soft, nontender, no organomegaly, bowel sounds present Neuro: No focal deficits, no facial deformity, AO x3, power 5/5 in all limbs Extremities: Multiple bruises in various stages of healing noted over face, bilateral upper extremities, bilateral knees and lower limbs. Discharge Data Studies Completed and Pending Completed Studies During Hospitalization Category Date Time Status CT abdomen pelvis w con* [id number] Stat Cat Scan 10/23/24 15:[address] head wo con* [id number] Stat Cat Scan 10/23/24 15:19 Completed XR lumbar spine 2-3V* [id number] Stat Exams 10/23/24 17:56 Completed XR ribs BI 3V* [id number] Routine Exams 10/24/24 16:41 Completed Pending at discharge Category Date Time Status CK [Creatine Phosphokinase] AM LABS Lab 10/26/24 04:00 Ordered CMP [Comprehensive Metabolic Panel] AM LABS Lab 10/26/24 04:00 Ordered Complete Blood Count w/Auto AM LABS Lab 10/26/24 04:00 Ordered Radiology Impressions Abdomen/Pelvis CT 10/23/24 15:19 IMPRESSION: No acute findings. Head CT 10/23/24 15:19 IMPRESSION: No acute findings. Lumbar Spine X-Ray 10/23/24 17:56 IMPRESSION: 1. Diffuse osteopenia. 2. S shaped scoliosis of the lumbar and visualized lower thoracic spine. 3. Stable mild compression deformity of the L1 vertebral body and status post vertebroplasty/kyphoplasty at T11. 4. No acute fracture detected. 5. Diffuse degenerative changes throughout. Ribs X-Ray 10/24/24 16:41 IMPRESSION: No rib fracture identified. Laboratory Results WBC 4.83 10^3/uL (3.29-11.43) 10/25/24 01:58 RBC 3.82 10^6/uL (3.85-5.65) L 10/25/24 01:58 Hgb 11.00 g/dL (11.27-16.99) L 10/25/24 01:58 Hct 32.6 % (36-47) L 10/25/24 01:58 MCV 85.3 fl (85-98) 10/25/24 01:58 MCH 28.8 pg (27-33) 10/25/24 01:58 MCHC 33.7 g/dL (30-55) 10/25/24 01:58 RDW 17.6 % (12.1-15.1) H 10/25/24 01:58 Plt Count 210 10^3/cmm (157-399) 10/25/24 01:58 MPV 9.5 fL (7.4-10.4) 10/25/24 01:58 Neut % (Auto) 66.9 % 10/25/24 01:58 Lymph % (Auto) 20.3 % 10/25/24 01:58 [place] % (Auto) 10.1 % 10/25/24 01:58 Eos % (Auto) 2.1 % 10/25/24 01:58 Baso % (Auto) 0.4 % 10/25/24 01:58 Neut # (Auto) 3.23 10^3/uL (1.8-7.7) 10/25/24 01:58 Lymph # (Auto) 1.0 10^3/uL (0.8-4.8) 10/25/24 01:58 [place] # (Auto) 0.5 10^3/uL (0.2-0.9) 10/25/24 01:58 Eos # (Auto) 0.1 10^3/uL (0.0-0.8) 10/25/24 01:58 Baso # (Auto) 0.0 10^3/uL (0.0-0.1) 10/25/24 01:58 Nucleated RBC % (auto) 0 % 10/25/24 01:58 Nucleated RBCs # 0.0 /100WBC 10/25/24 01:58 Sodium 136 mmol/L (136-145) 10/25/24 01:58 Potassium 3.4 mmol/L (3.5-5.1) L 10/25/24 01:58 Chloride 105 mmol/L (98-107) 10/25/24 01:58 Carbon Dioxide 22 mmol/L (22-29) 10/25/24 01:58 Anion Gap 12.4 (5-19) 10/25/24 01:58 BUN 11 mg/dL (8-23) 10/25/24 01:58 Creatinine 0.5 mg/dL (0.5-0.9) 10/25/24 01:58 GFR Calculation Not Reportable 10/25/24 01:58 Glucose 89 mg/dL (65-115) 10/25/24 01:58 Calculated Osmolality 281 mOsm/kg (285-295) L 10/25/24 01:58 Calcium 8.8 mg/dL (8.5-10.5) 10/25/24 01:58 Phosphorus 2.6 mg/dL (2.5-4.5) 10/25/24 01:58 Magnesium 1.7 mg/dL (1.7-2.3) 10/24/24 05:34 Total Bilirubin 0.4 mg/dL (0.15-1.2) 10/25/24 01:58 AST 122 U/L (0-32) H 10/25/24 01:58 ALT 51 U/L (0-33) H 10/25/24 01:58 Alkaline Phosphatase 53 U/L (35-105) 10/25/24 01:58 Creatine Kinase 3746 U/L (26-192) H* 10/25/24 01:58 Total Protein 5.2 g/dL (6.6-8.7) L 10/25/24 01:58 Albumin 3.0 g/dL (3.5-5.2) L 10/25/24 01:58 Globulin 2.2 g/dL (1.3-4.6) 10/25/24 01:58 Urine Color Yellow (Yellow) 10/23/24 15:32 Urine Appearance Clear (CLEAR) 10/23/24 15:32 Urine pH 6.5 (5-7) 10/23/24 15:32 Ur Specific [place] 1.006 (1.005-1.030) 10/23/24 15:32 Urine Protein Negative (Negative) 10/23/24 15:32 Urine Glucose (UA) Negative (Normal) 10/23/24 15:32 Urine Ketones Negative (Negative) 10/23/24 15:32 Urine Blood Trace (Negative) A 10/23/24 15:32 Urine Nitrate Negative (Negative) 10/23/24 15:32 Urine Bilirubin Negative (Negative) 10/23/24 15:32 Urine Urobilinogen 0.2 mg/dL (Negative) 10/23/24 15:32 Ur Leukocyte Esterase Negative (Negative) 10/23/24 15:32 Urine RBC 0-2 /hpf (0-2) 10/23/24 15:32 Urine WBC 0-5 /hpf (0-5) 10/23/24 15:32 Ur Squamous Epith Cells 0-5 /hpf (0-5) 10/23/24 15:32 Calcium Oxalate Crystal 15-25 /hpf H 10/23/24 15:32 Amorphous Sediment Not Reportable 10/23/24 15:32 Urine Bacteria None seen /hpf (NONE) 10/23/24 15:32 Hyaline Casts 2.46 /lpf 10/23/24 15:32 C. difficile (PCR) Negative (Negative) 10/24/24 09:05 Vitals Last Vital Signs Temp 98.5 F 10/25/24 12:05 Pulse 70 10/25/24 12:05 Resp 18 10/25/24 12:05 BP 173/97 10/25/24 12:05 Pulse Ox 98 10/25/24 12:05 O2 Del Method Room Air 10/25/24 12:05 Discharge Plan Discharge Patient Disposition: Xfer SNF Condition: Stable Prescriptions: Continued ascorbic acid (vitamin C) 500 mg tablet 500 mg PO DAILY Probiotic 3 billion cell capsule 3,000 mmu cells PO QAM Rx Instructions: administer with a meal Synthroid 75 mcg tablet 75 mcg PO DAILY Qty: 90 1RF Rx Instructions: Synthroid please metoprolol succinate [Toprol XL] 25 mg tablet extended release 24 hr 25 mg PO DAILY Qty: 90 1RF magnesium L-lactate [Magtab] 84 mg tablet extended release 84 mg PO BID 30 Days Qty: 60 5RF hydrocodone-acetaminophen 5-325 mg tablet 1 tab PO .Q4-6H PRN (Reason: pain) 7 Days Qty: 40 0RF mecobalamin (vitamin B12) [B12 Active] 1,000 mcg Tablet,Chewable 1,000 mcg PO DAILY Multivitamin 50 Plus Tablet 1 tab PO DAILY cholecalciferol (vitamin D3) [Vitamin D3] 25 mcg (1,000 unit) Tablet 25 mcg PO DAILY Discontinued silica 2 tab PO BID Discharge Orders: Discharge Order (Routine); Ordered 10/25/24 Ordered By: Audrey Fernandez Other Ambulatory Orders: DME: [facility] (Order) Location: None Selected Ordered By: Audrey Fernandez Referrals: [facility] [Outside] Jerilyn Matthew DO [Primary Care Provider, Family Practice] Discharge Diet: As Directed Discharge Activity: Increase activity as tolerated and As per PT/OT instructions Patient Instructions: Opioid Safety Activity Restrictions/Additional Instructions: Encourage generous oral hydration in view of rhabdomyolysis. Discharge Attestations Time Spent in Discharge Care*: greater than 30 min Quality Metrics Clinical Quality Measures [ No reported AMI, CVA or VTE this stay] Coding Level of Care Code Acute Code for Chg Fwd Diagnoses Hyponatremia E87.1 Rhabdomyolysis M62.82 Bruise T14.8XXA Dehydration E86.0 Recurrent syncope R55 Meningioma D32.9
[2024-10-25 16:03] LABS: SARS Covid-2 Antigen Negative (Negative)
--- NOTE | 2024-10-25 16:03 | PC.NURSE ---
Report called to Angie at 1600 at [facility]. Informed her to let her transport know report has been called.
== END 2024-10-25 16:30 | disposition skilled nursing facility (03) | DRG 558 ==
LOC: ER 17:16 → MEDSURG 18:30
PROVIDERS: Internal Medicine; Admitting Provider Student in an Organized Health Care Education/Training Program; Emergency Provider Emergency Medicine; PCP Family Medicine; Visit Provider Student in an Organized Health Care Education/Training Program
DX: M62.82 Rhabdomyolysis (principal); E87.1 Hypo-osmolality and hyponatremia; E86.0 Dehydration; R55 Syncope and collapse; D32.9 Benign neoplasm of meninges, unspecified; E03.9 Hypothyroidism, unspecified; I10 Essential (primary) hypertension; M43.16 Spondylolisthesis, lumbar region; M48.062 Spinal stenosis, lumbar region with neurogenic claudication; R26.81 Unsteadiness on feet; M15.9 Polyosteoarthritis, unspecified; N32.81 Overactive bladder; I73.00 Raynaud's syndrome without gangrene; R11.10 Vomiting, unspecified; R19.7 Diarrhea, unspecified; S00.81XA Abrasion of other part of head, initial encounter; S40.812A Abrasion of left upper arm, initial encounter; S40.811A Abrasion of right upper arm, initial encounter; S80.212A Abrasion, left knee, initial encounter; S80.211A Abrasion, right knee, initial encounter; W01.0XXA Fall on same level from slipping, tripping and stumbling without subsequent striking against object, initial encounter; Z86.73 Personal history of transient ischemic attack (TIA), and cerebral infarction without residual deficits
CPT/HCPCS: 36415; 70450; 71110; 72100; 74177; 80053; 81001; 82550; 83735; 84100; 85025; 87426; 87493; 93005; 96372; 97116; 97161; 97166; 97530; 99285; J0360; J1650; J1938; J7030; J9999

== ENCOUNTER → 2024-10-29 13:27 | Outpatient (BNVA) | payer MEDICARE, MEDICAID, SELFPAY | PROVIDERS: PCP Family Medicine; Visit Provider Orthopaedic Surgery | DX: M54.9 Dorsalgia, unspecified (principal); Z09 Encounter for follow-up examination after completed treatment for conditions other than malignant neoplasm | CPT/HCPCS: 36415; 80053; 81001; 85025; 99214 ==

== ENCOUNTER → 2024-11-12 13:49 | Outpatient (BNVA) | payer MEDICARE, MEDICAID, SELFPAY | PROVIDERS: PCP Family Medicine; Visit Provider Family Medicine | DX: E03.9 Hypothyroidism, unspecified (principal); Z86.39 Personal history of other endocrine, nutritional and metabolic disease; Z13.6 Encounter for screening for cardiovascular disorders; Z11.4 Encounter for screening for human immunodeficiency virus [HIV]; E55.9 Vitamin D deficiency, unspecified | CPT/HCPCS: 80053; 80061; 82306; 84439; 84443; 87389 ==

== ENCOUNTER 2024-11-15 11:50 | Observation (INO) | payer MEDICARE, MEDICAID, SELFPAY ==
[2024-11-15] VITALS (10 sets, daily range): BP systolic 131–152; BP diastolic 67–91; PULSE 76–100; RESP 15–18; TEMP 36.2–37.2; O2SAT 91–97
[2024-11-15] MEDS: sodium chloride 0.9% 1,000 ML 30 ML IV (09:10)
--- NOTE | 2024-11-15 09:10 | W.PM.OPSUD ---
Surgery/Procedure H&P Update DATE OF PROCEDURE: November 15, 2024 DATE H&P PERFORMED: 10/29/24 H&P UPDATE INFORMATION: I have reviewed H&P completed within last 30 days, I have examined patient prior to procedure and No changes to prior documentation PREOP DIAGNOSIS: Lumbar stenosis with neurogenic claudication PLANNED PROCEDURE: Operation Date: 11/15/24 08:40 Proposed Procedures p Lumbar Spine Decompression(Not Applicable) - Juan Carlos Preciado DO
--- NOTE | 2024-11-15 09:13 | ANES.PREANE2 ---
Pre-Anesthetic Assessment Height/Weight: Height 1.57 m Weight 62.596 kg Temp Pulse Resp BP Pulse Ox O2 Del Method 99.0 F 81 18 148/91 97 Room Air 11/15/24 09:03 11/15/24 09:03 11/15/24 09:03 11/15/24 09:03 11/15/24 09:03 11/15/24 09:03 Preop Diagnosis: Lumbar stenosis with neurogenic claudication Operation Date: 11/15/24 08:40 Proposed Procedures p Lumbar Spine Decompression(Not Applicable) - Juan Carlos Preciado DO Familial anesthetic complications: None Was Beta Rohan taken within 24 hours: N/A Was Clonidine taken within 24 hours: N/A Last intake: Intake Last Liquid Date 11/14/24 Last Liquid Time 22:30 Last Solid Date 11/14/24 Last Solid Time 22:30 Social Alcohol (occasional vodka) and Tobacco Exam alert, oriented x 3, clear to auscultation bilaterally and regular rate & rhythm Airway Mallampati: Class I Dentition: other (no teeth) Pulmonary Chronic Obstructive Pulmonary Disease ( on o2 at home) CV/HEM Atrial Fibrillation, Coronary Artery Disease, Hypertension and Peripheral Vascular Disease Metabolic Thyroid Disease Neuropsych Cerebrovascular Accident and Seizure hx meningioma Anesthetic Plan ASA status: 4 Anesthesia: General Risk of > 500 ml blood loss (7ml/kg in children): No Medications/Allergies Home Medications ?Medication ?Instructions ?Recorded ?Confirmed ?Last Taken ?Type ascorbic acid (vitamin C) 500 mg 500 mg PO DAILY 12/04/19 11/14/24 11/14/24 History tablet lactobacillus combination no.4 3 3,000 mmu cells PO QAM 04/22/24 11/14/24 10/22/24 12:00 History billion cell capsule (Probiotic) mecobalamin (vitamin B12) 1,000 1,000 mcg PO DAILY 06/18/24 11/14/24 11/14/24 History mcg chewable tablet (B12 Active) metoprolol succinate 25 mg 25 mg PO DAILY #90 tabs 08/13/24 11/14/24 11/14/24 Rx tablet,extended release 24 hr (Toprol XL) magnesium L-lactate 84 mg 84 mg PO BID 30 days #60 tabs 09/09/24 11/14/24 11/14/24 Rx tablet,extended release (Magtab) hydrocodone 5 mg-acetaminophen 325 1 tab PO .Q4-6H PRN pain 7 days 10/22/24 11/14/24 11/15/24 Rx mg tablet #40 tabs cholecalciferol (vitamin D3) 25 25 mcg PO DAILY 10/24/24 11/14/24 11/14/24 History mcg (1,000 unit) tablet (Vitamin D3) [id number] 1 tab PO DAILY 10/24/24 11/14/24 11/14/24 History tablet (Multivitamin 50 Plus tablet) Synthroid 75 mcg tablet 75 mcg PO DAILY #90 tabs 11/13/24 11/14/24 11/15/24 Rx (levothyroxine) Allergies Allergy/AdvReac Type Severity Reaction Status Date / Time NSAIDS (Non-Steroidal Allergy Mild GI Bleeding Verified 11/14/24 12:50 Anti-Inflamma Current Medications Generic Name Dose Route Start Last Admin Trade Name Freq PRN Reason Stop Dose Admin Sodium Chloride 1,000 mls @ 30 mls/hr 11/15/24 08:45 11/15/24 09:10 Sodium Chloride 0.9% IV 11/16/24 08:44 30 mls/hr .Q24H LM Administration PFSH Anesthesia Medical History Primary osteoarthritis, left shoulder Family history of ovarian cancer [place] History of colon polyps Overactive bladder CVA (cerebral vascular accident) Coronary atherosclerosis due to calcified coronary lesion of [place] artery Raynauds syndrome Osteoarthritis of hands, bilateral Scoliosis of thoracolumbar spine Spondylolisthesis, lumbar region Spinal stenosis of lumbar region with radiculopathy Lumbar stenosis with neurogenic claudication Intervertebral disc disorder with radiculopathy of lumbosacral region Hypothyroidism Hypertension COPD (chronic obstructive pulmonary disease) Surgical History History of right inguinal hernia repair 3x History of colonoscopy History of hernia repair History of tonsillectomy Family History Mother Ovarian cancer Cancer Family/Other CAD (coronary artery disease) Lung disease Grandfather CAD (coronary artery disease) [place] Sister Cancer Denies family history of Diabetes Clotting disorder Dementia Chronic kidney disease (CKD) Suicide Anesthesia complication Bleeding disorder Stroke Social History Smoking and tobacco/nicotine status: current every day tobacco/nicotine user cigarettes Packs smoked per day: 0.5 Years cigarettes smoked: 37 [ Other cigarette details: [id number]] Quit status (tobacco/nicotine): considering quitting Alcohol intake: current Alcohol intake frequency: holidays/special occasions only Alcohol type: hard liquor Substance/Drug Use: never Caregiver/support person: No Lives independently: Yes Household members: none Marital status: Single Current occupational status: employed Current occupation: [employer] Do you think of yourself as: Straight/Heterosexual Current gender identity: Female Data Anesthesia Cardiac Studies: Echocardiogram 12/07/21 Sestamibi Stress Test (Cardiology) 01/10/22 Cardiac Event Monitor 06/11/24 Holter Monitor 10/04/23
[2024-11-15] MEDS: ceFAZolin 2,000 mg SDV 2000 MG IVP ×2 (09:24→16:56)
[2024-11-15] MEDS: lidocaine-epi 1% 20 mL INJ (09:50)
--- NOTE | 2024-11-15 11:53 | P.OP_ITS ---
Operative Report Date of procedure: November 15, 2024 Pre-op diagnosis: Lumbar stenosis neurogenic claudication Post-op diagnosis: same Procedure done: 1. L3/4 laminectomy partial facetectomy 2. L4-5 laminectomy partial facetectomy 3. L5-S1 laminectomy partial facetectomy Surgeon: Juan Carlos Preciado DO Estimated blood loss (mL): 25 Procedure: 1. L3/4 laminectomy partial facetectomy 2. L4-5 laminectomy partial facetectomy 3. L5-S1 laminectomy partial facetectomy Patient is brought to the operative suite. After undergoing anesthesia they are placed in the prone position. All areas of impingement are well padded. Patient is then prepped and draped in the normal sterile fashion. A skin incision is made over the L3/4 level. This is confirmed under c-arm guidance. A series of dilators are passed and the tubular retractor is docked on the L3 lamina. A bovie is used to clear the soft tissue off the lamina and the L 3/4 facet joint. A high speed poncho is then used to perform the laminectomy and take down the medial aspect of the L 3/4 facet joint. A kerrison rongeure was then used to take down the remaining lamina and smooth the edge of the laminectomy up to the point where the ligamentum flavum attaches. Attention was then brought to the medial aspect of the facet joint. The remaining medial aspect of the superior and inferior aspect of the facet joint were taken down with the kerrison from the pedicle of L3 to L 4. The facet joint had significant hypertrophy. Attention was then brought to the Ligamentum Flavum. The ligament was taken down from the lamina of L3 to L4 and out medially to the remaining facet joint. The ligament was thick. The dura was then exposed. The dura was in good repair. The L3 nerve was then traced with a curette out the L3/4 foramen and found to be adequately decompressed. The L4 nerve was traced with a curette around the L4 pedicle. The lateral recess was opened with a kerrison helping to further decompress the L4 nerve. Wound is then irrigated copiously with saline and surgiflo is used to stop any bleeding. The tubular retractor is removed A skin incision is made over the L4/5 level. This is confirmed under c-arm guidance. A series of dilators are passed and the tubular retractor is docked on the L4 lamina. A bovie is used to clear the soft tissue off the lamina and the L 4/5 facet joint. A high speed poncho is then used to perform the laminectomy and take down the medial aspect of the L 4/5 facet joint. A ker rison rongeure was then used to take down the remaining lamina and smooth the edge of the laminectomy up to the point where the ligamentum flavum attaches. Attention was then brought to the medial aspect of the facet joint. The remaining medial aspect of the superior and inferior aspect of the facet joint were taken down with the kerrison from the pedicle of L4 to L5 The facet joint had significant hypertrophy. Attention was then brought to the Ligamentum Flavum. The ligament was taken down from the lamina of L4 d to L5 and out medially to the remaining facet joint. The ligament was thick. The dura was then exposed. The dura was in good repair. The L4 nerve was then traced with a curette out the L4/5 foramen and found to be adequately decompressed. The L5 nerve was traced with a curette around the L5 pedicle. The lateral recess was opened with a kerrison helping to further decompress the L5 nerve. Wound is then irrigated copiously with saline and surgiflo is used to stop any bleeding. The tubular retractor is removed A skin incision is made over the L5/S1 level. This is confirmed under c-arm guidance. A series of dilators are passed and the tubular retractor is docked on the L5 lamina. A bovie is used to clear the soft tissue off the lamina and the L 5/S1 facet joint. A high speed poncho is then used to perform the laminectomy and take down the medial aspect of the L 5/S1 facet joint. A kerrison rongeure was then used to take down the remaining lamina and smooth the edge of the laminectomy up to the point where the ligamentum flavum attaches. Attention was then brought to the medial aspect of the facet joint. The remaining medial aspect of the superior and inferior aspect of the facet joint were taken down with the kerrison from the pedicle of L5 to S1. The facet joint had significant hypertrophy. Attention was then brought to the Ligamentum Flavum. The ligament was taken down from the lamina of L5 to S1 and out medially to the remaining facet joint. The ligament was thick. The dura was then exposed. The dura was in good repair. The L5 nerve was then traced with a curette out the L5/S1 foramen and found to be adequately decompressed. The S1 nerve was traced with a curette around the S1 pedicle. The lateral recess was opened with a kerrison helping to further decompress the S1 nerve. Wound is then irrigated copiously with saline and surgiflo is used to stop any bleeding. The tubular retractor is removed and the wound is closed with vicryl and monocryl suture. Glue is then used to protect the wound. A sterile dressing is then placed. Patient was then placed in the supine position and transferred to the PACU in stable condition.
--- NOTE | 2024-11-15 12:04 | XR_ITS ---
WS: [id number] Lumbar spine, C-arm fluoroscopy views, 11/15/2024 Clinical Data: OR PICS Comparison: Lumbar spine, 06/27/2024 Findings: Dr. Preciado performed a lumbar decompression. XR/XR lumbar spine 2-3V* [id number] Impression: Lumbar decompression.
--- NOTE | 2024-11-15 12:25 | ANE.PACU2 ---
Inpatient post-anesthesia follow up: Airway intact: Yes Vital signs: Temperature 97.3 F Pulse Rate 80 Respiratory Rate 18 Blood Pressure 131/81 Pulse Oximetry 94 Oxygen Delivery Me thod Room Air Oxygen Flow Rate Fraction of Inspir ed Oxygen Hydration adequate: Yes Nausea and vomiting: No Pain level: 1 Mental status: Baseline
[2024-11-15] MEDS: HYDROcodone-acetaminophen 5-325 mg Tablet PO ×3 (12:45→21:23)
[2024-11-15] MEDS: lactated ringers 1,000 ML 90 ML IV (12:45)
[2024-11-15] MEDS: docusate sodium 100 mg Capsule PO (16:56)
[2024-11-15] MEDS: magnesium lactate 84 mg Tablet PO (16:56)
[2024-11-16 01:30] VITALS: BP 153/80; PULSE 701; RESP 15; TEMP 36.7; O2SAT 98
[2024-11-16] MEDS: HYDROcodone-acetaminophen 5-325 mg Tablet PO ×2 (01:31→07:51)
[2024-11-16] MEDS: ceFAZolin 2,000 mg SDV 2000 MG IVP ×2 (01:32→07:52)
[2024-11-16 05:42] VITALS: BP 131/64; PULSE 72; RESP 18; TEMP 36.7; O2SAT 98
--- NOTE | 2024-11-16 05:47 | PC.NURSE ---
COLORING ROOM MAN TOLD THIS RN THAT THE PT WAS REQUESTING PAIN MEDICATION. BY THE TIME THIS RN PULLED THE MEDICATION AND WENT TO THE PT ROOM TO GIVE THE PAIN MEDICINE PT WAS RESTING IN BED AND SNORING. THIS RN CALLED THE PTS NAME AND THE PT DID NOT WAKE UP. THIS RN WCTM TIL THE END OF THIS RNS SHIFT.
[2024-11-16 07:43] VITALS: BP 154/91; PULSE 73; RESP 16; TEMP 36.6; O2SAT 96
[2024-11-16] MEDS: levothyroxine 75 mcg Tablet PO (07:52)
[2024-11-16] MEDS: metoprolol succinate ER (24 HR) 25 mg Tablet PO (07:52)
[2024-11-16] MEDS: docusate sodium 100 mg Capsule PO (07:52)
[2024-11-16] MEDS: magnesium lactate 84 mg Tablet PO (07:52)
[2024-11-16] MEDS: predniSONE 20 mg Tablet PO (08:28)
[2024-11-16] MEDS: dexamethasone 10 mg/mL INJ IVP (08:28)
[2024-11-16 08:55] VITALS: BP 154/91; PULSE 73; RESP 16; TEMP 36.6; O2SAT 96
--- NOTE | 2024-11-16 09:11 | PC.NURSE ---
Discharge instructions provided to pt at this time. No questions or concerns voiced at this time. Pt getting dressing, awaiting son to arrive to drive her home.
--- NOTE | 2024-11-16 09:20 | PC.NURSE ---
Message sent to Orthopedic to schedule 2 week follow up.
--- NOTE | 2024-11-18 12:01 | P.DS_ITS ---
Discharge Providers Date of Admission: 11/15/24 11:50 Date of Discharge: November 16, 2024 Attending Provider at Admission: Juan Carlos Preciado DO Attending Provider at Discharge: Juan Carlos Preciado DO Primary Care Provider: Jerilyn Matthew DO Reason for Visit Reason for Visit: M48.062 Discharge Data Studies Completed and Pending Completed Studies During Hospitalization Category Date Time Status XR lumbar spine 2-3V* 20659 Routine Exams 11/15/24 12:04 Completed Radiology Impressions Lumbar Spine X-Ray 11/15/24 12:04 Impression: Lumbar decompression. Vitals Last Vital Signs Temp 97.9 F 11/16/24 08:55 Pulse 73 11/16/24 08:55 Resp 16 11/16/24 08:55 BP 154/91 11/16/24 08:55 Pulse Ox 96 11/16/24 08:55 O2 Del Method Room Air 11/16/24 07:43 Discharge Plan Discharge Patient Disposition: Home Condition: Stable Prescriptions: New hydrocodone-acetaminophen 10-325 mg tablet 1 tab PO Q4H PRN (Reason: pain) 7 Days Qty: 42 0RF prednisone 20 mg tablet 20 mg PO DAILY 7 Days Qty: 15 0RF Rx Instructions: 60 mg for 3 days 40 mg for 2 days 20 mg for 2 days Continued ascorbic acid (vitamin C) 500 mg tablet 500 mg PO DAILY Probiotic 3 billion cell capsule 3,000 mmu cells PO QAM Rx Instructions: administer with a meal metoprolol succinate [Toprol XL] 25 mg tablet extended release 24 hr 25 mg PO DAILY Qty: 90 1RF magnesium L-lactate [Magtab] 84 mg tablet extended release 84 mg PO BID 30 Days Qty: 60 5RF Synthroid 75 mcg tablet 75 mcg PO DAILY Qty: 90 1RF Rx Instructions: Synthroid please mecobalamin (vitamin B12) [B12 Active] 1,000 mcg Tablet,Chewable 1,000 mcg PO DAILY Multivitamin 50 Plus Tablet 1 tab PO DAILY cholecalciferol (vitamin D3) [Vitamin D3] 25 mcg (1,000 unit) Tablet 25 mcg PO DAILY Discontinued hydrocodone-acetaminophen 5-325 mg tablet 1 tab PO .Q4-6H PRN (Reason: pain) 7 Days Qty: 40 0RF Discharge Orders: Discharge Order (Routine); Ordered 11/16/24 Ordered By: Juan Carlos Preciado Referrals: Juan Carlos Preciado DO [Physician, Orthopedics] - 2 weeks Referral Note: We have notified your physician's clinic of the need for a follow-up appointment to be scheduled. If you have not heard from them within the next 2 business days, please call them directly. Discharge Diet: Advance as tolerated Discharge Activity: Limit activity as instructed Patient Instructions: Hydrocodone/Acetaminophen (By mouth), Prednisone (By mouth), Acute Wound Care (DC), Laminectomy (DC), Opioid Safety, Post Anesthesia Care Activity Restrictions/Additional Instructions: Thank you for [facility] for your care! The following is a list of instructions, from your provider, to follow upon your discharge to ensure you have the optimal recovery from your recent injury orsurgery. Follow-up care is a kidd part of your treatment and safety. Be sure to make and go to all appointments, and call your doctor if you are having problems. If you do not already have a follow-up appointment made, call Dr. Preciado office in the next 1-3 days to make follow up appointment for 2 weeks at [phone]. It is also a good idea to know your test results and keep a list of the medicines you take. Medications will be prescribed for you at your provider's discretion. These medications are to be used as instructed; if they are taken more often that prescribed they will not be refilled early and in most cases will not be refi lled at all. > When a refill is needed,you should contact josh duke 2-3 business days before your prescription runs out. Medications will NOT be refilled by auto suspension and steering mechanic providers after hours! > Many pain medications contain Tylenol (Acetaminophen). Do not consume more than 4,000 mg of Tylenol per day in total with any combination ofmedications. > Pain medications can cause constipation. Please use an over the counter stool softener as directed, while taking pain medications. Consulty our local pharmacist with questions or recommendations on stool softeners. If c onstipation persists, contact our office or your primary care provider. > While under our care,you are not to receive pain medications or other controlled substances from any other provider unless our office is notified and approves. Any attempts to do so will result in refusal to prescribe any further pain medications and possible dismissal from our practice. ? Your wound and/or dressing should remain clean and dry for 2 days after surgery. On postoperative day 2 (48 hours after your surgery) the dressing (if present) should be removed and it is okay to shower and get the incision wet. Pad dry afterwards. No further dressing should be required from that point on. Do not put any creams or ointments on theincision > It is normal for there to be a small amount of discharge (bloody or blood tinged) present from a surgical wound for the first 1-3days. > The wound should be examined twice a day for signs of infection. Mild redness or bruising is to be expected but indications that an infection maybe starting would include; An increase in redness, swelling, or discharge, a foul odor present around the incision, and/or a fever greater than 101 ?F ? Showering is permitted, however we ask that you do not take a bath, sit in a whirlpool / Jacuzzi, or go swimming for 1 month. For only the first 2 days after surgery, lt wilt be necessary for you to cover your wound/dressing with plastic and tape to keep it dry. ? Walking is essential for the healing process after surgery. We would like you to slowly advance your walking. This should be done on relatively flat clear ground (inside or out) or can be done on a treadmill. Remember this goal does not have to happen all at once, slowly increase your distance and duration. This can be broken into more more than one walk per day as tolerated. Patients who walk as directed after surgery rarely require Physical Therapy. In the unlikely event this issue arises your provider will direct hospital staff to make the appropriate arrangements. ? No lifting over 5 pounds {a gallon of milk) or bending/twisting until further notice. Each of these activities places an unnecessary amount of stress onto the body and can impede the delicate healing process. > Instead of bending at the waist, keep your back straight and bend at the knees. > Instead of twisting your torso, keep your back straight and turn your entire body with your feet. ? You may sleep in any position which makes you comfortable. Many patients find comfort sleeping in a reclining chair. It is not abnormal to have difficulty sleeping for the first several weeks following your surgery. We recommend trying Benadry! or Tylenol PM as directed to help with your sleeping difficulties. Both medications are over the counter and available withoutprescription. ? NO SMOKING!!! Smoking dramatically increases the probability of developing postoperative wound infections. ? Common complaints after lumbar and/or thoracic spine surgery include, but are not limited to: numbness and/or tingling in the legs, pain around the incision and surrounding tissues, muscle spasms, or stiffness of the middle to low back. Contact our office if these symptoms persist or if an acute change occurs. ? No driving for the first 3-5days, and not while taking narcotics until seen at your follow-up appointment and cleared. There are no restrictions for riding on short trips, however if you take a longer trip, arrangements should be made to make regular stops to get out of the vehicle and stretch . ? Swelling is an unfortunate event that will take place with any surgery and is the primary source of your postoperative discomfort. While walking and regular approved activities helps control inflammation, there are additional steps you can take to minimizeswelling. > Place ice over the surgical site and surrounding tissue for twenty minutes, followed by applying a low/medium heat (heating pad) for an additional twenty minutes every 1-2 hours as needed for painrelief. > You may use of over the counter anti-inflammatory medications (Ibuprofen, Motrin, Aleve, Advil, etc) as directed on the package label. These types of medicines wm significantly reduce the amount of discomfort you experience after surgery from swelling. It should be noted that if you have and allergy to any of these medications, or a history of ulcers or kidney disease you should consult you primary care provider prior to starting these medications. Discharge Attestations Time Spent in Discharge Care*: less than 30 min Quality Metrics Clinical Quality Measures [ No reported AMI, CVA or VTE this stay] Coding Level of Care Code Acute Code for Chg Fwd
== END 2024-11-16 10:04 | disposition home or self-care (01) ==
LOC: MEDSURG 11:51
PROVIDERS: Admitting Provider Orthopaedic Surgery; PCP Family Medicine; Visit Provider Orthopaedic Surgery
PROC: (CPT 63005; principal; 2024-11-15 08:30)
DX: M48.062 Spinal stenosis, lumbar region with neurogenic claudication (principal); J44.9 Chronic obstructive pulmonary disease, unspecified; Z99.81 Dependence on supplemental oxygen; I48.91 Unspecified atrial fibrillation; I25.10 Atherosclerotic heart disease of native coronary artery without angina pectoris; I10 Essential (primary) hypertension; I73.9 Peripheral vascular disease, unspecified; E07.9 Disorder of thyroid, unspecified; Z86.73 Personal history of transient ischemic attack (TIA), and cerebral infarction without residual deficits; R56.9 Unspecified convulsions; F17.210 Nicotine dependence, cigarettes, uncomplicated
CPT/HCPCS: 63047; 63048 ×2; 72100; 76000; C9358; G0378; J0131; J0690; J1100; J1171; J1885; J2250; J2371; J2405; J2704; J3010; J3490; J7030; J7120; J7512; J9999

== ENCOUNTER 2024-11-19 10:55 | Emergency (ER) | payer MEDICARE, MEDICAID, SELFPAY ==
[2024-11-19 11:16] VITALS: BP 134/81; PULSE 84; RESP 17; TEMP 36.9; O2SAT 98; BMI 24.7
--- OUTSIDE RECORDS SUMMARY | 2024-11-19 11:33 | XMS_ITS | Continuity of Care Document ---
Author Organization [employer] ([facility]) Address [address] [place] [address] Insurance Providers Payer Plan Claims Address Claims Phone Policy Number Group Number Relation Employer Guarantor Name Guarantor Guarantor Address Guarantor Phone Organi zation /IC-[id number] 58 Organ izati on/IC -2057 [address] [address], [place] [address] tel:[phone] [id number] Organi zation /[id number] Organ izati on/IC -1754 [address], [place] [address] [id number] Organi zation /IC-[id number] 34 Organ izati on/IC -2033 [address], [place] [address] [id number] Problems Condition ICD9 code ICD10 code SNOMED code Start Date End Date S tatus Encounter for surgical aftercare following surgery on the digestive system Z48.815 03/27/2024 Active Acquired absence of other specified parts of digestive tract Z90.49 03/27/2024 Active Diverticulitis of intestine, part unspecified, without perforation or abscess without bleeding K57.92 03/27/2024 Active Difficulty in walking, not elsewhere classified R26.2 03/28/2024 Active Muscle weakness (generalized) M62.81 03/29/2024 Active Essential (primary) hypertension I10 03/27/2024 Active Tobacco use Z72.0 03/27/2024 Active Hypothyroidism, unspecified E03.9 03/27/2024 Active Unspecified osteoarthritis, unspecified site M19.90 03/27/2024 Active Unspecified urethral stricture, female N35.92 03/27/2024 Active Partially vaccinated for COVID-19 Z28.311 03/27/2024 Active Results Test Result Date/Time Value / Unit Interp. Refere nce Range Tuberculosis reaction wheal[ 70963-7] Tuberculosis reaction wheal [19318-9] 03/28/2024 05:00 PM 0 mm NEG Allergies, adverse reactions, alerts Substance Reaction Date Status Type NSAIDS (Non-Steroidal Anti-Inflammatory Drug) 1 Non Drug Immunizations Vaccine Route Date Status COVID-19 Vaccine Unassigned Route of Administration Completed COVID-19 Vaccine Unassigned Route of Administration Refused Medications Medication Instructions Route Dosage Frequency Start Date Stop Date Indications Status amlodipine 2.5 mg tablet (amlodipine) 1 tab, oral, Once A Day oral 1.0 1.0 d 04/02 Active Calcium with Vitamin D (calcium carbonate-vitam in d3) 600 mg-10 mcg (400 unit) tablet (Calcium with Vitamin D (calcium carbonate-vitam in d3)) 1 tab, oral, Twice A Day, TI for calcium citrate oral 1.0 12.0 h 04/02 Active cholecalciferol (vitamin D3) 25 mcg (1,000 unit) tablet (cholecalcifero l (vitamin D3)) 1 tab, oral, Once A Day oral 1.0 1.0 d 04/02 Active cyanocobalamin (vitamin B-12) 500 mcg tablet (cyanocobalamin (vitamin B-12)) 1 tab, oral, Once A Day oral 1.0 1.0 d 04/02 Active cyclosporine 0.05 % dropperette (cyclosporine) 1 drop, both eyes, Twice A Day 1.0 12.0 h 04/02 Active docusate sodium 100 mg tablet (docusate sodium) 1 tab, oral, Twice A Day - PRN, Clinical indication: constipation oral 1.0 12.0 h 04/02 Active Dulcolax (bisacodyl) (bisacodyl) 5 mg tablet,delayed release (DR/EC) (Dulcolax (bisacodyl) (bisacodyl)) 2 tabs/10mg, oral, Once A Day - PRN, Give if no results from MOM oral 1.0 1.0 d 04/02 Active Dulcolax (bisacodyl) (bisacodyl) 10 mg suppository (Dulcolax (bisacodyl) (bisacodyl)) 1 suppository, rectal, Once A Day - PRN, Give rectally if can't take p/o, if no results from MOM rectal 1.0 1.0 d 04/02 Active Fleet Enema (sodium phosphates) 19-7 gram/118 mL enema (Fleet Enema (sodium phosphates)) 1 application, rectal, Once A Day - PRN, Give fleets if no results from MOM and Dulcolax rectal 1.0 1.0 d 04/02 Active Lactobacillus acidophilus 500 million cell capsule (Lactobacillus acidophilus) 1 cap, oral, Twice A Day, TI for acidophilus, for 7 days per TI oral 1.0 12.0 h 04/02 Active levothyroxine 75 mcg tablet (levothyroxine) 1 tab, oral, Once A Day oral 1.0 1.0 d 04/02 Active Milk of Magnesia (magnesium hydroxide) 400 mg/5 mL suspension (Milk of Magnesia (magnesium hydroxide)) 30 ml, oral, Every 72 Hours - PRN, if no BM in 3 daysDO NOT GIVE TO RENAL PATIENTS--GO TO DULCOLAX ORDERS oral 1.0 72.0 h 04/02 Active oxycodone-aceta minophen 5-325 mg tablet (oxycodone-acet aminophen) 1 tab, oral, Every 4 Hours - PRN, for pain. Exempt R52. oral 1.0 4.0 h 04/02 Active Thera-M (srpxhcps-nsl-c mike fum-folic ac) 19 mg iron- 400 mcg tablet (Thera-M (uilgdsjv-vbm-u mike fum-folic ac)) 1 tab, oral, Once A Day, TI for MVI, Biotin, glucosamine/c hondroitin, ascorbic acid, omega-3 and curamin oral 1.0 1.0 d 04/02 Active triamcinolone acetonide 0.1 % cream (triamcinolone acetonide) 1 juancarlos, topical, Once A Day - PRN topical 1.0 1.0 d 04/02 Active Tubersol (tuberculin ppd) 5 tub. unit /0.1 mL solution (Tubersol (tuberculin ppd)) 0.1ml, intradermal, Once - One Time, Administer the morning after admission intraderma l 1.0 04/02 Active Tylenol (acetaminophen) 325 mg tablet (Tylenol (acetaminophen) ) 2 tabs/650mg, oral, Every 6 Hours - PRN, as needed for PRN pain/increase d tempMay give rectally if necessary oral 1.0 6.0 h 04/02 Active Vital Signs Date Vital Result Comment 04/02/2024 08:39 AM Temperature (8310-5) 98 [degF] Oxygen Saturation (90390-1) 96 % Respiratory Rate (9279-1) 18 /min Heart Rate (8867-4) 77 /min Blood Pressure Systolic (8480-6) 104 mm[Hg] Blood Pressure Diastolic (8462-4) 59 mm[Hg] 04/01/2024 08:40 PM Temperature (8310-5) 98 [degF] Oxygen Saturation (26296-1) 96 % Respiratory Rate (9279-1) 20 /min Heart Rate (8867-4) 95 /min Blood Pressure Systolic (8480-6) 143 mm[Hg] Blood Pressure Diastolic (8462-4) 90 mm[Hg] 04/01/2024 08:44 AM Temperature (8310-5) 98 [degF] Oxygen Saturation (00836-3) 96 % Respiratory Rate (9279-1) 17 /min Heart Rate (8867-4) 83 /min Blood Pressure Systolic (8480-6) 112 mm[Hg] Blood Pressure Diastolic (8462-4) 70 mm[Hg] 04/01/2024 12:33 AM Temperature (8310-5) 98.4 [degF] Oxygen Saturation (81845-3) 96 % Respiratory Rate (9279-1) 18 /min Heart Rate (8867-4) 78 /min Blood Pressure Systolic (8480-6) 132 mm[Hg] Blood Pressure Diastolic (8462-4) 78 mm[Hg] 03/31/2024 07:08 AM Temperature (8310-5) 97.5 [degF] Oxygen Saturation (89903-6) 96 % Respiratory Rate (9279-1) 16 /min Heart Rate (8867-4) 67 /min Blood Pressure Systolic (8480-6) 138 mm[Hg] Blood Pressure Diastolic (8462-4) 68 mm[Hg] 03/30/2024 08:37 PM Temperature (8310-5) 98 [degF] Oxygen Saturation (41273-5) 95 % Respiratory Rate (9279-1) 18 /min Heart Rate (8867-4) 85 /min Blood Pressure Systolic (8480-6) 134 mm[Hg] Blood Pressure Diastolic (8462-4) 86 mm[Hg] 03/30/2024 07:12 AM Temperature (8310-5) 97.6 [degF] Oxygen Saturation (62028-5) 97 % Respiratory Rate (9279-1) 20 /min Heart Rate (8867-4) 79 /min Blood Pressure Systolic (8480-6) 120 mm[Hg] Blood Pressure Diastolic (8462-4) 66 mm[Hg] 03/30/2024 06:56 AM Body Weight (95369-4) 140 [lb_av] Body Mass Index (06069-4) 24.8 kg/m2 03/29/2024 09:01 PM Temperature (8310-5) 98 [degF] Oxygen Saturation (66111-1) 98 % Respiratory Rate (9279-1) 18 /min Heart Rate (8867-4) 80 /min Blood Pressure Systolic (8480-6) 110 mm[Hg] Blood Pressure Diastolic (8462-4) 80 mm[Hg] 03/29/2024 03:19 PM Body Weight (12211-9) 140.2 [lb_av ] Body Mass Index (94336-9) 24.83 kg/m2 03/29/2024 07:11 AM Temperature (8310-5) 97.9 [degF] Oxygen Saturation (72809-2) 97 % Respiratory Rate (9279-1) 20 /min Heart Rate (8867-4) 77 /min Blood Pressure Systolic (8480-6) 129 mm[Hg] Blood Pressure Diastolic (8462-4) 75 mm[Hg] 03/28/2024 11:47 PM Temperature (8310-5) 98 [degF] Oxygen Saturation (90523-1) 95 % Respiratory Rate (9279-1) 18 /min Heart Rate (8867-4) 70 /min Blood Pressure Systolic (8480-6) 136 mm[Hg] Blood Pressure Diastolic (8462-4) 80 mm[Hg] 03/28/2024 12:35 PM Body Weight (43368-0) 140 [lb_av] Body Mass Index (10317-7) 24.8 kg/m2 03/27/2024 05:56 PM Body Height (8302-2) 63 [in_us] Body Weight (15216-0) 143.6 [lb_av] Body Mass Index (18044-0) 25.43 kg/m2 Social History No smoking Hx information available Encounters Type CPT Code Date Location Provider Indication s encounter report 03/27/2024 03:3 4 PM - 04/02/2024 04:09 PM Emiliano Gramajo DO 01 Advance Directives Directive Description Verification Date Supporting Document(s) Other Directive
--- NOTE | 2024-11-19 12:57 | W.ED.BACK ---
HPI - Back Pain/Injury General: Chief Complaint: Back Pain/Injury Stated Complaint: back Pain Post surg Time Seen by Provider: 11/19/24 12:39 Source: patient Mode of arrival: wheelchair Limitations: no limitations History of Present Illness: Patient is a 69-year-old female here for severe and uncontrollable back pain. She is status 4 days post op from Dr. Preciado. Procedure performed is as follows: 1. L3/4 laminectomy partial facetectomy 2. L4-5 laminectomy partial facetectomy 3. L5-S1 laminectomy partial facetectomy Patient states she has been taking hydrocodone 10 mg/325 every 4 hours and this is not controlling her pain. She reportedly is also on prednisone. Patient is requesting to go to an assisted living facility. She is not interested in me treating her pain here or sending her home with different medications. She is adamant she wants to go to [facility]. Patient is not having any loss of sensation or weakness to her legs. No urinary or bowel retention/incontinence. States she lives along-her house has narrow walk ways and she cannot use a wheelchair or walker. She has been using a cane. MD elicited complaint: back pain Pertinent past history: back surgery Onset (ago): day(s) Timing: constant Severity: severe Pain scale (0-10): 10 Location: lumbar spine Radiation: none Exacerbating factors: movement and walking Relieving factors: none Associated symptoms: Reports no associated symptoms and difficulty walking (secondary to back pain); Deny abdominal pain, chills, dysuria, fatigue, fever(s) or hematuria Work related injury: No Related Data Home Medications ?Medication ?Instructions ?Recorded ?Confirmed ascorbic acid (vitamin C) 500 mg 500 mg PO DAILY 12/04/19 11/14/24 tablet lactobacillus combination no.4 3 3,000 mmu cells PO QAM 04/22/24 11/14/24 billion cell capsule (Probiotic) mecobalamin (vitamin B12) 1,000 1,000 mcg PO DAILY 06/18/24 11/14/24 mcg chewable tablet (B12 Active) cholecalciferol (vitamin D3) 25 25 mcg PO DAILY 10/24/24 11/14/24 mcg (1,000 unit) tablet (Vitamin D3) [id number] 1 tab PO DAILY 10/24/24 11/14/24 tablet (Multivitamin 50 Plus tablet) Previous Rx's ?Medication ?Instructions ?Recorded metoprolol succinate 25 mg 25 mg PO DAILY #90 tabs 08/13/24 tablet,extended release 24 hr (Toprol XL) magnesium L-lactate 84 mg 84 mg PO BID 30 days #60 tabs 09/09/24 tablet,extended release (Magtab) Synthroid 75 mcg tablet 75 mcg PO DAILY #90 tabs 11/13/24 (levothyroxine) hydrocodone 10 mg-acetaminophen 1 tab PO Q4H PRN pain 7 days #42 11/16/24 325 mg tablet tabs prednisone 20 mg tablet 20 mg PO DAILY 7 days #15 tabs 11/16/24 Allergies Allergy/AdvReac Type Severity Reaction Status Date / Time NSAIDS (Non-Steroidal Allergy Mild GI Bleeding Verified 11/14/24 12:50 Anti-Inflamma Review of Systems Const: Denies: fever(s), chills, body aches, fatigue or malaise Card: Denies: chest pain Resp: Denies: dyspnea GI: Denies: abdominal pain : Denies: flank pain, dysuria, urinary incontinence or hematuria Musc: Reports: back pain; Denies: neck pain, extremity pain, extremity swelling, joint pain, joint swelling or joint redness Skin/Breast: Denies: rash Neuro: Reports: difficulty walking (secondary to back pain); Denies: headache(s), numbness in extremities, weakness in extremities or sensory changes PFS ED PFSH: Medical History Primary osteoarthritis, left shoulder Family history of ovarian cancer [place] History of colon polyps Overactive bladder CVA (cerebral vascular accident) Coronary atherosclerosis due to calcified coronary lesion of wrangell artery Raynauds syndrome Osteoarthritis of hands, bilateral Scoliosis of thoracolumbar spine Spondylolisthesis, lumbar region Spinal stenosis of lumbar region with radiculopathy Lumbar stenosis with neurogenic claudication Intervertebral disc disorder with radiculopathy of lumbosacral region Hypothyroidism Hypertension COPD (chronic obstructive pulmonary disease) Surgical History History of right inguinal hernia repair 3x History of colonoscopy History of hernia repair History of tonsillectomy Family History Mother Ovarian cancer Cancer Family/Other CAD (coronary artery disease) Lung disease Grandfather CAD (coronary artery disease) [place] Sister Cancer Denies family history of Diabetes Clotting disorder Dementia Chronic kidney disease (CKD) Suicide Anesthesia complication Bleeding disorder Stroke Social History Smoking and tobacco/nicotine status: current every day tobacco/nicotine user cigarettes Packs smoked per day: 0.5 Years cigarettes smoked: 37 [ Other cigarette details: [id number]] Quit status (tobacco/nicotine): considering quitting Alcohol intake: current Alcohol intake frequency: holidays/special occasions only Alcohol type: hard liquor Substance/Drug Use: never Caregiver/support person: No Lives independently: Yes Household members: none Marital status: Single Current occupational status: employed Current occupation: [employer] Do you think of yourself as: Straight/Heterosexual Current gender identity: Female Physical Exam Const: COMMON NORMALS: no acute distress, average body habitus, patient oriented x3, no limitations, healthy appearing, alert and well nourished GENERAL APPEARANCE: cooperative ORIENTATION/CONSCIOUSNESS: Yes awake, Yes oriented to person, Yes oriented to place and Yes oriented to time Resp: COMMON NORMALS: normal respiratory effort and clear to auscultation bilaterally AUSCULTATION: clear to auscultation bilaterally Cardio: COMMON NORMALS: regular rate and regular rhythm RATE: regular rate RHYTHM: regular rhythm GI: COMMON NORMALS: Normal to inspection, nondistended, normoactive bowel sounds present, Soft to palpation and non-tender PALPATION: Yes Soft to palpation : COMMON NORMALS: Yes no CVA tenderness BLADDER/KIDNEY EXAM: Yes no CVA tenderness Back/Pelvis: COMMON NORMALS: no CVA tenderness THORACIC SPINE/UPPER BACK: Yes normal to inspection LUMBAR SPINE/LOWER BACK: Yes normal to inspection (surgical incision with dried blood-no active bleed; no purulence/erythema) PELVIS: Yes buttocks normal SACROILIAC JOINTS: Yes SI joints normal SACRUM: no tenderness COCCYX: no tenderness Extremity: COMMON NORMALS: normal to inspection, capillary refill normal, no clubbing, cyanosis or edema, no calf tenderness and no pedal edema GENERAL: Yes normal exam except as noted Neuro: COMMON NORMALS: patient oriented x3, moves all extremities, no focal motor deficits and no sensory deficits noted SENSORIUM/ORIENTATION: Yes alert, Yes oriented to person, Yes oriented to place and Yes oriented to time GAIT: Yes Other gait observations present (pt refuses to get out of her wheelchair and attempt ambulation) Course ED course: Spoke to CM as patient is demanding I admit her or send her to an assisted living facility. States she is absolutely not going home. Immediately shakes her head repeatedly when I offer stronger pain medications or differing medication regimen including steroids, muscle relaxers, NSAIDS, etc. Vital Signs: Vital signs: Vital Signs Temperature 98.5 F 11/19/24 11:16 Pulse Rate 84 11/19/24 11:16 Respiratory Rate 17 11/19/24 11:16 Blood Pressure 134/81 11/19/24 11:16 Pulse Oximetry 98 11/19/24 11:16 Oxygen Delivery Me thod Room Air 11/19/24 11:16 MDM - Back Pain/Injury Medical Decision Making Patient here with what sounds to be normal post op pain. She is day 4 post op back surgery by Dr. Preciado. She is not having any acute neurologic deficits. I do not feel imaging at this time would be overly beneficial. Her surgical site appears normal. Patient is adamant that she will not be going home today. She is demanding I sent her to [facility] or admit her to the hospital. Fortunately case management was able to be involved in her care today and did get her accepted to [facility]. Medical Records I reviewed the patient's medical records. No radiology studies performed this visit Discharge Plan Discharge Patient Disposition: Home Clinical Impression: Postoperative back pain Condition: Stable Prescriptions: No Action ascorbic acid (vitamin C) 500 mg tablet 500 mg PO DAILY Probiotic 3 billion cell capsule 3,000 mmu cells PO QAM Rx Instructions: administer with a meal metoprolol succinate [Toprol XL] 25 mg tablet extended release 24 hr 25 mg PO DAILY Qty: 90 1RF magnesium L-lactate [Magtab] 84 mg tablet extended release 84 mg PO BID 30 Days Qty: 60 5RF Synthroid 75 mcg tablet 75 mcg PO DAILY Qty: 90 1RF Rx Instructions: Synthroid please mecobalamin (vitamin B12) [B12 Active] 1,000 mcg Tablet,Chewable 1,000 mcg PO DAILY hydrocodone-acetaminophen 10-325 mg tablet 1 tab PO Q4H PRN (Reason: pain) 7 Days Qty: 42 0RF prednisone 20 mg tablet 20 mg PO DAILY 7 Days Qty: 15 0RF Rx Instructions: 60 mg for 3 days 40 mg for 2 days 20 mg for 2 days Multivitamin 50 Plus Tablet 1 tab PO DAILY cholecalciferol (vitamin D3) [Vitamin D3] 25 mcg (1,000 unit) Tablet 25 mcg PO DAILY Discharge Orders: Discharge ED (Routine); Ordered 11/19/24 Ordered By: Caridad Rg Referrals: Jerilyn Matthew DO [Primary Care Provider, Family Practice] Patient Instructions: Opioid Safety, Pain Management, Patient Portal & Sathya Instructions Print Language: Nepali Coding Level of Care Code ED Business Development Agent for Ramon Truong
--- NOTE | 2024-11-19 13:16 | PC.SOCIAL ---
SNF Placement Patient has presented to ER and is requesting SNF placement. CM discussed that patient would need to go on [facility] and will be signing over check on the of the month. She would like to go to [facility]. New Referral faxed @ this time.
[2024-11-19] MEDS: dexamethasone 10 mg/mL INJ 8 MG IM (13:59)
[2024-11-19] MEDS: morphine 4 mg/mL SDV 1 mL IM (13:59)
--- NOTE | 2024-11-19 14:34 | PC.SOCIAL ---
Naty from [facility] calls and states they can accept patient skilled and would have to start auth. I asked if patient could come on her medicaid and they could work on getting her auth and they stated they wouldnt be able to do that. Naty starting auth at this time. Patient notified, Chuck done Ref# [id number]
--- NOTE | 2024-11-19 14:47 | PC.SOCIAL ---
Genevieve with [facility] calls and states they got, and will send their transport to [facility]. ER nurses notified at this time.
--- NOTE | 2024-11-19 15:04 | PC.SOCIAL ---
Discharge papers faxed to [facility] at this time.
== END 2024-11-19 15:42 | disposition home or self-care (01) ==
PROVIDERS: Emergency Provider Physician Assistant; PCP Family Medicine
DX: G89.18 Other acute postprocedural pain (principal); M54.9 Dorsalgia, unspecified; F17.210 Nicotine dependence, cigarettes, uncomplicated; J44.9 Chronic obstructive pulmonary disease, unspecified; I10 Essential (primary) hypertension; Z86.73 Personal history of transient ischemic attack (TIA), and cerebral infarction without residual deficits
CPT/HCPCS: 96372; 99284; J1100; J2270

== ENCOUNTER → 2024-11-26 14:18 | Outpatient (BNVA) | payer MEDICARE, MEDICAID, SELFPAY | PROVIDERS: PCP Family Medicine; Visit Provider Orthopaedic Surgery | DX: Z98.890 Other specified postprocedural states (principal) | CPT/HCPCS: 99024 ==

== ENCOUNTER 2024-12-17 12:25 | Outpatient (CLI) | payer MEDICARE, MEDICAID, SELFPAY ==
--- NOTE | 2024-12-17 13:00 | XR_ITS ---
WS: [id number] DEXA (DUAL ENERGY X-RAY ABSORPTIOMETRY) Bone mineral density was performed using a [employer] machine. HISTORY: postmenopausal COMPARISON: 08/16/2022 Lumbar spine BMD (L1-L4): 1.322 g/cm2 T score: 1.2 Z score: 3.0 Total hip BMD: Left: 0.805 g/cm2. T score: -1.6 Z score: 0.0 Right: 0.750 g/cm2. T score: -2.0 Z score: -0.4 10 year probability of a major osteoporotic fracture is 20.4%. Compared to the prior study from 08/16/2022. Lumbar spine bone mineral density has decreased by 7.4%. Bilateral hips bone mineral density has decreased by 13.4%. XR/XR DEXA axial skeleton* [id number] IMPRESSION: OSTEOPENIA based upon the WHO classification for females. Significant decrease in bone mineral density within both the lumbar spine and h ips since the prior study.
== END 2024-12-17 12:26 | disposition home or self-care (01) ==
LOC: RAD 12:28
PROVIDERS: PCP Family Medicine; Visit Provider Family Medicine
DX: I73.9 Peripheral vascular disease, unspecified (principal); L60.3 Nail dystrophy; L84 Corns and callosities; Z13.820 Encounter for screening for osteoporosis; Z78.0 Asymptomatic menopausal state; M85.89 Other specified disorders of bone density and structure, multiple sites; M85.80 Other specified disorders of bone density and structure, unspecified site; I73.00 Raynaud's syndrome without gangrene; L60.8 Other nail disorders; E03.9 Hypothyroidism, unspecified; M20.41 Other hammer toe(s) (acquired), right foot; M20.42 Other hammer toe(s) (acquired), left foot; M21.611 Bunion of right foot; M21.612 Bunion of left foot
CPT/HCPCS: 11056; 11721; 77080

== ENCOUNTER → 2024-12-24 13:02 | Outpatient (BNVA) | payer MEDICARE, MEDICAID, SELFPAY | PROVIDERS: PCP Family Medicine; Visit Provider Orthopaedic Surgery | DX: Z98.890 Other specified postprocedural states (principal) | CPT/HCPCS: 99024 ==

== ENCOUNTER 2024-12-26 14:13 | Outpatient (CLI) | payer MEDICARE, MEDICAID, SELFPAY ==
--- NOTE | 2024-12-26 14:45 | CT_ITS ---
WS: [id number] LDCT LUNG CANCER SCREENING TECHNIQUE: Noncontrast CT of the chest with coronal and sagittal reformatted images. CLINICAL INFORMATION: screening COMPARISON: CT lung screening 10/16/2023 DLP: 49.42 mGy.cm DIvol: Mean CTDIvol: 0.90 (mGy) All CT scans at [facility] use at least one of these dose optimization techniques: automated exposure control; mA and/or kV adjustment per patient size (includes targeted exams where dose is matched to clinical indication); or iterative reconstruction. FINDINGS: Calcified granuloma LEFT lower lobe. No new suspicious pulmonary parenchymal abnormalities. Subsegmental atelectasis in the lung bases. No mediastinal or hilar lymphadenopathy. Mild aortic calcification. Thoracic kyphosis. Small LEFT adrenal adenoma measuring 10 mm. Slightly nodularity RIGHT adrenal gland. Tiny RIGHT renal cyst. Normal GE junction. No axillary lymphadenopathy. Coronary calcification. Prior kyphoplasty changes in the lower thoracic spine with chronic compression approximately T11. CT/CT lung screening [id number] IMPRESSION: LUNG-RADS: 1-Negative FOLLOW UP: 12 Month: Continue annual screening with LDCT
== END 2024-12-26 14:14 | disposition home or self-care (01) ==
LOC: RAD 14:13
PROVIDERS: PCP Family Medicine; Visit Provider Family Medicine
DX: Z12.2 Encounter for screening for malignant neoplasm of respiratory organs (principal); F17.219 Nicotine dependence, cigarettes, with unspecified nicotine-induced disorders; R91.1 Solitary pulmonary nodule; D35.02 Benign neoplasm of left adrenal gland; S22.080A Wedge compression fracture of T11-T12 vertebra, initial encounter for closed fracture; X58.XXXD Exposure to other specified factors, subsequent encounter
CPT/HCPCS: 71271

== ENCOUNTER → 2025-01-03 09:03 | Outpatient (BNVA) | payer MEDICARE, MEDICAID, SELFPAY | PROVIDERS: PCP Family Medicine; Visit Provider Family Medicine | DX: N61.1 Abscess of the breast and nipple (principal) | CPT/HCPCS: 87070; 87075; 87205 ==

== ENCOUNTER → 2025-01-06 14:36 | Outpatient (BNVA) | payer MEDICARE, MEDICAID, SELFPAY | PROVIDERS: PCP Family Medicine; Visit Provider Nurse Practitioner | DX: M19.012 Primary osteoarthritis, left shoulder (principal); S42.032D Displaced fracture of lateral end of left clavicle, subsequent encounter for fracture with routine healing; W19.XXXD Unspecified fall, subsequent encounter | CPT/HCPCS: 20610; 73030; 99214; J1100; J2795; J3301; J9999 ==

== ENCOUNTER → 2025-02-03 15:37 | Outpatient (BNVA) | payer MEDICARE, MEDICAID, SELFPAY | PROVIDERS: PCP Family Medicine; Visit Provider Nurse Practitioner | DX: M17.11 Unilateral primary osteoarthritis, right knee (principal); M21.161 Varus deformity, not elsewhere classified, right knee | CPT/HCPCS: 20610; 73560; 73565; 99214; J1100; J2795; J3301; J9999 ==

== ENCOUNTER → 2025-02-04 13:31 | Outpatient (BNVA) | payer MEDICARE, MEDICAID, SELFPAY | PROVIDERS: PCP Family Medicine; Visit Provider Orthopaedic Surgery | DX: Z98.890 Other specified postprocedural states (principal) | CPT/HCPCS: 99024 ==

== ENCOUNTER → 2025-02-24 10:24 | Outpatient (BNVA) | payer MEDICARE, MEDICAID, SELFPAY | PROVIDERS: PCP Family Medicine; Visit Provider Dermatology | DX: L73.9 Follicular disorder, unspecified (principal); L30.0 Nummular dermatitis; R20.2 Paresthesia of skin; L82.1 Other seborrheic keratosis; L82.0 Inflamed seborrheic keratosis; L53.8 Other specified erythematous conditions; L29.89 Other pruritus; L57.0 Actinic keratosis | CPT/HCPCS: 17000; 17110; 99214 ==

== ENCOUNTER → 2025-02-27 11:22 | Outpatient (BNVA) | payer MEDICARE, MEDICAID, SELFPAY | PROVIDERS: PCP Family Medicine; Visit Provider Podiatrist Foot & Ankle Surgery | DX: I73.00 Raynaud's syndrome without gangrene (principal); F17.200 Nicotine dependence, unspecified, uncomplicated; M79.673 Pain in unspecified foot; I73.9 Peripheral vascular disease, unspecified; E03.9 Hypothyroidism, unspecified; L84 Corns and callosities; M20.41 Other hammer toe(s) (acquired), right foot; M20.42 Other hammer toe(s) (acquired), left foot; M21.611 Bunion of right foot; M21.612 Bunion of left foot | CPT/HCPCS: 99214 ==

== ENCOUNTER 2025-03-14 14:17 | Outpatient (CLI) | payer MEDICARE, MEDICAID, SELFPAY ==
--- NOTE | 2025-03-14 14:30 | USR_ITS ---
PROCEDURE INFORMATION: Exam: US Duplex Bilateral Lower Extremity Arteries Exam date and time: 03/14/2025 3:15 PM Age: 70 years old Clinical indication: Screening exam; Surgical planning TECHNIQUE: Imaging protocol: Real-time ultrasound scan of the arteries of the bilateral lower extremities with 2-D rodriguez scale, color Doppler flow and spectral waveform analysis. Images documented and saved. COMPARISON: US soft tissue/extremity [id number] 10/27/2022 2:21 PM FINDINGS: Right common femoral artery: No occlusion or significant stenosis. Normal waveform. Right superficial femoral artery: No occlusion or significant stenosis. Normal waveform. Right popliteal artery: No occlusion or significant stenosis. Normal waveform. Right calf/foot arteries: No occlusion or significant stenosis in the visualized arteries. Normal waveforms. Dorsalis pedis artery is patent. Left common femoral artery: No occlusion or significant stenosis. Normal waveform. Left superficial femoral artery: No occlusion or significant stenosis. Normal waveform. Left popliteal artery: No occlusion or significant stenosis. Normal waveform. Left calf/foot arteries: No occlusion or significant stenosis in the visualized arteries. Normal waveforms. Dorsalis pedis artery is patent. Right Ankle-Brachial Index: Not calculable due to noncompressible dorsalis pedis. Left Ankle-Brachial Index: 1.18 US/[place] [id number] IMPRESSION: No stenosis or occlusion.
== END 2025-03-14 14:18 | disposition home or self-care (01) ==
PROVIDERS: PCP Family Medicine; Visit Provider Podiatrist Foot & Ankle Surgery
DX: Z01.818 Encounter for other preprocedural examination (principal); F17.200 Nicotine dependence, unspecified, uncomplicated
CPT/HCPCS: 93925

== ENCOUNTER → 2025-03-17 14:35 | Outpatient (BNVA) | payer MEDICARE, MEDICAID, SELFPAY | PROVIDERS: PCP Family Medicine; Visit Provider Internal Medicine Cardiovascular Disease | DX: R94.39 Abnormal result of other cardiovascular function study (principal); I49.9 Cardiac arrhythmia, unspecified; I10 Essential (primary) hypertension; R00.0 Tachycardia, unspecified; I73.9 Peripheral vascular disease, unspecified; Z71.6 Tobacco abuse counseling; F17.210 Nicotine dependence, cigarettes, uncomplicated; Z86.73 Personal history of transient ischemic attack (TIA), and cerebral infarction without residual deficits | CPT/HCPCS: 99214 ==

== ENCOUNTER → 2025-04-02 14:05 | Outpatient (BNVA) | payer MEDICARE, MEDICAID, SELFPAY | PROVIDERS: PCP Family Medicine; Visit Provider Nurse Practitioner Family | DX: L23.9 Allergic contact dermatitis, unspecified cause (principal); L72.0 Epidermal cyst; L30.0 Nummular dermatitis; D22.39 Melanocytic nevi of other parts of face; L82.0 Inflamed seborrheic keratosis; Z78.9 Other specified health status; L29.89 Other pruritus; D48.5 Neoplasm of uncertain behavior of skin | CPT/HCPCS: 11102; 17110; 99214 ==

== ENCOUNTER → 2025-04-14 14:11 | Outpatient (BNVA) | payer MEDICARE, MEDICAID, SELFPAY | PROVIDERS: PCP Family Medicine; Visit Provider Nurse Practitioner | DX: M19.012 Primary osteoarthritis, left shoulder (principal) | CPT/HCPCS: 20610; J1100; J2795; J3301; J9999 ==

== ENCOUNTER → 2025-04-29 12:43 | Outpatient (BNVA) | payer MEDICARE, MEDICAID, SELFPAY | PROVIDERS: PCP Family Medicine; Visit Provider Podiatrist Foot & Ankle Surgery | DX: I73.9 Peripheral vascular disease, unspecified (principal); I73.00 Raynaud's syndrome without gangrene; E03.9 Hypothyroidism, unspecified; L84 Corns and callosities; M79.673 Pain in unspecified foot; F17.200 Nicotine dependence, unspecified, uncomplicated; M20.41 Other hammer toe(s) (acquired), right foot; M20.42 Other hammer toe(s) (acquired), left foot; M21.611 Bunion of right foot; M21.612 Bunion of left foot | CPT/HCPCS: 99213 ==

== ENCOUNTER → 2025-05-05 14:43 | Outpatient (BNVA) | payer MEDICARE, MEDICAID, SELFPAY | PROVIDERS: PCP Family Medicine; Visit Provider Nurse Practitioner | DX: M17.11 Unilateral primary osteoarthritis, right knee (principal); M21.161 Varus deformity, not elsewhere classified, right knee; Z72.0 Tobacco use | CPT/HCPCS: 99214 ==